=== PATIENT | male | born 1945 | race Caucasian/White ===

== ENCOUNTER 2023-10-09 14:24 | Outpatient (OUT) | payer SELFPAY | END 2023-10-09 14:25 | disposition home or self-care (01) | LOC: PST 14:24 | PROVIDERS: Visit Provider Urology | DX: Z01.818 Encounter for other preprocedural examination (principal); R31.0 Gross hematuria; Z85.46 Personal history of malignant neoplasm of prostate ==

== ENCOUNTER 2023-10-12 13:12 | Day surgery (SDC) | payer MEDICARE, OTHER, SELFPAY ==
--- NOTE | 2023-10-12 | XR_ITS ---
The [address] [address] Patient Name: COY TARANGO MRN: [id number] date: 1945 Sex: M Assigned Patient Location: [facility] Current Patient Location: [facility] Accession/Order Number: [id number] Exam Date: 10/12/2023 16:10 Report Date: 10/14/2023 06:31 At the request of: TRIP MATHIS Procedure: XR urethrogram retrograde EXAM: XR urethrogram retrograde HISTORY: kidney stone COMPARISON: None. TECHNIQUE: Intraoperative spot fluoroscopic image. FINDINGS: A single intraprocedural spot fluoroscopic images demonstrate retrograde filling of the ureters and upper collecting systems with contrast. No appreciable filling defect or abnormal dilation. XR/XR urethrogram retrograde IMPRESSION: 1. Patent bilateral ureters. No hydronephrosis. Electronically authenticated by: TAYLOR KIM Date: 10/14/2023 06:31
--- OUTSIDE RECORDS SUMMARY | 2023-10-12 13:39 | XMS_ITS | CCD ---
Author Organization [facility] Care Team Providers Care Uc Architect Name Role Phone NIRAJ PEREZ Unavailable Unavailable UNKNOWN, UNKNOWN Unavailable Unavailable LILLI, SAMIA H. Unavailable Unavailable CAR BROWNING Unavailable Unavailable CAR BROWNING Unavailable Unavailable LILLI, SAMIA H. Unavailable Unavailable DARBY FREEDMAN Unavailable Unavailable CAR BROWNING Unavailable Unavailable LILLI, SAMIA H. Unavailable Unavailable LILLI, SAMIA H. Unavailable Unavailable LILLI, SAMIA H. Unavailable Unavailable Car Browning DO Primary Care Provider [phone] Bari Vitale MD Unavailable [phone] Bari Vitale Unavailable DO Carlos Newsome Jr Attending Provider DO Fany Roper Primary Care Provider aFny Roper Primary Care Unavailab Dr. Naz Schultz Referring Unavailable Dr. Naz Kang Attending Unavailable Fany Roper Unavailable Unavailable Unavailable CLAUDIA Landers Other Provider Unavailable CLAUDIA Ma Other Provider Unavailable CLAUDIA Lopez Other Provider Unavailable CLAUDIA Farah Other Provider Unavailable CLAUDIA Olvera Other Provider Unavailable CLAUDIA Garcia Other Provider Unavailable MD George Chadwick Other Provider SAVANNA Henry Other Provider [phone] DO Mira Modi Other Provider MD Johnathon Miles Other Provider DO Smooth Templeton Other Provider MD Shayne Simental Other Provider MD Gena Jordan Other Provider August, ANP-BC Nya Other Provider MD Vannessa Chery Other Provider MD Camilo Galloway Other Provider MD Marjorie Xavier Other Provider MD Ethan Garcia Other Provider DO Fahad Brock Other Provider MD Bari Kelley Other Provider MD Maxine Ozuna Other Provider MD Tone Ferraro Other Provider Marycarmen, DIAMOND DIE DRILLER-C Glenny Doshi Other Provider MD Justnio Metz Other Provider MD Kojo Stock Other Provider MD Siena Watts Other Provider MD Uriel Gamboa Other Provider DO Bridget Keyes Other Provider Al MD Judy Kelly Other Provider DO Ra Arnold Other Provider DO Pramod Suarez Other Provider SAVANNA Grover Other Provider DO Kaden Esparza Other Provider MD Giuliano Rousseau Other Provider Phyllis, CLAUDIA Pratt Other Provider Unavailable MD Pa Holloway Admit Provider MD Pa Holloway Attending Provider MD Phil Cabezas Other Provider Dr. NAZ KANG Attending Unavailable Dr. KIMBERLEE NAZ Referring Unavailable Judson, Fany Henry Primary Care Unavailab le KIMBERLEE, Dr. ARRIETA Attending Unavailable KIMBERLEE, Dr. ARRIETA Referring Unavailable Judson, Fany Henry Primary Care Unavailab le KIMBERLEE, Dr. ARRIETA Attending Unavailable KANG, Dr. ARRIETA Referring Unavailable Judson, Fany Figueroa Primary Care Unavailab vaughn Vitale MD, Bari Judge Unavailable [phone] Judson, Fany Dongold Primary Care Provider Frank Jiménez Unavailable Judson, DO Curtis R Primary Care Provider MD Frank Jiménez Attending Provider DO Dontrell Latif Emergency Provider Anahy YANGIAGO, FANY HENRY Primary Care Unavailab GUNNER Gan Referring Unavailable Judson KADEEM, Fany Figueroa Primary Care Provide r Judson, DO Curtis R Primary Care Provider DEEPA Angelo Juliane Attending Provider Angelo, Juliane Unavailable Car Browning DO Primary Care Provider JR. NEWSOME GEORGE C Referring Unavaila ble MAPUS, RAYO Doshi Attending Unavailable JR. NEWSOME GEORGE C Referring Unavaila ble MAPUS, RAYO Doshi Attending Unavailable Judson, DO Curtis R Primary Care Provider DO Dontrell Latif Emergency Provider JAY JAY Estrella Attending Provider JUDSON, FANY R Primary Care Physician MD Ashwin Mathis Attending Provider Angelo, Juliane Attending Unavailable Petey, Juliane Admitting Unavailable Judson, Fany R Primary Care Unavailable Judson, Fany R Primary Care Unavailable Ashwin Mathis Attending Unavailable Ashwin Mathis Admitting Unavailable Judson, Fany R Primary Care Unavailable Agustina Quintero Attending Unavailable Agustina Quintero Admitting Unavailable Judson, Fany R Primary Care Unavailable Frank Jiménez Attending Unavailable Frank Jiménez Admitting Unavailable Judson, Fany R Primary Care Unavailable Dontrell Latif Attending Unavailable Dontrell Latif Admitting Unavailable Judson, Fany R Primary Care Unavailable Dontrell Latif Attending Unavailable Dontrell Latif Admitting Unavailable MATHIS, Ashwin R Attending Unavailable MATHIS, Ashwin R Attending Unavailable MATHIS, Ashwin R Attending Unavailable MATHIS, Ashwin R Admitting Unavailable MATHIS, Ashwin R Attending Unavailable Judson [facility] Provide r JUDSON, [facility] Unavailab le SWAN, R BAIRON Referring Unavailable JUDSON, [facility] Unavailab le SWAN, R BAIRON Attending Unavailable SWAN, R BAIRON Referring Unavailable SWAN, R BAIRON Attending Unavailable JUDSON, [facility] Unavailab le JUDSON, [facility] Unavailab le SWAN, R BAIRON Attending Unavailable JUDSON, [facility] Unavailab le SWAN, R BAIRON Attending Unavailable JUDSON, [facility] Unavailab le SWAN, R BAIRON Referring Unavailable JUDSON, [facility] Unavailab le SWAN, R BAIRON Referring Unavailable Allergies Allergy Classification Reported Allergen(s) Allergy Type Date of Onset Reaction(s) Facility (1 source) No Known Medication Allergies; Translations: [No Known Medication Allergies] Propensity to adverse reactions (disorder) [facility] Repository Medications Current Medications Medication Drug Class(es) Dates Sig (Normalized) Sig (Original) acetaminophen 500 mg oral tablet (19 sources) Start: 03-01-2022 take 1000 mg by mouth three times daily Acetaminophen Active 1000 MG PO Three times daily 0 March 01, 2022 12:00am Start: 01-04-2021 End: 06-08-2022 take 2-3 tablets by mouth once daily acetaminophen (TYLENOL EXTRA STRENGTH) 500 mg tablet 1000mg orally 2-3 per day, max 0 01/04/2021 06/08/2022 Discontinued (Course of therapy completed) Comment on above: 1000mg orally 2-3 pe r day, max acetaminophen 325 mg / oxyCODONE hydrochloride 5 mg oral tablet (19 sources) Opioid Agonist Start: 3 End: 3 take 1 tablet by mouth every four hours as needed for pain oxyCODONE-acetaminophe n (PERCOCET) 5-325 mg tablet Indications: Postoperative pain Take 1 tablet by mouth every 4 hours as needed for pain for up to 7 days. for pain. 42 tablet 0 09/29/2022 10/06/2022 Active Start: 10-19-2020 take 1 tablet by tyshawn th twice daily as needed oxyCODONE-Acetaminophen 5-325 MG 1 table t as needed Orally twice daily as needed for 30 days Oct, Active Start: 2018 End: 04-20-2018 take 2 tablets by mouth every four hours Oxycodone-Acetaminophen (Percocet) 5-325 mg tablet Discontinued 2 TAB PO Q4H 20 2018 April 20, 2018 3:23pm Comment on above: Take 1 tablet by tyshawn th every 4 hours as needed for pain for up to 7 days. for pain. aspirin 81 mg delayed release oral tablet (8 sources) Platelet Aggregation Inhibitor, Nonsteroidal Anti-inflammatory Drug Start: 03-01-2022 take 81 mg by mouth twice daily Aspirin Active 81 MG PO Twice daily 0 March 01, 2022 12:00am take 1 tablet by mouth once shameka y Aspirin EC 81 MG Oral Tablet Delayed Release TAKE 1 TABLET DAILY. Quantity: 90 Refills: 3 Ordered: 07-Feb-2022 DO Active atorvastatin 20 mg oral tablet (20 sources) HMG-CoA Reductase Inhibitor Start: 03-01-2022 take 1 mg by mouth once daily atorvastatin 20 mg Tab mg tab(s), Oral, Daily Start Date: 08/23/23 Status: Ordered Start: 03-10-2017 End: 03-01-2022 take 20 mg by mouth once daily Atorvastatin Discontinu ed 20 MG PO Daily March 10, 2017 12:00am March 01, 2022 1:04pm Start: 06-06-2003 LIPITOR 10MG T ABLET Take 20 mg by mouth. 0 06/06/2003 Active Atorvastatin Scott cium 10 MG Oral Tablet Quantity: 0 Refills: 0 Ordered: 22-Oct-2015 DO Active Comment on above: Take 20 mg by mouth. bisacodyl 10 mg rectal suppository (6 sources) Stimulant Laxative Start: 03-01-20 Bisacodyl Active 10 MG NH Daily March 01, 2022 12:00am cholecalciferol 0.025 mg oral tablet (1 source) Vitamin D take 1 tablet by mouth once daily cholecalciferol (VITAMIN D3) 1,000 unit tab tablet Take 1,000 Units by mouth once daily. 0 Active docusate sodium 100 mg oral capsule (13 sources) Start: 03-01-20 End: 10-30-19 take 100 mg by mouth twice daily Docusate Sodium Active 100 MG PO Twice daily March 01, 2022 12:00am Start: 03-01-2022 Docusate Sodiu m (Enemeez) 283 mg/5 mL Enema Active 283 MG NH Daily 0 March 01, 2022 12:00am Comment on above: Take 1 capsule by mo uth twice daily. gabapentin 100 mg oral capsule (20 sources) Anti-epileptic Agent Start: 08-23-2023 take 1 mg by mouth three times daily gabapentin 100 mg Cap mg cap(s), Oral, TID Start Date: 08/23/23 Status: Ordered Start: 02-01-2022 End: 02-17-2022 take 700 mg by mouth twice daily Gabapentin Discontinued 700 MG PO Twice daily February 01, 2022 12:00am February 17, 2022 7:51pm Gabapentin 800 M G as directed Orally twice daily Active take 7 tablets by mo ut twice daily Gabapentin 100 MG Oral Capsule takes 7 tabs 2 times a day Quantity: 0 Refills: 0 Ordered: 07-Feb-2022 DO Active take 7 tablets by mo ut twice daily GABAPENTIN ORAL Take by mouth. Take seven tablets twice a day 0 Active Comment on above: Take by mouth. Take seven tablets twice a day Insulin Aspart U-100 (Novolog Flexpen U-100 Insulin) 100 unit/mL (3 mL) Insulin Pen (6 sources) Start: 03-01-2022 Insulin Aspart U-100 (Novolog Flexpen U-100 Insulin) 100 unit/mL (3 mL) Insulin Pen Active 0 UNITS SUBCUT Before meals and at bedtime March 01, 2022 12:00am Lantus (20 sources) Insulin Analog Start: 08-23-2023 Lantus SubCutaneous, Daily Start Date: 08/23/23 Status: Ordered Start: 03-01-2022 Insulin Glargi ne (Lantus Solostar U-100 Insulin) 100 unit/mL (3 mL) Insulin Pen Active 34 UNITS SUBCUT Twice daily 0 March 01, 2022 12:00am Start: 03-18-2018 End: 03-01-2022 Insulin Glargine (Lantus Gloria ostar U-100 Insulin) 100 unit/mL (3 mL) Insulin Pen Discontinued 30 UNIT SUBCUT Twice daily March 18, 2018 1:00am March 01, 2022 1:04pm Start: 03-18-2018 Insulin Glargi ne (Lantus Solostar U-100 Insulin) 100 unit/mL (3 mL) Insulin Pen Active 35 UNIT SUBCUT Twice daily March 18, 2018 1:00am inject 45 [IU] by escobar bcutaneous injection twice daily insulin glargine (LANTUS) 100 unit/mL injection Inject 45 Units subcutaneously twice daily. 0 Active inject 55 [IU] by escobar bcutaneous injection once daily Lantus 100 UNIT/ML Subcutaneous Daily 55 units Active Comment on above: Inject 45 Units subc utaneously twice daily. lactulose 667 mg/ml oral solution (6 sources) Osmotic Laxative Start: 2 take 30 g by mouth once daily Lactulose Active 30 GM PO Daily 0 March 01, 2022 12:00am lisinopril 20 mg oral tablet (20 sources) Angiotensin Converting Enzyme Inhibitor Start: 4 take 1 mg by mouth once daily lisinopril 20 mg Tab mg tab(s), Oral, Daily Start Date: 08/23/23 Status: Ordered Start: 03-01-2022 take 10 mg by mouth once daily Lisinopril Active 10 MG PO Daily 0 March 01, 2022 12:00am Start: 03-10-2017 End: 03-01-2022 take 20 mg by mouth once daily Lisinopril Discontinued 20 MG PO Daily March 10, 2017 12:00am March 01, 2022 1:04pm Start: 06-06-2003 End: 06-08-2022 PRINIVIL 10MG TABLET Take 40 mg by mouth. 0 06/06/2003 06/08/2022 Discontinued (Course of therapy completed) lisinopril (ZEST RIL, PRINIVIL) 20 mg tablet Take by mouth q 12 HR. 0 Active take 1 tablet by tyshawn th every twelve hours Lisinopril 20 mg 1 tablet Orally bid Active take 2 tablets by mo okh once daily Lisinopril 20 MG Oral Tablet TAKE 2 TABLETS DAILY. Quantity: 0 Refills: 0 Ordered: 07-Feb-2022 DO Active Comment on above: Take 40 mg by mouth. Take by mouth q 12 H R. methocarbamol 750 mg oral tablet (3 sources) Muscle Relaxant Start: 09-30-19 End: 10-14-19 take 1 tablet by mouth three times daily methocarbamol (ROBAXIN) 750 mg tablet Take 1 tablet by mouth three times daily for 14 days. 42 tablet 0 09/29/2022 10/13/2022 Active Comment on above: Take 1 tablet by [facility] three times daily for 14 days. mupirocin 0.02 mg/mg topical ointment (3 sources) RNA Synthetase Inhibitor Antibacterial Start: 09-28-19 End: 10-03-19 mupirocin (BACTROBAN) 2 % ointment two times a day for 5 days. Apply 0.5 inch with cotton swab (Q-tip) to each nostril in the morning and evening for 5 days prior to and including day of surgery. 22 g 0 09/28/2023 10/03/2023 Active Start: 06-08-2022 End: 06-13-2022 mupirocin (BACTROBAN) 2 % oi ntment twice daily for 5 days. Apply 0.5 inch with cotton swab (Q-tip) to each nostril in the morning and evening for 5 days prior to and including day of surgery. 22 g 0 06/08/2022 06/13/2022 Active Comment on above: twice daily for 5 da ys. Apply 0.5 inch with cotton swab (Q-tip) to each nostril in the morning and evening for 5 days prior to and including day of surgery. OTC NUTRITIONAL SUPPLEMENT (1 source) OTC NUTRITIONAL SUPPLEMENT Take by mouth once daily. Prevagen-Memory Supplement 0 Active Ozempic (13 sources) Start: 03-01-2022 Ozempic Active 1 mg subcut Escobar@0900 0 March 01, 2022 12:00am Ozempic Active Ozempic (1 mg dose) (4 sources) Start: 08-23-2023 Ozempic (1 mg dose) Start Date: 08/23/23 Status: Ordered pioglitazone 30 mg oral tablet (9 sources) Peroxisome Proliferator Receptor alpha Agonist, Peroxisome Proliferator Receptor gamma Agonist, Thiazolidinedione Start: 08-23-2023 take 1 mg by mouth once daily pioglitazone 30 mg Tab mg tab(s), Oral, Daily Start Date: 08/23/23 Status: Ordered take 1 tablet by tyshawn every twenty-four hours Pioglitazone HCl 15 MG 1 tablet Orally Once a day Active polyethylene glycol 3350 01548 mg powder for oral solution (4 sources) Osmotic Laxative Start: 10-10-2022 Polyethylene Glycol 3350 (Miralax) 17 gram/dose powder Active 17 GM PO Twice daily October 10, 2022 12:00am mix into 4-8 oz. of any hot/cold/room temp. beverage; use immediately Psyllium Husk (Metamucil) 0.4 gram capsule (4 sources) Start: 10-10-2022 Psyllium Husk (Metamucil) 0.4 gram capsule Active 0.4 GM PO Daily October 10, 2022 12:00am semaglutide (OZEMPIC SUBCUTANEOUS) (20 sources) semaglutide (OZE MPIC SUBCUTANEOUS) Inject subcutaneously. Once a week 0 Active Comment on above: Inject subcutaneousl y. Once a week Sennosides (Senna Lax) 8.6 mg Tablet (6 sources) Start: 03-01-2022 take 2 tablets by mouth once daily Sennosides (Senna Lax) 8.6 mg Tablet Active 2 TAB PO DAILY@1200 0 March 01, 2022 12:00am thiamine 100 mg oral tablet (4 sources) Start: 08-23-2023 take 1 mg by mouth once daily thiamine 100 mg Tab mg tab(s), Oral, Daily Start Date: 08/23/23 Status: Ordered Vitamin B Complex (5 sources) Vitamin B Comple x - Orally Active Completed/Discontinued Medications Medication Drug Class(es) Dates Sig (Normalized) Sig (Original) acetaminophen 325 mg / HYDROcodone bitartrate 5 mg oral tablet (18 sources) Opioid Agonist Start: 04-26-2018 End: 07-03-2019 take 1 tablet by mouth every six hours Hydrocodone-Acetami nophen ([place]) 5-325 mg tablet Discontinued 1 TAB PO Q6H 10 3 April 26, 2018 July 03, 2019 8:48am Start: 04-20-2018 End: 04-26-2018 take 1 tablet by mouth every four to six hours Hydrocodone-Acetaminophen ([place]) 5-325 mg tablet Discontinued 1 TAB PO EVERY 4-6 HOURS 10 April 20, 2018 April 26, 2018 2:18pm baclofen 20 mg oral tablet (13 sources) gamma-Aminobutyric Acid-ergic Agonist Start: 12-15-2020 End: 06-08-2022 take 0.5 tablet by mouth at bedtime as needed, then take 1 tablet by mouth at bedtime as needed baclofen (LIORESAL) 20 mg tablet TAKE 1/2 TABLET BY MOUTH AT BEDTIME NEEDED MAY INCREASE TO 1 TABLET AT BEDTIME IF NEEDED 0 12/15/2020 06/08/2022 Discontinued (Course of therapy completed) Comment on above: TAKE 1/2 TABLET BY MOUTH AT BEDTIME N EEDED MAY INCREASE TO 1 TABLET AT BEDTIME IF NEEDED cephalexin 500 mg oral capsule (4 sources) Cephalosporin Antibacterial Start: 09-15-2023 Keflex 500 mg Cap 500 mg = 1 cap(s), Oral, As Directed, Pt to take 1 tab the day before procedure and the 2nd tab the day of procedure once completed., # 2 cap(s), Refills(s) 0, Pharmacy: [id number], 170, cm, 09/15/23 10:24:00 EDT, Height/Length Dosing, 125, kg, 09/15/23 10:24:00 EDT, Weight Dosing Start Date: 09/15/23 Status: Ordered Start: 07-10-2023 take 500 mg by mouth twice daily Cephalexin Active 500 MG PO Twice daily 18 11July 10, 2023 1:00am ciprofloxacin 500 mg oral tablet (2 sources) Quinolone Antimicrobial Start: 08-23-2023 Cipro 500 mg Tab 500 mg = 1 tab(s), Oral, As Directed, Patient to take 1 tab the day before procedure and the 2nd tab the day of procedure once completed, # 2 tab(s), Refills(s) 0, Pharmacy: [id number], 170, cm, 08/23/23 10:48:00 EDT, Height/Length Dosing, 125, kg, 08/23/23 10:48:00 EDT, Weight Dosing Start Date: 08/23/23 Status: Ordered Cyanocobalamin (Vitamin B-12) (Vitamin B-12) 5,000 mcg Tablet, Sublingual (9 sources) Start: 03-10-2017 End: 02-01-2022 take 1 tablet under the tongue once daily Cyanocobalamin (Vitamin B-12) (Vitamin B-12) 5,000 mcg Tablet, Sublingual Discontinued 5000 MCG SUBLINGUAL Daily March 10, 2017 12:00am February 01, 2022 4:08pm cyanocobalamin, vitamin B-12, (VITAMIN B-12 ORAL) (13 sources) End: 06-08-2022 cyanocobalamin, vitamin B-12, (VITAMIN B-12 ORAL) Take 1,000 Units by mouth. 0 06/08/2022 Discontinued (Course of therapy completed) cyanocobalamin, vitamin B-12, (VITAMIN B-12 ORAL) Take 1,000 Units by mouth. 0 Active Comment on above: Take 1,000 Units by mouth. diclofenac sodium 75 mg delayed release oral tablet (9 sources) Nonsteroidal Anti-inflammatory Drug Start: 7 End: 8 take 75 mg by mouth once daily Diclofenac Sodium Discontinued 75 MG PO Daily March 10, 2017 12:00am March 18, 2018 8:02pm DULoxetine 30 mg delayed release oral capsule (9 sources) Serotonin and Norepinephrine Reuptake Inhibitor Start: 7 End: 8 take 30 mg by mouth twice daily Duloxetine Discontinued 30 MG PO Twice daily March 10, 2017 12:00am March 18, 2018 8:02pm ferrous sulfate 325 mg oral tablet (20 sources) Start: 7 End: ferrous sulfate (IRON) 325 mg (65 mg iron) tablet 65 mg. 0 03/10/2017 06/08/2022 Discontinued (Course of therapy completed) Iron 325 (65 Fe) MG Oral Tablet Quantity: 0 Refills: 0 Ordered: 22-Oct-2015 DO Active Comment on above: 65 mg. glimepiride 4 mg oral tablet (13 sources) Sulfonylurea Start: 06-06-2003 End: 06-08-2022 AMARYL 4MG TABLET glipiZIDE 10 mg oral tablet (18 sources) Sulfonylurea Start: 03-18-2018 End: 02-01-2022 take 10 mg by mouth twice daily Glipizide Discontinued 10 MG PO Twice daily March 18, 2018 1:00am February 01, 2022 4:12pm take 1.5 tablets by mouth every twenty-four hours glipiZIDE 10 MG Oral Tablet Quantity: 0 Refills: 0 Ordered: 22-Oct-2015 DO Active Insulin Aspart U-100 (Novolog U-100 Insulin Aspart) 100 unit/mL Solution (9 sources) Start: 04-20-2018 End: 02-01-2022 inject 30 [IU] by subcutaneous injection twice daily Insulin Aspart U-100 (Novolog U-100 Insulin Aspart) 100 unit/mL Solution Discontinued 30 UNITS SUBCUT Twice daily April 20, 2018 1:00am February 01, 2022 4:12pm 3 ml insulin aspart, human 100 unt/ml pen injector (14 sources) Insulin Analog Start: 03-18-2018 End: 07-03-2019 Insulin Aspart U-100 (Novolog Flexpen U-100 Insulin) 100 unit/mL Insulin Pen Discontinued 16 UNIT SUBCUT once daily before breakfast March 18, 2018 1:00am July 03, 2019 8:47am NovoLOG 100 UNIT /ML as directed Subcutaneous Active Iron (9 sources) Start: 03-10-2017 End: 02-01-2022 take 65 mg by mouth once daily Iron Discontinued 65 MG PO Daily March 10, 2017 12:00am February 01, 2022 4:12pm 3 ml liraglutide 6 mg/ml pen injector (20 sources) GLP-1 Receptor Agonist Start: 02-01-2022 End: 02-20-2022 Liraglutide (Victoza 2-Roberto) 0.6 mg/0.1 mL (18 mg/3 mL) Pen Injector Discontinued 1 MG SUBCUT every week February 01, 2022 12:00am February 20, 2022 3:51pm takes on Monday inject 1.8 mg by sub cutaneous injection once daily liraglutide (VICTOZA) 0.6 mg/ 0.1 ml subcutaneous pen injector Inject 1.8 mg subcutaneously once daily. 0 Active Comment on above: Inject 1.8 mg subcut aneously once daily. metFORMIN hydrochloride 500 mg oral tablet (20 sources) Biguanide Start: 06-06-2003 End: 06-08-2022 Metformin Discontinued TABLET May 29, 2017 1:00am March 18, 2018 8:02pm metFORMIN HCl - 1000 MG Oral Tablet Quantity: 0 Refills: 0 Ordered: 22-Oct-2015 DO Active Comment on above: Take one(1) tablet d aily. Multi Complete CAPS (2 sources) Multi Complete C APS TAKE DIRECTED. Quantity: 0 Refills: 0 Ordered: 07-Feb-2022 DO Active Semaglutide (6 sources) Start: 2 End: 2 inject 1 mg by subcutaneous injection every week Semaglutide (Ozempic) 1 mg/dose (4 mg/3 mL) Pen Injector Discontinued 1 MG SUBCUT every week February 20, 2022 12:00am March 01, 2022 1:04pm TAKES ON MONDAY Problems Active Problems Problem Classification Problem Date Documented Da te Episodic/Chronic Abdominal pain (7 sources) Right upper quadrant pain; Translations: [Right upper quadrant pain] Episodic Acute cerebrovascular disease (4 sources) Cerebrovascular accident 08-23-2023 Chronic Acute posthemorrhagic anemia (14 sources) Anemia following acute postoperative blood loss; Translations: [Acute posthemorrhagic anemia] 02-18-2022 Episodic Administrative/social admission (7 sources) Other reduced mobility; Translations: [Impaired mobility and activities of daily living] 02-19-2022 Episodic Alcohol-related disorders (11 sources) Alcohol abuse; Translations: [Alcohol abuse, uncomplicated] Onset: 3 06-08-2022 Chronic Cancer of prostate (4 sources) Malignant tumor of prostate 08-18-2023 Chronic Cancer of prostate (20 sources) History of malignant neoplasm of prostate; Translations: [Personal history of malignant neoplasm of prostate] Onset: 2 Episodic Chronic kidney disease (20 sources) Chronic kidney disease stage 3; Translations: [Stage 3 chronic kidney disease] Onset: 3 02-18-2022 Chronic Chronic kidney disease (1 source) Chronic kidney disease; Translations: [Chronic kidney disease, stage 3 unspecified] Onset: 4 Complications of surgical procedures or medical care (3 sources) Pseudarthrosis following spinal fusion; Translations: [Pseudarthrosis after fusion or arthrodesis] Episodic Coronary atherosclerosis and other heart disease (17 sources) Coronary arteriosclerosis; Translations: [Coronary atherosclerosis of unspecified type of vessel, venetie ira or graft] Onset: 2 Chronic Deficiency and other anemia (2 sources) Anemia, unspecified Episodic Diabetes mellitus with complications (20 sources) Type 2 diabetes mellitus; Translations: [Type 2 diabetes mellitus with diabetic polyneuropathy] Onset: 3 Chronic Diabetes mellitus without complication (18 sources) Diabetes mellitus; Translations: [Diabetes mellitus without mention of complication, type II or unspecified type, not stated as uncontrolled] Onset: 2 02-17-2022 Chronic Diabetes mellitus without complication (1 source) Diabetes mellitus without complication Onset: 8 Disorders of lipid metabolism (20 sources) Hyperlipidemia; Translations: [Other and unspecified hyperlipidemia] Onset: 8 02-20-2022 Chronic Essential hypertension (20 sources) Benign essential hypertension; Translations: [Benign essential hypertension] Onset: 8 02-17-2022 Chronic Essential hypertension (1 source) Essential hypertension Onset: 8 Genitourinary symptoms and ill-defined conditions (17 sources) Intermittent urinary incontinence; Translations: [Unspecified urinary incontinence] Onset: 3 06-08-2022 Chronic Genitourinary symptoms and ill-defined conditions (12 sources) History of urinary tract infection; Translations: [Personal history of urinary (tract) infections] Onset: 4 Episodic Mood disorders (11 sources) Major depression, single episode; Translations: [Major depressive disorder, single episode, unspecified] Onset: 3 06-08-2022 Chronic Osteoarthritis (13 sources) Osteoarthritis of hip; Translations: [Unilateral primary osteoarthritis, left hip] 08-23-2023 Chronic Other bone disease and musculoskeletal deformities (1 source) Segmental and somatic dysfunction of cervical region; Translations: [Segmental and somatic dysfunction of cervical region] Onset: 8 Episodic Other circulatory disease (13 sources) History of cardioembolic stroke; Translations: [Personal history of transient ischemic attack (TIA), and cerebral infarction without residual deficits] Onset: 3 Episodic Other connective tissue disease (7 sources) History of total hip arthroplasty; Translations: [Presence of right artificial hip joint] 02-17-2022 Chronic Other connective tissue disease (3 sources) Presence of right artificial hip joint; Translations: [Hip joint replacement] 02-19-2022 Chronic Other connective tissue disease (4 sources) History of lumbar fusion; Translations: [Arthrodesis status] Episodic Other connective tissue disease (9 sources) Foot pain; Translations: [Pain in left foot] 07-03-2019 Episodic Other connective tissue disease (2 sources) Mass of soft tissue; Translations: [Other disorders of soft tissue] Episodic Other connective tissue disease (2 sources) Bursitis of left hip; Translations: [Enthesopathy of hip region] Episodic Other connective tissue disease (1 source) Arthrodesis status; Translations: [S/P lumbar fusion] Onset: 3 Episodic Other gastrointestinal disorders (4 sources) Constipation; Translations: [Constipation, unspecified] 10-10-2022 Episodic Other lower respiratory disease (13 sources) Dyspnea on exertion; Translations: [Other forms of dyspnea] Onset: 3 Episodic Other male genital disorders (12 sources) Secondary erectile dysfunction; Translations: [Male erectile dysfunction, unspecified] Onset: 2 06-08-2022 Chronic Other nervous system disorders (7 sources) Chronic pain; Translations: [Other chronic pain] Chronic Other nervous system disorders (3 sources) Other chronic pain Onset: 2 Resolved: 2 Chronic Other nutritional; endocrine; and metabolic disorders (8 sources) Body mass index 40+ - severely obese; Translations: [Morbid obesity] 02-20-2022 Chronic Other nutritional; endocrine; and metabolic disorders (1 source) Morbid (severe) obesity due to excess calories; Translations: [Morbid obesity] 03-01-2022 Chronic Other nutritional; endocrine; and metabolic disorders (6 sources) Severe obesity; Translations: [Morbid (severe) obesity due to excess calories] Onset: 2 Chronic Other nutritional; endocrine; and metabolic disorders (7 sources) Obesity; Translations: [Obesity, unspecified] Onset: 2 09-12-2022 Chronic Other nutritional; endocrine; and metabolic disorders (2 sources) Body mass index 30+ - obesity; Translations: [Body mass index (BMI) 38.0-38.9, adult] Chronic Other nutritional; endocrine; and metabolic disorders (2 sources) Body mass index (BMI) 38.0-38.9, adult Chronic Other nutritional; endocrine; and metabolic disorders (4 sources) Morbid obesity 08-18-2023 Chronic Other nutritional; endocrine; and metabolic disorders (5 sources) H/O: Disorder; Translations: [Personal history of other endocrine, nutritional and metabolic disease] Onset: 4 Episodic Other screening for suspected conditions (not mental disorders or infectious disease) (4 sources) Electrocardiogram abnormal; Translations: [Nonspecific abnormal electrocardiogram [ECG] [EKG]] Onset: 2 Episodic Residual codes; unclassified (2 sources) Sleep apnea; Translations: [Obstructive sleep apnea (adult)(pediatric)] Chronic Residual codes; unclassified (20 sources) Obstructive sleep apnea syndrome; Translations: [Obstructive sleep apnea (adult) (pediatric)] Onset: 8 02-20-2022 Chronic Residual codes; unclassified (2 sources) Daytime somnolence; Translations: [Other hypersomnia] Chronic Residual codes; unclassified (2 sources) Obstructive sleep apnea (adult) (pediatric) Chronic Residual codes; unclassified (2 sources) Other hypersomnia Chronic Residual codes; unclassified (1 source) Obstructive sleep apnea (adult)(pediatric); Translations: [Obstructive sleep apnea (adult) (pediatric)] Onset: 3 Chronic Residual codes; unclassified (1 source) Pain; Translations: [Pain, unspecified] Episodic Residual codes; unclassified (2 sources) History of operative procedure on lumbar spinal structure; Translations: [Other specified postprocedural states] 02-28-2023 Episodic Residual codes; unclassified (4 sources) Current drinker 08-23-2023 Episodic Residual codes; unclassified (1 source) Other specified postprocedural states; Translations: [Status post lumbar spine operative procedure for decompression of spinal cord] Onset: 4 Episodic Spondylosis; intervertebral disc disorders; other back problems (12 sources) Post-laminectomy syndrome; Translations: [Postlaminectomy syndrome, not elsewhere classified] Onset: 2 Resolved: 2 Chronic Spondylosis; intervertebral disc disorders; other back problems (20 sources) Radiculopathy, lumbosacral region; Translations: [Radiculopathy, site unspecified] Onset: 8 Resolved: 2 Episodic Thyroid disorders (11 sources) Hypothyroidism; Translations: [Hypothyroidism, unspecified] Onset: 3 06-08-2022 Chronic Unclassified (2 sources) Encounter for preprocedural cardiovascular examination / Z01.810(ICD-9) Onset: 8 Unclassified (1 source) Athscl heart disease of [place] coronary artery w/o ang pctrs / I25.10(ICD-9) Onset: 8 Unclassified (1 source) Pure hypercholesterolemia, unspecified / E78.00(ICD-9) Onset: 8 Unclassified (1 source) Personal history of nicotine dependence / Z87.891(ICD-9) Onset: 8 Unclassified (1 source) Dorsalgia, unspecified / M54.9(ICD-9) Onset: 8 Urinary tract infections (2 sources) Acute hemorrhagic cystitis; Translations: [Acute cystitis with hematuria] 07-18-2023 Episodic Past or Other Problems Problem Classification Problem Date Documented Da te Episodic/Chronic Other aftercare (11 sources) Long-term current use of insulin; Translations: [longterm (current) use of insulin] Onset: 02-17-2022 06-08-2022 Episodic Other connective tissue disease (20 sources) Disorder of rotator cuff; Translations: [Other specified disorders of rotator cuff syndrome of shoulder and allied disorders] Onset: 08-12-2003 09-01-2003 Episodic Other gastrointestinal disorders (1 source) Constipation, unspecified; Translations: [Constipation, unspecified] Onset: 10-10-2022 Episodic Other non-traumatic joint disorders (3 sources) Pain in right hip Onset: 09-06-2021 Resolved: 11-10-2021 Episodic Other upper respiratory disease (11 sources) Pharyngeal stenosis; Translations: [Other diseases of pharynx] Onset: 06-08-2022 06-08-2022 Episodic Screening and history of mental health and substance abuse codes (18 sources) Ex-smoker; Translations: [Personal history of tobacco use] Onset: 07-26-2017 06-08-2022 Episodic Substance-related disorders (3 sources) Opioid use, unspecified, uncomplicated Onset: 09-06-2021 Resolved: 11-10-2021 Episodic Unclassified (1 source) Encounter for preprocedural cardiovascular examination; Translations: [Encounter for preprocedural cardiovascular examination] Onset: 07-26-2017 Results Test Name Value Interpretation Reference Range Facility TYPE AND SCREEN,30 DAYon ABO group Nom (Bld) A [facility] Blood group antibody screen Ql Negative [facility] HIstorical Ab Scr Status Negative [facility] Rh Nom (Bld) Positive [facility] Basic metabolic 2000 panelon 09-28-2023 Anion gap [Moles/Vol] 14 mmol/L Normal 9-18 [facility] Comment on above: Order Comment: Speci men Type: BLOOD SPECIMENOrdering Facility: [facility] Address: [address] [place] [address] Performed By: #### 2 4321-2 ####[facility] LABCLIA [id number] [place] [address] [place] Calcium [Mass/Vol] 9.2 mg/dL Normal 8.5-10.2 [facility] Comment on above: Order Comment: Speci men Type: BLOOD SPECIMENOrdering Facility: [facility] Address: [address] [place] [address] Performed By: #### 2 4321-2 ####[facility] LABCLIA [id number] [place] [address] [place] Chloride [Moles/Vol] 97 mmol/L Normal 97-105 [facility] Comment on above: Order Comment: Speci men Type: BLOOD SPECIMENOrdering Facility: [facility] Address: [address] [place] [address] Performed By: #### 2 4321-2 ####[facility] LABCLIA [id number] [place] [address] [place] CO2 [Moles/Vol] 25 mmol/L Normal 22-30 [facility] Comment on above: Order Comment: Speci men Type: BLOOD SPECIMENOrdering Facility: [facility] Address: [address] [place] [address] Performed By: #### 2 4321-2 ####[facility] LABCLIA [id number] [place] [address] [place] Creatinine [Mass/Vol] 1.94 mg/dL High 0.73-1.22 [facility] Comment on above: Order Comment: Deny mendez Type: BLOOD SPECIMENOrdering Facility: [facility] Address: [address] [place] [address] Performed By: #### 2 4321-2 ####[facility] LABIA [id number] [place] [address] [place] Creatinine and Glomerular filtration rate.predicted panel (S/P/Bld) 35 mL/min/1.73m??? Low >=60 [facility] Comment on above: Order Comment: Deny mendez Type: BLOOD SPECIMENOrdering Facility: [facility] Address: [address] [place] [address] Result Comment: Pat mated Glomerular Filtration Rate (eGFR) is calculated using the 2020 CKD-EPI creatinine equation. This equation utilizes serum creatinine, sex, and age as parameters. The creatinine assay has traceable calibration to isotope dilution-mass spectrometry. Refer to KDIGO guidelines for clinical interpretation. In patients with unstable renal function, e.g. those with acute kidney injury, the eGFR may not accurately reflect actual GFR. Performed By: #### 2 4321-2 ####[facility] LABCLIA [id number] [place] [address] [place] Glucose [Mass/Vol] 260 mg/dL High 74-99 [facility] Comment on above: Order Comment: Deny mendez Type: BLOOD SPECIMENOrdering Facility: [facility] Address: [address] [place] [address] Result Comment: The [place] Diabetes Association (ADA) provides guidance for cutoff values for fasting glucose and random glucose. The ADA defines fasting as no caloric intake for at least 8 hours. Fasting plasma glucose results between 100 to 125 mg/dL indicate increased risk for diabetes (prediabetes). Fasting plasma glucose results greater than or equal to 126 mg/dL meet the criteria for diagnosis of diabetes. In the absence of unequivocal hyperglycemia, results should be confirmed by repeat testing. In a patient with classic symptoms of hyperglycemia or hyperglycemic crisis, random plasma glucose results greater than or equal to 200 mg/dL meet the criteria for diagnosis of diabetes. Reference: Standards of Medical Care in Diabetes 2016, [place] Diabetes Association. Diabetes Care. 2016.39(Suppl 1). Performed By: #### 2 4321-2 ####[facility] LABCLIA [id number] [place] [address] [place] Potassium [Moles/Vol] 5.2 mmol/L High 3.7-5.1 [facility] Comment on above: Order Comment: Deny mendez Type: BLOOD SPECIMENOrdering Facility: [facility] Address: [address] [place] [address] Performed By: #### 2 4321-2 ####[facility] LABCLIA [id number] [place] [address] [place] Sodium [Moles/Vol] 136 mmol/L Normal 136-144 [facility] Comment on above: Order Comment: Deny mendez Type: BLOOD SPECIMENOrdering Facility: [facility] Address: [address] [place] [address] Performed By: #### 2 4321-2 ####[facility] LABCLIA [id number] [place] [address] [place] Urea nitrogen [Mass/Vol] 29 mg/dL High 9-24 [facility] Comment on above: Order Comment: Deny mendez Type: BLOOD SPECIMENOrdering Facility: [facility] Address: [address] [place] [address] Performed By: #### 2 4321-2 ####[facility] LABCLIA [id number] [place] [id number] [place] CBC panel Auto (Bld)on 09-27 Erythrocyte distribution width (RBC) [Ratio] 14.1 % 11.5 - 15.0 % [facility] Hematocrit (Bld) [Volume fraction] 43.6 % 39.0 - 51.0 % [facility] Hemoglobin (Bld) [Mass/Vol] 13.9 g/dL 13.0 - 17.0 g/dL [facility] Interpretation and review of laboratory results Abnormal [facility] MCH (RBC) [Entitic mass] 32.7 pg 26. 0 - 34.0 pg [facility] MCHC (RBC) [Mass/Vol] 31.9 g/dL 30.5 - 36.0 g/dL [facility] MCV (RBC) [Entitic vol] 102.6 fL High 80.0 - 100.0 fL [facility] Nucleated RBC (Bld) [#/Vol] NINF [facility] Platelet mean volume (Bld) [Entitic vol] 11.0 fL 9.0 - 12.7 fL [facility] Platelets (Bld) [#/Vol] 160 10*3/uL [facility] RBC (Bld) [#/Vol] 4.25 10*6/uL 4.20 - 6.0 0 m/uL [facility] WBC (Bld) [#/Vol] 8.15 10*3/uL [facility] Erythrocyte distribution width (RBC) [Ratio] 14.1 % Normal 11.5-15.0 [facility] Comment on above: Order Comment: Speci men Type: BLOOD SPECIMENOrdering Facility: [facility] Address: [address] [place] [address] Performed By: #### 5 8410-2 ####[facility] LABIA [id number] [place] [address] [place] Hematocrit (Bld) [Volume fraction] 43.6 % Normal 39.0-51.0 [facility] Comment on above: Order Comment: Speci men Type: BLOOD SPECIMENOrdering Facility: [facility] Address: [address] [place] [address] Performed By: #### 5 8410-2 ####[facility] LABIA [id number] [place] [address] [place] Hemoglobin (Bld) [Mass/Vol] 13.9 g/dL Normal 13.0-17.0 [facility] Comment on above: Order Comment: Speci men Type: BLOOD SPECIMENOrdering Facility: [facility] Address: [address] [place] [address] Performed By: #### 5 8410-2 ####[facility] LABIA [id number] [place] [address] [place] MCH (RBC) [Entitic mass] 32.7 pg Normal 26.0-34.0 [facility] Comment on above: Order Comment: Speci men Type: BLOOD SPECIMENOrdering Facility: [facility] Address: [address] [place] [address] Performed By: #### 5 8410-2 ####[facility] LABIA [id number] [place] [address] [place] MCHC (RBC) [Mass/Vol] 31.9 g/dL Normal 30.5-36.0 [facility] Comment on above: Order Comment: Speci men Type: BLOOD SPECIMENOrdering Facility: [facility] Address: [address] [place] [address] Performed By: #### 5 8410-2 ####[facility] LABIA [id number] [place] [address] [place] MCV (RBC) [Entitic vol] 102.6 fL High 80.0-100.0 [facility] Comment on above: Order Comment: Speci men Type: BLOOD SPECIMENOrdering Facility: [facility] Address: [address] [place] [address] Performed By: #### 5 8410-2 ####[facility] LABIA [id number] [place] [address] [place] Nucleated RBC (Bld) [#/Vol] 10*3/uL Normal <0.01 [facility] Comment on above: Order Comment: Speci men Type: BLOOD SPECIMENOrdering Facility: [facility] Address: [address] [place] [address] Performed By: #### 5 8410-2 ####[facility] LABCLIA [id number] [place] [address] [place] Platelet mean volume (Bld) [Entitic vol] 11.0 fL Normal 9.0-12.7 [facility] Comment on above: Order Comment: Speci men Type: BLOOD SPECIMENOrdering Facility: [facility] Address: [address] [place] [address] Performed By: #### 5 8410-2 ####[facility] LABIA [id number] [place] [address] [place] Platelets (Bld) [#/Vol] 160 10*3/uL Normal 150-400 [facility] Comment on above: Order Comment: Speci men Type: BLOOD SPECIMENOrdering Facility: [facility] Address: [address] [place] [address] Performed By: #### 5 8410-2 ####[facility] LABIA [id number] [place] [address] [place] RBC (Bld) [#/Vol] 4.25 10*6/uL Normal 4.20-6.00 [facility] Comment on above: Order Comment: Speci men Type: BLOOD SPECIMENOrdering Facility: [facility] Address: [address] [place] [address] Performed By: #### 5 8410-2 ####[facility] LABIA [id number] [place] [address] [place] WBC (Bld) [#/Vol] 8.15 10*3/uL Normal 3.70-11.00 [facility] Comment on above: Order Comment: Speci men Type: BLOOD SPECIMENOrdering Facility: [facility] Address: [address] [place] [address] Performed By: #### 5 8410-2 ####[facility] LABIA [id number] [place] [address] [place] ECG COMPLETEon 09-28-2023 ECG COMPLETE Ventricular Rate : 91 BPM Atrial Rate : 91 BPM P-R Interval : 182 ms QRS Duration : 74 ms Q-T Interval : 356 ms QTC Calculation(Bazett) : 437 ms Calculated P Brimfield : 67 degrees Calculated R Brimfield : 25 degrees Calculated T Brimfield : 74 degrees SINUS RHYTHM WITH PREMATURE ATRIAL COMPLEXES OTHERWISE NORMAL ECG Confirmed by ALISHA BARAJAS MD ([id number]) on 10/06/2023 4:24:55 PM NAME : SUMEET PAZ PID : [id number] : 1945 Gender : Male Race : ORD : [id number] Procedure Date : Sep 28 2023 13:49:12 Edit Date : Oct 06 2023 16:24:58 Diagnosis: SINUS RHYTHM WITH PREMATURE ATRIAL COMPLEXES OTHERWISE NORMAL ECG Confirmed by ALISHA BARAJAS MD ([id number]) on 10/06/2023 4:24:55 PM Test Reason : Z01.818 Pre-op evaluation Location : 145 : [place] Overread By : ALISHA BARAJAS MD Edited By : ALISHA BARAJAS MD Referred By : Korina SWAN Acquired by : Gideon juarez [facility] HISTORY PHYSICALon HISTORY PHYSICAL HNO ID: [id number] Author: TYRON COOK APRN.POND SUPERVISOR Service: ? Author Type: Nurse Practitioner Type: H&P Filed: 09/29/2023 10:47 Note Text: HISTORY AND PHYSICAL EXAMINATION SERVICE DATE: 09/28/2023 SERVICE TIME: 1:44 PM PRIMARY CARE PHYSICIAN: Fany Roper DO, PSYD REASON FOR VISIT: Sumeet Paz is a 78 year old male who is scheduled for DECOMPRESSION LAMINECTOMY INTERBODY FUSION LUMBAR POSTERIOR (PLIF) LEVEL 1 POSTERIOR NON-SEGMENTAL INSTRUMENTATION FOLLOWING LUMBAR FUSION 1 LEVEL PDFI INSERTION INTERBODY BIOMED DEVICE(S) W/ANT INSTR ANCHORING TO DISC SPACE W/INTERBODY FUSION,EA INTERSPACE at the request of Dr. Korina Swan for consultation. My final recommendation will be communicated back to the requesting physician by way of shared medical record or letter. Assessment Patient has the following medical conditions which may affect lima-operative course: Essential hypertension Assessment: Stable on medication 102/66 in office today Follows with PCP Hyperlipidemia Assessment: On Statin Follows with PCP Type 2 diabetes mellitus with diabetic polyneuropathy (HCC) Assessment: On Ozempic and lantus Detailed medication instructions given to patient in instructions Hemoglobin A1C (%) Date Value 09/12/2022 7.6 Follows with PCP Arteriosclerosis of coronary artery Assessment: nonobstructive, cardiac catheterization in 2010, which revealed mild plaques, not exceeding 15% to 20% stenosis.-- follows with [facility] Stress test 02/2022 negative HURST (dyspnea on exertion) Assessment: D/t deconditioning and pain Uses scooter can walk short distance Obstructive sleep apnea Assessment: Uses CPAP Stage 3a chronic kidney disease (HCC) Assessment: Stable Creatinine Date Value Ref Range Status 09/12/2022 1.76 (H) 0.73 - 1.22 mg/dL Final 06/08/2022 1.45 (H) 0.73 - 1.22 mg/dL Final Personal history of malignant neoplasm of prostate Assessment: s/p prostatectomy in 2011 No known recurrence History of cardioembolic cerebrovascular accident (CVA) Assessment: Hx of CVA found incidentally on imaging No symptoms or residual Class 3 severe obesity due to excess calories with serious comorbidity and body mass index (BMI) of 40.0 to 44.9 in adult ([facility]) Assessment: Body mass index is 41.51 kg/m?. Santiago Activity Status Index: METS: Walk indoors, such as around the house (1.75 METs) Do light work around the house, such as dusting or washing dishes (2.70 METs) Take care of self; that is eating, dressing, bathing, using the toilet (2.75 METs) DASI Score: 7.2 Patient denies any chest pain or undue shortness of breath with the above physical activity. Dependency List (Category): +Uses scooter. [id number] Score: Age: >=75 Sex: male CHF history: No Hypertension history: Yes Stroke/TIA/thromboem bolism history: Yes Vascular disease history: No Diabetes history: Yes [id number] Score: 6 ANESTHESIA FINDINGS: Intubation History: No history of difficult intubation Significant Anesthesia Considerations: none Airway History: No history of difficult airway I - PHYSICAL EVALUATION AIRWAY Patient intubated: No. Tracheostomy tube not present Mallampati: III. TM distance: >3 FB. Neck ROM: full ROM without neurological symptoms. Mouth opening: adequate. Short neck: no. Thick neck: no Lip Bite Test: III Microretrognathia/Mi cronagthia/Recessed Chin: No DENTAL Dental findings: teeth intact. Additional comments: +Caps/crowns +Bridge . II - ANESTHESIA PLAN Beta Roman Monitoring Plan Post Procedure Analgesic Plan Prepared for surgery: This patient is optimally prepared for surgery CONSULTS: Patient does not require consults for optimization at this time. The Following Tests/Procedures Have Been Initiated: Orders Placed This Encounter Complete Blood Count Standing Status: Future Standing Expiration Date: 12/28/2023 BMP Standing Status: Future Standing Expiration Date: 12/28/2023 Type and Screen, 30 day Standing Status: Future Standing Expiration Date: 12/28/2023 Order Specific Question: [facility] Surgery or Procedure: Answer: ARMIDA cholecalciferol (VITAMIN D3) 1,000 unit tab tablet Sig: Take 1,000 Units by mouth once daily. OTC NUTRITIONAL SUPPLEMENT Sig: Take by mouth once daily. Prevagen-Memory Supplement mupirocin (BACTROBAN) 2 % ointment Sig: two times a day for 5 days. Apply 0.5 inch with cotton swab (Q-tip) to each nostril in the morning and evening for 5 days prior to and including day of surgery. Dispense: 22 g Refill: 0 ECG (IN OFFICE) ECG COMPLETE Order Comments: Ordered by an unspecified provider Planned Anesthetic: Per anesthesia choice Subjective CHIEF COMPLAINT: Back pain HPI: 78 year old year old year old male presents to [facility] for evaluation. Patient Has had back pain > 20 years ago. Has had 6 spine surgeries. Has tried conservative measures without lasting relief (more content not included)... Normal [facility] HbA1c (Bld)on 09-28-2023 Average glucose Estimated from glycated hemoglobin (Bld) [Mass/Vol] 134 mg/dL Normal [facility] Comment on above: Order Comment: Speci men Type: BLOOD SPECIMENOrdering Facility: [facility] Address: [address] [place] [address] Result Comment: eAG: (Estimated average glucose) is a calculated value from HgbA1c and is freight representative of the average blood glucose level in the last 2-3 month period. Performed By: #### 5 5454-3 ####[facility] LABCLIA [id number] [facility] [address] [address] [place] HbA1c (Bld) [Mass fraction] 6.3 % High 4.3-5.6 [facility] Comment on above: Order Comment: Deny mendez Type: BLOOD SPECIMENOrdering Facility: [facility] Address: [address] [place] [address] Result Comment: [place] Diabetes Association guidelines indicate that patients with HgbA1c in the range 5.7-6.4% are at increased risk for development of diabetes, and intervention by lifestyle modification may be beneficial. HgbA1c greater or equal to 6.5% is considered diagnostic of diabetes. Performed By: #### 5 5454-3 ####[facility] LABCLIA [id number] [address] [place] STAPHYLOCOCCUS AUREUS AND MR SA SCREEN, PCR, NASALon 09-28-2023 S. aureus and MRSA panel COLBY+probe (Nose) Not detected Normal Not Detected [facility] Comment on above: Order Comment: Deny mendez Type: SWABOrdering Facility: [facility] Address: [address] [place] [address] Performed By: #### S APCR ####[facility] LABCLIA [id number] OF [place] TYPE AND SCREEN,30 DAYon ABO A Normal [facility] Comment on above: Order Comment: Deny mendez Type: BLOOD SPECIMENOrdering Facility: [facility] Address: [address] [place] [address] Performed By: #### T SCR30 ####CC [facility] BLOOD BANKCLIA [id number] [place] [address] [place] HISTORICAL AB SCR STATUS Negative Normal [facility] Comment on above: Order Comment: Robertoi men Type: BLOOD SPECIMENOrdering Facility: [facility] Address: [address] [place] [address] Performed By: #### T SCR30 ####CC [facility] BLOOD BANKCLIA [id number] [place] [address] [place] Rh Nom (Bld) Positive Normal [facility] Comment on above: Order Comment: Speci men Type: BLOOD SPECIMENOrdering Facility: [facility] Address: [address] [place] [address] Performed By: #### T SCR30 ####CC MAIN BLOOD BANKCLIA [id number] [place] [id number] OF [place] Consent for Procedure/Surger yon 09-20-2023 Consent for Procedure/Surgery [id number] 5#1.00TIFF Normal [facility] Ambulatory Visit Summaryon 0 09-15-2023 Ambulatory Visit Summary SUMEET PAZ :1945 Visit Date:09/15/2023 Ambulatory Visit Instructions Your Diagnosis Gross hematuria History of UTI History of prostate cancer Stage 3 chronic kidney disease Incontinence without sensory awareness Former smoker Your Care Team Attending Physician - Ashwin MATHIS MD Primary Care Physician - FANY ROPER DO This Is Your Medications List cephalexin (Keflex 500 mg Cap) Contact prescribing physician if questions or concerns atorvastatin (atorvastatin 20 mg Tab) gabapentin (gabapentin 100 mg Cap) insulin glargine (Lantus) lisinopril (lisinopril 20 mg Tab) pioglitazone (pioglitazone 30 mg Tab) semaglutide (Ozempic (1 mg dose)) thiamine (thiamine 100 mg Tab) Procedures Performed Flexible cystoscopy (09/15/2023), Hip replacement, Knee replacement, Procedure on back, Procedure on neck, Prostatectomy. Discharge Vitals Heart Rate (Peripheral) 68 Blood Pressure 136/74 Height 170 cm Height 67 in Weight 125 kg Weight 275 lb BMI 43.25 What to do next You Need to Schedule the Following Appointments Follow Up with DEL URBINA, Ashwin Hui, URManuel When: Where: [address] [place] [address]- Medications What How Much When Instructions New cephalexin (Keflex 500 mg Cap) 1 Capsules By Mouth As Directed Pt to take 1 tab the day before procedure and the 2nd tab the day of procedure once completed. Pickup at [facility] [address] [facility] Unchanged atorvastatin (atorvastatin 20 mg Tab) By Mouth Every day Contact prescribing physician if questions or concerns Unchanged gabapentin (gabapentin 100 mg Cap) By Mouth 3 times a day Contact prescribing physician if questions or concerns Unchanged insulin glargine (Lantus) Subcutaneous Every day Contact prescribing physician if questions or concerns Unchanged lisinopril (lisinopril 20 mg Tab) By Mouth Every day Contact prescribing physician if questions or concerns Unchanged pioglitazone (pioglitazone 30 mg Tab) By Mouth Every day Contact prescribing physician if questions or concerns Unchanged semaglutide (Ozempic (1 mg dose)) Contact prescribing physician if questions or concerns Unchanged thiamine (thiamine 100 mg Tab) By Mouth Every day Contact prescribing physician if questions or concerns Pharmacy Information [facility] [id number] [address] [employer]: [address] [place], [place] [id number] [phone] Medications and Immunizations Administered Given lidocaine Top 2% Gel w/Appl 6 mL, 6 mL, Topical. For: Former smoker Allergies No Known Medication Allergies Problems Ongoing - Any problem that you are currently receiving treatment for. Alcohol use Arthritis Diabetes Former smoker Gross hematuria History of prostate cancer History of UTI Hyperlipidemia Hypertension Incontinence without sensory awareness Morbid obesity ALHAJI on CPAP Postoperative anemia due to acute blood loss Stage 3 chronic kidney disease Stroke Historical - Any problem that you are no longer receiving treatment for. Prostate cancer Patient Survey You may receive a survey via text or e-mail asking about your office visit. Please share your experience with us by completing your survey. We appreciate your feedback and thank you for choosing us for your care. Education Materials Hematuria, Adult Hematuria is blood in the urine. Blood may be visible in the urine, or it may be identified with a test. This condition can be caused by infections of the bladder, urethra, kidney, or prostate. Other possible causes include: ? Kidney stones. ? Cancer of the urinary tract. ? Too much calcium in the urine. ? Conditions that are passed from parent to child (inherited conditions). ? Exercise that requires a lot of energy. Infections can usually be treated with medicine, and a kidney stone usually will pass through your urine. If neither of these is the cause of your hematuria, more tests may be needed to identify the cause of your symptoms. It is very important to tell your health care provider about any blood in your urine, even if it is painless or the blood stops without treatment. Blood in the urine, when it happens and then stops and then happens again, can be a symptom of a very serious condition, including cancer. There is no pain in the initial stages of many urinary cancers. Follow these instructions at home: Medicines ? Take qzqr-wks-eueznvq and prescription medicines only as told by your health care provider. ? If you were prescribed an antibiotic medicine, take it as told by your health care provider. Do not stop taking the antibiotic even if you start to feel better. Eating and drinking ? Drink enough fluid to keep your urine pale yellow. It is recommended that you drink 3?4 quarts (2.8?3.8 L) a day. If you have been diagnosed with an infection, drinking cranberry juice in addition to large amounts of water is recommended. ? Avoid caffe (more content not included)... Normal [facility] Consent for Procedure/Surger yon 09-15-2023 Consent for Procedure/Surgery [id number]# 1.00TIFF Normal [facility] Patient Educationon 09-15-19 24 Patient Education Urology Hematuria, Adult Hematuria is blood in the urine. Blood may be visible in the urine, or it may be identified with a test. This condition can be caused by infections of the bladder, urethra, kidney, or prostate. Other possible causes include: ? Kidney stones. ? Cancer of the urinary tract. ? Too much calcium in the urine. ? Conditions that are passed from parent to child (inherited conditions). ? Exercise that requires a lot of energy. Infections can usually be treated with medicine, and a kidney stone usually will pass through your urine. If neither of these is the cause of your hematuria, more tests may be needed to identify the cause of your symptoms. It is very important to tell your health care provider about any blood in your urine, even if it is painless or the blood stops without treatment. Blood in the urine, when it happens and then stops and then happens again, can be a symptom of a very serious condition, including cancer. There is no pain in the initial stages of many urinary cancers. Follow these instructions at home: Medicines ? Take gqrn-jjt-xqivwdo and prescription medicines only as told by your health care provider. ? If you were prescribed an antibiotic medicine, take it as told by your health care provider. Do not stop taking the antibiotic even if you start to feel better. Eating and drinking ? Drink enough fluid to keep your urine pale yellow. It is recommended that you drink 3?4 quarts (2.8?3.8 L) a day. If you have been diagnosed with an infection, drinking cranberry juice in addition to large amounts of water is recommended. ? Avoid caffeine, tea, and carbonated beverages. These tend to irritate the bladder. ? Avoid alcohol because it may irritate the prostate (in males). General instructions ? If you have been diagnosed with a kidney stone, follow your health care provider's instructions about straining your urine to catch the stone. ? Empty your bladder often. Avoid holding urine for long periods of time. ? If you are female: ? After a bowel movement, wipe from front to back and use each piece of toilet paper only once. ? Empty your bladder before and after sex. ? Pay attention to any changes in your symptoms. Tell your health care provider about any changes or any new symptoms. ? It is up to you to get the results of any tests. Ask your health care provider, or the department that is doing the test, when your results will be ready. ? Keep all follow-up visits. This is important. Contact a health care provider if: ? You develop back pain. ? You have a fever or chills. ? You have nausea or vomiting. ? Your symptoms do not improve after 3 days. ? Your symptoms get worse. Get help right away if: ? You develop severe vomiting and are unable to take medicine without vomiting. ? You develop severe pain in your back or abdomen even though you are taking medicine. ? You pass a large amount of blood in your urine. ? You pass blood clots in your urine. ? You feel very weak or like you might faint. ? You faint. Summary ? Hematuria is blood in the urine. It has many possible causes. ? It is very important that you tell your health care provider about any blood in your urine, even if it is painless or the blood stops without treatment. ? Take botl-gqw-hvhsyet and prescription medicines only as told by your health care provider. ? Drink enough fluid to keep your urine pale yellow. This information is not intended to replace advice given to you by your health care provider. Make sure you discuss any questions you have with your health care provider. Document Revised: 12/23/2020 Document Reviewed: 12/23/2020 [employer] Patient Education ? 2022 [employer] [facility] Urology Office/Clinic Noteon 09-15-2023 Urology Office/Clinic Note Chief Complaint Patient in office for cysto HPI Staff Cystoscopy. Abx taken History of Present Illness Tests reviewed: reviewed renal US, FISH/cytology and PSA. I have reviewed the previous health record information and history for this patient from Dr. Mathis. I have reviewed and verified the staff HPI to be accurate for this encounter. There have been no associated fever, chills, flank pain, or blood in the urine. Denies any urinary infections since last encounter. Review of Systems ROS - Provider Constitutional: denies weight loss, denies hot flashes. Eyes: denies eye problems. Gastrointestinal: denies nausea, denies vomiting. Cardiovascular: denies chest pain or angina. Integumentary: no dryness Musculoskeletal: denies musculoskeletal symptoms. ENMT: denies otolaryngeal symptoms. Respiratory: no shortness of breath. Heme/Lymph: denies easy bleeding tendency, denies easy bruising tendency. Psychiatric: no confusion, no anxiety. Genitourinary: See HPI. Procedure Operative Information Anesthesia Type: Local Procedure: Local Cystoscopy Complications: None Surgical risks, benefits, details of the procedure have been explained to the patient. Full informed consent has been obtained. Intraoperative Information Prepped: Patient is brought back to the endoscopy suite. Patient is placed in supine position. Patient prepped in the usual fashion with Betadine solution. 2% Xylocaine Jelly is placed per Urethra. After waiting several minutes, the Cystoscope is introduced. The Urethra is: Normal The Prostatic Urethra is: prostate absent. The Bladder: neg for b.t. or stones, Trabeculated: Severe (3) The Ureteral orifices: Show efflux of clear urine. Specimens Removed: None Removal: Cystoscope is removed. The patient tolerated it well. Postoperative Information Patient is discharged home with antibiotic coverage. Follow up arranged. Assessment/Plan 1. Gross hematuria (R31.0: Gross hematuria) Pt presented to [facility] ER 07/10/23 due to passing clots, dysuria, and feeling of incomplete bladder emptying. FISH/cytology 08/2023 neg. Cysto IO today without complications. Pt to complete prophy abx. Given stage III CKD, pt is not a candidate for CTU. Will schedule cysto with bilat. retrogrades under local. Prophy abx sent. The risks and benefits for cystoscopy have been discussed. The risks include bleeding, infection, and irritation of the bladder and urinary channel, among others. The patient, after being informed of procedural details and after questions have been answered, wishes to proceed. Full informed consent has been obtained. Will order Local anesthesia. 2. History of UTI (Z87.440: Personal history of urinary (tract) infections) 07/10/23 - >100k E. coli First UTI since prostatectomy. Renal US 08/28/23 [facility] - No hydronephrosis. Urinary bladder wall thickening. Consider underdistention vs cystitis. 3. History of prostate cancer (Z85.46: Personal history of malignant neoplasm of prostate) PSA: 11/24/22 - 0.05 05/23/23 - 0.07 08/23/23 - 0.030 IPSS (12) S/p prostatectomy 2011. Shares that the surgery and recovery went well. Did not receive radiation. 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 Follows with doc at [facility]. 4. Stage 3 chronic kidney disease (N18.30: Chronic kidney disease, stage 3 unspecified) Female truck repair supervisor shares pt is has stage 2 almost stage 3 CKD. Labs 07/2023: Cr 1.59, eGFR 44. 5. 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 6. Former smoker (Z87.891: Personal history of nicotine dependence) Smoked from 3413-8488. Increased risk for urothelial ca. Follow-up With When Contact Information DEL URBINA, Ashwin Hui, URL [address] [id number]- Additional Instructions: Schedule cysto with bilateral retrogrades under local Patient Education Hematuria, Adult I, Vickie Cuevas, personally scribed for Dr. Mathis on 09/15/2023 11:05:40. Documentation recorded by the scribeVickie, accurately reflects the services(s) I performed and decisions made by me. Authenticated by Dr. Mathis on 09/15/2023 11:07:58.11:05:40. Problem List/Past Medical History Ongoing Alcohol use Arthritis Diabetes Former smoker Gross hematuria History of prostate cancer History of UTI Hyperlipidemia Hypertension Incontinence without sensory awareness Morbid obesity ALHAJI on CPAP Postoperative anemia due to acute blood loss Stage 3 chronic kidney disease Stroke Historical Prostate cancer Procedure/Surgical History Flexible cystoscopy (09/15/2023), Hip replacement, Knee replacement, Procedure on back, Procedure on neck, Prostatectomy. Medications atorvastatin 20 mg Tab, Oral, Daily gabapentin 100 mg Cap, Oral, TID Lantus, Escobar (more content not included)... Normal [facility] Comment on above: Result Comment: Elec tronically Signed By: Ashwin MATHIS MD\.br\Date and Time Signed: 09/15/23 11:08 EDT\.br\Electronically Co-Signed By: Vickie Cuevas\.br\Date and Time Co-Signed: 09/15/23 11:05 EDT [facility] Fish and Urine Cyt o ([facility])on 08-30-2023 UVFISH & UC Diagnosis Info Invalid Interpretation Code [facility] Comment on above: Result Comment: A:Ur ine,Urine:Voided Diagnosis Summary - Adequate cellularity for evaluation. Diagnosis Summary - The [facility] FISH study detected normal copy numbers for chromosomes 3, 7, 17, and 9p21. 228 cells were analyzed in this evaluation. No evidence of aneuploidy for chromosomes 3, 7, or 17 or deletion of the 9p21 locus was found in cells present in this specimen. This test does not rule out the possibility of a low grade non-invasive papillary urothelial carcinoma. These findings should be correlated with cytology and cystoscopy results.* Microscopic Notes - Microscopic Notes - Abnormal cells 9p21 deletions: Abnormal cells aneploid events: Total cells analyzed: 228 Hematuria: Gross Description Site ID:A color Yellow fixative Alcohol Received 110 mls of clear yellow fluid with the patient's name and, Urine on the vial. Electronically signed by : on: 08/30/2023 18:33:35 Performed By: #### 1 [id number] ####[facility] [address] [place] [address] Lab Reportson 08-29-2023 Lab Reports [id number] #1.00TIFF Normal [facility] RAD - Ultrasound Reporton RAD - Ultrasound Report [id number] #1.00TIFF Normal [facility] US renal BIon 08-28-2023 US renal BI [facility] [address] [place] [id number] Ultrasound Report Signed Patient: Sumeet Paz MR#: [id number] : 1945 Acct:[id number] Age/Sex: 78 / M ADM Date: 08/28/23 Loc: Room: Type: [facility] Attending Dr: Ashwin Mathis MD Ordering Provider: Ashwin Mathis MD Date of Service: 08/28/23 US/US renal BI: Z87.440, N18.30, Z85.40 N39.42 Z87.891 Copies to: Ashwin Mathis MD Bilateral Renal Ultrasound HISTORY: UTI. Incontinence. COMPARISON: None RIGHT kidney measures 10.2 cm. LEFT kidney measures 11.5 cm. Hydronephrosis: None RENAL STONE: No shadowing renal calculus is seen. RENAL LESIONS: Small LEFT renal cyst. URINARY BLADDER: 5 mm urinary bladder wall thickening. Consider underdistention versus cystitis. REPRODUCTIVE STRUCTURES Not assessed US/US renal BI IMPRESSION : No hydronephrosis. Urinary bladder wall thickening. Consider underdistention versus cystitis. Impression dictated by: Seymour Nunez M.D.08/28/2023 2:47 PM Dictation Location: [place] [address] Tech: Phyllis [place] Transcribed By: [facility] 08/28/23 1447 Dictated By: Seymuor Nunez DO 08/28/23 1440 Signed By: 08/28/23 1447 Normal [facility] ED Note-Physicianon 08-25-19 ED Note-Physician [id number] 5#1.00TIFF Normal [facility] Formson 08-24-2023 Forms [id number] #1.00TIFF Normal [facility] Screenson 08-24-2023 Screens [id number] 0#1.00TIFF Gideon Marin [facility] Ambulatory Visit Summaryon 0 08-23-2023 Ambulatory Visit Summary SUMEET PAZ :1945 Visit Date:08/23/2023 Ambulatory Visit Instructions Your Diagnosis History of UTI History of prostate cancer Stage 3 chronic kidney disease Incontinence without sensory awareness Former smoker Tests Performed US Renal -- Results Pending -- Please visit your patient portal for your results or contact your primary care physician. Your Care Team Attending Physician - Ashwin MATHIS MD Primary Care Physician - FANY ROPER DO This Is Your Medications List Contact prescribing physician if questions or concerns atorvastatin (atorvastatin 20 mg Tab) gabapentin (gabapentin 100 mg Cap) insulin glargine (Lantus) lisinopril (lisinopril 20 mg Tab) pioglitazone (pioglitazone 30 mg Tab) semaglutide (Ozempic (1 mg dose)) thiamine (thiamine 100 mg Tab) Procedures Performed Hip replacement, Knee replacement, Procedure on back, Procedure on neck, Prostatectomy. Discharge Vitals Temperature (Temporal Artery) 37 ?C Respiratory Rate 15 Height 170 cm Height 67 in Weight 125 kg Weight 275 lb BMI 43.25 What to do next You Need to Schedule the Following Appointments Follow Up with DEL URBINA, Ashwin Hui, URL When: Where: [facility] [address] , [place] [address]- Medications What How Much When Instructions Unchanged atorvastatin (atorvastatin 20 mg Tab) Every day Contact prescribing physician if questions or concerns Unchanged gabapentin (gabapentin 100 mg Cap) 3 times a day Contact prescribing physician if questions or concerns Unchanged insulin glargine (Lantus) Every day Contact prescribing physician if questions or concerns Unchanged lisinopril (lisinopril 20 mg Tab) Every day Contact prescribing physician if questions or concerns Unchanged pioglitazone (pioglitazone 30 mg Tab) Every day Contact prescribing physician if questions or concerns Unchanged semaglutide (Ozempic (1 mg dose)) Contact prescribing physician if questions or concerns Unchanged thiamine (thiamine 100 mg Tab) Every day Contact prescribing physician if questions or concerns Allergies No Known Medication Allergies Problems Ongoing - Any problem that you are currently receiving treatment for. Alcohol use Arthritis Diabetes Former smoker Gross hematuria History of prostate cancer History of UTI Hyperlipidemia Hypertension Incontinence without sensory awareness Morbid obesity ALHAJI on CPAP Postoperative anemia due to acute blood loss Stage 3 chronic kidney disease Stroke Historical - Any problem that you are no longer receiving treatment for. Prostate cancer Patient Survey You may receive a survey via text or e-mail asking about your office visit. Please share your experience with us by completing your survey. We appreciate your feedback and thank you for choosing us for your care. Education Materials Cystoscopy Cystoscopy is a procedure that is used to help diagnose and sometimes treat conditions that affect the lower urinary tract. The lower urinary tract includes the bladder and the urethra. The urethra is the tube that drains urine from the bladder. Cystoscopy is done using a thin, tube-shaped instrument with a light and camera at the end (cystoscope). The cystoscope may be hard or flexible, depending on the goal of the procedure. The cystoscope is inserted through the urethra, into the bladder. Cystoscopy may be recommended if you have: ? Urinary tract infections that keep coming back. ? Blood in the urine (hematuria). ? An inability to control when you urinate (urinary incontinence) or an overactive bladder. ? Unusual cells found in a urine sample. ? A blockage in the urethra, such as a urinary stone. ? Painful urination. ? An abnormality in the bladder found during an intravenous pyelogram (IVP) or CT scan. Cystoscopy may also be done to remove a sample of tissue to be examined under a microscope (biopsy). Tell a health care provider about: ? Any allergies you have. ? All medicines you are taking, including vitamins, herbs, eye drops, creams, and xhjk-arc-unnbbmk medicines. ? Any problems you or family members have had with anesthetic medicines. ? Any blood disorders you have. ? Any surgeries you have had. ? Any medical conditions you have. ? Whether you are or may be . What are the risks? Generally, this is a safe procedure. However, problems may occur, including: ? Infection. ? Bleeding. ? Allergic reactions to medicines. ? Damage to other structures or organs. What happens before the procedure? Medicines Ask your health care provider about: ? Changing or stopping your regular medicines. This is especially important if you are taking diabetes medicines or blood thinners. ? Taking medicines such as aspirin and ibuprofen. These medicines can thin your blood. Do not take these medicines unless y (more content not included)... Normal [facility] PSA Total (Not a Screen)on 0 4-17-2024 PSA Total (Not a Screen) 0.030 ng/mL Normal 0.000-4.00 0 [facility] Comment on above: Result Comment: Allie robledo tumor marker results determined by assays using different manufacturers or methods may not be comparable. [facility] photogeologist and method: [employer] ([employer] DXI, CHEMILUMINESCENT IMMUNOASSAY. PERFORMED BY: [place] [address] PATHOLOGIST [employer] HANNAH MAGANA M.D. Performed By: #### P SATOTAL #### [address] Prostate specific Ag [Mass/v olume] in Serum or PlasmaOrdered By: Agustina Quintero on 08-23-2023 Prostate specific Ag [Mass/Vol] 0.030 ng/mL 0.000-4.000 [facility] Comment on above: Serial tumor marker results determined by assays using different manufacturers or methods may not be comparable.[facility] [facility] photogeologist and method:ABBEL DXI, CHEMILUMINESCENT IMMUNOASSAY. [facility] Fish [facility] Urine Cyt o ( Labs)on 08-23-2023 [facility] Method of Extraction Voided Normal [facility] Comment on above: Performed By: #### 1 [id number] ####[facility] [address] [place] [address] [facility] Number of Jars 1 Invalid Interpretation Code [facility] Comment on above: Performed By: #### 1 [id number] ####[facility] [address] [place] [address] [facility] Specimen Urine Normal [facility] Comment on above: Performed By: #### 1 [id number] ####[facility] [address] [place] [address] [facility] Type of Service Technical Only Normal [facility] Comment on above: Performed By: #### 1 [id number] ####[facility] [address] [place] [address] Urology Office/Clinic Noteon 08-23-2023 Urology Office/Clinic Note Chief Complaint [facility] follow up HPI Staff New Pt. Hospital follow up at [facility] due to hematuria, S/P prostate cancer surgery 5 years ago Positive Urine culture 100,000 E coli BUN 24, Creatinine 1.59 07/10/23 Dysuria: denies pain and burning Incomplete bladder emptying: denies Hematuria: denies visible blood Frequency: every couple of hours Urgency: yes Nocturia: 3x a night Stream: denies hesitancy Leaking: yes Post void dripping: yes Wearing pads/ Depends: wears depends daily, has to change every once in a while Urge incontinence: not lately Stress incontinence: yes Incontinence without Sensory Awareness: denies Abdominal pain: denies Flank pain: denies Sexual complaints: _ History of Present Illness Tests reviewed: reviewed UA I have reviewed the previous health record information and history for this patient from [facility]. I have reviewed and verified the staff HPI to be accurate for this encounter. There have been no associated fever, chills, flank pain, or blood in the urine. Denies any urinary infections since last encounter. Review of Systems PHQ Score Initial Depression Screen Score: 0 SCORE ROS - Provider Constitutional: denies weight loss, denies hot flashes. Eyes: denies eye problems. Gastrointestinal: denies nausea, denies vomiting. Cardiovascular: denies chest pain or angina. Integumentary: no dryness Musculoskeletal: denies musculoskeletal symptoms. ENMT: denies otolaryngeal symptoms. Respiratory: no shortness of breath. Heme/Lymph: denies easy bleeding tendency, denies easy bruising tendency. Psychiatric: no confusion, no anxiety. Genitourinary: See HPI. Physical Exam Vitals & Measurements T: 37 ?C(Temporal Artery) RR: 15 HT: 67 in HT: 170 cm WT: 125 kg WT: 275 lb BMI: 43.25 General Appearance: alert, no distress, well nourished, well developed male. Head: normocephalic . Eyes: normal orbit and globe. ENMT: normal examination of external ears. Chest: Lungs CTA, respirations non labored. Cardiovascular: regular rate and rhythm. Abdomen: soft, non distended, no tenderness, no mass or organomegaly, no hernia. Genitourinary: normal scrotum, normal testes, normal urethra, normal epididymis, normal vas deferens/spermatic cord. Flank Pain: none. Bladder: nonpalpable. Penis: normal shaft, normal glans. Lymph Nodes: unremarkable palpation of the cervical area. Skin: warm, dry, no bruising. Psychiatric: cooperative, affect appropriate for age, normal judgement, euthymic mood. Assessment/Plan Sumeet is a 78 yo male new pt following up to [facility] ED visit 07/10/23 due to passing clots, dysuria, and feeling of incomplete bladder emptying. Pt accompanied by an adult female today. 1. History of UTI (Z87.440: Personal history of urinary (tract) infections) UCx: 07/10/23 - >100k E. coli UA today negative for blood and infection. First UTI since prostatectomy. Likely not emptying completely. Possibly due to scar tissue in urethra? -Schedule MICHAEL. -Will schedule cysto with [facility]. The risks and benefits for cystoscopy have been discussed. The risks include bleeding, infection, and irritation of the bladder and urinary channel, among others. The patient, after being informed of procedural details and after questions have been answered, wishes to proceed. Full informed consent has been obtained. Will order Local anesthesia. Prophylactic abx sent to [facility] in [place]. 2. History of prostate cancer (Z85.46: Personal history of malignant neoplasm of prostate) S/p prostatectomy 2011. IPSS 12. Shares that the surgery and recovery went well. Did not receive radiation. 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 Follows with doc at [facility]. -Pt to obtain records from [facility] and share them with our office. -PSA to be drawn IO today. 3. Stage 3 chronic kidney disease (N18.30: Chronic kidney disease, stage 3 unspecified) Female truck repair supervisor shares pt is has stage 2 almost stage 3 CKD. 4. 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 5. Former smoker (Z87.891: Personal history of nicotine dependence) Smoked from [id number]. Follow-up With When Contact Information DEL URBINA, Ashwin Hui, URL [facility] [address], [place] [address]- Additional Instructions: schedule MICHAEL, cysto with [facility] Patient Education Cystoscopy I, Joellen Gonzalez, personally scribed for Dr. Mathis on 08/23/2023 11:37:38. . Documentation recorded by the scribe, Joellen Gonzalez, accurately reflects the services(s) I performed and decisions made by me. Authenticated by Dr. Mathis on 08/23/2023 11:40:53. Problem List/Past Medical History Ongoing Alcohol use Arthritis Diabetes Former smoker Gross hematuria History of prostate cancer History of UTI Hyperlipidemia Hypertension I (more content not included)... Normal [facility] Comment on above: Result Comment: Elec tronically Signed By: Joellen Gonzalez\.br\Date and Time Signed: 08/23/23 11:57 EDT\.br\Electronically Co-Signed By: Ashwin MATHIS MD\.br\Date and Time Co-Signed: 08/23/23 11:58 EDT Automated epithelial cells c ount in urine sediment (number/area)Ordered By: Dontrell Latif on 07-10-2023 Epithelial cells Auto (Urine sed) [#/Area] 0-1 [HPF] 0-2 [facility] Automated erythrocytes count in urine sediment (number/area)Ordered By: Dontrell Latif on 07-10-2023 RBC Auto (Urine sed) [#/Area] Innumerable [HPF] 0-4 [facility] Automated leukocytes count i n urine sediment (number/area)Ordered By: Dontrell Latif on 07-10-2023 WBC Auto (Urine sed) [#/Area] 5-9 [HPF] 0-4 [facility] Automated urine specific gra vity by refractometryOrdered By: Dontrell Latif on 07-10-2023 Specific gravity Refractometry automated (U) [Rel density] 1.011 1.001-1.030 [facility] Comment on above: By Refractometer Basic Metabolic Panelon Anion gap [Moles/Vol] 12.4 mmol/L Normal 6.0-15.0 [facility] Comment on above: Performed By: #### B MP, CBC #### [address] Calcium [Mass/Vol] 8.8 mg/dL Normal 8.6-10.3 [facility] Comment on above: Performed By: #### B MP, CBC #### [address] Chloride [Moles/Vol] 101 mmol/L Normal 98-107 [facility] Comment on above: Performed By: #### B MP, CBC #### [address] CO2 [Moles/Vol] 26.4 mmol/L Normal 21.0-31.0 [facility] Comment on above: Performed By: #### B MP, CBC #### [address] Creatinine [Mass/Vol] 1.59 mg/dL High 0.70-1.30 [facility] Comment on above: Performed By: #### B MP, CBC #### [address] Creatinine Clr Calc Pharmacy 50.83 Normal [facility] Comment on above: Result Comment: PERF ORMED BY: [place] [address] PATHOLOGIST [employer] HANNAH MAGANA M.D. Performed By: #### B MP, CBC #### [address] GFR/1.73 sq M.predicted MDRD (S/P/Bld) [Vol rate/Area] 44.712 mL/min/{1.73_m2} Normal [facility] Comment on above: Performed By: #### B MP, CBC #### [address] Glucose [Mass/Vol] 127 mg/dL High 70-100 [facility] Comment on above: Result Comment: Skipwith Glucose Reference Range is dependent on time and content of last meal. Glucose of more than 200 mg/dL in a nonstressed, ambulatory subject supports the diagnosis of Diabetes Mellitus. ADA recommended reference range Performed By: #### B MP, CBC #### [address] Potassium [Moles/Vol] 3.8 mmol/L Normal 3.5-5.1 [facility] Comment on above: Performed By: #### B MP, CBC #### [facility] [address] Sodium [Moles/Vol] 136 mmol/L Normal 136-145 [facility] Comment on above: Performed By: #### B MP, CBC #### [facility] [address] Urea nitrogen [Mass/Vol] 24 mg/dL Normal 7-25 [facility] Comment on above: Performed By: #### B MP, CBC #### [facility] [address] Basophils Auto (Bld) [#/Vol] Ordered By: Dontrell Latif on 07-10-2023 Basophils (Bld) [#/Vol] 0.0 10*3/uL 0.0-0.2 [facility] Basophils/100 WBC Auto (Bld) Ordered By: Dontrell Latif on 07-10-2023 Basophils/100 WBC (Bld) 0.5 % . [facility] Bilirubin Test strip Ql (U)O rdered By: Dontrell Latif on 07-10-2023 Bilirubin Ql (U) See comment Negative [facility] Comment on above: Unable to obtain acc urate result due to color interference. Calcium [Mass/volume] in Ser um or PlasmaOrdered By: Dontrell Latif on 07-10-2023 Calcium [Mass/Vol] 8.8 mg/dL 8.6-10.3 [facility] Carbon dioxide, total [Moles /volume] in Serum or PlasmaOrdered By: Dontrell Latif on 07-10-2023 CO2 [Moles/Vol] 26.4 mmol/L 21.0-31.0 [facility] Chloride [Moles/volume] in S cole or PlasmaOrdered By: Dontrell Latif on 07-10-2023 Chloride [Moles/Vol] 101 mmol/L 98-107 [facility] Color Auto (U)Ordered By: Ara Latif on 07-10-2023 Color (U) Red Yellow [facility] Complete Blood Count Auto Di ffon 07-10-2023 Basophils (Bld) [#/Vol] 0.0 10*3/uL Normal 0.0-0.2 [facility] Comment on above: Result Comment: PERF ORMED BY: [place] [address] PATHOLOGIST [employer] HANNAH MAGANA M.D. Performed By: #### B MP, CBC #### [address] Basophils/100 WBC (Bld) 0.5 % Normal . [facility] Comment on above: Performed By: #### B MP, CBC #### [address] Eosinophils (Bld) [#/Vol] 0.2 10*3/uL Normal 0.0-0.45 [facility] Comment on above: Performed By: #### B MP, CBC #### [address] Eosinophils/100 WBC (Bld) 2.5 % Normal . [facility] Comment on above: Performed By: #### B MP, CBC #### [address] Erythrocyte distribution width (RBC) [Ratio] 15.1 % High 12.0-14.8 [facility] Comment on above: Performed By: #### B MP, CBC #### [address] Hematocrit (Bld) [Volume fraction] 39.2 % Normal 38.8-50.0 [facility] Comment on above: Performed By: #### B MP, CBC #### [address] Hemoglobin (Bld) [Mass/Vol] 13.1 g/dL Normal 13.0-17.0 [facility] Comment on above: Performed By: #### B MP, CBC #### [address] Lymphocytes (Bld) [#/Vol] 2.5 10*3/uL Normal 1.00-4.8 [facility] Comment on above: Performed By: #### B MP, CBC #### [address] Lymphocytes/100 WBC (Bld) 27.7 % Normal . [facility] Comment on above: Performed By: #### B MP, CBC #### [address] MCH (RBC) [Entitic mass] 32.7 pg Normal 27.5-35.2 [facility] Comment on above: Performed By: #### B MP, CBC #### [address] MCV (RBC) [Entitic vol] 97.9 fL Normal 83.5-101 [facility] Comment on above: Performed By: #### B MP, CBC #### [address] Mean Corpuscular HGB Conc 33.4 g/dL Normal 32.5-35.6 [facility] Comment on above: Performed By: #### B MP, CBC #### [place] [address] [place] Monocytes (Bld) [#/Vol] 0.6 10*3/uL Normal 0.0-0.8 [facility] Comment on above: Performed By: #### B MP, CBC #### [place] [address] [place] Monocytes/100 WBC (Bld) 15.93 % Normal 0.00-20.00 [facility] Comment on above: Performed By: #### B MP, CBC #### [place] [address] [place] Monocytes/100 WBC (Bld) 6.4 % Normal . [facility] Comment on above: Performed By: #### B MP, CBC #### [address] Neutrophils (Bld) [#/Vol] 5.7 10*3/uL Normal 1.8-7.7 [facility] Comment on above: Performed By: #### B MP, CBC #### [facility] [address] Neutrophils/100 WBC (Bld) 62.9 % Normal . [facility] Comment on above: Performed By: #### B MP, CBC #### [facility] [address] NRBC% 0.2 /100{WBC} Normal 0-0.5 [facility] Comment on above: Performed By: #### B MP, CBC #### [facility] [address] Platelet mean volume (Bld) [Entitic vol] 8.2 fL Normal 6.6-10.1 [facility] Comment on above: Performed By: #### B MP, CBC #### [facility] [address] [place] [address] [place] Platelets (Bld) [#/Vol] 173 10*3/uL Normal 150-450 [facility] Comment on above: Performed By: #### B MP, CBC #### [facility] [address] [place] [address] [place] RBC (Bld) [#/Vol] 4.00 10*6/uL Normal 3.90-5.60 [facility] Comment on above: Performed By: #### B MP, CBC #### [facility] [address] [place] [address] [place] WBC (Bld) [#/Vol] 9.1 10*3/uL Normal 4.1-10.5 [facility] Comment on above: Performed By: #### B MP, CBC #### [facility] [address] [place] [address] [place] Creatinine [Mass/volume] in Serum or PlasmaOrdered By: Dontrell Latif on 07-10-2023 Creatinine [Mass/Vol] 1.59 mg/dL 0.70-1.30 [facility] Dipstick and Microscopicon 0 07-10-2023 Appearance (U) Turbid Critically abnormal Clear [facility] Comment on above: Order Comment: Name Collection Type:: Clean-Voided Midstream Performed By: #### C UU, ADDONUAPLUS #### [place] [address] [place] Bacteria,Urine 1+ High None Seen [facility] Comment on above: Order Comment: Name Collection Type:: Clean-Voided Midstream Result Comment: PERF ORMED BY: [place] [address] PATHOLOGIST [employer] HANNAH MAGANA M.D. Performed By: #### C UU, ADDONUAPLUS #### [address] Bilirubin,Urine Normal Negative [facility] Comment on above: Order Comment: Name Collection Type:: Clean-Voided Midstream Result Comment: Unab le to obtain accurate result due to color interference. Performed By: #### C UU, ADDONUAPLUS #### [place] [address] [place] Color (U) Red Critically abnormal Yellow [facility] Comment on above: Order Comment: Name Collection Type:: Clean-Voided Midstream Performed By: #### C UU, ADDONUAPLUS #### [place] [address] [place] Glucose Ql (U) Normal Normal [facility] Comment on above: Order Comment: Name Collection Type:: Clean-Voided Midstream Result Comment: Unab le to obtain accurate result due to color interference. Performed By: #### C UU, ADDONUAPLUS #### [place] [address] [place] Ketones Ql (U) Normal Negative [facility] Comment on above: Order Comment: Name Collection Type:: Clean-Voided Midstream Result Comment: Unab le to obtain accurate result due to color interference. Performed By: #### C UU, ADDONUAPLUS #### [place] [address] [place] Leukocyte esterase Test strip Ql (U) Normal Negative [facility] Comment on above: Order Comment: Name Collection Type:: Clean-Voided Midstream Result Comment: Unab le to obtain accurate result due to color interference. Performed By: #### C UU, ADDONUAPLUS #### [place] [address] [place] Nitrite,Urine Normal Negative [facility] Comment on above: Order Comment: Name Collection Type:: Clean-Voided Midstream Result Comment: Unab le to obtain accurate result due to color interference. Performed By: #### C UU, ADDONUAPLUS #### [address] Occult Blood,Urine Normal Negative [facility] Comment on above: Order Comment: Name Collection Type:: Clean-Voided Midstream Result Comment: Unab le to obtain accurate result due to color interference. Performed By: #### C UU, ADDONUAPLUS #### [address] pH,Urine Normal 5.0-9.0 [facility] Comment on above: Order Comment: Name Collection Type:: Clean-Voided Midstream Result Comment: Unab le to obtain accurate result due to color interference. Performed By: #### C UU, ADDONUAPLUS #### [address] Protein,Urine Normal Negative [facility] Comment on above: Order Comment: Name Collection Type:: Clean-Voided Midstream Result Comment: Unab le to obtain accurate result due to color interference. Performed By: #### C UU, ADDONUAPLUS #### [address] RBC,Urine Innumerable High 0-4 [facility] Comment on above: Order Comment: Name Collection Type:: Clean-Voided Midstream Performed By: #### C UU, ADDONUAPLUS #### [place] [address] [place] Specificy [place],Urine 1.011 Normal 1.001-1.030 [facility] Comment on above: Order Comment: Name Collection Type:: Clean-Voided Midstream Result Comment: By R efractometer Performed By: #### C UU, ADDONUAPLUS #### [address] Squamous Epithelial Cell,Urine 0-1 Normal 0-2 [facility] Comment on above: Order Comment: Name Collection Type:: Clean-Voided Midstream Performed By: #### C UU, ADDONUAPLUS #### [address] Urobilinogen,Urine Normal Normal [facility] Comment on above: Order Comment: Name Collection Type:: Clean-Voided Midstream Result Comment: Unab le to obtain accurate result due to color interference. Performed By: #### C UU, ADDONUAPLUS #### [address] WBC,Urine 5-9 High 0-4 [facility] Comment on above: Order Comment: Name Collection Type:: Clean-Voided Midstream Performed By: #### C UU, ADDONUAPLUS #### [address] Eosinophils Auto (Bld) [#/Vo l]Ordered By: Dontrell Latif on 07-10-2023 Eosinophils (Bld) [#/Vol] 0.2 10*3/uL 0.0-0.45 [facility] Eosinophils/100 WBC Auto (Bl d)Ordered By: Dontrell Latif on 07-10-2023 Eosinophils/100 WBC (Bld) 2.5 % . [facility] Erythrocyte distribution wid th Auto (RBC) [Ratio]Ordered By: Dontrell Latif on 07-10-2023 Erythrocyte distribution width (RBC) [Ratio] 15.1 % 12.0-14.8 [facility] Glucose [Mass/volume] in Ser um or PlasmaOrdered By: Dontrell Latif on 07-10-2023 Glucose [Mass/Vol] 127 mg/dL 70-100 [facility] Comment on above: ADA recommended refe rence rangeRandom Glucose Reference Range is dependent on time and content of last meal. Glucose of more than 200 mg/dL in a nonstressed, ambulatory subject supports the diagnosis of Diabetes Mellitus. Hematocrit Auto (Bld) [Volum e fraction]Ordered By: Dontrell Latif on 07-10-2023 Hematocrit (Bld) [Volume fraction] 39.2 % 38.8-50.0 [facility] Hemoglobin [Mass/volume] in BloodOrdered By: Dontrell Latif on 07-10-2023 Hemoglobin (Bld) [Mass/Vol] 13.1 g/dL 13.0-17.0 [facility] Ketones Auto test strip (U) [Mass/Vol]Ordered By: Dontrell Latif on 07-10-2023 Ketones (U) [Mass/Vol] See comment Negative [facility] Comment on above: Unable to obtain acc urate result due to color interference. Leukocytes [#/volume] correc jeanne for nucleated erythrocytes in Blood by Automated counOrdered By: Dontrell Latif on 07-10-2023 WBC corrected for nucl RBC Auto (Bld) [#/Vol] 9.1 10*3/uL 4.1-10.5 [facility] Lymphocytes Auto (Bld) [#/Vo l]Ordered By: Dontrell Latif on 07-10-2023 Lymphocytes (Bld) [#/Vol] 2.5 10*3/uL 1.00-4.8 [facility] Lymphocytes/100 WBC Auto (Bl d)Ordered By: Dontrell Latif on 07-10-2023 Lymphocytes/100 WBC (Bld) 27.7 % . [facility] MCH Auto (RBC) [Entitic mass ]Ordered By: Dontrell Latif on 07-10-2023 MCH (RBC) [Entitic mass] 32.7 pg 27.5-35.2 [facility] MCHC Auto (RBC) [Mass/Vol]Or dered By: Dontrell Latif on 07-10-2023 MCHC (RBC) [Mass/Vol] 33.4 g/dL 32.5-35.6 [facility] MCV Auto (RBC) [Entitic vol] Ordered By: Dontrell Latif on 07-10-2023 MCV (RBC) [Entitic vol] 97.9 fL 83.5-101 [facility] Monocyte distribution width [Entitic volume] in Blood by AutomatedOrdered By: Dontrell Latif on 07-10-2023 Monocyte distribution width Auto (Bld) [Entitic vol] 15.93 % 0.00-20.00 [facility] Monocytes Auto (Bld) [#/Vol] Ordered By: Dontrell Latif on 07-10-2023 Monocytes (Bld) [#/Vol] 0.6 10*3/uL 0.0-0.8 [facility] Monocytes/100 WBC Auto (Bld) Ordered By: Dontrell Latif on 07-10-2023 Monocytes/100 WBC (Bld) 6.4 % . [facility] Neutrophils Auto (Bld) [#/Vo l]Ordered By: Dontrell Latif on 07-10-2023 Neutrophils (Bld) [#/Vol] 5.7 10*3/uL 1.8-7.7 [facility] Neutrophils/100 WBC Auto (Bl d)Ordered By: Dontrell Latif on 07-10-2023 Neutrophils/100 WBC (Bld) 62.9 % . [facility] Nitrite Test strip Ql (U)Ord ered By: Dontrell Latif on 07-10-2023 Nitrite Ql (U) See comment Negative [facility] Comment on above: Unable to obtain acc urate result due to color interference. No Panel InformationOrdered By: Dontrell Latif on 07-10-2023 Estimated GFR (CKD-EPI) 44.712 mL/Min [facility] Creatinine Clearance (Chem 50.83 [facility] Nucleated erythrocytes [Pres ence] in Blood by Automated countOrdered By: Dontrell Latif on 07-10-2023 Nucleated RBC Auto Ql (Bld) 0.2 /100{WBC} 0-0.5 [facility] Platelet mean volume Auto (B ld) [Entitic vol]Ordered By: Dontrell Latif on 07-10-2023 Platelet mean volume (Bld) [Entitic vol] 8.2 fL 6.6-10.1 [facility] Platelets Auto (Bld) [#/Vol] Ordered By: Dontrell Latif on 07-10-2023 Platelets (Bld) [#/Vol] 173 10*3/uL 150-450 [facility] Potassium [Moles/volume] in Serum or PlasmaOrdered By: Dontrell Latif on 07-10-2023 Potassium [Moles/Vol] 3.8 mmol/L 3.5-5.1 [facility] Protein Auto test strip (U) [Mass/Vol]Ordered By: Dontrell Latif on 07-10-2023 Protein (U) [Mass/Vol] See comment Negative F [facility] Comment on above: Unable to obtain acc urate result due to color interference. RBC Auto (Bld) [#/Vol]Ordere d By: Dontrell Latif on 07-10-2023 RBC (Bld) [#/Vol] 4.00 10*6/uL 3.90-5.60 [facility] Serum or plasma anion gap de terminationOrdered By: Dontrell Latif on 07-10-2023 Anion gap [Moles/Vol] 12.4 mmol/L 6.0-15.0 [facility] Sodium [Moles/volume] in Ser um or PlasmaOrdered By: Dontrell Latif on 07-10-2023 Sodium [Moles/Vol] 136 mmol/L 136-145 [facility] Urea nitrogen [Mass/volume] in Serum or PlasmaOrdered By: Dontrell Latif on 07-10-2023 Urea nitrogen [Mass/Vol] 24 mg/dL 7-25 [facility] Urine Cultureon 07-10-2023 Bacteria identified Cx Nom (U) ORGANISM: Escherichia coli (O:ESCCOL) [place] Count >100,000 Aerobic AGUSTINA Charge ([id number]) ----- SUSCEPTIBILITY ---- ORGANISM: O:ESCCOL ANTIBIOTIC INTERPRETATION AGUSTINA Amikacin S <16 Amoxacillin/K Clavulanate S <8 Ampicillin R >16 Ampicillin/Sulbactam R >16 Aztreonam S <4 Cefazolin S 4 Cefepime S <2 Ceftazidime S <1 Ceftazidime/Avibacta m S <4 Ceftolozane/Tazobact am S <2 Ceftriaxone S <1 Cefuroxime S <4 Ciprofloxacin S <0.25 Ertapenem S <0.5 Gentamicin S <2 Levofloxacin S <0.5 Meropenem S <1 Meropenem/Vaborbacta m S <2 Nitrofurantoin S <32 Piperacillin/Tazobac mercer S <8 Tetracycline S <4 Tigecycline S <2 Tobramycin S <2 Trimethoprim/Sulfame thoxazole S <0.5 S = SUSCEPTIBLE I = INTERMEDIATE R = RESISTANT BLANK = DATA NOT AVAILABLE, OR DRUG NOT ADVISABLE OR TESTED R* = RESISTANCE DUE TO EXTENDED SPECTRUM BETA-LACTAMASES ESBL = EXTENDED SPECTRUM BETA-LACTAMASE TFG = THYMIDINE-DEPENDENT STRAIN WILLA = BETA-LACTAMASE POSITIVE IB = INDUCIBLE BETA-LACTAMASE. APPEARS IN PLACE OF 'S' WITH SPECIES KNOWN TO POSSESS INDUCIBLE BETA-LACTAMASES. POTENTIALLY THEY MAY BECOME RESISTANT TO ALL B-LACTAM DRUGS. PERFORMED BY: [place] [address] PATHOLOGIST [employer] HANNAH MAGANA M.D. Normal [facility] Comment on above: Performed By: #### C UU, ADDONUAPLUS #### [address] Urine bacteria detection by automated methodOrdered By: Dontrell Latif on 07-10-2023 Bacteria Auto Ql (U) 1+ None Seen [facility] Urine clarity by refractomet ry automatedOrdered By: Dontrell Latif on 07-10-2023 Clarity Refractometry automated (U) Turbid Clear [facility] Urine culture routineOrdered By: Dontrell Latif on 07-10-2023 Bacteria identified Cx Nom (U) Escherichia coli [facility] Urine glucose measurement by automated test strip (mass/volume)Ordered By: Dontrell Latif on 07-10-2023 Glucose Auto test strip (U) [Mass/Vol] See comment Normal [facility] Comment on above: Unable to obtain acc urate result due to color interference. Urine hemoglobin detection b y automated test stripOrdered By: Dontrell Latif on 07-10-2023 Hemoglobin Auto test strip Ql (U) See comment Negative [facility] Comment on above: Unable to obtain acc urate result due to color interference. Urine leukocyte esterase det ection by automated test stripOrdered By: Dontrell Latif on 07-10-2023 Leukocyte esterase Auto test strip Ql (U) See comment Negative [facility] Comment on above: Unable to obtain acc urate result due to color interference. Urobilinogen Auto test strip (U) [Mass/Vol]Ordered By: Dontrell Latif on 07-10-2023 Urobilinogen (U) [Mass/Vol] See comment Normal [facility] Comment on above: Unable to obtain acc urate result due to color interference. WBC Auto (Bld) [#/Vol]Ordere d By: Dontrell Latif on 07-10-2023 WBC (Bld) [#/Vol] 9.1 10*3/uL 4.1-10.5 [facility] pH Auto test strip (U)Ordere d By: Dontrell Latif on 07-10-2023 pH (U) See comment 5.0-9.0 [facility] Comment on above: Unable to obtain acc urate result due to color interference. Analilia 05-11-2023 CNPN Telephone (NIQ) SUMEET PAZ ([id number]) 1945 M Date Time Provider Department 05/11/23 Korina SWAN During your visit today, we recorded the following information about you: Minerva Pineda 05/11/2023 10:41 AM Signed Call received for Korina Swan MD regarding Sumeet Paz. Caller: Self Patient Identified by Name and : Yes Reason for Call: General Question Patient is calling to schedule surgery. Is there any additional information the provider should know? no Last Office Visit: 04/25/23 Next scheduled appointment: no visit scheduled Best number to reach caller: [phone] Best time to reach caller: Anytime Is it OK to leave a detailed voice message? Yes Sybil Otero RN 05/11/2023 10:54 AM Signed Neuro SPINE CARE COORDINATION SURGERY SCHEDULING Patient accepts surgery date of 10/19/[address] Swan at [facility]. Planned procedure is L2-3 decompression and combined posterolateral and transforaminal lumbar interbody fusion and an L2-4 instrumentation. PACC will be scheduled by PACC schedulers. Medications reviewed : Yes}. Meds to be stopped prior to surgery : NSAIDS, ASA, and Vitamins and supplements. Additional pre op clearances needed : cardiac. Any implanted devices : No. Transplant History No Patient will get optimization lab work : HgbA1C. Questions answered. Patient verbalizes understanding via teach back. Additional comments : Patient placed on cancellation list Patient is aware A1c must be below 8 to proceed with surgery. Allergies As of Date: 05/11/2023 (No Known Allergies) Date Reviewed: 04/25/2023 Reviewed by: Raven Batista Ma - Fully Assessed Reason for Visit: Schedule Surgery [1330] Prescriptions as of 05/11/2023 - lisinopril (ZESTRIL, PRINIVIL) 20 mg tablet Take by mouth q 12 HR. - semaglutide (OZEMPIC SUBCUTANEOUS) Inject subcutaneously. Once a week - insulin glargine (LANTUS) 100 unit/mL injection Inject 45 Units subcutaneously twice daily. - GABAPENTIN ORAL Take by mouth. Take seven tablets twice a day - LIPITOR 10MG TABLET Take 20 mg by mouth. 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.2] 06/08/2022 Personal history of malignant neoplasm of prost*06/15/2011 Obstructive sleep apnea [G47.33] 08/02/2017 Obstructive sleep apnea syndrome [G47.33] 06/08/2022 Major depressive disorder, single episode, unsp*06/08/2022 Hypothyroidism [E03.9] 06/08/2022 Hyperlipidemia [E78.5] 08/02/2017 Essential hypertension [I10] 08/02/2017 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] 05/25/2011 Enuresis [R32] 06/08/2022 HURST (dyspnea on exertion) [R06.09] 06/08/2022 Diabetic neuropathy (HCC) [E11.40] 06/08/2022 Alcohol abuse [F10.10] 06/08/2022 Arteriosclerosis of coronary artery [I25.10] 02/09/2022 Personal history of nicotine dependence [Z87.89*07/26/2017 superintendent container terminal (current) use of insulin (HCC) [Z79.4]02/17/2022 Class 2 obesity in adult [E66.9] 02/19/2022 History of cardioembolic cerebrovascular accide*06/08/2022 Encounter Status:Closed by SYBIL MLOINA on 05/11/23 [facility] CNOVon 04-25-2023 CNOV Office Visit (SPSNAV) SUMEET PAZ ([id number]) 1945 M Date Time Provider Department 04/25/23 2:30 PM Korina SWAN SPSNAV During your visit today, we recorded the following information about you: Korina Swan MD 04/25/2023 3:40 PM Signed SPINE SURGERY FOLLOW UP This is an in-person visit. SERVICE DATE: 04/25/2023 SURGERY DATE: 09/29/2022 Sumeet Paz is seen for 7 month post operative follow up. Patient is s/p L2-3 bilateral laminotomy, foraminotomy. Patient was last seen in clinic on 02/28/2023 where he was complaining of severe low back pain with a heavy sensation about bilateral lower extremities as he stands or walks. The symptoms are largely unchanged from prior visit. Of note, he did obtain a new lumbar MRI which shows continued stenosis about L2-L3. ANTIPLATELET OR ANTICOAGULATION STATUS: No Patient Entered Questionnaires Spine Questions 01/04/2021 Pain Location: Lower back Pain Duration: More than 5 years Pain over last 6 months: Every day or nearly every day in the past 6 months Symptoms from neck/cervical spine: Yes PROMIS Score Percentiles Physical Health 01/04/2021 Physical Function Percentile 1 Sleep Percentile 38 Fatigue Percentile 12 Pain Interference Percentile 4 PROMIS SOCIAL ROLE SCORE 01/04/2021 Social Role Satisfaction Percentile 16* Percentiles provide an indication of how the patient's score ranks in relation to the general population. Higher percentile rankings indicate better function/quality of life. 50th percentile is the average of the general population and indicates half of respondents had a worse score. Depression Screening: PHQ-9 Self-Harm (Item 9) response options: 0 Not at all 1 Several days 2 More than half the days 3 Nearly every day PHQ-9 Levels: 0-4 No to mild depression 5-9 Mild depression 10-14 Moderate depression 15-19 Moderately severe depression 20-27 Severe depression PHYSICAL EXAM: There were no vitals taken for this visit. GENERAL APPEARANCE: Well nourished, well developed, and no apparent distress. NEURO PSYCH: Patient oriented to person, place, and time. Mood pleasant. Benign affect. MUSCULOSKELETAL VISUAL INSPECTION CERVICAL: WNL THORACIC: WNL LUMBAR: WNL MOTOR: 5/5 in all muscle groups. SENSORY: Normal sensory exam GAIT: Normal. REFLEXES: +2 to bilateral U/L extremities. PROPRIOCEPTION: Normal. LONG TRACT SIGNS: No clonus. No Hoffmans. DATA REVIEW [facility] records independently reviewed severe L2-3 spinal stenosis and foraminal stenosis. ASSESSMENT/PLAN (Z98.890) Status post lumbar spine operative procedure for decompression of spinal cord (primary encounter diagnosis) Sumeet Paz is clinically indicated and wishes to pursue Lumbar Decompression with combined posterolateral and transforaminal lumbar interbody fusion at L2-3. Clinical Indications for Spinal Fusion: L2-3 instability The risks, benefits, and anticipated outcomes of the procedure/treatment/ test, the alternatives to the procedure/treatment/ test and their risks and benefits, and the roles and tasks of the personnel to be involved were discussed with the patient or the patient?s personal freight representative. The patient has elected to schedule surgery at this time or intends to call the office with a surgical date. Shared decision making occurred while obtaining informed consent. 1. Preoperative labs and medical clearance 2. Follow up: For surgery Imaging Ordered: None I reviewed the information obtained and documented by the resident. I examined the patient and evaluated all available films and pertinent documents. We discussed the case and I agree with the plans as outlined in this note. Korina Swan MD 04/25/2023 3:40 PM Signed Sumeet is had a new lumbar MRI. It shows recurrent stenosis at the L2-3 level. This would indicate that there is some level of instability here as the stenosis occurred very quickly after decompression. I think Sumeet would benefit from an L2-3 decompression and combined posterolateral and transforaminal lumbar interbody fusion and an L2-4 instrumentation. We had a detailed discussion of the risks, benefits, expected outcomes, options and personnel today. He wishes to proceed. Korina Swan MD Referring Provider: Korina SWAN [[id number]] Allergies As of Date: 04/25/2023 (No Known Allergies) Date Reviewed: 04/25/2023 Reviewed by: Raven Batista Ma - Fully Assessed Reason for Visit: Established Patient [175] Cmt: S/P Lumbar spine operative procedure for decompression of spinal cord Primary Visit Diagnosis:Status post lumbar spine operative procedure for decompression of spinal cord [Z98.890] Other Visit Diagnosis:Spinal stenosis, lumbar region with neurogenic claudication [M48.062] Prescriptions as of 04/25/2023 - lisinopril (ZESTRIL, PRINIVIL) 20 mg tablet (more content not included)... Normal [facility] MRI LUMBAR SPINE WO IVCONon 04-03-2023 MRI LUMBAR SPINE WO IVCON * * *Final Report* * * DATE OF EXAM: Apr 03 2023 12:24PM LNM 0303 - MRI LUMBAR SPINE WO IVCON / PROCEDURE REASON: Spinal stenosis of lumbar region with neurogenic claudication * * * * Physician Interpretation * * * * EXAMINATION: MRI LUMBAR SPINE WO IVCON CLINICAL HISTORY: Spinal stenosis of lumbar region with neurogenic claudication TECHNIQUE: Routine lumbosacral spine MR protocol without gadolinium. MQ: [id number] COMPARISON: 09/21/2021 CT RESULT: Counting reference: Lumbosacral junction. For the purposes of this report, L4-5 is considered the level of the iliac crest and assume there are 5 lumbar-type vertebrae. Anatomic variant: None. Localizer images: No additional findings. Alignment: Alignment is anatomic. Bone marrow signal/fracture: Laminectomy L2-3 through L5-S1. Transpedicular screws and connecting rods L4-S1. Interbody graft construct L3-4. No evidence of pathologic marrow infiltration. No evidence of prior fracture. Conus: The conus is within normal limits of signal intensity and morphology. Paraspinal soft tissues: Paraspinal soft tissues are within normal limits. Lower thoracic spine: Visualized lower thoracic canal and foramina are patent. L1-L2: Canal and foramina are patent. L2-L3: Disc height loss and bulging and facet hypertrophy. Moderate to severe narrowing of the spinal canal and bilateral neural foramina. L3-L4: Disc height loss and bulging with endplate osteophytes and facet hypertrophy. Spinal canal is decompressed. Mild left foraminal narrowing due to hypertrophy of the residual facet joint. L4-L5: Disc height loss than bulging with endplate osteophytes. Spinal canal is decompressed. Mild left foraminal narrowing due to hypertrophy of the residual facet joint. L5-S1: Minimal anterolisthesis. Spinal canal is decompressed. Foramina are patent. Sacrum and iliac wings: The visualized sacrum and iliac wings are within normal limits. IMPRESSION: Postsurgical changes of L3-4 interbody fusion and at L4-S1 posterior instrumented fusion as well as decompression. Notably, there are junctional degenerative changes contributing to high-grade spinal canal and foraminal stenosis at L2-3. Anatomic Lumbar Variant: None. L4-5 is considered the level of the iliac crest and assume there are 5 lumbar-type vertebrae. Vice President Of Human Resources: [facility] Transcribe Date/Time: Apr 03 2023 2:36P Dictated by : LIONEL ROLDAN MD This examination was interpreted and the report reviewed and electronically signed by: LIONEL ROLDAN MD on Apr 03 2023 2:43PM EST [id number] CN Normal [facility] 03-28-2023 CNPN Telephone (NI) SUMEET PAZ ([id number]) 1945 M Date Time Provider Department 03/28/23 Korina SWAN During your visit today, we recorded the following information about you: Gabby Dexter 03/28/2023 10:28 AM Signed Received the following record(s) via fax. -PT Notes Date 03/23/23 Record(s) scanned into pt's chart. Sybil Foreman RN 03/28/2023 10:47 AM Signed Neuro SPINE CARE COORDINATION QUICK NOTE Noted Allergies As of Date: 03/28/2023 (No Known Allergies) Date Reviewed: 02/28/2023 Reviewed by: Anitra Newell APRN.POND SUPERVISOR - Fully Assessed Reason for Visit: Received Outside Medical Records [3576] Prescriptions as of 03/28/2023 - lisinopril (ZESTRIL, PRINIVIL) 20 mg tablet Take by mouth q 12 HR. - semaglutide (OZEMPIC SUBCUTANEOUS) Inject subcutaneously. Once a week - insulin glargine (LANTUS) 100 unit/mL injection Inject 45 Units subcutaneously twice daily. - GABAPENTIN ORAL Take by mouth. Take seven tablets twice a day - LIPITOR 10MG TABLET Take 20 mg by mouth. 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] 06/08/2022 Personal history of malignant neoplasm of prost*06/15/2011 Obstructive sleep apnea [G47.33] 08/02/2017 Obstructive sleep apnea syndrome [G47.33] 06/08/2022 Major depressive disorder, single episode, unsp*06/08/2022 Hypothyroidism [E03.9] 06/08/2022 Hyperlipidemia [E78.5] 08/02/2017 Essential hypertension [I10] 08/02/2017 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] 05/25/2011 Enuresis [R32] 06/08/2022 HURST (dyspnea on exertion) [R06.09] 06/08/2022 Diabetic neuropathy (HCC) [E11.40] 06/08/2022 Alcohol abuse [F10.10] 06/08/2022 Arteriosclerosis of coronary artery [I25.10] 02/09/2022 Personal history of nicotine dependence [Z87.89*07/26/2017 longterm (current) use of insulin (HCC) [Z79.4]02/17/2022 Class 2 obesity in adult [E66.9] 02/19/2022 History of cardioembolic cerebrovascular accide*06/08/2022 Encounter Status:Closed by SYBIL MOLINA on 03/28/23 [facility] CNOVon 02-28-2023 CNOV Office Visit (SPSNAV) AMADOSUMEET Newell ([id number]) 1945 M Date Time Provider Department 02/28/23 12:45 PM Korina SWAN SPSNAV During your visit today, we recorded the following information about you: Korina Swan MD 02/28/2023 2:45 PM Signed SPINE SURGERY FOLLOW UP This is an in-person visit. SERVICE DATE: 02/28/2023 SURGERY DATE: 09/29/22 Sumeet Geethagary is seen for 6 month post operative follow up. S/P L2-3 bilateral laminotomy, foraminotomy. PAIN EVALUATION 02/28/2023 1254 Pain Level: 5 Pain Location: Back-Lower Description: Sharp Duration Amount of Time: 6 Duration Units: Years Frequency: Continuous Pain Radiation: Pain does not radiate Aggravating Factors: Walking Alleviating Factors: None Pain Ratio: N/A KOURTNEY 01/17/23: Sumeet is now almost 4 months out from surgery. His lower extremity symptoms remain resolved. He is still complaining of significant back pain. He has been doing physical therapy and this has begun to have some improvement. Given that he is starting to improve I would not intervene at this stage. He will continue with his therapy for another 6 weeks. His x-rays today look good with no evidence of new instability or change in alignment. I will see him back in 6 weeks time. If he is not improving at that stage we would repeat his imaging. Today he reports worsening. Walks maybe 50 feet. Takes gabapentin 700mg BID has been on for years; previous back surgeries. Did PT, states no difference. No B/B changes/SA; ? Dropping pills/balance, denies weakness. Does not use assistive devices to ambulate. Does have h/o DM with neuropathy. ANTIPLATELET OR ANTICOAGULATION STATUS: No Patient Entered Questionnaires Spine Questions 01/04/2021 Pain Location: Lower back Pain Duration: More than 5 years Pain over last 6 months: Every day or nearly every day in the past 6 months Symptoms from neck/cervical spine: Yes PROMIS Score Percentiles Physical Health 01/04/2021 Physical Function Percentile 1 Sleep Percentile 38 Fatigue Percentile 12 Pain Interference Percentile 4 PROMIS SOCIAL ROLE SCORE 01/04/2021 Social Role Satisfaction Percentile 16* Percentiles provide an indication of how the patient's score ranks in relation to the general population. Higher percentile rankings indicate better function/quality of life. 50th percentile is the average of the general population and indicates half of respondents had a worse score. Depression Screening: PHQ-9 Self-Harm (Item 9) response options: 0 Not at all 1 Several days 2 More than half the days 3 Nearly every day PHQ-9 Levels: 0-4 No to mild depression 5-9 Mild depression 10-14 Moderate depression 15-19 Moderately severe depression 20-27 Severe depression PHYSICAL EXAM: There were no vitals taken for this visit. GENERAL APPEARANCE: Well nourished, well developed, and no apparent distress. NEURO PSYCH: Patient oriented to person, place, and time. Flat affect. MUSCULOSKELETAL VISUAL INSPECTION CERVICAL: WNL THORACIC: WNL LUMBAR: WNL MOTOR: Hip Flexors Right: 5, Left: 5 Knee Extensors Right 5 and Left 5 Long Toe Extensors Right: 5, Left: 5 Ankle Plantar Flexors Right: 5, Left: 5 SENSORY: Normal sensory exam GAIT: slow, steady, unable to do heel walk REFLEXES: Knee jerk unable to illicit bilaterally, pt cant relax., Ankle jerk Right: 1+, Left: 1+. PROPRIOCEPTION: Not tested. LONG TRACT SIGNS: No clonus L foot, unable to relax R foot. No Hoffmans. 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 He has been doing PT w/o any improvement of LBP. Ordered CT lumbar. 1.Lumbar MRI 2. Follow up: Following above Imaging Ordered: For possible Lumbar Spinal Stenosis due to persistent c/o LBP . I reviewed the information obtained and documented by the nurse practitioner. I examined the patient and evaluated all available films and pertinent documents. We discussed the case and I agree with the plans as outlined in this note. SIGNATURE: Korina Swan MD PATIENT NAME: Sumeet Paz DATE: February 28, 2023 TIME: 1:02 PM PAGER: Korina Swan MD 02/28/2023 2:45 PM Signed Sumeet is now 5 months out from surgery. He still complaining of severe back pain. He is also complaining of a tired or heavy sensation in bilateral lower extremities if he stands or walks. On clinical exam he stands in neutral sagittal and coronal balance. Has a normal neurologic exam. He has a solid arthrodesis L3 to sacrum seen on his (more content not included)... Normal [facility] CNOVon 01-17-2023 CNOV Office Visit (SPSNAV) SUMEET PAZ ([id number]) 1945 M Date Time Provider Department 01/17/23 11:45 AM Korina SWAN SPSNAV During your visit today, we recorded the following information about you: Korina Swan MD 01/17/2023 1:24 PM Signed SPINE SURGERY FOLLOW UP This is an in-person visit. SERVICE DATE: 01/17/2023 SURGERY DATE: 09/29/2022 Sumeet Paz is seen for 3 month post operative follow up. States his anterior thigh pain has completely resolved but continues to have low back pain similar to before surgery. Has started PT which he believes has helped somewhat. The pain has been present since prior to surgery . His pain level is currently 3 on a scale of 0-10. The pain is located in the low back and described as sharp and stabbing Pain Radiation: non-radiating. Aggravating Factors: Standing, Walking Alleviating Factors: Sitting Pain Ratio: 100 % back pain, 0 % leg pain. ANTIPLATELET OR ANTICOAGULATION STATUS: No Patient Entered Questionnaires Spine Questions 01/04/2021 Pain Location: Lower back Pain Duration: More than 5 years Pain over last 6 months: Every day or nearly every day in the past 6 months Symptoms from neck/cervical spine: Yes PROMIS Score Percentiles Physical Health 01/04/2021 Physical Function Percentile 1 Sleep Percentile 38 Fatigue Percentile 12 Pain Interference Percentile 4 PROMIS SOCIAL ROLE SCORE 01/04/2021 Social Role Satisfaction Percentile 16* Percentiles provide an indication of how the patient's score ranks in relation to the general population. Higher percentile rankings indicate better function/quality of life. 50th percentile is the average of the general population and indicates half of respondents had a worse score. Depression Screening: PHQ-9 Self-Harm (Item 9) response options: 0 Not at all 1 Several days 2 More than half the days 3 Nearly every day PHQ-9 Levels: 0-4 No to mild depression 5-9 Mild depression 10-14 Moderate depression 15-19 Moderately severe depression 20-27 Severe depression PHYSICAL EXAM: There were no vitals taken for this visit. GENERAL APPEARANCE: Well nourished, well developed, and no apparent distress. NEURO PSYCH: Patient oriented to person, place, and time. Mood pleasant. Benign affect. MUSCULOSKELETAL VISUAL INSPECTION CERVICAL: WNL THORACIC: WNL LUMBAR: WNL MOTOR: 5/5 in all muscle groups. SENSORY: Stocking peripheral neuropathy, otherwise normal sensory exam GAIT: Normal. WOUND ASSESSMENT: Well healed lumbar incision. No erythema, drainage, fluctuance DATA REVIEW [facility] records independently reviewed demonstrating well maintained prior lumbosacral fusion without signs of acute complication ASSESSMENT/PLAN No diagnosis found. Sumeet Paz has being progressing appropriately s/p above procedure with resolution of anterior thigh pain but continued low back pain. 1. Continue PT 2. Follow up: Six weeks, no imaging needed I reviewed the information obtained and documented by the resident. I examined the patient and evaluated all available films and pertinent documents. We discussed the case and I agree with the plans as outlined in this note. Korina Swan MD 01/17/2023 1:24 PM Signed Sumeet is now almost 4 months out from surgery. His lower extremity symptoms remain resolved. He is still complaining of significant back pain. He has been doing physical therapy and this has begun to have some improvement. Given that he is starting to improve I would not intervene at this stage. He will continue with his therapy for another 6 weeks. His x-rays today look good with no evidence of new instability or change in alignment. I will see him back in 6 weeks time. If he is not improving at that stage we would repeat his imaging. Korina Swan MD Allergies As of Date: 01/17/2023 (No Known Allergies) Date Reviewed: 09/29/2022 Reviewed by: Radha Cooley RN - Fully Assessed Reason for Visit: Post Op [174] Cmt: Spinal Stenosis Primary Visit Diagnosis:S/P lumbar fusion [Z98.1] Prescriptions as of 01/17/2023 - lisinopril (ZESTRIL, PRINIVIL) 20 mg tablet Take by mouth q 12 HR. - semaglutide (OZEMPIC SUBCUTANEOUS) Inject subcutaneously. Once a week - insulin glargine (LANTUS) 100 unit/mL injection Inject 45 Units subcutaneously twice daily. - GABAPENTIN ORAL Take by mouth. Take seven tablets twice a day - LIPITOR 10MG TABLET Take 20 mg by mouth. 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 Normal [facility] CNPNon 01-17-2023 CNPN Telephone (SPSNAV) SUMEET PAZ ([id number]) 1945 M Date Time Provider Department 01/17/23 Korina SWAN SPSNAV During your visit today, we recorded the following information about you: Raven Batista Ma 01/17/2023 8:42 AM Signed Left message for patient to go directly to imaging before checking in for Dr. Swan's appointment. Raven Batista [facility] Allergies As of Date: 01/17/2023 (No Known Allergies) Date Reviewed: 09/29/2022 Reviewed by: Radha Cooley, CLAUDIA - Fully Assessed Prescriptions as of 01/17/2023 - lisinopril (ZESTRIL, PRINIVIL) 20 mg tablet Take by mouth q 12 HR. - semaglutide (OZEMPIC SUBCUTANEOUS) Inject subcutaneously. Once a week - insulin glargine (LANTUS) 100 unit/mL injection Inject 45 Units subcutaneously twice daily. - GABAPENTIN ORAL Take by mouth. Take seven tablets twice a day - LIPITOR 10MG TABLET Take 20 mg by mouth. 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] 06/08/2022 Personal history of malignant neoplasm of prost*06/15/2011 Obstructive sleep apnea [G47.33] 08/02/2017 Obstructive sleep apnea syndrome [G47.33] 06/08/2022 Major depressive disorder, single episode, unsp*06/08/2022 Hypothyroidism [E03.9] 06/08/2022 Hyperlipidemia [E78.5] 08/02/2017 Essential hypertension [I10] 08/02/2017 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] 05/25/2011 Enuresis [R32] 06/08/2022 HURST (dyspnea on exertion) [R06.09] 06/08/2022 Diabetic neuropathy (HCC) [E11.40] 06/08/2022 Alcohol abuse [F10.10] 06/08/2022 Arteriosclerosis of coronary artery [I25.10] 02/09/2022 Personal history of nicotine dependence [Z87.89*07/26/2017 longterm (current) use of insulin (HCC) [Z79.4]02/17/2022 Class 2 obesity in adult [E66.9] 02/19/2022 History of cardioembolic cerebrovascular accide*06/08/2022 Encounter Status:Closed by RAVEN BATISTA MA on 01/17/23 [facility] XR LUMBAR 3V AP/LAT/L5-S1on 01-17-2023 XR LUMBAR 3V AP/LAT/L5-S1 * * *Final Report* * * DATE OF EXAM: Jan 17 2023 11:07AM VHX [id number] - XR LUMBAR 3V AP/LAT/L5-S1 / PROCEDURE REASON: multiple diagnoses * * * * Physician Interpretation * * * * HISTORY: Spinal stenosis of lumbar region with neurogenic claudication S/P lumbar fusion TECHNOLOGIST PROVIDED HISTORY (if applicable): Chronic lower back pain without sciatica symptoms, patient states pain greatest midline lower back with pain radiating into right side of waist TECHNIQUE: XR LUMBAR 3V AP/LAT/L5-S1 RESULT: Lumbar spine 3 views. Counting reference: Lumbosacral junction. For the purposes of this report, L5-S1 is considered the most caudal well formed disc space. Status post pedicle screw and yolis fixation between L4 and S1. Anterior interbody device is seen at L3-4. Multilevel posterior decompression. No signs of hardware loosening or failure. Minimal levocurvature centered at L2-3. Preserved lordosis. Mild disc space narrowing at the visualized lower thoracic and upper lumbar levels as well as underlying degenerative changes at L3-4 and L4-5. Sacroiliac joints are preserved. Status post bilateral total hip arthroplasties. IMPRESSION: POSTOPERATIVE AND DEGENERATIVE FINDINGS. Vice President Of Human Resources: SANCHO Transcribe Date/Time: Jan 17 2023 4:05P Dictated by : RUFINO STEVE MD This examination was interpreted and the report reviewed and electronically signed by: RUFINO STEVE MD on Jan 17 2023 4:06PM EST [id number] CN Normal [facility] XR LUMBAR GENERAL 3V AP/LAT/ L5-S1on 01-17-2023 [facility] CNPNon 01-13-2023 CNPN Telephone (NIQ) SUMEET PAZ ([id number]) 1945 M Date Time Provider Department 01/13/23 Korina SWAN During your visit today, we recorded the following information about you: Gabby Dexter 01/13/2023 9:40 AM Signed Received the following record(s) via fax. -PT Notes Date 01/12/23 Record(s) scanned into pt's chart. Sybil Foreman RN 01/13/2023 9:54 AM Signed Neuro SPINE CARE COORDINATION QUICK NOTE Noted Allergies As of Date: 01/13/2023 (No Known Allergies) Date Reviewed: 09/29/2022 Reviewed by: Radha Cooley RN - Fully Assessed Reason for Visit: Received Outside Medical Records [[id number]] Prescriptions as of 01/13/2023 - lisinopril (ZESTRIL, PRINIVIL) 20 mg tablet Take by mouth q 12 HR. - semaglutide (OZEMPIC SUBCUTANEOUS) Inject subcutaneously. Once a week - insulin glargine (LANTUS) 100 unit/mL injection Inject 45 Units subcutaneously twice daily. - GABAPENTIN ORAL Take by mouth. Take seven tablets twice a day - LIPITOR 10MG TABLET Take 20 mg by mouth. 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] 06/08/2022 Personal history of malignant neoplasm of prost*06/15/2011 Obstructive sleep apnea [G47.33] 08/02/2017 Obstructive sleep apnea syndrome [G47.33] 06/08/2022 Major depressive disorder, single episode, unsp*06/08/2022 Hypothyroidism [E03.9] 06/08/2022 Hyperlipidemia [E78.5] 08/02/2017 Essential hypertension [I10] 08/02/2017 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] 05/25/2011 Enuresis [R32] 06/08/2022 HURST (dyspnea on exertion) [R06.09] 06/08/2022 Diabetic neuropathy (HCC) [E11.40] 06/08/2022 Alcohol abuse [F10.10] 06/08/2022 Arteriosclerosis of coronary artery [I25.10] 02/09/2022 Personal history of nicotine dependence [Z87.89*07/26/2017 longterm (current) use of insulin (HCC) [Z79.4]02/17/2022 Class 2 obesity in adult [E66.9] 02/19/2022 History of cardioembolic cerebrovascular accide*06/08/2022 Encounter Status:Closed by SYBIL MOLINA on 01/13/23 [facility] Jason 11-29-2022 CNOV Office Visit (SPSNAV) SUMEET PAZ ([id number]) 1945 M Date Time Provider Department 11/29/22 9:45 AM Korina SWAN SPSNAV During your visit today, we recorded the following information about you: Korina Swan MD 11/29/2022 9:48 AM Signed SPINE SURGERY FOLLOW UP This is an in-person visit. SERVICE DATE: 11/29/2022 SURGERY DATE: 09/29/22 Sumeet Paz is seen for 2 month post operative follow up. L2-3 bilateral laminotomy, foraminotomy. States that he is doing ok PAIN EVALUATION 11/29/2022 0925 Pain Level: 8 Pain Location: Hip-Left right shoulder Description: Sharp Duration Units: Hours Frequency: Intermittent Pain Radiation: No radiation Aggravating Factors: Standing, Walking Alleviating Factors: Lying supine Pain Ratio: Pain in the back is greater than in the leg ANTIPLATELET OR ANTICOAGULATION STATUS: No Patient Entered Questionnaires Spine Questions 01/04/2021 Pain Location: Lower back Pain Duration: More than 5 years Pain over last 6 months: Every day or nearly every day in the past 6 months Symptoms from neck/cervical spine: Yes PROMIS Score Percentiles Physical Health 01/04/2021 Physical Function Percentile 1 Sleep Percentile 38 Fatigue Percentile 12 Pain Interference Percentile 4 PROMIS SOCIAL ROLE SCORE 01/04/2021 Social Role Satisfaction Percentile 16* Percentiles provide an indication of how the patient's score ranks in relation to the general population. Higher percentile rankings indicate better function/quality of life. 50th percentile is the average of the general population and indicates half of respondents had a worse score. Depression Screening: PHQ-9 Self-Harm (Item 9) response options: 0 Not at all 1 Several days 2 More than half the days 3 Nearly every day PHQ-9 Levels: 0-4 No to mild depression 5-9 Mild depression 10-14 Moderate depression 15-19 Moderately severe depression 20-27 Severe depression PHYSICAL EXAM: There were no vitals taken for this visit. GENERAL APPEARANCE: Moderately obese. NEURO PSYCH: Patient oriented to person, place, and time. Mood pleasant. Benign affect. MUSCULOSKELETAL VISUAL INSPECTION CERVICAL: WNL THORACIC: WNL LUMBAR: WNL MOTOR: 5/5 in all muscle groups. SENSORY: Normal sensory exam GAIT: Normal. DATA REVIEW No additional images reviewed today ASSESSMENT/PLAN No diagnosis found. Sumeet Paz is progressing since surgery. 1. Consults: Physical Therapy 2. Follow up: Six weeks Imaging Ordered: None I reviewed the information obtained and documented by the resident. I examined the patient and evaluated all available films and pertinent documents. We discussed the case and I agree with the plans as outlined in this note. SIGNATURE: Korina Swan MD PATIENT NAME: Sumeet Paz DATE: November 29, 2022 TIME: 9:33 AM PAGER: Korina Swan MD 11/29/2022 9:48 AM Signed Sumeet is 2 months out from surgery. He has had some improvement in his back pain. He denies leg pain weakness tingling or numbness. He is a little discouraged that his back pain is not doing better than it is. I reassured him that this is a relatively normal course. We will start him on a course of outpatient physical therapy. I will see him back in 6 weeks time with x-rays. 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 - semaglutide (OZEMPIC SUBCUTANEOUS) Inject subcutaneously. Once a week - insulin glargine (LANTUS) 100 unit/mL injection Inject 45 Units subcutaneously twice daily. - GABAPENTIN ORAL Take by mouth. Take seven tablets twice a day - LIPITOR 10MG TABLET Take 20 mg by mouth. 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 Normal [facility] Basic Metabolic Panelon Anion gap [Moles/Vol] 10.5 mmol/L Normal 6.0-15.0 [facility] Comment on above: Performed By: #### C BC, BMP #### [facility] [address] [id number] [place] Calcium [Mass/Vol] 8.6 mg/dL Normal 8.6-10.3 [facility] Comment on above: Performed By: #### C BC, BMP #### [facility] [address] [id number] [place] Chloride [Moles/Vol] 100 mmol/L Normal 98-107 [facility] Comment on above: Performed By: #### C BC, BMP #### [facility] [address] [place] [address] [place] CO2 [Moles/Vol] 28.8 mmol/L Normal 21.0-31.0 [facility] Comment on above: Performed By: #### C BC, BMP #### [facility] [address] [place] [address] [place] Creatinine [Mass/Vol] 1.57 mg/dL High 0.70-1.30 [facility] Comment on above: Performed By: #### C BC, BMP #### [facility] [address] [place] [address] [place] Creatinine Clr Calc Pharmacy 48.89 Normal [facility] Comment on above: Result Comment: PERF ORMED BY: [place] [address] PATHOLOGIST [employer] HANNAH MAGANA M.D. Performed By: #### C BC, BMP #### [address] GFR/1.73 sq M.predicted MDRD (S/P/Bld) [Vol rate/Area] 45.680 mL/min/{1.73_m2} Normal [facility] Comment on above: Performed By: #### C BC, BMP #### [address] Glucose [Mass/Vol] 129 mg/dL High 70-100 [facility] Comment on above: Result Comment: [facility] Glucose Reference Range is dependent on time and content of last meal. Glucose of more than 200 mg/dL in a nonstressed, ambulatory subject supports the diagnosis of Diabetes Mellitus. ADA recommended reference range Performed By: #### C BC, BMP #### [address] Potassium [Moles/Vol] 4.3 mmol/L Normal 3.5-5.1 [facility] Comment on above: Performed By: #### C BC, BMP #### [address] Sodium [Moles/Vol] 135 mmol/L Low 136-145 [facility] Comment on above: Performed By: #### C BC, BMP #### [address] Urea nitrogen [Mass/Vol] 27 mg/dL High 7-25 [facility] Comment on above: Performed By: #### C BC, BMP #### [place] [address] [place] Basophils Auto (Bld) [#/Vol] Ordered By: Dontrell Latif on 10-10-2022 Basophils (Bld) [#/Vol] 0.1 10*3/uL 0.0-0.2 [facility] Basophils/100 WBC Auto (Bld) Ordered By: Dontrell Latif on 10-10-2022 Basophils/100 WBC (Bld) 0.8 % . F [facility] Calcium [Mass/volume] in Ser um or PlasmaOrdered By: Dontrell Latif on 10-10-2022 Calcium [Mass/Vol] 8.6 mg/dL 8.6-10.3 [facility] Carbon dioxide, total [Moles /volume] in Serum or PlasmaOrdered By: Dontrell Latif on 10-10-2022 CO2 [Moles/Vol] 28.8 mmol/L 21.0-31.0 [facility] Chloride [Moles/volume] in S cole or PlasmaOrdered By: Dontrell Latif on 10-10-2022 Chloride [Moles/Vol] 100 mmol/L 98-107 [facility] Complete Blood Count Auto Di ffon 10-10-2022 Basophils (Bld) [#/Vol] 0.1 10*3/uL Normal 0.0-0.2 [facility] Comment on above: Result Comment: PERF ORMED BY: [place] [address] PATHOLOGIST [employer] HANNAH MAGANA M.D. Performed By: #### C BC, BMP #### [address] Basophils/100 WBC (Bld) 0.8 % Normal . [facility] Comment on above: Performed By: #### C BC, BMP #### [place] [address] [place] Eosinophils (Bld) [#/Vol] 0.5 10*3/uL High 0.0-0.45 [facility] Comment on above: Performed By: #### C BC, BMP #### [facility] [address] Eosinophils/100 WBC (Bld) 6.1 % Normal . [facility] Comment on above: Performed By: #### C BC, BMP #### [address] Erythrocyte distribution width (RBC) [Ratio] 14.7 % Normal 12.0-14.8 [facility] Comment on above: Performed By: #### C BC, BMP #### [address] Hematocrit (Bld) [Volume fraction] 35.3 % Low 38.8-50.0 [facility] Comment on above: Performed By: #### C BC, BMP #### [address] Hemoglobin (Bld) [Mass/Vol] 11.9 g/dL Low 13.0-17.0 [facility] Comment on above: Performed By: #### C BC, BMP #### [address] Lymphocytes (Bld) [#/Vol] 2.0 10*3/uL Normal 1.00-4.8 [facility] Comment on above: Performed By: #### C BC, BMP #### [address] Lymphocytes/100 WBC (Bld) 27.0 % Normal . [facility] Comment on above: Performed By: #### C BC, BMP #### [address] MCH (RBC) [Entitic mass] 32.8 pg Normal 27.5-35.2 [facility] Comment on above: Performed By: #### C BC, BMP #### [address] MCV (RBC) [Entitic vol] 97.1 fL Normal 83.5-101 [facility] Comment on above: Performed By: #### C BC, BMP #### [address] Mean Corpuscular HGB Conc 33.8 g/dL Normal 32.5-35.6 [facility] Comment on above: Performed By: #### C BC, BMP #### [address] Monocytes (Bld) [#/Vol] 0.5 10*3/uL Normal 0.0-0.8 [facility] Comment on above: Performed By: #### C BC, BMP #### [facility] [address] [place] [address] [place] Monocytes/100 WBC (Bld) 16.61 % Normal 0.00-20.00 [facility] Comment on above: Performed By: #### C BC, BMP #### [facility] [address] [place] [address] [place] Monocytes/100 WBC (Bld) 6.2 % Normal . [facility] Comment on above: Performed By: #### C BC, BMP #### [facility] [address] [place] [address] [place] Neutrophils (Bld) [#/Vol] 4.4 10*3/uL Normal 1.8-7.7 [facility] Comment on above: Performed By: #### C BC, BMP #### [place] [address] [place] Neutrophils/100 WBC (Bld) 59.9 % Normal . [facility] Comment on above: Performed By: #### C BC, BMP #### [facility] [address] [place] [address] [place] NRBC% 0.1 /100{WBC} Normal 0-0.5 [facility] Comment on above: Performed By: #### C BC, BMP #### [place] [address] [place] Platelet mean volume (Bld) [Entitic vol] 8.0 fL Normal 6.6-10.1 [facility] Comment on above: Performed By: #### C BC, BMP #### [facility] [address] [place] [address] [place] Platelets (Bld) [#/Vol] 206 10*3/uL Normal 150-450 [facility] Comment on above: Performed By: #### C BC, BMP #### [place] [address] [place] RBC (Bld) [#/Vol] 3.63 10*6/uL Low 3.90-5.60 [facility] Comment on above: Performed By: #### C ERIC, BMP #### [facility] [address] [id number] [place] WBC (Bld) [#/Vol] 7.4 10*3/uL Normal 4.1-10.5 [facility] Comment on above: Performed By: #### C ERIC, BMP #### [facility] [address] [id number] [facility] Creatinine [Mass/volume] in Serum or PlasmaOrdered By: Dontrell Latif on 10-10-2022 Creatinine [Mass/Vol] 1.57 mg/dL 0.70-1.30 [facility] Eosinophils Auto (Bld) [#/Vo l]Ordered By: Dontrell Latif on 10-10-2022 Eosinophils (Bld) [#/Vol] 0.5 10*3/uL 0.0-0.45 [facility] Eosinophils/100 WBC Auto (Bl d)Ordered By: Dontrell Latif on 10-10-2022 Eosinophils/100 WBC (Bld) 6.1 % . [facility] Erythrocyte distribution wid th Auto (RBC) [Ratio]Ordered By: Dontrell Latif on 10-10-2022 Erythrocyte distribution width (RBC) [Ratio] 14.7 % 12.0-14.8 [facility] Glucose [Mass/volume] in Ser um or PlasmaOrdered By: Dontrell Latif on 10-10-2022 Glucose [Mass/Vol] 129 mg/dL 70-100 [facility] Comment on above: ADA recommended refe rence rangeRandom Glucose Reference Range is dependent on time and content of last meal. Glucose of more than 200 mg/dL in a nonstressed, ambulatory subject supports the diagnosis of Diabetes Mellitus. Hematocrit Auto (Bld) [Volum e fraction]Ordered By: Dontrell Latif on 10-10-2022 Hematocrit (Bld) [Volume fraction] 35.3 % 38.8-50.0 [facility] Hemoglobin [Mass/volume] in BloodOrdered By: Dontrell Latif on 10-10-2022 Hemoglobin (Bld) [Mass/Vol] 11.9 g/dL 13.0-17.0 [facility] Leukocytes [#/volume] correc jeanne for nucleated erythrocytes in Blood by Automated counOrdered By: Dontrell Latif on 10-10-2022 WBC corrected for nucl RBC Auto (Bld) [#/Vol] 7.4 10*3/uL 4.1-10.5 [facility] Lymphocytes Auto (Bld) [#/Vo l]Ordered By: Dontrell Latif on 10-10-2022 Lymphocytes (Bld) [#/Vol] 2.0 10*3/uL 1.00-4.8 [facility] [facility] Lymphocytes/100 WBC Auto (Bl d)Ordered By: Dontrell Latif on 10-10-2022 Lymphocytes/100 WBC (Bld) 27.0 % . [facility] MCH Auto (RBC) [Entitic mass ]Ordered By: Dontrell Latif on 10-10-2022 MCH (RBC) [Entitic mass] 32.8 pg 27.5-35.2 [facility] MCHC Auto (RBC) [Mass/Vol]Or dered By: Dontrell Latif on 10-10-2022 MCHC (RBC) [Mass/Vol] 33.8 g/dL 32.5-35.6 [facility] MCV Auto (RBC) [Entitic vol] Ordered By: Dontrell Latif on 10-10-2022 MCV (RBC) [Entitic vol] 97.1 fL 83.5-101 F [facility] Monocyte distribution width [Entitic volume] in Blood by AutomatedOrdered By: Dontrell Latif on 10-10-2022 Monocyte distribution width Auto (Bld) [Entitic vol] 16.61 % 0.00-20.00 [facility] Monocytes Auto (Bld) [#/Vol] Ordered By: Dontrell Latif on 10-10-2022 Monocytes (Bld) [#/Vol] 0.5 10*3/uL 0.0-0.8 [facility] Monocytes/100 WBC Auto (Bld) Ordered By: Dontrell Latif on 10-10-2022 Monocytes/100 WBC (Bld) 6.2 % . [facility] Neutrophils Auto (Bld) [#/Vo l]Ordered By: Dontrell Latif on 10-10-2022 Neutrophils (Bld) [#/Vol] 4.4 10*3/uL 1.8-7.7 [facility] Neutrophils/100 WBC Auto (Bl d)Ordered By: Dontrell Latif on 10-10-2022 Neutrophils/100 WBC (Bld) 59.9 % . [facility] No Panel InformationOrdered By: Dontrell Latif on 10-10-2022 Estimated GFR (CKD-EPI) 45.680 mL/Min [facility] Creatinine Clearance (Chem 48.89 [facility] Nucleated erythrocytes [Pres ence] in Blood by Automated countOrdered By: Dontrell Latif on 10-10-2022 Nucleated RBC Auto Ql (Bld) 0.1 /100{WBC} 0-0.5 [facility] Platelet mean volume Auto (B ld) [Entitic vol]Ordered By: Dontrell Latif on 10-10-2022 Platelet mean volume (Bld) [Entitic vol] 8.0 fL 6.6-10.1 [facility] Platelets Auto (Bld) [#/Vol] Ordered By: Dontrell Latif on 10-10-2022 Platelets (Bld) [#/Vol] 206 10*3/uL 150-450 [facility] Potassium [Moles/volume] in Serum or PlasmaOrdered By: Dontrell Latif on 10-10-2022 Potassium [Moles/Vol] 4.3 mmol/L 3.5-5.1 [facility] RBC Auto (Bld) [#/Vol]Ordere d By: Dontrell Latif on 10-10-2022 RBC (Bld) [#/Vol] 3.63 10*6/uL 3.90-5.60 [facility] Serum or plasma anion gap de terminationOrdered By: Dontrell Latif on 10-10-2022 Anion gap [Moles/Vol] 10.5 mmol/L 6.0-15.0 [facility] Sodium [Moles/volume] in Ser um or PlasmaOrdered By: Dontrell Latif on 10-10-2022 Sodium [Moles/Vol] 135 mmol/L 136-145 [facility] Urea nitrogen [Mass/volume] in Serum or PlasmaOrdered By: Dontrell Latif on 10-10-2022 Urea nitrogen [Mass/Vol] 27 mg/dL 11-29 [facility] WBC Auto (Bld) [#/Vol]Ordere d By: Dontrell Latif on 10-10-2022 WBC (Bld) [#/Vol] 7.4 10*3/uL 4.1-10.5 [facility] CBC W Auto Differential pane l (Bld)on 06-08-2022 Basophils (Bld) [#/Vol] 0.04 10*3/uL <0.11 k/uL [facility] Basophils/100 WBC (Bld) 0.5 % [facility] Differential cell count method Nom (Bld) Auto [facility] Eosinophils (Bld) [#/Vol] 0.14 10*3/uL <0.46 k/uL [facility] Eosinophils/100 WBC (Bld) 1.9 % [facility] Erythrocyte distribution width (RBC) [Ratio] 13.9 % 11.5 - 15.0 % [facility] Hematocrit (Bld) [Volume fraction] 41.7 % 39.0 - 51.0 % [facility] Hemoglobin (Bld) [Mass/Vol] 13.5 g/dL 13.0 - 17.0 g/dL [facility] Immature granulocytes (Bld) [#/Vol] <0.10 k/uL [facility] Immature granulocytes/100 WBC (Bld) 0.3 % [facility] Lymphocytes (Bld) [#/Vol] 2.20 10*3/uL 1.00 - 4.00 k/uL [facility] Lymphocytes/100 WBC (Bld) 30.1 % [facility] MCH (RBC) [Entitic mass] 32.9 pg 26. 0 - 34.0 pg [facility] MCHC (RBC) [Mass/Vol] 32.4 g/dL 30.5 - 36.0 g/dL [facility] MCV (RBC) [Entitic vol] 101.7 fL High 80.0 - 100.0 fL [facility] Monocytes (Bld) [#/Vol] 0.54 10*3/uL <0.87 k/uL [facility] Monocytes/100 WBC (Bld) 7.4 % C [facility] Neutrophils (Bld) [#/Vol] 4.37 10*3/uL 1.45 - 7.50 k/uL [facility] Neutrophils/100 WBC (Bld) 59.8 % [facility] Nucleated RBC (Bld) [#/Vol] <0.01 k/uL [facility] Nucleated RBC/100 WBC (Bld) [Ratio] 0.0 /100 WBC [facility] Platelet mean volume (Bld) [Entitic vol] 10.2 fL 9.0 - 12.7 fL [facility] Platelets (Bld) [#/Vol] 179 10*3/uL 150 - 400 k/uL [facility] RBC (Bld) [#/Vol] 4.10 10*6/uL Low 4.20 - 6.0 0 m/uL [facility] WBC (Bld) [#/Vol] 7.31 10*3/uL 3.70 - 11. 00 k/uL [facility] Comprehensive metabolic 2000 panelon 06-08-2022 Albumin [Mass/Vol] 4.1 g/dL 3.9 - 4.9 g/dL [facility] ALP [Catalytic activity/Vol] 76 U/L 38 - 113 U/L [facility] ALT [Catalytic activity/Vol] 14 U/L 10 - 54 U/L [facility] Anion gap [Moles/Vol] 10 mmol/L 9 - 18 mmol/L [facility] AST [Catalytic activity/Vol] 19 U/L 14 - 40 U/L [facility] Bilirubin [Mass/Vol] 0.5 mg/dL 0.2 - 1 .3 mg/dL [facility] Calcium [Mass/Vol] 9.6 mg/dL 8.5 - 10. 2 mg/dL [facility] Chloride [Moles/Vol] 99 mmol/L 97 - 10 5 mmol/L [facility] CO2 [Moles/Vol] 28 mmol/L 22 - 30 mmol/L [facility] Creatinine [Mass/Vol] 1.45 mg/dL High 0.73 - 1.22 mg/dL [facility] Estimated Glomerular Filtration Rate 50 mL/min/1.73m Low >=60 mL/min/1.73m [facility] Glucose [Mass/Vol] 81 mg/dL 74 - 99 mg/dL [facility] Potassium [Moles/Vol] 4.4 mmol/L 3.7 - 5.1 mmol/L [facility] Protein [Mass/Vol] 7.5 g/dL 6.3 - 8.0 g/dL [facility] Sodium [Moles/Vol] 137 mmol/L 136 - 144 mmol/L [facility] Urea nitrogen [Mass/Vol] 21 mg/dL 9 - 24 mg/d L [facility] FERRITIN BLDon 06-08-2022 Ferritin [Mass/Vol] 734.0 ng/mL High 30.3 - 5 65.7 ng/mL [facility] Iron and Iron binding capaci ty panelon 06-08-2022 Iron [Mass/Vol] 78 ug/dL 41 - 186 ug/dL [facility] Iron binding capacity [Mass/Vol] 330 ug/dL 232 - 386 ug/dL [facility] Iron/TIBC [Molar ratio] 23.6 % 15.0 - 57.0 % [facility] Urinalysis complete panel (U )on 06-08-2022 Bilirubin Ql (U) Negative Negative [facility] Clarity (Unsp spec) Clear Clear [facility] Color (U) Colorless Yellow [facility] Epithelial cells LM.HPF (Urine sed) [#/Area] Few [facility] Glucose Test strip (U) [Mass/Vol] Negative Trace, Negative [facility] Hemoglobin Ql (U) Negative Negative, Trace [facility] Ketones Ql (U) Negative Trace, Negative [facility] Leukocyte esterase Test strip Ql (U) Negative Negative, 25 Ciaran/mL [facility] Nitrite Ql (U) Negative Negative [facility] pH (U) 6.0 [pH] 5.0 - 8.0 [facility] Protein (U) [Mass/Vol] Negative Trace , Negative [facility] RBC LM.HPF (Urine sed) [#/Area] 0-3 /HPF 0-3 /HPF [facility] Specific gravity (U) [Rel density] 1.013 1.005 - 1.030 [facility] Urobilinogen Ql (U) Negative Negative [facility] WBC LM.HPF (Urine sed) [#/Area] 0-5 /HPF 0-5 /HPF [facility] Glucose Glucometer (BldC) [M ass/Vol]Ordered By: Pa Holloway on 03-01-2022 Glucose [Mass/Vol] 134 mg/dL [facility] Comment on above: Random Glucose Refer ence Range is dependent on time and content of last meal. Glucose of more than 200 mg/dL in a nonstressed, ambulatory subject supports the diagnosis of Diabetes Mellitus. No Panel InformationOrdered By: Pa Holloway on 03-01-2022 Bedside Glucose Comment Glu2: cleaned meter [facility] Folate [Mass/volume] in Seru m or PlasmaOrdered By: Viji Grover on 02-28-2022 Folate [Mass/Vol] 19.9 ng/mL >5.9 [facility] Comment on above: Folate reference ran ge: >5.9 ng/mlThe WHO technical consultation on folate and vitamin [id number] has determined that folate concentrations lessthan 4 ng/ml are considered deficient. Laboratory - Chemistry and C hemistry - challengeOrdered By: Viji Grover on 02-28-2022 Cobalamin (Vitamin B12) [Mass/Vol] 476 pg/mL 180-914 [facility] No Panel InformationOrdered By: Pa Holloway on 02-23-2022 Bedside Glucose #[address]/rn [facility] Albumin [Mass/volume] in Ser um or PlasmaOrdered By: Marysol Cedeño on 02-20-2022 Albumin [Mass/Vol] 2.6 g/dL 3.2-5.5 [facility] Basophils Auto (Bld) [#/Vol] Ordered By: Marysol Cedeño on 02-20-2022 Basophils (Bld) [#/Vol] 0.1 10*3/uL 0.0-0.2 [facility] Basophils/100 WBC Auto (Bld) Ordered By: Marysol Cedeño on 02-20-2022 Basophils/100 WBC (Bld) 0.7 % . [facility] Creatinine and Glomerular fi ltration rate.predicted panel (S/P/Bld)Ordered By: Marysol Cedeño on 02-20-2022 Creatinine [Mass/Vol] 1.48 mg/dL 0.64-1.27 [facility] Eosinophils Auto (Bld) [#/Vo l]Ordered By: Marysol Cedeño on 02-20-2022 Eosinophils (Bld) [#/Vol] 0.3 10*3/uL 0.0-0.45 [facility] Eosinophils/100 WBC Auto (Bl d)Ordered By: Marysol Cedeño on 02-20-2022 Eosinophils/100 WBC (Bld) 3.5 % . [facility] Erythrocyte distribution wid th Auto (RBC) [Ratio]Ordered By: Marysol Cedeño on 02-20-2022 Erythrocyte distribution width (RBC) [Ratio] 14.3 % 12.0-14.8 [facility] Estimated glomerular filtrat ion rate (GFR) non- AmericanOrdered By: Marysol Cedeño on 02-20-2022 GFR/1.73 sq M.predicted among non-blacks MDRD (S/P/Bld) [Vol rate/Area] 46 mL/Min [facility] Globulin Calc (S) [Mass/Vol] Ordered By: Marysol Cedeño on 02-20-2022 Globulin (S) [Mass/Vol] 3.0 g/dL [facility] Hematocrit Auto (Bld) [Volum e fraction]Ordered By: Marysol Cedeño on 02-20-2022 Hematocrit (Bld) [Volume fraction] 28.6 % 38.8-50.0 [facility] Hemoglobin [Mass/volume] in BloodOrdered By: Marysol Cedeño on 02-20-2022 Hemoglobin (Bld) [Mass/Vol] 9.8 g/dL 13.0-17.0 [facility] Laboratory - Hematology and Cell countsOrdered By: Marysol Cedeño on 02-20-2022 Nucleated RBC/100 WBC (Bld) [Ratio] 0.0 % 0-0.5 [facility] Leukocytes [#/volume] in Blo od by Automated countOrdered By: Marysol Cedeño on 02-20-2022 WBC (Bld) [#/Vol] 7.8 10*3/uL 4.5-11.0 [facility] Lymphocytes Auto (Bld) [#/Vo l]Ordered By: Marysol Cedeño on 02-20-2022 Lymphocytes (Bld) [#/Vol] 1.9 10*3/uL 1.00-4.8 [facility] Lymphocytes/100 WBC Auto (Bl d)Ordered By: Marysol Cedeño on 02-20-2022 Lymphocytes/100 WBC (Bld) 24.3 % . [facility] MCH Auto (RBC) [Entitic mass ]Ordered By: Marysol Cedeño on 02-20-2022 MCH (RBC) [Entitic mass] 34.3 pg 27.5-35.2 [facility] MCHC Auto (RBC) [Mass/Vol]Or dered By: Marysol Cedeño on 02-20-2022 MCHC (RBC) [Mass/Vol] 34.1 g/dL 32.5-35.6 [facility] MCV Auto (RBC) [Entitic vol] Ordered By: Marysol Cedeño on 02-20-2022 MCV (RBC) [Entitic vol] 100.5 fL 83.5-101 [facility] Monocytes Auto (Bld) [#/Vol] Ordered By: Marysol Cedeño on 02-20-2022 Monocytes (Bld) [#/Vol] 0.7 10*3/uL 0.0-0.8 [facility] Monocytes/100 WBC Auto (Bld) Ordered By: Marysol Cedeño on 02-20-2022 Monocytes/100 WBC (Bld) 9.0 % . [facility] Neutrophils Auto (Bld) [#/Vo l]Ordered By: Marysol Cedeño on 02-20-2022 Neutrophils (Bld) [#/Vol] 4.9 10*3/uL 1.8-7.7 [facility] Neutrophils/100 WBC Auto (Bl d)Ordered By: Marysol Cedeño on 02-20-2022 Neutrophils/100 WBC (Bld) 62.5 % . [facility] No Panel InformationOrdered By: Marysol Cedeño on 02-20-2022 Estimated GFR () 56 mL/Min [facility] Comment on above: GFR estimated refere nce range: According to KDOQI guidelines, <60 ml/min/1.73m2 is sufficient to diagnose a patient with chronic kidney disease. Pharmacy Creatinine Clearance (Chem 55.37 [facility] Platelet mean volume Auto (B ld) [Entitic vol]Ordered By: Marysol Cedeño on 02-20-2022 Platelet mean volume (Bld) [Entitic vol] 8.2 fL 6.6-10.1 [facility] Platelets Auto (Bld) [#/Vol] Ordered By: Marysol Cedeño on 02-20-2022 Platelets (Bld) [#/Vol] 153 10*3/uL 150-450 [facility] Protein [Mass/volume] in Ser um or PlasmaOrdered By: Marysol Cedeño on 02-20-2022 Protein [Mass/Vol] 5.6 g/dL 6.1-7.9 [facility] RBC Auto (Bld) [#/Vol]Ordere d By: Marysol Cedeño on 02-20-2022 RBC (Bld) [#/Vol] 2.85 10*6/uL 3.90-5.60 [facility] Serum or plasma alanine villafana otransferase measurement without P-5'-P (enzymatic activiOrdered By: Marysol Cedeño on 02-20-2022 ALT No additional P-5'-P [Catalytic activity/Vol] 28 U/L [facility] Serum or plasma albumin/glob ulin mass ratioOrdered By: Marysol Cedeño on 02-20-2022 Albumin/Globulin [Mass ratio] 0.9 {ratio} [facility] Serum or plasma alkaline tyson sphatase measurement (enzymatic activity/volume)Ordered By: Marysol Cedeño on 02-20-2022 ALP [Catalytic activity/Vol] 39 U/L 32-92 [facility] Serum or plasma anion gap de terminationOrdered By: Marysol Cedeño on 02-20-2022 Anion gap [Moles/Vol] TNP [facility] Comment on above: Test not performed Serum or plasma aspartate am inotransferase measurement (enzymatic activity/volume)Ordered By: Marysol Cedeño on 02-20-2022 AST [Catalytic activity/Vol] 78 U/L 10 [facility] Serum or plasma calcium madie urement (mass/volume)Ordered By: Marysol Cedeño on 02-20-2022 Calcium [Mass/Vol] 8.1 mg/dL 8.2-10.2 [facility] Serum or plasma chloride dejah surement (moles/volume)Ordered By: Marysol Cedeño on 02-20-2022 Chloride [Moles/Vol] 101 mmol/L 95-114 [facility] Serum or plasma glucose madie urement (mass/volume)Ordered By: Marysol Cedeño on 02-20-2022 Glucose [Mass/Vol] 198 mg/dL 70-100 [facility] Comment on above: ADA recommended refe rence rangeRandom Glucose Reference Range is dependent on time and content of last meal. Glucose of more than 200 mg/dL in a nonstressed, ambulatory subject supports the diagnosis of Diabetes Mellitus. Serum or plasma potassium me asurement (moles/volume)Ordered By: Pa Holloway on 02-20-2022 Potassium [Moles/Vol] 4.2 mmol/L 3.5-5.1 [facility] Serum or plasma prealbumin m easurement (mass/volume)Ordered By: Marysol Cedeño on 02-20-2022 Prealbumin [Mass/Vol] 11.9 mg/dL 18.0-38.0 [facility] Serum or plasma sodium measu rement (moles/volume)Ordered By: Marysol Cedeño on 02-20-2022 Sodium [Moles/Vol] 133 mmol/L 136-146 [facility] Serum or plasma total biliru bin measurement (mass/volume)Ordered By: Marysol Cedeño on 02-20-2022 Bilirubin [Mass/Vol] 1.3 mg/dL 0.3-1.2 [facility] Comment on above: Samples from patient s who have taken Naproxen have shown spurious elevation in Total Bilirubin levels. A metabolite of Naproxen, O-desmethylnaproxen, has been shown to interfere with the Carmen-Jayden method for measuring Total Bilirubin. Serum or plasma total carbon dioxide measurement (moles/volume)Ordered By: Marysol Cedeño on 02-20-2022 CO2 [Moles/Vol] 26.1 mmol/L 22.0-30.0 [facility] Serum or plasma urea nitroge n measurement (mass/volume)Ordered By: Marysol Cedeño on 02-20-2022 Urea nitrogen [Mass/Vol] 29 mg/dL 9 [facility] Basophils Auto (Bld) [#/Vol] Ordered By: Dontrell Monzon on 02-19-2022 Basophils (Bld) [#/Vol] 0.1 10*3/uL 0.0-0.2 [facility] Basophils/100 WBC Auto (Bld) Ordered By: Dontrell Monzon on 02-19-2022 Basophils/100 WBC (Bld) 1.8 % . [facility] Creatinine and Glomerular fi ltration rate.predicted panel (S/P/Bld)Ordered By: Dontrell Monzon on 02-19-2022 Creatinine [Mass/Vol] 1.90 mg/dL 0.64-1.27 [facility] Eosinophils Auto (Bld) [#/Vo l]Ordered By: Dontrell Monzon on 02-19-2022 Eosinophils (Bld) [#/Vol] 0.1 10*3/uL 0.0-0.45 [facility] Eosinophils/100 WBC Auto (Bl d)Ordered By: Dontrell Monzon on 02-19-2022 Eosinophils/100 WBC (Bld) 1.9 % . [facility] Erythrocyte distribution wid th Auto (RBC) [Ratio]Ordered By: Dontrell Monzon on 02-19-2022 Erythrocyte distribution width (RBC) [Ratio] 14.2 % 12.0-14.8 [facility] Estimated glomerular filtrat ion rate (GFR) non- AmericanOrdered By: Dontrell Monzon on 02-19-2022 GFR/1.73 sq M.predicted among non-blacks MDRD (S/P/Bld) [Vol rate/Area] 35 mL/Min [facility] Glucose Glucometer (BldC) [M ass/Vol]Ordered By: Carlos Newsome on 02-19-2022 Glucose [Mass/Vol] 248 mg/dL [facility] Comment on above: Random Glucose Refer ence Range is dependent on time and content of last meal. Glucose of more than 200 mg/dL in a nonstressed, ambulatory subject supports the diagnosis of Diabetes Mellitus. Glucose [Mass/Vol] 254 mg/dL [facility] Comment on above: Random Glucose Refer ence Range is dependent on time and content of last meal. Glucose of more than 200 mg/dL in a nonstressed, ambulatory subject supports the diagnosis of Diabetes Mellitus. Hematocrit Auto (Bld) [Volum e fraction]Ordered By: Dontrell Monzon on 02-19-2022 Hematocrit (Bld) [Volume fraction] 28.5 % 38.8-50.0 [facility] Hemoglobin [Mass/volume] in BloodOrdered By: Dontrell Monzon on 02-19-2022 Hemoglobin (Bld) [Mass/Vol] 9.7 g/dL 13.0-17.0 [facility] Laboratory - Hematology and Cell countsOrdered By: Dontrell Monzon on 02-19-2022 Nucleated RBC/100 WBC (Bld) [Ratio] 0.0 % 0-0.5 [facility] Leukocytes [#/volume] in Blo od by Automated countOrdered By: Dontrell Monzon on 02-19-2022 WBC (Bld) [#/Vol] 7.6 10*3/uL 4.5-11.0 [facility] Lymphocytes Auto (Bld) [#/Vo l]Ordered By: Dontrell Monzon on 02-19-2022 Lymphocytes (Bld) [#/Vol] 2.1 10*3/uL 1.00-4.8 [facility] Lymphocytes/100 WBC Auto (Bl d)Ordered By: Dontrell Monzon on 02-19-2022 Lymphocytes/100 WBC (Bld) 27.2 % . [facility] MCH Auto (RBC) [Entitic mass ]Ordered By: Dontrell Monzon on 02-19-2022 MCH (RBC) [Entitic mass] 34.1 pg 27.5-35.2 [facility] MCHC Auto (RBC) [Mass/Vol]Or dered By: Dontrell Monzon on 02-19-2022 MCHC (RBC) [Mass/Vol] 33.9 g/dL 32.5-35.6 [facility] MCV Auto (RBC) [Entitic vol] Ordered By: Dontrell Monzon on 02-19-2022 MCV (RBC) [Entitic vol] 100.6 fL 83.5-101 [facility] Monocytes Auto (Bld) [#/Vol] Ordered By: Dontrell Monzon on 02-19-2022 Monocytes (Bld) [#/Vol] 0.6 10*3/uL 0.0-0.8 [facility] Monocytes/100 WBC Auto (Bld) Ordered By: Dontrell Monzon on 02-19-2022 Monocytes/100 WBC (Bld) 8.2 % . [facility] Neutrophils Auto (Bld) [#/Vo l]Ordered By: Dontrell Monzon on 02-19-2022 Neutrophils (Bld) [#/Vol] 4.6 10*3/uL 1.8-7.7 [facility] Neutrophils/100 WBC Auto (Bl d)Ordered By: Dontrell Monzon on 02-19-2022 Neutrophils/100 WBC (Bld) 60.9 % . [facility] No Panel InformationOrdered By: Dontrell Monzon on 02-19-2022 Estimated GFR () 42 mL/Min [facility] Comment on above: GFR estimated refere nce range: According to KDOQI guidelines, <60 ml/min/1.73m2 is sufficient to diagnose a patient with chronic kidney disease. Pharmacy Creatinine Clearance (Chem 44.41 [facility] Platelet mean volume Auto (B ld) [Entitic vol]Ordered By: Dontrell Monzon on 02-19-2022 Platelet mean volume (Bld) [Entitic vol] 8.0 fL 6.6-10.1 [facility] Platelets Auto (Bld) [#/Vol] Ordered By: Dontrell Monzon on 02-19-2022 Platelets (Bld) [#/Vol] 129 10*3/uL 150-450 [facility] RBC Auto (Bld) [#/Vol]Ordere d By: Dontrell Monzon on 02-19-2022 RBC (Bld) [#/Vol] 2.83 10*6/uL 3.90-5.60 [facility] Serum or plasma anion gap de terminationOrdered By: Dontrell Monzon on 02-19-2022 Anion gap [Moles/Vol] 11.2 mmol/L 6.0-15.0 [facility] Serum or plasma calcium madie urement (mass/volume)Ordered By: Dontrell Monzon on 02-19-2022 Calcium [Mass/Vol] 8.1 mg/dL 8.2-10.2 [facility] Serum or plasma chloride dejah surement (moles/volume)Ordered By: Dontrell Monzon on 02-19-2022 Chloride [Moles/Vol] 98 mmol/L 95-114 [facility] Serum or plasma glucose madie urement (mass/volume)Ordered By: Dontrell Monzon on 02-19-2022 Glucose [Mass/Vol] 231 mg/dL 70-100 [facility] Comment on above: ADA recommended refe rence rangeRandom Glucose Reference Range is dependent on time and content of last meal. Glucose of more than 200 mg/dL in a nonstressed, ambulatory subject supports the diagnosis of Diabetes Mellitus. Serum or plasma potassium me asurement (moles/volume)Ordered By: Dontrell Monzon on 02-19-2022 Potassium [Moles/Vol] 4.3 mmol/L 3.5-5.1 [facility] Serum or plasma sodium measu rement (moles/volume)Ordered By: Dontrell Monzon on 02-19-2022 Sodium [Moles/Vol] 131 mmol/L 136-146 [facility] Serum or plasma total carbon dioxide measurement (moles/volume)Ordered By: Dontrell Monzon on 02-19-2022 CO2 [Moles/Vol] 26.1 mmol/L 22.0-30.0 [facility] Serum or plasma urea nitroge n measurement (mass/volume)Ordered By: Dontrell Monzon on 02-19-2022 Urea nitrogen [Mass/Vol] 39 mg/dL 9-23 [facility] COVID-19 Positive/NegativeOr dered By: Carlos Newsome on 02-18-2022 SARS-CoV-2 (COVID-19) N gene COLBY+probe Ql (Resp) Negative Negative [facility] Comment on above: Testing for SARS-CoV -2 by RT-PCRThis test was developed and its performance characteristics determined by [employer] and validated at the [facility]. This test has not been FDA cleared or approved. This test has been authorized by FDA under an Emergency Use Authorization (EUA). This test has been validated in accordance with the FDA's Guidance Document (Policy for Diagnostics Testing in Laboratories Certified to Perform High Complexity Testing under CLIA prior to Emergency Use Authorization for Coronavirus Disease-2019 during the Public Health Emergency) issued on August 08, 2019. This test is only authorized for the duration of time the declaration that circumstances exist justifying the authorization of the emergency use of in vitro diagnostic tests for detection of SARS-CoV-2 virus and/or diagnosis of COVID-19 infection under section 564(b)(1) of the Act, 21 U.S.C. 360bbb-3(b)(1), unless the authorization is terminated or revoked sooner. Laboratory - Microbiology an d Antimicrobial susceptibilityOrdered By: Carlos Newsome on 02-18-2022 SARS-CoV-2 (COVID-19) RNA COLBY+probe Ql (Unsp spec) N/A [facility] No Panel InformationOrdered By: Carlos Newsome on 02-17-2022 Bedside Glucose Comment See comment [facility] Comment on above: Glu2: WILL NOTIFY DR /RN COVID-19 Positive/NegativeOr dered By: Carlos Newsome on 02-15-2022 SARS-CoV-2 (COVID-19) N gene COLBY+probe Ql (Resp) Negative Negative [facility] Comment on above: Testing for SARS-CoV -2 by RT-PCRThis test was developed and its performance characteristics determined by [employer] and validated at the [facility]. This test has not been FDA cleared or approved. This test has been authorized by FDA under an Emergency Use Authorization (EUA). This test has been validated in accordance with the FDA's Guidance Document (Policy for Diagnostics Testing in Laboratories Certified to Perform High Complexity Testing under CLIA prior to Emergency Use Authorization for Coronavirus Disease-2019 during the Public Health Emergency) issued on August 08, 2019. This test is only authorized for the duration of time the declaration that circumstances exist justifying the authorization of the emergency use of in vitro diagnostic tests for detection of SARS-CoV-2 virus and/or diagnosis of COVID-19 infection under section 564(b)(1) of the Act, 21 U.S.C. 360bbb-3(b)(1), unless the authorization is terminated or revoked sooner. [facility] CARDIAC STRESS/REST INJE CTIONon 02-09-2022 NOH CARDIAC STRESS/REST INJECTION Patient Name: SUMEET PAZ STUDY: MYOCARDIAL PERFUSION STRESS TEST WITH LEXISCAN Performing facility: [facility], [address] [place] [address], [address], [place] [address] [facility] Provider: Naz Kang MD, FACC PCP: Dr. Angel Roper Supervising provider: Josseline Michaels DO, [facility] INDICATION: Abnormal EKG; CAD; DM Pre-operative risk assessment for Right hip replacement scheduled at [facility] on 02-17-22. HISTORY: Gender: M; Age: 76 y/o ; Height: 172.72 cm; Weight: 884.3198026 kg. High Cholesterol; CAD; Abnormal EKG; Diabetes; HTN; Quit smoking 50 years ago. Cardiac catheterization on 2010. COMPARISON: Previous nuclear testing completed [id number] at [facility]. ACCESSION NUMBER(S): [id number]; [id number]; [id number] ORDERING CLINICIAN: NAZ KANG TECHNIQUE: TWO DAY protocol. Stress injection: Date:02-09-22, 35.0 mCi of Myoview IV 20 seconds after rapid injection of Lexiscan. Rest injection: Date: 02-10-22, 35.8 mCi of Myoview IV at rest. The patient had a rapid injection of 0.4 mg of Lexiscan IV over 10 seconds. Imaging was performed by gated tomographic technique. Reason for Lexiscan: Wheelchair STRESS TEST DATA: Resting heart rate was 81 BPM. Resting blood pressure was 128/76 mmHg. Peak blood pressure was 122/64 mmHg. Peak heart rate was 103 BPM. TEST TERMINATED DUE TO: Protocol completed FINDINGS: STRESS TEST RESULTS: Resting electrocardiogram revealed normal sinus rhythm. There were no significant ischemic ECG changes or dysrhythmias. The patient did not have chest pains/symptoms during procedure. There was a normal recovery phase. IMAGING RESULTS: Image quality was good. Rest and stress tomographic images were reviewed and revealed normal perfusion without evidence of ischemia, myocardial infarction, or left ventricular dilatation with stress. Overall left ventricular systolic function appeared to be normal without regional wall motion abnormalities. Ejection fraction was 65%. TID is 1.03 and is normal. There were no evidence of attenuation artifact. IMPRESSION: Normal Lexiscan Myoview cardiac perfusion stress test. No evidence of ischemia or myocardial infarction by perfusion imaging. Normal left ventricular systolic function, ejection fraction 65%. No change when compared to prior study 6. Electronically signed by: NOEMI YIN MD [facility] No Panel Informationon 02-09 Normal [facility] [place] [address] DO Work Phone: Office Visit (Cardiology)on 02-07-2022 Follow-up visit Diagnoses/Problems Assessed Hyperlipidemia (272.4) (E78.5) Essential hypertension, benign (401.1) (I10) Abnormal EKG (794.31) (R94.31) CAD (coronary artery disease) (414.00) (I25.10) Diabetes mellitus (250.00) (E11.9) Preoperative clearance (V72.84) (Z01.818) Sleep apnea with use of continuous positive airway pressure (CPAP) (327.23) (G47.30) Morbid obesity with BMI of 40.0-44.9, adult (278.01,V85.41) (E66.01,Z68.41) Former smoker (V15.82) (Z87.891) Orders Abnormal EKG, CAD (coronary artery disease), Diabetes mellitus NM Cardiac Stress/Rest Nuclear Med Order; Status:Hold For - Scheduling,Retrospec tive Authorization; Requested for:07Feb2022; Radiologist to Determine Optimal Study : Y What are the patient's signs and symptoms? : dm, CAD, Abnormal ekg CAD (coronary artery disease), Preoperative clearance IO EKG Electrocardiogram- 12 Lead; Status:Complete; Done: 07Feb2022 Morbid obesity with BMI of 40.0-44.9, adult Healthy Weight Tips; Status:Complete - Retrospective Authorization; Done: 07Feb2022 Some eating tips that can help you lose weight.; Status:Complete - Retrospective Authorization; Done: 07Feb2022 SocHx: Former smoker Tobacco Use Screening; Status:Complete; Done: 07Feb2022 Tobacco Use Screening; Status:Complete; Done: 07Feb2022 Tobacco Use Screening; Status:Complete; Done: 07Feb2022 Patient Instructions Please bring all medicines, vitamins, and herbal supplements with you when you come to the office. Prescriptions will not be filled unless you are compliant with your follow up appointments or have a follow up appointment scheduled as per instruction of your physician. Refills should be requested at the time of your visit. Follow up as needed only Chief Complaint SUMEET PAZ is being seen for POC for total hip. History of Present Illness Patient is being seen in cardiology consultation for preoperative cardiac risk assessment prior to elective right hip surgery. Accompanied by to the office. Last saw in 07/23. His last stress test in 2013 was normal. He had a cardiac catheterization in 2010, which revealed mild plaques, not exceeding 15% to 20% stenosis. He is presently without any cardiac complaints. He has no orthopnea, PND, and no lower extremity edema, but has significant obesity as noted. ECG actually revealed normal sinus rhythm with nonspecific ST and T changes. No differences from last one. Very limited activity level. 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 In general he has a sedentary lifestyle. She reports no chest discomfort pressure tightness heaviness or palpitations. Denies lower extremity edema claudication TIA or CVA type symptoms. Has obstructive sleep apnea and reports compliance with CPAP therapy Has multiple cardiac risk factors age, male sex, hypertension, insulin requiring diabetes, dyslipidemia. His EKG from today shows normal sinus rhythm 97 bpm D. Narrow inferior Q waves and poor R wave progression across the anterior precordial leads, NH interval 184 ms QRS duration 72 ms QTC 437 ms Her blood pressure is at target. Perfusion study July 2017 LVEF 62% transient ischemic dilatation 1.0 Carotid ultrasound October 2010 negative for any flow-limiting or significant carotid disease Laboratory data from January 2022 reviewed, hemoglobin 13.5 hematocrit 40 platelets 170, GFR 54 sodium 132 potassium 5.0 glucose 159, hemoglobin A1c 6.3 Assessment: 1. Very sedentary patient with increased BMI, insulin requiring diabetic, with some abnormalities on his EKG unclear significance, no recent cardiac testing, needs preoperative cardiac risk assessment prior to hip surgery. Clinically no significant valvular heart disease clinically no signs of volume overload, no reports of angina pectoris. 2. Still requiring diabetes-no symptoms of hypoglycemia 3. Obstructive sleep apnea on CPAP therapy 4. BPH narrow inferior Q waves on EKG-significance unclear Recommendations : In view of his very poor activity level, it is safe to proceed with Lexiscan Myoview, if study is normal, patient can proceed with hip surgery as planned. If it is abnormal we will meet with him to discuss additional testing. Ongoing risk factor modification and weight loss reiterated. Thank you for allowing us to participate in patient care, please do not hesitate to call if further questions arise, Sincerely, Naz Kang MD [facility] Surgical History Problems History of Back surgery History of Complete colonoscopy 2016 History of Knee surgery History of Neck surgery History of Prostate surgery Current Meds Medication NameInstruction Aspirin EC 81 MG Oral Tablet Delayed ReleaseTAKE 1 TABLET DAILY. Atorvastatin Calcium 10 MG Oral Tablet Gabapentin 100 MG Oral Capsuletakes 7 tabs 2 times a day glipiZIDE 10 MG Oral Tablet Iron 325 (65 Fe) MG Oral Tablet Lantus 100 UNIT/ML Subcutaneous Solution Lisinopril 20 MG Oral TabletTAKE 2 TABLE (more content not included)... Normal [address] Tobacco Screening.on 022 Adult depression screening assessment No [facility] [employer] Work Phone: Fall risk assessment a) No falls within the last year [facility] [employer] Work Phone: Tobacco use status [facility] b) No M [facility] [employer] Work Phone: Basophils Auto (Bld) [#/Vol] Ordered By: Carlos Newsome on 02-01-2022 Basophils (Bld) [#/Vol] 0.0 10*3/uL 0.0-0.2 [facility] Basophils/100 WBC Auto (Bld) Ordered By: Carlos Newsome on 02-01-2022 Basophils/100 WBC (Bld) 0.4 % . [facility] Bilirubin Test strip Ql (U)O rdered By: Carlos Newsome on 02-01-2022 Bilirubin Ql (U) Negative Negative [facility] Blood hemoglobin measurement (mass/volume)Ordered By: Carlos Newsome on 02-01-2022 Hemoglobin (Bld) [Mass/Vol] 13.5 g/dL 13.0-17.0 [facility] Blood leukocytes automated c ount (number/volume)Ordered By: Carlos Newsome on 02-01-2022 WBC (Bld) [#/Vol] 6.5 10*3/uL 4.5-11.0 [facility] Color Auto (U)Ordered By: Edmond Newsome on 02-01-2022 Color (U) Yellow Yellow [facility] Creatinine and Glomerular fi ltration rate.predicted panel (S/P/Bld)Ordered By: Carlos Newsome on 02-01-2022 Creatinine [Mass/Vol] 1.53 mg/dL 0.64-1.27 [facility] Eosinophils Auto (Bld) [#/Vo l]Ordered By: Carlos Newsome on 02-01-2022 Eosinophils (Bld) [#/Vol] 0.2 10*3/uL 0.0-0.45 [facility] Eosinophils/100 WBC Auto (Bl d)Ordered By: Carlos Newsome on 02-01-2022 Eosinophils/100 WBC (Bld) 2.9 % . [facility] Erythrocyte distribution wid th Auto (RBC) [Ratio]Ordered By: Carlos Newsome on 02-01-2022 Erythrocyte distribution width (RBC) [Ratio] 14.3 % 12.0-14.8 [facility] Estimated glomerular filtrat ion rate (GFR) non- AmericanOrdered By: Carlos Newsome on 02-01-2022 GFR/1.73 sq M.predicted among non-blacks MDRD (S/P/Bld) [Vol rate/Area] 45 mL/Min [facility] Glucose mean value [Mass/vol ume] in Blood Estimated from glycated hemoglobinOrdered By: Carlos Newsome on 02-01-2022 Average glucose Estimated from glycated hemoglobin (Bld) [Mass/Vol] 134 mg/dL [facility] Hematocrit Auto (Bld) [Volum e fraction]Ordered By: Carlos Newsome on 02-01-2022 Hematocrit (Bld) [Volume fraction] 40.0 % 38.8-50.0 [facility] Hemoglobin A1c percentageOrd ered By: Carlos Newsome on 02-01-2022 HbA1c (Bld) [Mass fraction] 6.3 % 4.3-5.6 [facility] Comment on above: Increased risk for d iabetes: 5.7 - 6.4diabetes: >6.4glycemic control for adults with diabetes: <7.0 Ketones Auto test strip (U) [Mass/Vol]Ordered By: Carlos Newsome on 02-01-2022 Ketones (U) [Mass/Vol] Negative Negative Fi [facility] - Hematology and Cell countsOrdered By: Carlos Newsome on 02-01-2022 Nucleated RBC/100 WBC (Bld) [Ratio] 0.0 % 0-0.5 [facility] Lymphocytes Auto (Bld) [#/Vo l]Ordered By: Carlos Newsome on 02-01-2022 Lymphocytes (Bld) [#/Vol] 2.3 10*3/uL 1.00-4.8 [facility] Lymphocytes/100 WBC Auto (Bl d)Ordered By: Carlos Newsome on 02-01-2022 Lymphocytes/100 WBC (Bld) 35.8 % . [facility] MCH Auto (RBC) [Entitic mass ]Ordered By: Carlos Newsome on 02-01-2022 MCH (RBC) [Entitic mass] 34.5 pg 27.5-35.2 [facility] MCHC Auto (RBC) [Mass/Vol]Or dered By: Carlos Newsome on 02-01-2022 MCHC (RBC) [Mass/Vol] 33.9 g/dL 32.5-35.6 [facility] MCV Auto (RBC) [Entitic vol] Ordered By: Carlos Newsome on 02-01-2022 MCV (RBC) [Entitic vol] 101.8 fL 83.5-101 [facility] Monocytes Auto (Bld) [#/Vol] Ordered By: Carlos Newsome on 02-01-2022 Monocytes (Bld) [#/Vol] 0.5 10*3/uL 0.0-0.8 [facility] Monocytes/100 WBC Auto (Bld) Ordered By: Carlos Newsome on 02-01-2022 Monocytes/100 WBC (Bld) 7.2 % . [facility] Neutrophils Auto (Bld) [#/Vo l]Ordered By: Carlos Newsome on 02-01-2022 Neutrophils (Bld) [#/Vol] 3.5 10*3/uL 1.8-7.7 [facility] Neutrophils/100 WBC Auto (Bl d)Ordered By: Carlos Newsome on 02-01-2022 Neutrophils/100 WBC (Bld) 53.7 % . [facility] Nitrite Test strip Ql (U)Ord ered By: Carlos Newsome on 02-01-2022 Nitrite Ql (U) Negative Negative [facility] No Panel InformationOrdered By: Carlos Newsome on 02-01-2022 Estimated GFR () 54 mL/Min [facility] Comment on above: GFR estimated refere nce range: According to KDOQI guidelines, <60 ml/min/1.73m2 is sufficient to diagnose a patient with chronic kidney disease. Pharmacy Creatinine Clearance (Chem N/A [facility] Platelet mean volume Auto (B ld) [Entitic vol]Ordered By: Carlos Newsome on 02-01-2022 Platelet mean volume (Bld) [Entitic vol] 7.7 fL 6.6-10.1 [facility] Platelets Auto (Bld) [#/Vol] Ordered By: Carlos Newsome on 02-01-2022 Platelets (Bld) [#/Vol] 170 10*3/uL 150-450 [facility] Protein Auto test strip (U) [Mass/Vol]Ordered By: Carlos Newsome on 02-01-2022 Protein (U) [Mass/Vol] Negative Negative [facility] RBC Auto (Bld) [#/Vol]Ordere d By: Carlos Newsome on 02-01-2022 RBC (Bld) [#/Vol] 3.92 10*6/uL 3.90-5.60 [facility] Serum or plasma anion gap de terminationOrdered By: Carlos Newsome on 02-01-2022 Anion gap [Moles/Vol] 16.1 mmol/L 6.0-15.0 [facility] Serum or plasma calcium madie urement (mass/volume)Ordered By: Carlos Newsome on 02-01-2022 Calcium [Mass/Vol] 9.2 mg/dL 8.2-10.2 [facility] Serum or plasma chloride dejah surement (moles/volume)Ordered By: Carlos Newsome on 02-01-2022 Chloride [Moles/Vol] 93 mmol/L 95-114 [facility] Serum or plasma glucose madie urement (mass/volume)Ordered By: Carlos Newsome on 02-01-2022 Glucose [Mass/Vol] 169 mg/dL 70-100 [facility] Comment on above: ADA recommended refe rence rangeRandom Glucose Reference Range is dependent on time and content of last meal. Glucose of more than 200 mg/dL in a nonstressed, ambulatory subject supports the diagnosis of Diabetes Mellitus. Serum or plasma potassium me asurement (moles/volume)Ordered By: Carlos Newsome on 02-01-2022 Potassium [Moles/Vol] 5.0 mmol/L 3.5-5.1 [facility] Serum or plasma sodium measu rement (moles/volume)Ordered By: Carlos Newsome on 02-01-2022 Sodium [Moles/Vol] 132 mmol/L 136-146 [facility] Serum or plasma total carbon dioxide measurement (moles/volume)Ordered By: Carlos Newsome on 02-01-2022 CO2 [Moles/Vol] 27.9 mmol/L 22.0-30.0 [facility] Serum or plasma urea nitroge n measurement (mass/volume)Ordered By: Carlos Newsome on 02-01-2022 Urea nitrogen [Mass/Vol] 23 mg/dL - [facility] Specific gravity Auto test s trip (U) [Rel density]Ordered By: Carlos Newsome on 02-01-2022 Specific gravity (U) [Rel density] 1.016 1.001-1.030 [facility] Urine clarity by refractomet ry automatedOrdered By: Carlos Newsome on 02-01-2022 Clarity Refractometry automated (U) Clear Clear [facility] Urine glucose measurement by automated test strip (mass/volume)Ordered By: Carlos Newsome on 02-01-2022 Glucose Auto test strip (U) [Mass/Vol] 250 mg/dL Normal [facility] Urine hemoglobin detection b y automated test stripOrdered By: Carlos Newsome on 02-01-2022 Hemoglobin Auto test strip Ql (U) Negative Negative [facility] Urine leukocyte esterase det ection by automated test stripOrdered By: Carlos Newsome on 02-01-2022 Leukocyte esterase Auto test strip Ql (U) Negative Negative [facility] Urobilinogen Auto test strip (U) [Mass/Vol]Ordered By: Carlos Newsome on 02-01-2022 Urobilinogen (U) [Mass/Vol] Normal mg/dL Normal [facility] pH Auto test strip (U)Ordere d By: Carlos Newsome on 02-01-2022 pH (U) 5.5 [pH] 5.0-9.0 [facility] [address] LUMBAR SPINE WO IVCONon 0 09-21-2021 [facility] LUMBAR SPINE 2 OR 3 VIEWSon 12-11-2018 LUMBAR SPINE 2 OR 3 VIEWS Exam: X-ray lumbar spine 2 views Clinical History: PAIN Comparison: 08/14/18 Findings: Posterior metallic fusion hardware and laminectomy defects extending from L4-S1 appear unchanged. Interbody graft at L3-4 is unchanged. No new fracture or subluxation. Slight retrolisthesis at L2-3 unchanged. Grade 1 spondylolisthesis L5-S1 unchanged. Overall degenerative changes appear similar to prior exam. Partially image left hip arthroplasty. Impression: Unchanged postoperative appearance of the lumbosacral spine. Dictated: 12/11/18 0907 REPORT SIGNATURE ON FILE12/11/18(0907) Reported By: JADA CALVO Signed By: JADA CALVO Normal [facility] BASIC MET PANELon 11-24-2018 Anion gap [Moles/Vol] 15 mmol/L Normal 6-18 [facility] Comment on above: Performed By: #### L 500.49222, L500.42471 ####Test performed at: [place] [address] [place] [id number] Calcium [Mass/Vol] 8.7 mg/dL Normal 8.5-10.1 [facility] Comment on above: Performed By: #### L 500.50826, L500.44890 ####Test performed at: [place] [address] [place] [address] Chloride [Moles/Vol] 99 mmol/L Normal 98-107 [facility] Comment on above: Performed By: #### L 500.63526, L500.56615 ####Test performed at: [place] [address] [place] [address] CO2 [Moles/Vol] 24 mmol/L Normal 21-32 [facility] Comment on above: Performed By: #### L 500.43714, L500.48689 ####Test performed at: [address] [address] Creatinine [Mass/Vol] 1.670 mg/dL High 0.700-1.300 [facility] Comment on above: Performed By: #### L 500.46556, L500.22665 ####Test performed at: [address] [address] Glucose [Mass/Vol] 267 mg/dL High 70-99 [facility] Comment on above: Result Comment: Fast ing GLUCOSE reference range has been updated per (ADA) [place] [employer] Association's recommendation. 07/31/2018 Performed By: #### L 500.79888, L500.29722 ####Test performed at: [address] [address] OSM 292 mosm/kg Normal 270-300 [facility] Comment on above: Performed By: #### L 500.49524, L500.69298 ####Test performed at: [address] [address] Potassium [Moles/Vol] 4.4 mmol/L Normal 3.5-5.1 [facility] Comment on above: Performed By: #### L 500.20508, L500.35394 ####Test performed at: [address] [address] Sodium [Moles/Vol] 134 mmol/L Low 136-145 [facility] Comment on above: Performed By: #### L 500.03683, L500.08779 ####Test performed at: [address] [address] Urea nitrogen [Mass/Vol] 25 mg/dL High 7-18 [facility] Comment on above: Performed By: #### L 500.43447, L500.20544 ####Test performed at: [place] [address] GFR ESTIMATEon 11-24-2018 IF AMER 49 Low > 60 [facility] Comment on above: Result Comment: eGFR (Estimated GFR) Units of measure:mL/min/1.73 meters sq. *CALCULATION REVISED 02/24/2015;IDMS-traceable MDRD equation eGFR is derived from the reexpressed MDRD Study equation using the following parameters: serum creatinine, age, gender and race. An eGFR<60 mL/min/1.73m2 for >3 months is consistent with chronic kidney disease. Refer to KDOQI guidelines for clinical interpretation. Performed By: #### L 500.91540, L500.89311 ####Test performed at: [place] [address] IF non-AFR AMER 41 Low > 60 [facility] Comment on above: Performed By: #### L 500.15862, L500.75474 ####Test performed at: [place] [address] GLUCOSE METERon 11-24-2018 Glucose [Mass/Vol] 364 mg/dL High 70-99 [facility] Comment on above: Result Comment: Fast ing GLUCOSE reference range has been updated per (ADA) [place] Diabetes Association's recommendation. 07/31/2018 Insulin per sl scale Performed By: #### L 500.89318 ####Test performed at: [address] [address] Glucose [Mass/Vol] 331 mg/dL High 70-99 [facility] Comment on above: Result Comment: Fast ing GLUCOSE reference range has been updated per (ADA) [place] Diabetes Association's recommendation. 07/31/2018 Insulin per sl scale Performed By: #### L 500.25775 ####Test performed at: [place] [address] HGB AND HCTon 11-24-2018 Hematocrit (Bld) [Volume fraction] 34.9 % Low 39.0-55.0 [facility] Comment on above: Performed By: #### L 200.43223 ####Test performed at: [address] [address] Hemoglobin (Bld) [Mass/Vol] 12.4 g/dL Low 14.0-16.5 [facility] Comment on above: Performed By: #### L 200.57933 ####Test performed at: [address] [address] GLUCOSE METERon 11-23-2018 Glucose [Mass/Vol] 352 mg/dL High 70-99 [facility] Comment on above: Result Comment: Fast ing GLUCOSE reference range has been updated per (ADA) [place] Diabetes [employer]'s recommendation. 07/31/2018 Follow protocol Performed By: #### L 500.09166 ####Test performed at: [address] [address] Glucose [Mass/Vol] 194 mg/dL High 70-99 [facility] Comment on above: Result Comment: Fast ing GLUCOSE reference range has been updated per (ADA) [place] Diabetes [employer]'s recommendation. 07/31/2018 NONE Performed By: #### L 500.52816 #### Test performed at: [address] [address] Glucose [Mass/Vol] 187 mg/dL High 70-99 [facility] Comment on above: Result Comment: Fast ing GLUCOSE reference range has been updated per (ADA) [place] Diabetes Association's recommendation. 07/31/2018 Physician notified Performed By: #### L 500.07971 #### Test performed at: [address] [address] OPERATIVE REPORTon 9 OPERATIVE REPORT NAME: SUMEET PAZ MR#: [id number] SURGEON: Seymour Rubalcava MD DATE OF SURGERY: 11/23/2018 OPERATIVE REPORT PREOPERATIVE DIAGNOSIS: Stenosis and post-laminectomy syndrome lumbar. POSTOPERATIVE DIAGNOSIS: Stenosis and post-laminectomy syndrome lumbar. OPERATIVE PROCEDURE: Left L2-3 laminotomy, foraminotomy, decompression and revision left L3-4 laminotomy, foraminotomy, decompression with lysis of adhesions. DESCRIPTION OF PROCEDURE: After anesthesia, the patient was placed prone on a spine frame. Care was taken to avoid injury to the eyes, axilla, and the median and ulnar nerves. The back was prepped and draped in usual fashion. The incisions were planned using a needle and C-arm. A longitudinal incision was made in the old scar over L2-3 with sharp dissection subcutaneous tissues. The fascia and paraspinal muscles were dissected bluntly down the left L2-3 interspace and a tubular retractor was inserted and x-ray confirmed position in AP and lateral planes. The left L2 lamina was cleared of soft tissue and directly visualized. Under magnification, the lamina and medial facet was thinned with a allyn. Laminotomy was performed by removing the inferior aspect of the L2 lamina with Kerrison rongeurs. Partial medial facetectomy was performed with Kerrison rongeurs. The ligamentum was released with a nerve hook and removed with Kerrison rongeurs and the dura. The superior aspect of the left L3 lamina was removed with Kerrison rongeurs with lysis of adhesions. The lateral recess was decompressed with straight and curved Kerrison rongeurs. The traversing L3 root was decompressed with straight and curved Kerrison rongeurs, and foraminotomy was performed on the left with Kerrison rongeurs. After thorough decompression, the epidural space was palpated with a Ley hook. The foramen was patent. The exiting L2 root well decompressed. The lateral recess was well decompressed and the traversing L3 root was well decompressed. The wound was irrigated with saline Betadine solution. Hemostasis was achieved with FloSeal. The tubular retractor was removed and bleeding coagulated. A longitudinal incision was made in the old scar over L3-4 with sharp dissection and subcutaneous tissues. Under C-arm guidance, the fascia and paraspinal muscles were dissected bluntly down to the facet joint on the left beginning at the pedicle of L3. Soft tissue was cleared from the remainder of the lamina at L3 and the lamina was thinned with a allyn. Beginning where the previous decompression removed the superior aspect of the L3 lamina, L3 hemilaminectomy was performed with lysis of adhesions using Kerrison rongeurs. Lysis of adhesions was performed with angled curettes. The hemilaminectomy was performed and the lysis of adhesions was taken along the medial border of the remaining facet joint with partial [facility] PT NAME: SUMEET PAZ MR#: [id number] [address] [place] [address] ACCT: [id number] : 49 OPERATIVE REPORT medial facetectomy down to the pedicle of L4. The facet and the lamina was thinned with a allyn and the superior aspect of the L4 lamina was thinned with a allyn. Lysis of adhesions was performed with angled curettes and laminotomy performed by removing the superior aspect of the L4 lamina with Kerrison rongeurs. The lateral recess was carefully decompressed with curved Kerrison rongeurs after lysis of adhesions. The exiting L4 root was examined and using a Ley hook, the lateral recess and exiting L4 root was well decompressed. Foraminotomy was performed with curved Kerrison rongeurs and this was palpated with a Ley hook and found to be patent, indicating that the exiting L3 root was well decompressed. The lateral recess was well decompressed as well. The wound was then irrigated with saline Betadine solution. Hemostasis was achieved with FloSeal. The tubular retractor was removed and bleeding coagulated. Paraspinal muscles were injected with 0.5% Marcaine. The fascia, subcutaneous tissues, and skin were closed in the usual manner. Before closure, the both wounds were extremely dry and I did not feel a drain was warranted. Dressings were applied. The patient was awoke and taken to recovery room in excellent condition. There were no complications. SEYMOUR RUBALCAVA MD JFS/MODL/[id number] E/S: Seymour Rubalcava MD 12/04/[address] [facility] PT NAME: SUMEET PAZ MR#: [id number] [address] [place] [address] ACCT: [id number] : 49 OPERATIVE REPORT Normal [facility] LUMBAR SPINE 2 OR 3 VIEWSon 11-22-2018 LUMBAR SPINE 2 OR 3 VIEWS STUDY: LUMBAR SPINE 2 OR 3 VIEWS; 11/23/2018 4:50 pm INDICATION: L2-L3,L3-L4 LAMINECTOMY, DECOMPRESSIVE. COMPARISON: None. ACCESSION NUMBER(S): [id number] ORDERING CLINICIAN: Seymour Rubalcava FINDINGS: Intraoperative fluoroscopic images demonstrate posterior fusion hardware from L4-S1. Interbody graft at L3-4. IMPRESSION: As above Normal [facility] CBC W/DIFFon 11-14-2018 BASO ABS 0.0 K/uL Normal 0.0-0.2 [facility] Comment on above: Order Comment: CBN: YES [place]: MAIN Performed By: #### L 200.11063 #### Test performed at: [address] [address] Basophils/100 WBC (Bld) 0.5 % Normal [facility] Comment on above: Order Comment: CBN: YES [place]: MAIN Performed By: #### L 200.57765 #### Test performed at: [address] [address] EOS ABS 0.2 K/uL Normal 0.0-0.5 [facility] Comment on above: Order Comment: CBN: YES [place]: MAIN Performed By: #### L 200.86473 #### Test performed at: [address] [address] Eosinophils/100 WBC (Bld) 2.9 % Normal [facility] Comment on above: Order Comment: CBN: YES [place]: MAIN Performed By: #### L 200.29792 #### Test performed at: [address] [address] Erythrocyte distribution width (RBC) [Ratio] 13.2 % Normal 11.5-14.5 [facility] Comment on above: Order Comment: CBN: YES [place]: MAIN Performed By: #### L 200.45415 #### Test performed at: [address] [address] Hematocrit (Bld) [Volume fraction] 38.3 % Low 39.0-55.0 [facility] Comment on above: Order Comment: CBN: YES [place]: MAIN Performed By: #### L 200.44139 #### Test performed at: [address] [address] Hemoglobin (Bld) [Mass/Vol] 13.2 g/dL Low 14.0-16.5 [facility] Comment on above: Order Comment: CBN: YES [place]: MAIN Performed By: #### L 200.22818 #### Test performed at: [address] [address] IG % 0.5 % Normal [facility] Comment on above: Order Comment: CBN: YES [place]: MAIN Performed By: #### L 200.01657 #### Test performed at: [address] [address] IG ABS 0.03 K/uL Normal 0-0.05 [facility] Comment on above: Order Comment: CBN: YES [place]: MAIN Performed By: #### L 200.27813 #### Test performed at: [address] [address] Lymphocytes (Bld) [#/Vol] 1.7 10*3/uL Normal 1.2-3.5 [facility] Comment on above: Order Comment: CBN: YES [place]: MAIN Performed By: #### L 200.69377 #### Test performed at: [address] [address] Lymphocytes/100 WBC (Bld) 26.4 % Normal [facility] Comment on above: Order Comment: CBN: YES [place]: MAIN Performed By: #### L 200.14675 #### Test performed at: [address] [address] MCH (RBC) [Entitic mass] 34.2 pg Normal 25.4-34.6 [facility] Comment on above: Order Comment: CBN: YES [place]: MAIN Performed By: #### L 200.59719 #### Test performed at: [address] [address] MCHC (RBC) [Mass/Vol] 34.5 g/dL Normal 31.5-36.5 [facility] Comment on above: Order Comment: CBN: YES [place]: MAIN Performed By: #### L 200.11386 #### Test performed at: [address] [address] MCV (RBC) [Entitic vol] 99.2 fL Normal 80.0-100.0 [facility] Comment on above: Order Comment: CBN: YES [place]: MAIN Performed By: #### L 200.79723 #### Test performed at: [address] [address] MONO ABS 0.5 K/uL Normal 0.0-1.0 [facility] Comment on above: Order Comment: CBN: YES [place]: MAIN Performed By: #### L 200.64649 #### Test performed at: [address] [address] Monocytes/100 WBC (Bld) 8.0 % Normal [facility] Comment on above: Order Comment: CBN: YES [place]: MAIN Performed By: #### L 200.04810 #### Test performed at: [address] [address] NEUTROPHIL ABS 4.0 K/uL Normal 1.4-6.6 [facility] Comment on above: Order Comment: CBN: YES [place]: MAIN Performed By: #### L 200.29697 #### Test performed at: [address] [address] Neutrophils/100 WBC (Bld) 61.7 % Normal [facility] Comment on above: Order Comment: CBN: YES [place]: MAIN Performed By: #### L 200.61914 #### Test performed at: [address] [address] NRBC # 0.000 K/uL Normal 0-0.012 [facility] Comment on above: Order Comment: CBN: YES [place]: MAIN Performed By: #### L 200.70690 #### Test performed at: [address] [address] NRBC % 0.0 /100 WBC Normal 0-0.2 [facility] Comment on above: Order Comment: CBN: YES [place]: MAIN Performed By: #### L 200.29610 #### Test performed at: [address] [address] Platelet mean volume (Bld) [Entitic vol] 9.9 fL Normal 8.7-12.4 [facility] Comment on above: Order Comment: CBN: YES [place]: MAIN Performed By: #### L 200.17414 #### Test performed at: [address] [address] Platelets (Bld) [#/Vol] 159 10*3/uL Normal 140-440 [facility] Comment on above: Order Comment: CBN: YES [place]: MAIN Performed By: #### L 200.53040 #### Test performed at: [address] [address] RBC (Bld) [#/Vol] 3.86 10*6/uL Normal 3.5-5.5 [facility] Comment on above: Order Comment: CBN: YES [place]: MAIN Performed By: #### L 200.16902 #### Test performed at: [address] [address] WBC (Bld) [#/Vol] 6.5 10*3/uL Normal 3.9-11.0 [facility] Comment on above: Order Comment: CBN: YES [place]: MAIN Performed By: #### L 200.84807 #### Test performed at: [address] [address] COMP META PANELon 11-14-2018 Albumin [Mass/Vol] 3.6 g/dL Normal 3.4-5.0 [facility] Comment on above: Order Comment: CBN: YES [place]: MAIN Performed By: #### L 500.20739, L500.03662 #### Test performed at: [address] [address] ALK PHOS TOTAL 58 U/L Normal 45-117 [facility] Comment on above: Order Comment: CBN: YES [place]: MAIN Performed By: #### L 500.41577, L500.77903 #### Test performed at: [address] [address] ALT [Catalytic activity/Vol] 49 U/L Normal 13-61 [facility] Comment on above: Order Comment: CBN: YES [place]: MAIN Performed By: #### L 500.51018, L500.81899 #### Test performed at: [address] [address] AST [Catalytic activity/Vol] 34 U/L Normal 15-37 [facility] Comment on above: Order Comment: CBN: YES [place]: MAIN Performed By: #### L 500.46732, L500.31505 #### Test performed at: [address] [address] BILI TOTAL 0.4 mg/dL Normal 0.2-1.0 [facility] Comment on above: Order Comment: CBN: YES [place]: MAIN Performed By: #### L 500.22474, L500.70237 #### Test performed at: [address] [address] Calcium [Mass/Vol] 9.5 mg/dL Normal 8.5-10.1 [facility] Comment on above: Order Comment: CBN: YES [place]: MAIN Performed By: #### L 500.43685, L500.62242 #### Test performed at: [address] [address] Chloride [Moles/Vol] 104 mmol/L Normal 98-107 [facility] Comment on above: Order Comment: CBN: YES [place]: MAIN Performed By: #### L 500.03348, L500.89297 #### Test performed at: [address] [address] CO2 [Moles/Vol] 29 mmol/L Normal 21-32 [facility] Comment on above: Order Comment: CBN: YES [place]: MAIN Performed By: #### L 500.91253, L500.63058 #### Test performed at: [address] [address] Creatinine [Mass/Vol] 1.510 mg/dL High 0.700-1.300 [facility] Comment on above: Order Comment: CBN: YES [place]: MAIN Performed By: #### L 500.98212, L500.30102 #### Test performed at: [address] [address] Glucose [Mass/Vol] 215 mg/dL High 70-99 [facility] Comment on above: Order Comment: CBN: YES [place]: MAIN Result Comment: Fast ing GLUCOSE reference range has been updated per (ADA) [place] [employer]'s recommendation. 07/31/2018 Performed By: #### L 500.56646, L500.04146 #### Test performed at: [address] [address] Potassium [Moles/Vol] 5.1 mmol/L Normal 3.5-5.1 [facility] Comment on above: Order Comment: CBN: YES [place]: MAIN Performed By: #### L 500.86187, L500.91038 #### Test performed at: [address] [address] Protein [Mass/Vol] 6.9 g/dL Normal 6.4-8.2 [facility] Comment on above: Order Comment: CBN: YES [place]: MAIN Performed By: #### L 500.23851, L500.86675 #### Test performed at: [address] [address] Sodium [Moles/Vol] 138 mmol/L Normal 136-145 [facility] Comment on above: Order Comment: CBN: YES [place]: MAIN Performed By: #### L 500.63519, L500.67587 #### Test performed at: [address] [address] Urea nitrogen [Mass/Vol] 20 mg/dL High 7-18 [facility] Comment on above: Order Comment: CBN: YES [place]: MAIN Performed By: #### L 500.99892, L500.80169 #### Test performed at: [address] [address] GFR ESTIMATEon 11-14-2018 IF AMER 55 Low > 60 [facility] Comment on above: Order Comment: CBN: YES [place]: MAIN Result Comment: eGFR (Estimated GFR) Units of measure:mL/min/1.73 meters sq. *CALCULATION REVISED 02/24/2015;IDMS-traceable MDRD equation eGFR is derived from the reexpressed MDRD Study equation using the following parameters: serum creatinine, age, gender and race. An eGFR<60 mL/min/1.73m2 for >3 months is consistent with chronic kidney disease. Refer to KDOQI guidelines for clinical interpretation. Performed By: #### L 500.55279, L500.45010 #### Test performed at: [place] [address] IF non-AFR AMER 46 Low > 60 [facility] Comment on above: Order Comment: CBN: YES [place]: MAIN Performed By: #### L 500.79226, L500.93589 #### Test performed at: [place] [address] GLYCO HEMOon 11-14-2018 HbA1c (Bld) [Mass fraction] 7.3 % Normal [facility] Comment on above: Order Comment: CBN: YES [place]: MAIN Result Comment: Kelly bowers Diagnosis HbA1c (%) --------- Diabetic > 6.4 Prediabetes 5.7-6.4 Normal < 5.7 Performed By: #### L 500.37669 #### Test performed at: [place] [address] TSPATon 11-14-2018 ABO and Rh group Nom (Bld) A POSITIVE Normal [facility] Comment on above: Order Comment: CBN: YES [place]: MAIN Transfusion Status: CONSERVATION Blood Bank service requested: TYPE AND SCREEN Specimen Comment: SURG 11/23 Performed By: #### B 100.0201 #### Test performed at: [place] [address] LUMB SP COMP W FLEX/EXT 6 VW Son 08-14-2018 LUMB SP COMP W FLEX/EXT 6 VWS STUDY: LUMB SP COMP W FLEX/EXT 6 VWS; 08/14/2018 12:25 pm INDICATION: LOW BACK PAIN, WEAKNESS. COMPARISON: None. ACCESSION NUMBER(S): [id number] ORDERING CLINICIAN: Reggie Ramírez FINDINGS: Interbody graft at L3-4. Posterior metallic fusion hardware from L4-S1. Pedicle screws and interconnecting rods appear intact. L4 and L5 laminectomy defects. No acute fracture subluxation of the lumbar spine. Mild multilevel degenerative disc disease. Severe multilevel facet arthropathy. Grade 1 spondylolisthesis L5-S1. No visualized pars defects, however please note fusion hardware can obscure findings on the oblique views. Partially imaged left total hip arthroplasty. IMPRESSION: L3-S1 fusion changes. Degenerative changes of the lumbar spine. No acute fracture. Normal [facility] MRI LUMBAR SP WO CONTRASTon 08-14-2018 MRI LUMBAR SP WO CONTRAST STUDY: MRI LUMBAR SP WO CONTRAST; 08/14/2018 1:13 pm INDICATION: LOW BACK PAIN, WEAKNESS. COMPARISON: None. ACCESSION NUMBER(S): [id number] ORDERING CLINICIAN: Reggie Ramírez TECHNIQUE: Sagittal T1, T2, STIR, axial T1 and T2 weighted images of the lumbar spine were acquired. FINDINGS: The patient is status post posterior laminectomies from the L3 level through the L5 level. There is been placement of bilateral pedicle screws and rods at the L4, L5, and S1 levels. There is a focal fluid collection within the posterior midline soft tissues at the laminectomy site extending from the L4 level through the L5 level. L5-S1: There is grade 1 spondylolisthesis. There are moderate to severe hypertrophic facet changes bilaterally. There is no significant central canal or neural foraminal stenosis. L4-5: There is diffuse disc bulge. There is no significant central canal or neural foraminal stenosis. L3-4: There is diffuse disc bulge. There is no significant central canal stenosis. There is [id number]-[id number] bilateral neural foraminal stenosis. L2-3: There is posterior disc bulge causing mild central canal stenosis. The neural foramina are patent. L1-2: The findings are unremarkable. IMPRESSION: Postsurgical changes as described above with a midline posterior soft tissue fluid collection extending from the L4 level through the L5 level at the laminectomy sites. Grade 1 spondylolisthesis at the L5-S1 level Multifocal degenerative changes as described above Normal [facility] POCT Glucoseon 08-05-2017 Glucose mass conc 400 mg/dL Critically high 60-115 [facility] POC Performed on ACCU-CHEK Normal [facility] Glucose mass conc 397 mg/dL Critically high 60-115 [facility] POC Performed on ACCU-CHEK Normal [facility] Glucose mass conc 299 mg/dL Critically high 60-115 [facility] POC Performed on ACCU-CHEK Normal [facility] Basic Metabolic Panel Reflex Mgon 08-04-2017 Anion gap 15 mmol/L Critically high 7-13 [facility] Calcium 8.1 mg/dL Low 8.6-10.2 [facility] Chloride 94 mmol/L Low 98-107 [facility] CO2 23 mmol/L Normal 22-29 [facility] Creatinine 1.37 mg/dL Critically high 0.70-1.20 [facility] eGFR (black) mL/min/{1.73_m2} Normal >60 [facility] Comment on above: Result Comment: >60 mL/min/1.73m2 EGFR, calc. for ages 18 and older using theMDRD formula (not corrected for weight), is valid for stablerenal function. eGFR (MDRD) 51.3 mL/min/{1.73_m2} Low >60 [facility] Comment on above: Result Comment: >60 mL/min/1.73m2 EGFR, calc. for ages 18 and older using theMDRD formula (not corrected for weight), is valid for stablerenal function. Glucose mass conc 337 mg/dL Critically high 74-109 [facility] Potassium molar conc 4.9 mmol/L Normal 3.5-5.1 [facility] Sodium 132 mmol/L Normal 132-144 [facility] Urea nitrogen 18 mg/dL Normal 8-23 [facility] CBC With Platelet and Differ entialon 08-04-2017 Basophils Auto #/vol (Bld) 0.1 10*3/uL Normal 0.0-0.2 [facility] Basophils/100 WBC Auto (Bld) 0.7 % Normal [facility] Eosinophils 0.0 10*3/uL Normal 0.0-0.7 [facility] Eosinophils/100 leukocytes 0.2 % Normal [facility] Erythrocyte distribution width Auto Ratio (RBC) 13.3 % Normal 11.5-14.5 [facility] Erythrocytes (RBC) 3.61 10*6/uL Low 4.70-6.10 [facility] Hematocrit (HCT) 36.1 % Low 42.0-52.0 [facility] Hemoglobin mass conc (Bld) 12.5 g/dL Low 14.0-18.0 [facility] Lymphocytes 1.3 10*3/uL Normal 1.0-4.8 [facility] Lymphocytes/100 leukocytes 13.1 % Normal [facility] MCH 34.5 pg Critically high 27.0-31.3 [facility] MCHC mass conc (RBC) 34.5 % Normal 33.0-37.0 [facility] MCV 100.0 fL Normal 80.0-100.0 [facility] Monocytes 0.8 10*3/uL Normal 0.2-0.8 [facility] Monocytes/100 leukocytes 8.4 % Normal [facility] Neutrophils 7.5 10*3/uL Critically high 1.4-6.5 [facility] Neutrophils/100 leukocytes 77.6 % Normal [facility] Platelets 141 10*3/uL Normal 130-400 [facility] WBC (Leukocytes) 9.7 10*3/uL Normal 4.8-10.8 [facility] POCT Glucoseon 08-04-2017 Glucose mass conc 380 mg/dL Critically high 60-115 [facility] POC Performed on ACCU-CHEK Normal [facility] Glucose mass conc 356 mg/dL Critically high 60-115 [facility] POC Performed on ACCU-CHEK Normal [facility] Glucose mass conc 353 mg/dL Critically high 60-115 [facility] POC Performed on ACCU-CHEK Normal [facility] Glucose mass conc 311 mg/dL Critically high 60-115 [facility] POC Performed on ACCU-CHEK Normal [facility] XR LUMBAR SPINE (2-3 VIEWS)o n 08-04-2017 XR LUMBAR SPINE (2-3 VIEWS) EXAMINATION: XR LUMBAR SPINE (3 VIEWS)DATE AND TIME:08/04/2017 12:00 PMCLINICAL HISTORY: Severe lower back pain postop COMPARISON: None available.FINDINGS: Posterior fusion hardware spanning L4-S1 noted. Interbody fusion device at L3-4. Alignment is normal. Vertebral body heights are well-maintained. Disc spaces preserved. No acute fracture. Remaining visualized bones intact.IMPRESSION: STABLE POSTOPERATIVE LUMBAR SPINE. Interpreted by:IDALIA Colbyigned by:Enoch Tristan MD4/inal result Normal [facility] Basic Metabolic Panel Reflex Mgon 08-03-2017 Anion gap 16 mmol/L Critically high 7-13 [facility] Comment on above: Order Comment: CALL [place] 2N tel. [phone],GLU results called to and read back by Jennifer Hyman RN, 08/03/2017 19:46,by [facility] Calcium 8.1 mg/dL Low 8.6-10.2 [facility] Comment on above: Order Comment: CALL [place] 2N tel. [phone],GLU results called to and read back by Jennifer Hyman RN, 08/03/2017 19:46,by [place] Chloride 93 mmol/L Low 98-107 [facility] Comment on above: Order Comment: CALL [place] 2N tel. [phone],GLU results called to and read back by Jennifer Hyman RN, 08/03/2017 19:46,by [place] CO2 23 mmol/L Normal 22-29 [facility] Comment on above: Order Comment: CALL [place] 2N tel. [phone],GLU results called to and read back by Jennifer Hyman RN, 08/03/2017 19:46,by [place] Creatinine 1.47 mg/dL Critically high 0.70-1.20 [facility] Comment on above: Order Comment: CALL [place] 2N tel. [phone],GLU results called to and read back by Jennifer Hyman RN, 08/03/2017 19:46,by [place] eGFR (black) 57.2 mL/min/{1.73_m2} Low >60 [facility] Comment on above: Order Comment: CALL [place] 2N tel. [phone],GLU results called to and read back by Jennifer Hyman RN, 08/03/2017 19:46,by [place] Result Comment: >60 mL/min/1.73m2 EGFR, calc. for ages 18 and older using theMDRD formula (not corrected for weight), is valid for stablerenal function. eGFR (MDRD) 47.3 mL/min/{1.73_m2} Low >60 [facility] Comment on above: Order Comment: CALL [place] 2[place] tel. [phone],GLU results called to and read back by Jennifer Hyman RN, 08/03/2017 19:46,by [place] Result Comment: >60 mL/min/1.73m2 EGFR, calc. for ages 18 and older using theMDRD formula (not corrected for weight), is valid for stablerenal function. Glucose mass conc 406 mg/dL Critically high 74-109 [facility] Comment on above: Order Comment: CALL [place] LC2N tel. [phone],GLU results called to and read back by Jennifer Hyman RN, 08/03/2017 19:46,by [place] Potassium molar conc 5.1 mmol/L Normal 3.5-5.1 [facility] Comment on above: Order Comment: CALL N[place]z LC2N tel. [phone],GLU results called to and read back by Jennifer Hyman RN, 08/03/2017 19:46,by [place] Sodium 132 mmol/L Normal 132-144 [facility] Comment on above: Order Comment: CALL [place]unez LC2N tel. [phone],GLU results called to and read back by Jennifer Hyman RN, 08/03/2017 19:46,by [place] Urea nitrogen 18 mg/dL Normal 8-23 [facility] Comment on above: Order Comment: CALL [place]z LC2N tel. [phone],GLU results called to and read back by Jennifer Hyman RN, 08/03/2017 19:46,by [facility] CBC With Platelet and Differ entialon 08-03-2017 Basophils Auto #/vol (Bld) 0.0 10*3/uL Normal 0.0-0.2 [facility] Basophils/100 WBC Auto (Bld) 0.2 % Normal [facility] Eosinophils 0.0 10*3/uL Normal 0.0-0.7 [facility] Eosinophils/100 leukocytes 0.0 % Normal [facility] Erythrocyte distribution width Auto Ratio (RBC) 13.2 % Normal 11.5-14.5 [facility] Erythrocytes (RBC) 3.80 10*6/uL Low 4.70-6.10 [facility] Hematocrit (HCT) 38.1 % Low 42.0-52.0 [facility] Hemoglobin mass conc (Bld) 13.2 g/dL Low 14.0-18.0 [facility] Lymphocytes 0.8 10*3/uL Low 1.0-4.8 [facility] Lymphocytes/100 leukocytes 8.5 % Normal [facility] MCH 34.7 pg Critically high 27.0-31.3 [facility] MCHC mass conc (RBC) 34.6 % Normal 33.0-37.0 [facility] MCV 100.2 fL Critically high 80.0-100.0 [facility] Monocytes 0.4 10*3/uL Normal 0.2-0.8 [facility] Monocytes/100 leukocytes 4.3 % Normal [facility] Neutrophils 8.2 10*3/uL Critically high 1.4-6.5 [facility] Neutrophils/100 leukocytes 87.0 % Normal [facility] Platelets 158 10*3/uL Normal 130-400 [facility] WBC (Leukocytes) 9.4 10*3/uL Normal 4.8-10.8 [facility] FLUORO FOR SURGICAL PROCEDUR ESon 08-03-2017 FLUORO FOR SURGICAL PROCEDURES FLUORO FOR SURGICAL PROCEDURES : 08/03/2017 5:45 AMCLINICAL HISTORY: lumbar .COMPARISON: None available.Intraopera tive fluoroscopy was provided for Dr. Reeder's lumbar procedure.A total of 26.5 seconds of fluoroscopy was used, with 2 fluoroscopic stills saved. No diagnostic images were obtained.Please see Dr. Reeder's surgical notes for completeness.Interpr eted by:Seymour Rosas MDSigned by:Seymour Rosas MD08/03/17inal result Normal [facility] POCT Glucoseon 08-03-2017 Glucose mass conc 382 mg/dL Critically high 60-115 [facility] POC Performed on ACCU-CHEK Normal [facility] Glucose mass conc 309 mg/dL Critically high 60-115 [facility] POC Performed on ACCU-CHEK Normal [facility] Glucose mass conc 255 mg/dL Critically high 60-115 [facility] POC Performed on ACCU-CHEK Normal [facility] Glucose mass conc 286 mg/dL Critically high 60-115 [facility] POC Performed on ACCU-CHEK Normal [facility] Basic Metabolic Panelon 07-07 Anion gap 15 mmol/L Critically high 7-13 [facility] Calcium 9.3 mg/dL Normal 8.6-10.2 [facility] Chloride 97 mmol/L Low 98-107 [facility] CO2 25 mmol/L Normal 22-29 [facility] Creatinine 1.41 mg/dL Critically high 0.70-1.20 [facility] eGFR (black) mL/min/{1.73_m2} Normal >60 [facility] Comment on above: Result Comment: >60 mL/min/1.73m2 EGFR, calc. for ages 18 and older using theMDRD formula (not corrected for weight), is valid for stablerenal function. eGFR (MDRD) 49.6 mL/min/{1.73_m2} Low >60 [facility] Comment on above: Result Comment: >60 mL/min/1.73m2 EGFR, calc. for ages 18 and older using theMDRD formula (not corrected for weight), is valid for stablerenal function. Glucose mass conc 250 mg/dL Critically high 74-109 [facility] Potassium molar conc 4.7 mmol/L Normal 3.5-5.1 [facility] Sodium 137 mmol/L Normal 132-144 [facility] Urea nitrogen 24 mg/dL Critically high 8- [facility] CBC With Platelet No Differe ntialon 08-02-2017 Erythrocyte distribution width Auto Ratio (RBC) 13.1 % Normal 11.5-14.5 [facility] Erythrocytes (RBC) 4.48 10*6/uL Low 4.70-6.10 [facility] Hematocrit (HCT) 44.9 % Normal 42.0-52.0 [facility] Hemoglobin mass conc (Bld) 15.4 g/dL Normal 14.0-18.0 [facility] MCH 34.4 pg Critically high 27.0-31.3 [facility] MCHC mass conc (RBC) 34.2 % Normal 33.0-37.0 [facility] MCV 100.3 fL Critically high 80.0-100.0 [facility] Platelets 165 10*3/uL Normal 130-400 [facility] WBC (Leukocytes) 5.8 10*3/uL Normal 4.8-10.8 [facility] Culture, MRSA Screenon 08-02 Culture, MRSA Screen ORDERED BY: DORIAN REEDER: Nares Nose COLLECTED: 08/02/17 12:15ANTIBIOTICS AT KARIN.: RECEIVED : 08/02/17 12:15Culture, MRSA Screen FINAL 08/03/17 11:25 No MRSA isolated Normal [facility] Partial Thromboplastin Timeo n 08-02-2017 aPTT 25.3 s Normal 21.6-35.4 [facility] Comment on above: Result Comment: Hepa rin Therapeutic Range: 38.8 - 54.6 seconds. Prothrombin Timeon 8 INR Coag RelTime (PPP) 1.0 {INR} Normal [facility] Comment on above: Result Comment: Sigifredo mmended INR therapeutic ranges for oral anticoagulanttherapyProphylaxis/treatment of: INR Venous Thrombosis, Pulmonary Embolism 2.0-3Prevention of Systemic Embolism from: Atrial Fibrillation 2.0-3.0 Myocardial Infarction 2.0-3.0 Mechanical Prosthetics Heart Valves 2.5-3.5 Recurrent Systemic Embolism 2.5-3.5Guidelines for patients with coagulopathy, e.g. liver disease:Use the Protime resulted in seconds. Mild 12.9-17.0 sec Moderate 17.1-22.6 sec Severe G.T. 22.6 sec Prothrombin time (PT) Coag time (PPP) 10.5 s Normal 8.1-13.7 [facility] Type and Screen Capture 3 sc rn cellon 08-02-2017 Bilirubin (total) PATIENT: SUKHDEEP CESPEDES LOC: ILEANAABHIJIT# : [id number] : 1945 SEX: MORDERED BY: LILLI GRACIA ORDERED : 08/02/2017 09:39 COLLECTED: 08/02/2017 12:25ORDER : [id number] RECEIVED : 08/02/2017 12:25 ---TEST NAME RESULT UNITS RANGES ABN FL STABORH Capture A POS FAntibody 3 Cell Scrn Captu NEG F Normal [facility] Urinalysis, reflex to micros copicon 08-02-2017 Bilirubin Ql (U) Negative Normal Negative [facility] Urine, clarity Clear Normal Clear [facility] Urine, color Yellow Normal Straw/Toombs [facility] Urine, glucose presence >=1000 Abnormal Negative [facility] Urine, hemoglobin presence Negative Normal Negative [facility] Urine, ketones presence Negative Normal Negative [facility] Urine, leukocyte esterase presence Negative Normal Negative [facility] Urine, nitrite presence Negative Normal Negative [facility] Urine, pH 5.5 [pH] Normal 5.0-9.0 [facility] Urine, protein presence Negative Normal Negative [facility] Urine, specific gravity 1.022 Normal 1.005-1.03 [facility] Urine, urobilinogen 0.2 {Jasen'U}/dL Normal < 2.0 [facility] XR SPINE ENTIRE (2-3 VIEWS)o n 08-02-2017 XR SPINE ENTIRE (2-3 VIEWS) EXAMINATION: XR SPINE ENTIRE (2-3 VIEWS)CLINICAL HISTORY: 72-year-old, preop for spine surgeryCOMPARISONS: None available.FINDINGS: Standing frontal and lateral views of the spine were obtained with the benefit of scoliosis technique. There are 12 rib-bearing vertebral bodies and 5 lumbar-like vertebral bodies. Patient is status post L3-L5 spinal fusion with pedicular screws there is a disc spacer at L5 3-4. Mild anterolateral endplate spurring is appreciated throughout the spine. Anterior spinal fusion is appreciated at L5-6. Scoliosis technique limits osseous assessment. No definite destructive osseous lesions. On the frontal view there is no measurable scoliosis. On the lateral view the thoracic kyphosis measured from the inferior endplate of T3 to the inferior endplate of T12 is 54 degrees. The lumbar lordosis measured from the superior endplate of L1 to the inferior endplate of L5 is 50 degrees. There is mild anterolisthesis of the L5 on S1. No other vertebral body subluxations.Left hip prosthesis is incompletely included on the [id number] ION: NO MEASURABLE SCOLIOSIS. ADDITIONAL FINDINGS DETAILED ABOVEInterpreted by:IDALIA Torresigned by:Lorena Giordano MD08/02/17inal result Normal [facility] Vital Signs Date Time Vital Sign Value Performing Clinician Facility 09-28-2023 13:34-0400 Body height 172.7 cm Pacc 2 Work Phone: [facility] 09-28-2023 13:34-0400 Body mass index (BMI) [Ratio] 41.51 kg/m2 Pacc 2 Work Phone: [facility] 09-28-2023 13:34-0400 Body temperature 98.01 [degF] Pacc 2 Work Phone: [facility] 09-28-2023 13:34-0400 Body weight 123.83 kg Pacc 2 Work Phone: [facility] Comment on above: stated-unable to stand for weight 09-28-2023 13:34-0400 Diastolic blood pressure 66 mm[Hg] Pacc 2 Work Phone: [facility] 09-28-2023 13:34-0400 Heart rate 83 /min Pacc 2 Work Phone: [facility] 09-28-2023 13:34-0400 Respiratory rate 16 /min Pacc 2 Work Phone: [facility] 09-28-2023 13:34-0400 SaO2% (BldA) [Mass fraction] 97 % Pacc 2 Work Phone: [facility] 09-28-2023 13:34-0400 Systolic blood pressure 102 mm[Hg] Pacc 2 Work Phone: [facility] 09-15-2023 10:16-0400 Blood Pressure Location Ashwin MATHIS [facility] 09-15-2023 10:16-0400 Diastolic blood pressure 74 mm[Hg] Ashwin MATHIS [facility] 09-15-2023 10:16-0400 Heart rate 68 /min Ashwin MATHIS [facility] 09-15-2023 10:16-0400 Systolic blood pressure 136 mm[Hg] Ashwinisiah MATHIS [facility] 08-23-2023 10:29-0400 Body temperature 98.6 [degF] Ashwin MAHTIS [facility] 08-23-2023 10:29-0400 Respiratory rate 15 /min Ashwin MATHIS [facility] 07-10-2023 23:00-0500 Heart rate 100 /min DO Fany Judson Work Phone: [facility] 07-10-2023 23:00-0500 Respiratory rate 18 /min DO Fany Judson Work Phone: [facility] 07-10-2023 23:00-0500 SaO2% (BldA) [Mass fraction] 99 % DO Fany Judson Work Phone: [facility] 07-10-2023 22:15-0500 Diastolic blood pressure 72 mm[Hg] DO Fany Judson Work Phone: [facility] 07-10-2023 22:15-0500 Systolic blood pressure 143 mm[Hg] DO Fany Judson Work Phone: [facility] 07-10-2023 19:59-0500 Body height 172.72 cm DO Fany Judson Work Phone: [facility] 07-10-2023 19:59-0500 Body temperature 98.1 [degF] DO Fany Judson Work Phone: [facility] 07-10-2023 19:59-0500 Body weight 124.7 kg DO Fany Judson Work Phone: [facility] 02-28-2023 08:30-0400 Body height 172.72 cm Juliane Angelo Other [employer] Other 02-28-2023 08:30-0400 Body mass index (BMI) [Ratio] 38.92 kg/m2 Juliane Angelo Other [employer] Other 02-28-2023 08:30-0400 Body weight 116.12 kg Juliane Angelo Other [employer] Other 02-28-2023 08:30-0400 Diastolic blood pressure 69 mm[Hg] Juliane Angelo Other [employer] Other 02-28-2023 08:30-0400 SaO2% (BldA) [Mass fraction] 96 % Juliane Angelo Other [employer] Other 02-28-2023 08:30-0400 Systolic blood pressure 120 mm[Hg] Juliane Angelo Other [employer] Other 10-10-2022 17:28-0400 Diastolic blood pressure 54 mm[Hg] DO Fany Judson Work Phone: [facility] 10-10-2022 17:28-0400 Heart rate 72 /min DO Fany Judson Work Phone: [facility] 10-10-2022 17:28-0400 Respiratory rate 18 /min DO Fany Judson Work Phone: [facility] 10-10-2022 17:28-0400 SaO2% (BldA) [Mass fraction] 99 % DO Fany Judson Work Phone: [facility] 10-10-2022 17:28-0400 Systolic blood pressure 107 mm[Hg] DO Fany Judson Work Phone: [facility] 10-10-2022 14:31-0400 Body height 170.18 cm DO Fany Judson Work Phone: [facility] 10-10-2022 14:31-0400 Body temperature 97.6 [degF] DO Fany Judson Work Phone: [facility] 10-10-2022 14:31-0400 Body weight 113.39 kg DO Fany Judson Work Phone: [facility] 10-06-2022 10:00-0400 Body height 172.72 cm Frank Jiménez Other [employer] Other 10-06-2022 10:00-0400 Body mass index (BMI) [Ratio] 38.01 kg/m2 Frank Jiménez Other [employer] Other 10-06-2022 10:00-0400 Body weight 113.4 kg Frank Jiménez Other [employer] Other 10-06-2022 10:00-0400 Diastolic blood pressure 74 mm[Hg] Frank Jiménez Other [employer] Other 10-06-2022 10:00-0400 SaO2% (BldA) [Mass fraction] 99 % Frank Jiménez Other [employer] Other 10-06-2022 10:00-0400 Systolic blood pressure 111 mm[Hg] Frank Jiménez Other [facility] [employer] Other 06-08-2022 11:22-0500 Body height 172.7 cm Pacc 2 Work Phone: [facility] 06-08-2022 11:22-0500 Body temperature 97 [degF] Pacc 2 Work Phone: [facility] 06-08-2022 11:22-0500 Body weight 118.84 kg Pacc 2 Work Phone: [facility] 06-08-2022 11:22-0500 Diastolic blood pressure 58 mm[Hg] Pacc 2 Work Phone: [facility] 06-08-2022 11:22-0500 Heart rate 85 /min Pacc 2 Work Phone: [facility] 06-08-2022 11:22-0500 Respiratory rate 16 /min Pacc 2 Work Phone: [facility] 06-08-2022 11:22-0500 SaO2% (BldA) [Mass fraction] 100 % Pacc 2 Work Phone: [facility] 06-08-2022 11:22-0500 Systolic blood pressure 117 mm[Hg] Pacc 2 Work Phone: [facility] 03-01-2022 16:46-0400 Body temperature 97.5 [degF] DO Fany Judson Work Phone: [facility] 03-01-2022 16:46-0400 Diastolic blood pressure 75 mm[Hg] DO Fany Judson Work Phone: [facility] 03-01-2022 16:46-0400 Heart rate 82 /min DO Fany Judson Work Phone: [facility] 03-01-2022 16:46-0400 Respiratory rate 18 /min DO Fany Judson Work Phone: [facility] 03-01-2022 16:46-0400 SaO2% (BldA) [Mass fraction] 97 % DO Fany Judson Work Phone: [facility] 03-01-2022 16:46-0400 Systolic blood pressure 147 mm[Hg] DO Fany Judson Work Phone: [facility] 02-27-2022 05:09-0400 Body weight 121.7 kg DO Fany Judson Work Phone: [facility] 02-25-2022 07:06-0400 Body height 172.72 cm DO Fany Judson Work Phone: [facility] 02-19-2022 12:00-0400 Body temperature 98 [degF] DO Fany Judson Work Phone: [facility] 02-19-2022 12:00-0400 Diastolic blood pressure 68 mm[Hg] DO Fany Judson Work Phone: [facility] 02-19-2022 12:00-0400 Heart rate 101 /min DO Fany Judson Work Phone: [facility] 02-19-2022 12:00-0400 Respiratory rate 14 /min DO Fany Judson Work Phone: [facility] 02-19-2022 12:00-0400 SaO2% (BldA) [Mass fraction] 95 % DO Fany Judson Work Phone: [facility] 02-19-2022 12:00-0400 Systolic blood pressure 101 mm[Hg] DO Fany Judson Work Phone: [facility] 02-19-2022 06:00-0400 Body weight 127.5 kg DO Fany Judson Work Phone: [facility] 02-18-2022 09:50-0400 Body height 172.72 cm DO Fany Judson Work Phone: [facility] 02-17-2022 10:53-0400 Inhaled oxygen flow rate 10 L/min DO Fany Judson Work Phone: [facility] 02-17-2022 08:07-0400 Body mass index (BMI) [Ratio] 40.2 kg/m2 DO Fany Roper Work Phone: [facility] 02-09-2022 11:00-0400 65 1 Fany Roper Work Phone: [facility] [address] [place] Work Phone: Comment on above: [id number] 02-07-2022 15:17-0400 Diastolic blood pressure 82 mm[Hg] F[facility] Roper [facility] [address] [place] Work Phone: 02-07-2022 15:17-0400 Systolic blood pressure 128 mm[Hg] Fany Roper Work Phone: [facility] [address] [place] Work Phone: 02-07-2022 15:16-0400 Body height 172.72 cm Fany Roper Work Phone: [facility] [address] [place] Work Phone: 02-07-2022 15:16-0400 Body mass index (BMI) [Ratio] 40.14 kg/m2 Fany Roper Work Phone: [facility] [address] [place] Work Phone: 02-07-2022 15:16-0400 Body surface area Derived from formula 2.3 m2 Fany Roper Work Phone: [facility] [address] [place] Work Phone: 02-07-2022 15:16-0400 Body weight 119.75 kg Fany Roper Work Phone: [facility] [address] [place] Work Phone: 02-07-2022 15:16-0400 Diastolic blood pressure 82 mm[Hg] Fany Roper Work Phone: [facility] [address] [place] Work Phone: 02-07-2022 15:16-0400 Heart rate 97 /min Fany Roper Work Phone: [facility] [address] [place] Work Phone: 02-07-2022 15:16-0400 Systolic blood pressure 142 mm[Hg] Fany Roper Work Phone: [facility] [address] [place] Work Phone: 11-10-2021 11:00-0400 Body height 172.72 cm Bari Felter Other [employer] Other 11-10-2021 11:00-0400 Body mass index (BMI) [Ratio] 38.01 kg/m2 Bari Felter Other [employer] Other 11-10-2021 11:00-0400 Body weight 113.4 kg Bari Felter Other [employer] Other 09-06-2021 10:45-0400 Body height 172.72 cm Bari Felter Other [employer] Other 09-06-2021 10:45-0400 Body mass index (BMI) [Ratio] 38.01 kg/m2 Bari Felter Other [employer] Other 09-06-2021 10:45-0400 Body weight 113.4 kg Bari Felter Other [employer] Other 06-21-2021 13:45-0500 Body height 167.6 cm Nya Payan MD Work Phone: [facility] 06-21-2021 13:45-0500 Body weight 115.21 kg Nya Payan MD Work Phone: [facility] 06-21-2021 13:45-0500 Diastolic blood pressure 58 mm[Hg] Nya Payan MD Work Phone: [facility] 06-21-2021 13:45-0500 Heart rate 83 /min Nya Paayn MD Work Phone: [facility] 06-21-2021 13:45-0500 Respiratory rate 16 /min Nya Payan MD Work Phone: [facility] 06-21-2021 13:45-0500 SaO2% (BldA) [Mass fraction] 99 % Nya Payan MD Work Phone: [facility] 06-21-2021 13:45-0500 Systolic blood pressure 111 mm[Hg] Nya Payan MD Work Phone: [facility] Encounters Encounter Date Encounter Type Care Provider Facility Start: 10-12-2023 ambulatory Ashwin Schmitz ty:[id number] Start: 09-28-2023 Encounter for other preprocedural examination FANY ROPER [facility] Start: 09-28-2023 End: 09-28-2023 [facility] Work [facility]: [facility] Start: 09-28-2023 End: 09-28-2023 ambulatory FANY ROPER Facility:[facility] Start: 09-28-2023 End: 09-28-2023 [facility]est[facility] Work Phone: Pre Anesthesia Comment on above: Pre-op evaluation (P rimary Dx); Essential hypertension; Pure hypercholesterolemia; Type 2 diabetes mellitus with diabetic polyneuropathy, with long-term current use of insulin (HCC); Arteriosclerosis of coronary artery; HURST (dyspnea on exertion); Obstructive sleep apnea; Stage 3a chronic kidney disease (HCC); Personal history of malignant neoplasm of prostate; History of cardioembolic cerebrovascular accident (CVA); Class 3 severe obesity due to excess calories with serious comorbidity and body mass index (BMI) of 40.0 to 44.9 in adult (HCC) Start: 09-28-2023 End: 09-28-2023 Preprocedural examination done [place] [id number] Work Phone: [facility] Work Phone: Start: 09-15-2023 End: 09-16-2023 ambulatory Ashwin MATHIS Facility: [facility] Start: 09-15-2023 End: 09-15-2023 Patient encounter procedure Ashwin MATHIS [facility] Start: 08-28-2023 End: 08-28-2023 ambulatory Fany R Judson Facility:[facility] Start: 08-28-2023 End: 08-28-2023 ambulatory DO Fany R Judson Work Phone: [facility] Work Phone: Start: 08-28-2023 End: 08-28-2023 Patient encounter procedure DO Fany Judson Work Phone: [facility] [place] Work Phone: Start: 08-23-2023 End: 08-24-2023 ambulatory Fany R Judson Facility:[facility] Start: 08-23-2023 End: 09-20-2023 Pre-admission assessment Ashwin MATHIS [facility] Start: 08-23-2023 End: 08-23-2023 Patient encounter procedure DO Fany Judson Work Phone: [facility] [place] Work Phone: Start: 08-23-2023 End: 08-24-2023 ambulatory DO Fany R Judson Work Phone: [facility] Work Phone: Start: 08-23-2023 End: 08-23-2023 Lab Drop off Ashwin MATHIS [facility] Start: 08-23-2023 End: 08-23-2023 Patient encounter procedure Ashwin MATHIS [facility] [place] Start: 07-10-2023 End: 07-11-2023 Emergency department patient visit Fany Roper Facility:[facility] Start: 07-10-2023 End: 07-10-2023 Emergency department patient visit DO Fany Roper Work Phone: [facility]Emergency Room Work Phone: Start: 06-29-2023 ambulatory R Bairon Swan MD Work Phone: [facility] Start: 06-29-2023 Patient encounter status R John Swan MD Work Phone: [facility] Start: 04-25-2023 End: 04-25-2023 ambulatory FANY ROPER Facility:[facility] Start: 04-03-2023 End: 04-03-2023 ambulatory Ermelindajesus Saldana RT(R) Radiology Comment on above: Radiology MRI Start: 04-03-2023 Patient encounter procedure Ermelinda Saldana RT(R) SMITA RAJI Start: 03-23-2023 End: 03-23-2023 ambulatory CARLOS MILLER Not Available Start: 2023 End: 2023 ambulatory CARLOS MILLER Not Available Start: 02-28-2023 [facility] Start: 02-28-2023 End: 02-28-2023 ambulatory FANY ROPER Facility:[facility] Start: 02-28-2023 End: 02-28-2023 Patient encounter procedure Korina Swan MD Work Phone: [facility] Comment on above: Status post lumbar s pine operative procedure for decompression of spinal cord (Primary Dx); Spinal stenosis of lumbar region with neurogenic claudication Start: 02-28-2023 End: 02-28-2023 ambulatory Juliane Angelo Facility:[facility] Start: 02-28-2023 End: 02-28-2023 ambulatory DO Fany Ardongo Work Phone: [facility] Work Phone: Start: 02-28-2023 End: 02-28-2023 Patient encounter procedure DO Fany Judson Work Phone: [facility]-Sleep Lab Work Phone: Start: 01-17-2023 Telephone encounter Korina Swan MD Work Phone: [facility] Start: 01-17-2023 End: 01-17-2023 ambulatory FANY YANGIAGO Facility:[facility] Start: 01-17-2023 End: 01-17-2023 Subsequent hospital visit by physician [facility] Work Phone: [facility] Radiology General Comment on above: Spinal stenosis of l umbar region with neurogenic claudication [M48.062] Start: 01-13-2023 Telephone encounter Korina Swan MD Work Phone: Neurology Comment on above: Received Outside [facility] Start: 11-29-2022 End: 11-29-2022 ambulatory Korina SWAN Facility:[facility] Start: 10-10-2022 End: 10-10-2022 Emergency department patient visit Fany Roper Facility:[facility] Start: 10-10-2022 End: 10-10-2022 Emergency department patient visit DO Fany Judson Work Phone: [facility]-Emergency Room Work Phone: Start: 10-06-2022 Office outpatient ne w 45 minutes Frank Jiménez [facility] Start: 10-06-2022 End: 10-06-2022 ambulatory DO Fany R Judson Work Phone: [employer] Other Start: 10-06-2022 End: 10-06-2022 Patient encounter procedure DO Fany Judson Work Phone: [facility]Sleep Lab Work Phone: Start: 10-04-2022 Telephone encounter Korina Swan MD Work Phone: Neurology Comment on above: Information Start: 06-16-2022 End: 06-16-2022 Nursing evaluation of patient and report Sybil Molina RN [facility] Comment on above: Pre-op testing (Prim luz marina Dx) Start: 06-16-2022 End: 06-16-2022 Patient encounter status Sybil Molina RN [facility] Start: 06-13-2022 Telephone encounter Korina Swan MD Work Phone: Neurology Comment on above: Appointment Start: 06-08-2022 End: 06-08-2022 [facility]mission to [facility] [place] [facility] Work Phone: [facility] Start: 06-08-2022 End: 06-08-2022 ambulatory [facility] [place] [facility] Work Phone: Pre Anesthesia Comment on above: Pre-op evaluation (P rimary Dx); Arteriosclerosis of coronary artery; Essential hypertension; Pure hypercholesterolemia; Type 2 diabetes mellitus with diabetic polyneuropathy, with long-term current use of insulin ([facility]); Obstructive sleep apnea syndrome; Stage 3a chronic kidney disease ([facility]); Personal history of malignant neoplasm of prostate; Class 3 severe obesity due to excess calories with serious comorbidity and body mass index (BMI) of 40.0 to 44.9 in adult ([facility]); Chronic kidney disease, unspecified CKD stage ; Pain ; History of cardioembolic cerebrovascular accident (CVA); HURST (dyspnea on exertion) Start: 06-08-2022 End: 06-08-2022 Preprocedural examination done [facility] [place] [facility] Work Phone: Pre Anesthesia Start: 02-19-2022 End: 03-01-2022 Evaluation and management of inpatient DO Fany Roper Work Phone: [facility] Start: 02-17-2022 End: 02-19-2022 Admission to same day surgery center DO Fany Roper Work Phone: [facility] [place] Start: 02-17-2022 End: 02-19-2022 ambulatory DO Fany R Judson Work Phone: [facility] Work Phone: Start: 02-15-2022 End: 02-15-2022 ambulatory DO Fany R Judson Work Phone: [facility] Work Phone: Start: 02-15-2022 End: 02-15-2022 Patient encounter procedure DO Fany Ardongo Work Phone: [facility] Start: 02-15-2022 Patient encounter procedure Fany Korina Roper Work Phone: [facility] [address] [place] Work Phone: Start: 02-10-[address] NAZ Schmitz [id number] Start: 02-09-[address] NAZ Schmitz [id number] Start: 02-09-2022 Patient encounter procedure Fany Korina Roper Work Phone: [facility] [address] [place] Work Phone: Start: 02-09-[address] NAZ Schmitz [id number] Start: 02-07-2022 ambulatory Fany Roper Facility: Start: 02-01-2022 End: 02-01-2022 ambulatory DO Fany R Judson Work Phone: [facility] Work Phone: Start: 02-01-2022 End: 02-01-2022 Patient encounter procedure DO Fany Judson Work Phone: [facility] Start: 12-08-2021 ambulatory Korina Swan MD Work Phone: [facility] Start: 12-08-2021 Patient encounter status R John Swan MD Work Phone: [facility] Start: 12-08-2021 Telephone encounter Korina Swan MD Work Phone: [facility] Comment on above: Schedule Surgery Start: 12-07-2021 End: 12-07-2021 Patient encounter procedure Korina Swan MD Work Phone: [facility] Comment on above: Spinal stenosis of l umbar region with neurogenic claudication (Primary Dx); S/P lumbar fusion Start: 11-10-2021 End: 11-10-2021 ambulatory Bari Vitale Other [employer] Other Start: 11-10-2021 Office outpatient vi sit 25 minutes Bari Vitale [facility] [place] Start: 11-05-2021 Telephone encounter Olivier Covarrubias DO Work Phone: [facility] Comment on above: Procedure Follow Up Start: 10-22-2021 Telephone encounter Olivier Covarrubias DO Work Phone: [facility] Comment on above: Preparations For Pro cedures Start: 10-14-2021 Telephone encounter Korina Swan MD Work Phone: Neurology Comment on above: Schedule Injection Start: 10-05-2021 End: 10-05-2021 ambulatory Brai Vitale Other [facility] Other Start: 10-05-2021 Office outpatient vi sit 25 minutes Bari Vitale [facility] [place] Start: 10-05-2021 End: 10-05-2021 Patient encounter procedure Korina Swan MD Work Phone: [facility] Comment on above: Lumbar foraminal david nosis (Primary Dx); Post laminectomy syndrome Spinal stenosis, lum bar region, without neurogenic claudication (Primary Dx) Start: 09-27-2021 (Procedure) Jostin Vitale [facility] Start: 09-27-2021 End: 09-27-2021 ambulatory Bari Vitale Other [facility] Other Start: 09-21-2021 ambulatory Rosio Pycraft RT(R) Rad iology Ct Scan Comment on above: Radiology CT Start: 09-21-2021 Patient encounter procedure Rosio Pycraft RT(R) [facility] Start: 09-21-2021 End: 09-21-2021 Subsequent hospital visit by physician [facility] Radiology Ct Scan Comment on above: Spinal stenosis of l umbar region with neurogenic claudication [M48.062] Start: 09-09-2021 End: 09-09-2021 ambulatory Bari Vitale Other [facility] Other Start: 09-09-2021 Telephone encounter [facility] Start: 09-07-2021 End: 09-07-2021 Patient encounter procedure Korina Swan MD Work Phone: [facility] Comment on above: Pseudarthrosis follo wing spinal fusion (Primary Dx); Spinal stenosis of lumbar region with neurogenic claudication Start: 09-06-2021 End: 09-06-2021 ambulatory Bari Vitale Other [facility] Other Start: 09-06-2021 Office outpatient vi sit 25 minutes Bari Vitale [facility] [place] Start: 07-15-2021 Telephone encounter Nya kohler MD Work Phone: Rehab Medicine Comment on above: Receive outside Lab Results dated 06/24/2021 Start: 06-21-2021 End: 06-21-2021 Patient encounter procedure Nya Payan MD Work Phone: [facility] Comment on above: Spinal stenosis of l umbar region with neurogenic claudication (Primary Dx) Start: 08-03-2017 End: 08-05-2017 Evaluation and management of inpatient DARBY FREEDMAN [facility] Start: 08-02-2017 End: 08-05-2017 [facility] Start: 08-02-2017 End: 08-07-2017 Ambulatory SAMIA REEDER [facility] Start: 07-26-2017 Ambulatory NIRAJ PEREZ Facility :[id number] Preoperative state Fany Ardon go Work Phone: [facility] [address] [place] Work Phone: Procedures Date Procedure Procedure Detail Performing Clinician Start: 09-28-2023 Antibody screen FANY KAM Comment on above: Order Comment: Speci men Type: BLOOD SPECIMENOrdering Facility: [facility] Address: [address] [place] [address] Performed By: #### T [id number] ####CC MAIN BLOOD BANKCLIA [id number] [place] [address] [place] Start: 09-28-2023 Ecg routine ecg w/le ast 12 lds i&r only [facility] Provider Start: 09-15-2023 Flexible cystoscopy Pat isiah MATHIS Start: 08-28-2023 Ultrasonography of b ilateral kidneys DO Fany Judson Work Phone: Start: 07-10-2023 Urine culture DO Fany S antiago Work Phone: Start: 01-17-2023 Radex spine lumbosac ral 2/3 views R Bairon Swan MD Work Phone: Start: 06-08-2022 Ecg routine ecg w/le ast 12 lds i&r only [facility] Provider Start: 02-28-2022 Duplex scan of lower limb veins DO Fany Judson Work Phone: Start: 02-22-2022 Diagnostic radiograp hy of abdomen DO Fany Judson Work Phone: Start: 02-17-2022 Revision of hip arthroplasty DO Fany Judson Work Phone: Start: 02-17-2022 Plain X-ray of right hip DO Fany Judson Work Phone: Start: 09-21-2021 Ct lumbar spine w/o contrast material Reggie Loomis MD Work Phone: Start: 11-14-2018 Antibody screen Comment on above: Order Comment: CBN: YES [place]: MAIN Transfusion Status: CONSERVATION Blood Bank service requested: TYPE AND SCREEN Specimen Comment: SURG 11/23 Performed By: #### B [id number] #### Test performed at: [place] [id number] Start: 08-05-2017 INCENTIVE SPIROMETRY RT SAMIA LILLI Start: 08-05-2017 POCT GLUCOSE SAMIA LILLI Start: 08-05-2017 INCENTIVE SPIROMETRY RT SAMIA LILLI Start: 08-05-2017 PULSE OXIMETRY, CONTINUOUS SAMIA LILLI Start: 08-05-2017 INCENTIVE SPIROMETRY RT SAMIA LILLI Start: 08-05-2017 INCENTIVE SPIROMETRY RT SAMIA LILLI Start: 08-05-2017 PULSE OXIMETRY, CONTINUOUS SAMIA LILLI Start: 08-05-2017 POCT GLUCOSE SAMIA LILLI Start: 08-05-2017 INCENTIVE SPIROMETRY RT SAMIA LILLI Start: 08-05-2017 POCT GLUCOSE SAMIA LILLI Start: 08-05-2017 INCENTIVE SPIROMETRY RT SAMIA LILLI Start: 08-05-2017 INITIATE OXYGEN THER APY PROTOCOL SAMIA LILLI Start: 08-05-2017 PULSE OXIMETRY, CONTINUOUS SAMIA LILLI Start: 08-05-2017 POCT GLUCOSE SAMIA LILLI Start: 08-05-2017 INCENTIVE SPIROMETRY RT SAMIA LILLI Start: 08-05-2017 POCT GLUCOSE SAMIA LILLI Start: 08-05-2017 PULSE OXIMETRY, CONTINUOUS SAMIA LILLI Start: 08-05-2017 INTAKE AND OUTPUT SAMIA YO O Start: 08-05-2017 PULSE OXIMETRY, CONTINUOUS SAMIA LILLI Start: 08-05-2017 INCENTIVE SPIROMETRY RT SAMIA LILLI Start: 08-04-2017 POCT GLUCOSE SAMIA LILLI Start: 08-04-2017 POCT GLUCOSE SAMIA LILLI Start: 08-04-2017 PULSE OXIMETRY, CONTINUOUS SAMIA LILLI Start: 08-04-2017 INCENTIVE SPIROMETRY RT SAMIA LILLI Start: 08-04-2017 INCENTIVE SPIROMETRY RT SAMIA LILLI Start: 08-04-2017 POCT GLUCOSE SAMIA LILLI Start: 08-04-2017 INCENTIVE SPIROMETRY RT SAMIA LILLI Start: 08-04-2017 PULSE OXIMETRY, CONTINUOUS SAMIA LILLI Start: 08-04-2017 INCENTIVE SPIROMETRY RT SAMIA LILLI Start: 08-04-2017 INCENTIVE SPIROMETRY RT SAMIA LILLI Start: 08-04-2017 PULSE OXIMETRY, CONTINUOUS SAMIA LILLI Start: 08-04-2017 POCT GLUCOSE SAMIA LILLI Start: 08-04-2017 INCENTIVE SPIROMETRY RT SAMIA LILLI Start: 08-04-2017 Radex spine lumbosac ral 2/3 views SAMIA LILLI Start: 08-04-2017 DISCHARGE PATIENT SAMIA YO O Start: 08-04-2017 POCT GLUCOSE SAMIA LILLI Start: 08-04-2017 INCENTIVE SPIROMETRY RT SAMIA LILLI Start: 08-04-2017 INITIATE OXYGEN THER APY PROTOCOL SAMIA LILLI Start: 08-04-2017 PULSE OXIMETRY, CONTINUOUS SAMIA LILLI Start: 08-04-2017 CBC WITH AUTO DIFFERENTIAL SAMIA LILLI Start: 08-04-2017 POCT GLUCOSE SAMIA LILLI Start: 08-04-2017 INCENTIVE SPIROMETRY RT SAMIA LILLI Start: 08-04-2017 POCT GLUCOSE SAMIA LILLI Start: 08-04-2017 PULSE OXIMETRY, CONTINUOUS SAMIA LILLI Start: 08-04-2017 BASIC METABOLIC PANE L W/ REFLEX TO MG FOR LOW K SAMIA LILLI Start: 08-04-2017 ACTIVITY TOLERATED B O LILLI Start: 08-04-2017 AMBULATE PATIENT SAMIA LILLI Start: 08-04-2017 CATHETER REMOVAL SAMIA LILLI Start: 08-04-2017 DAILY WEIGHTS SAMIA LILLI Start: 08-04-2017 INTAKE AND OUTPUT SAMIA YO O Start: 08-04-2017 OT EVAL AND TREAT SAMIA YO O Start: 08-04-2017 PT EVAL AND TREAT SAMIA YO O Start: 08-04-2017 PULSE OXIMETRY, CONTINUOUS SAMIA LILLI Start: 08-04-2017 INCENTIVE SPIROMETRY RT SAMIA LILLI Start: 08-03-2017 INCENTIVE SPIROMETRY RT SAMIA LILLI Start: 08-03-2017 PULSE OXIMETRY, CONTINUOUS SAMIA LILLI Start: 08-03-2017 POCT GLUCOSE SAMIA LILLI Start: 08-03-2017 BASIC METABOLIC PANE L W/ REFLEX TO MG FOR LOW K SAMIA LILLI Start: 08-03-2017 CBC WITH AUTO DIFFERENTIAL SAMIA LILLI Start: 08-03-2017 INCENTIVE SPIROMETRY RT SAMIA LILLI Start: 08-03-2017 POCT GLUCOSE SAMIA LILLI Start: 08-03-2017 DIET CARB CONTROL SAMIA YO O Start: 08-03-2017 INCENTIVE SPIROMETRY RT SAMIA LILLI Start: 08-03-2017 PULSE OXIMETRY, CONTINUOUS SAMIA LILLI Start: 08-03-2017 IP CONSULT TO RESPIR ATORY CARE SAMIA LILLI Start: 08-03-2017 POCT GLUCOSE SAMIA LILLI Start: 08-03-2017 ELEVATE HEELS OFF OF BED SAMIA LILLI Start: 08-03-2017 HEAD OF BED 60 DEGRE ES OR LESS SAMIA LILLI Start: 08-03-2017 NURSING COMMUNICATION B O LILLI Start: 08-03-2017 TURN PATIENT SAMIA LILLI Start: 08-03-2017 IP CONSULT TO SOCIAL WORK SAMIA LILLI Start: 08-03-2017 PLACE INTERMITTENT P NEUMATIC COMPRESSION DEVICE SAMIA LILLI Start: 08-03-2017 PULSE OXIMETRY, CONTINUOUS SAMIA LILLI Start: 08-03-2017 ADVANCE DIET TOLE RATED (NURSING COMMUNICATION) SAMIA LILLI Start: 08-03-2017 ELEVATE HOB SAMIA LILLI Start: 08-03-2017 FULL CODE SAMIA LILLI Start: 08-03-2017 INCENTIVE SPIROMETRY RT SAMIA LILLI Start: 08-03-2017 INITIATE OXYGEN THER APY PROTOCOL ASMIA LILLI Start: 08-03-2017 INTAKE AND OUTPUT SAMIA YO O Start: 08-03-2017 NEURO/VASCULAR CHECKS B O LLILI Start: 08-03-2017 NOTIFY PHYSICIAN (SPECIFY) SAMIA LILLI Start: 08-03-2017 VITAL SIGNS SAMIA LILLI Start: 08-03-2017 WOUND CARE SAMIA LILLI Start: 08-03-2017 POCT GLUCOSE SAMIA LILLI Start: 08-03-2017 TELEMETRY MONITORING SAMIA LILLI Start: 08-03-2017 FLUORO FOR SURGICAL PROCEDURES SAMIA LILLI Start: 08-03-2017 PATIENT STATUS (FROM ED OR OR/PROCEDURAL) SAMIA LILLI Start: 08-03-2017 TRANSFER PATIENT SAMIA LILLI Start: 08-03-2017 POCT GLUCOSE SAMIA LILLI Start: 08-02-2017 APTT SAMIA LILLI Start: 08-02-2017 PROTIME-INR SAMIA LILLI Start: 08-02-2017 CBC SAMIA LILLI Start: 08-02-2017 TYPE AND SCREEN SAMIA LILLI Start: 08-02-2017 BASIC METABOLIC PANEL B O LILLI Start: 08-02-2017 Urinalysis SAMIA LILLI Start: 08-02-2017 MRSA SCREENING CULTURE ONLY SAMIA LILLI Start: 08-02-2017 Radex entir thrc lmb r crv sac spi w/skull 2/3 vw SAMIA LILLI Arthroplasty of knee Ashwin MATHIS H/O: artificial joint Bari Vitale Other Insertion of hip prosthesis Ashwin MATHIS Operative procedure on knee Fany R Judson Work Phone: Procedure on back Fany R Mcmahon dallin Work Phone: Procedure on back Ashwin WA TERS Procedure on neck Fany R Mcmahon dallin Work Phone: Procedure on neck Ashwin [place] TERS Procedure on prostate Fany R Judson Work Phone: Prostatectomy Ashwin MATHIS Total colonoscopy Fany R Mcmahon dallin Work Phone: Comment on above: 2015; Plan of Treatment Date Care Activity Detail Author Start: 08-30-2028 Urine microalbumin profile [facility] Start: 09-27-2024 BP Controlled (<130/80) BP Controlle d (<130/80) [facility] Start: 12-12-2023 End: 12-12-2023 Patient encounter procedure 12/12/2023 1:00 PM EDT Office Visit [facility] [address] [place] [address] Korina Swan MD [address] [place] [id number] POST OP [facility] Comment on above: POST OP Start: 10-19-2023 End: 10-19-2023 Admission to same day surgery center 10/19/2023 1:45 PM EDT - 10/19/2023 5:20 PM EDT Surgery [facility] Operating Room [address] [address] Korina Swan MD [address] [place] [id number] DECOMPRESSION LAMINECTOMY INTERBODY FUSION LUMBAR POSTERIOR (PLIF) LEVEL 1 [facility] Operating [facility] Comment on above: DECOMPRESSION JENNIFER CTOMY INTERBODY FUSION LUMBAR POSTERIOR (PLIF) LEVEL 1 Start: 10-19-2023 End: 10-19-2023 Arthrodesis posterior interbody lumbar DECOMPRESSION LAMINECTOMY INTERBODY FUSION LUMBAR POSTERIOR (PLIF) LEVEL 1 Status post lumbar spine operative procedure for decompression of spinal cord Spinal stenosis, lumbar region with neurogenic claudication 10/19/2023 1:45 PM EDT [facility] Start: 10-19-2023 End: 10-19-2023 Insj biomchn dev intervertebral dsc spc w/arthrd INSERTION INTERBODY BIOMED DEVICE(S) W/ANT INSTR ANCHORING TO DISC SPACE W/INTERBODY FUSION,EA INTERSPACE Status post lumbar spine operative procedure for decompression of spinal cord Spinal stenosis, lumbar region with neurogenic claudication 10/19/2023 1:45 PM EDT [facility] Start: 10-19-2023 End: 10-19-2023 Posterior non-segmental instrumentation POSTERIOR NON-SEGMENTAL INSTRUMENTATION FOLLOWING LUMBAR FUSION 1 LEVEL PDFI Status post lumbar spine operative procedure for decompression of spinal cord Spinal stenosis, lumbar region with neurogenic claudication 10/19/2023 1:45 PM EDT [facility] Start: 10-19-2023 Subsequent hospital visit by physician 10/19/2023 1:45 PM EDT Hospital Encounter [facility] Operating Room [address] [place] [address] Korina Swan MD [address] [place], [place] [id number] Status post lumbar spine operative procedure for decompression of spinal cord [Z98.890], Spinal stenosis, lumbar region with neurogenic claudication [M48.062] [facility] Operating Room Comment on above: Status post lumbar s pine operative procedure for decompression of spinal cord [Z98.890], Spinal stenosis, lumbar region with neurogenic claudication [M48.062] Start: 10-12-2023 End: 10-12-2023 Nursing evaluation of patient and report 10/12/2023 11:00 AM EDT Nurse Visit [facility] [address] [place] [id number] Sybil Molina RN PRE OP [facility] Comment on above: PRE OP Start: 10-07-2023 Covid-19 Vaccine ( season) Covid-19 Vaccine ( season) [facility] Start: 09-28-2023 End: 12-28-2023 Basic metabolic 2000 panel - Serum or Plasma [facility] Work Phone: Comment on above: Expected: 09/28/2023 , Expires: 12/28/2023 Start: 09-28-2023 End: 12-28-2023 Hemoglobin A1c in Blood HGB A1C Lab Routine Status post lumbar spine operative procedure for decompression of spinal cord 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) Expected: 09/28/2023 (Approximate), Expires: 12/28/2023 [facility] Work Phone: Comment on above: Expected: 09/28/2023 (Approximate), Expires: 12/28/2023 Start: 09-28-2023 End: 12-28-2023 [facility] PCR [facility] PCR Lab Routine Status post lumbar spine operative procedure for decompression of spinal cord Spinal stenosis, lumbar region with neurogenic claudication Pre-op testing Expected: 09/28/2023 (Approximate), Expires: 12/28/2023 [facility] Work Phone: Comment on above: Expected: 09/28/2023 (Approximate), Expires: 12/28/2023 Start: 09-13-2023 BP CONTROLLED (<130/80) BP CONTROLLE D (<130/80) [facility] Start: 09-13-2023 Complete blood count Hemoglobin/Shabbir tocrit [facility] Start: 09-13-2023 Creatinine measurement Serum Creatin ine [facility] Start: 09-13-2023 HEMOGLOBIN/HEMATOCRIT HEMOGLOBIN/HEM ATOCRIT [facility] Start: 09-13-2023 SERUM CREATININE SERUM CREATININE Cl [facility] Start: 06-08-2023 BP CONTROLLED (<130/80) BP CONTROLLE D (<130/80) [facility] Start: 06-08-2023 HEMOGLOBIN/HEMATOCRIT HEMOGLOBIN/HEM ATOCRIT [facility] Start: 06-08-2023 SERUM CREATININE SERUM CREATININE Cl [facility] Start: 05-08-2023 Advance Directive Discussion Advance Directive Discussion [facility] Start: 04-03-2023 Shingrix Vaccine (3 of 3) Shingrix Vaccine (3 of 3) [facility] Start: 03-15-2023 Hemoglobin A1c measurement HbA1C [facility] Start: 03-15-2023 Hemoglobin A1c/Hemoglobin.total in Blood HBA1C [facility] Start: 01-06-2023 Covid-19 Vaccine ( season) Covid-19 Vaccine () [facility] Start: 01-06-2023 Influenza vaccination C [facility] Start: 09-05-2022 Hemoglobin A1c/Hemoglobin.total in Blood HBA1C [facility] Start: 07-14-2022 COVID-19 VACCINE (7 - Pfizer series) COVID-19 VACCINE (7 - Pfizer series) [facility] Start: 06-08-2022 End: 08-08-2022 Bacteria identified in Urine by Culture [facility] Work Phone: Comment on above: Expected: 06/08/2022 , Expires: 08/08/2022 Start: 06-08-2022 End: 08-08-2022 CONFIRM BLOOD TYPE [facility] Work Phone: Comment on above: Expected: 06/08/2022 , Expires: 08/08/2022 Start: 06-08-2022 End: 08-08-2022 TYPE AND SCREEN,30 DAY [facility] Work Phone: Comment on above: Expected: 06/08/2022 , Expires: 08/08/2022 Start: 05-08-2022 ADVANCE DIRECTIVE DISCUSSION ADVANCE DIRECTIVE DISCUSSION [facility] Start: 03-01-2022 [facility] Start: 02-20-2022 Blood chemistry [facility] Start: 02-20-2022 [facility] Start: 02-19-2022 Hospital admission [facility] Start: 02-19-2022 Referral to clinical repairer veneer sheet [facility] Start: 02-17-2022 [facility] Start: 02-17-2022 Hospital admission [facility] Start: 02-17-2022 Referral to clinical repairer veneer sheet [facility] Start: 02-17-2022 Referral to Hvac Tech [facility] Start: 02-16-2022 [facility] Start: 02-01-2022 [facility] Start: 01-08-2022 End: 12-08-2022 Hemoglobin A1c in Blood HGB A1C Lab Routine Personal history of other endocrine, nutritional and metabolic disease Expected: 01/08/2022 (Approximate), Expires: 12/08/2022 [facility] Work Phone: Comment on above: Expected: 01/08/2022 (Approximate), Expires: 12/08/2022 Start: 01-06-2022 Influenza vaccination INFLUENZA (#1) [facility] Start: 09-21-2021 End: 10-07-2022 Ct lumbar spine w/o contrast material CT LUMBAR SPINE WO IVCON Radiology Routine Spinal stenosis of lumbar region with neurogenic claudication Expected: 09/21/2021, Expires: 10/07/2022 [facility] Work Phone: Comment on above: Expected: 09/21/2021 , Expires: 10/07/2022 Start: 07-10-2021 COVID-19 VACCINE (4 - Booster for Pfizer series) COVID-19 VACCINE (4 - Booster for Pfizer series) [facility] Start: 05-08-2021 ADVANCE DIRECTIVE DISCUSSION ADVANCE DIRECTIVE DISCUSSION [facility] Start: 04-02-2021 COVID-19 VACCINE (2 - Pfizer 3-dose series) COVID-19 VACCINE (2 - Pfizer 3-dose series) [facility] Start: 04-02-2021 COVID-19 VACCINE (2 - Pfizer series) COVID-19 VACCINE (2 - Pfizer series) [facility] Start: 07-12-2016 PNEUMOCOCCAL: 65+ (2 - PPSV23 if available, else PCV20) PNEUMOCOCCAL: 65+ (2 - PPSV23 if available, else PCV20) [facility] Start: 2012 PNEUMOCOCCAL: 65+ (1 - PCV) PNEUMOCOCCAL: 65+ (1 - PCV) [facility] Start: 2012 PNEUMOVAX AGE 65 AND OVER WITH 5YR LOOKBACK (#1) PNEUMOVAX AGE 65 AND OVER WITH 5YR LOOKBACK (#1) [facility] Start: 10-31-2008 SHINGRIX VACCINE (2 of 3) SHINGRIX VACCINE (2 of 3) [facility] Start: 2007 RSV Vaccine (1 - 1-d ose 60+ series) RSV Vaccine (1 - 1-dose 60+ series) [facility] Start: 1997 SHINGRIX VACCINE (1 of 2) SHINGRIX VACCINE (1 of 2) [facility] Start: 1992 COLOGUARD (FIT-DNA) COLOGUARD (FIT-D NA) [facility] Start: 1992 Colonoscopy COLONOSCOPY [facility] Start: 1992 COLORECTAL CANCER SCREENING COLORECTAL CANCER SCREENING [facility] Start: [address] COLONOGRAPHY [facility] Start: 1992 DIABETES SCREEN DIABETES SCREEN [facility] Start: 1992 FECAL OCCULT BLOOD FECAL OCCULT BLOO D [facility] Start: 1992 SIGMOIDOSCOPY SIGMOIDOSCOPY [facility] Start: 1982 LIPID SCREEN LIPID SCREEN [facility] Start: 1966 Urine microalbumin profile DTAP,TDAP,TD (1 - Tdap) [facility] Start: 1965 ANNUAL PCP TEAM GROCERY WORKER BRIANNE DISEASE VISIT ANNUAL PCP TEAM CHRONIC DISEASE VISIT [facility] Start: 1965 Hepatitis B surface antibody level LDL CHOLESTEROL [facility] Start: 1965 HEPATITIS C SCREENING HEPATITIS C [facility] Start: 1965 Hepatitis C screening Hepatitis C [facility] Start: 1959 Adult depression screening assessment DEPRESSION SCREENING [facility] Start: 1957 3 comp foot exam completed DIABETIC FOOT EXAM [facility] Start: 1957 Diabetic foot examination Diabetic Foot Exam [facility] Start: 1957 Glaucoma screening Dilated Retinal E xam [facility] Start: 1957 Hepatitis B screening URINE AL BUMIN:CREATININE RATIO [facility] Start: 1957 Hepatitis C antibody , confirmatory test DILATED RETINAL EXAM [facility] Start: 1952 Hemoglobin A1c/Hemoglobin.total in Blood HBA1C [facility] End: 06-08-2023 ECG COMPLETE ECG COMPLETE ECG Routine Arteriosclerosis of coronary artery Type 2 diabetes mellitus with diabetic polyneuropathy, with long-term current use of insulin (HCC) Stage 3a chronic kidney disease (HCC) Pre-op evaluation 1 Occurrences starting 06/08/2022 until 06/08/2023 [facility] Work Phone: Comment on above: 1 Occurrences starti ng 06/08/2022 until 06/08/2023 ECG COMPLETE ECG COMPLETE ECG 06/08/2022 11:33 AM EST [facility] ECG COMPLETE [facility] Comment on above: Ordered: 09/28/2023 Glucose measurement estimated from glycated hemoglobin [facility] Work Phone: Hemoglobin A1c/Hemoglobin.total in Blood [facility] Work Phone: End: 03-29-2024 Mri spinal canal lumbar w/o contrast material MRI LUMBAR SPINE WO IVCON Radiology Routine Spinal stenosis of lumbar region with neurogenic claudication 1 Occurrences starting 02/28/2023 until 03/29/2024 [facility] Work Phone: Comment on above: 1 Occurrences starti ng 02/28/2023 until 03/29/2024 Patient Education [facility] Work Phone: Patient referral [facility] Work Phone: SPINE INTERVENTION PROCEDURE SPINE INTERVENTION PROCEDURE Procedures Routine Lumbar foraminal stenosis Ordered: 10/05/2021 [facility] Work Phone: Comment on above: Ordered: 10/05/2021 [facility] PCR [facility] PC R Lab Routine Spinal stenosis of lumbar region with neurogenic claudication S/P lumbar fusion Personal history of other endocrine, nutritional and metabolic disease Pre-op testing Ordered: 12/09/2021 [facility] Work Phone: Comment on above: Ordered: 12/09/2021 [facility] Immunizations Immunization Date Immunization Notes Care Provider Yuko mejias 06-08-2023 zoster vaccine recombinant Ashwin MATHIS [facility] 02-06-2023 influenza virus vaccine, unspecified formulation Ashwin MATHIS [facility] 02-06-2023 zoster vaccine recombinant Ashwin MATHIS [facility] 03-16-2022 COVID-19 booster vaccine, age 12+ yr, bivalent (PFIZER-BIONTECH) Pac 2 Work Phone: [facility] 03-16-2022 influenza (aIIV4) vaccine, age 65+ yr, quadrivalent, PF (FLUAD QUADRIVALENT) Pac 2 Work Phone: [facility] 03-16-2022 influenza virus vaccine, unspecified formulation SVITLANA Swan MD Work Phone: [facility] 11-30-2021 COVID-19 original vaccine, age 12+ yr, monovalent (PFIZER-BIONTECH - PURPLE TOP) Pac 2 Work Phone: [facility] 03-12-2021 COVID-19 mRNA, Comirnaty (Doculogy) DO Fany Roper Work Phone: [facility] Comment on above: Result Comment: 2023: [id number] 03-12-2021 Fluzone High-Dose Quadrivalent 0.7 ML Intramuscular Suspension Prefilled Syringe Fany Roper Work Phone: [facility] 03-12-2021 influenza virus vaccine, unspecified formulation Ashwin MATHIS [facility] 02-07-2021 Pfizer-BioNTech COVID-19 Vacc 30 MCG/0.3ML Intramuscular Suspension Fany Roper Work Phone: [facility] Comment on above: Series: 02-05-2021 influenza nasal, unspecified formulation Pac 2 Work Phone: [facility] 01-07-2021 influenza, seasonal, injectable Fany Roper Work Phone: [facility] Comment on above: Series: 07-25-2020 COVID-19 original vaccine, age 12+ yr, monovalent (PFIZER-BIONTECH - PURPLE TOP) Pac 2 Work Phone: [facility] 07-04-2020 COVID-19 original vaccine, age 12+ yr, monovalent (PFIZER-BIONTECH - PURPLE TOP) Pac 2 Work Phone: [facility] 03-08-2020 influenza nasal, unspecified formulation Pacc 2 Work Phone: [facility] 02-13-2020 influenza virus vaccine, unspecified formulation Ashwin MATHIS [facility] 02-13-2020 influenza, injectable, quadrivalent, preservative free Fany R Judson Work Phone: [facility] 03-13-2019 influenza virus vaccine, unspecified formulation Ashwin MATHIS [facility] 03-13-2019 influenza, high dose seasonal, preservative-free Fnay R Judson Work Phone: [facility] 08-30-2018 tetanus toxoid, reduced diphtheria toxoid, and acellular pertussis vaccine, adsorbed Pacc 2 Work Phone: [facility] 06-29-2018 influenza virus vaccine, unspecified formulation Ashwin MATHIS [facility] 06-29-2018 influenza, injectable, quadrivalent, contains preservative Fany R Judson Work Phone: [facility] 03-18-2018 tetanus toxoid, reduced diphtheria toxoid, and acellular pertussis vaccine, adsorbed DO Fany Judson Work Phone: [facility] 02-15-2018 influenza virus vaccine, unspecified formulation Ashwin MATHIS [facility] 02-15-2018 influenza, high dose seasonal, preservative-free Fany R Judson Work Phone: [facility] 02-05-2018 influenza nasal, unspecified formulation Pacc 2 Work Phone: [facility] 07-13-2017 influenza, injectable, quadrivalent, preservative free Pacc 2 Work Phone: [facility] 05-17-2016 pneumococcal conjugate vaccine, 13 valent Pacc 2 Work Phone: [facility] 03-08-2016 influenza virus vaccine, unspecified formulation Ashwin MATHIS [facility] 03-08-2016 influenza, injectable, quadrivalent, contains preservative Fany R Judson Work Phone: [facility] 02-19-2016 influenza virus vaccine, unspecified formulation Ashwin MATHIS [facility] 02-19-2016 influenza, high dose seasonal, preservative-free Fany R Judson Work Phone: [facility] 01-07-2016 influenza nasal, unspecified formulation Pacc 2 Work Phone: [facility] 05-07-2015 influenza, high dose seasonal, preservative-free Pacc 2 Work Phone: [facility] 05-07-2015 pneumococcal conjugate vaccine, 13 valent Pacc 2 Work Phone: [facility] 03-25-2014 influenza, seasonal, injectable, preservative free Pacc 2 Work Phone: [facility] 01-17-2013 influenza nasal, unspecified formulation Pacc 2 Work Phone: [facility] 01-06-2013 pneumococcal polysaccharide vaccine, 23 valent Pacc 2 Work Phone: [facility] 01-06-2013 pneumococcal vaccine, unspecified formulation Pacc 2 Work Phone: [facility] 02-09-2009 hepatitis B vaccine, adult dosage Fany R Judson Work Phone: [facility] 10-07-2008 hepatitis B vaccine, adult dosage Fany R Judson Work Phone: [facility] 09-05-2008 hepatitis B vaccine, adult dosage Fany R Judson Work Phone: [facility] 09-05-2008 zoster vaccine, live Fany R Judson Work Phone: [facility] NEGATED: Highlighted row has not occurred! 6 influenza, seasonal, injectable Patient Objection Bari Gaytancarlos Other [employer] Other Payers Date Payer Category Payer Unknown [id number] 2022 Self-pay [id number] 2017 Medicare [id number] 2014 Unknown [id number] 2014 Unknown [employer] [place] [employer] [place] MED[employer] SUPPLEMENT [id number] 2014-Present [phone] [id number] [place] [address] Indemnity [id number] 2014 Unknown 2014 Unknown [id number] 2012 Medicare MEDICARE MEDICAR E A AND B [id number] 2012-Present [phone] [place] [address] Medicare [id number] 2012 Medicare MEDICARE MEDICAR E A AND B [id number] 2012-Present [phone] [place] [address] Medicare [id number] 2012 Medicare [id number] 1947 Unknown [id number] 1947 Unknown [id number] [id number] 8 1947 Unknown [id number] [id number] 8 1947 Unknown [id number] [id number] 8 1947 Unknown [id number] 2.16.840.1.410036.3.579.2.125 9 1947 Unknown [id number] 2.16.840.1.523692.3.579.2.125 9 1947 Unknown [id number] [id number] 1947 Unknown [id number] [id number] 1947 Unknown [id number] [id number] Unknown [id number] [id number] Unknown [id number] [id number] Unknown [id number] [id number] Unknown [id number] [id number] Unknown [id number] [id number] Unknown [id number] Social History Date Type Detail Facility Start: 01-04-2021 End: 10-10-2022 Tobacco smoking status NHIS Never smoked tobacco [facility] Start: 01-04-2021 End: 09-12-2022 Tobacco use and exposure Smokeless tobacco non-user [facility] Start: 06-21-2021 End: 09-28-2023 Alcohol intake Current drinker of alcohol (finding) [facility] Start: 1945 Sex Assigned At Not on file C [facility] Start: 05-22-2021 End: 11-04-2021 Exposure to SARS-CoV-2 (event) Not sure [facility] Start: 09-12-2022 End: 09-28-2023 Sex Assigned At [facility] Start: 02-01-2022 End: 09-12-2022 Tobacco smoking status NHIS Ex-smoker (finding) [facility] Start: 1945 Sex Assigned At Male F [facility] Start: 09-12-2022 End: 09-28-2023 No illicit drug use No illicit drug use [facility] Work Phone: Start: 06-08-2022 Alcohol Comment 4-5 beers daily [facility] End: 05-08-1972 History of tobacco use Current smoker [facility] End: 05-08-1972 History of tobacco use Cigarette Smoker [facility] Start: 09-12-2022 Alcohol Comment 1 beer daily. 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 Orthopaedic bone screw, non-bioabsorbable, sterile [id number] FDA Start: 02-17-2022 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 Acetabular shell [id number] FDA Start: 02-17-2022 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 Non-constrained polyethylene acetabular liner [id number] FDA Start: 02-17-2022 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 Acetabulum prosthesis hole plug [id number] FDA Start: 02-17-2022 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 Metallic femoral head prosthesis ()[id number] FDA Start: 02-17-2022 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 Coated hip femur prosthesis, modular [id number] FDA Start: 02-17-2022 Goals Date Patient Goal Desired Activity /State Functional Status Date Assessment Result Facility 09-15-2023 Functional Status N/A [facility] 08-23-2023 Functional Status N/A [facility] 03-01-2022 Functional status Patient Not at Baseline [facility] Work Phone: 02-19-2022 Functional status Patient at Baseline [facility] Work Phone: Mental Status Date Assessment Result Facility 03-01-2022 Cognitive function Cognitive Sta tus Patient at Baseline [facility] Work Phone: 02-19-2022 Cognitive function Cognitive Sta tus Patient at Baseline [facility] Work Phone: Clinical Notes 02-05-2015 to 09-28-2023 Patient InstructionsTyron Cook APRN.[facility] - 09/28/2023 1:43 PM Tyron Modi APRN.POND SUPERVISOR - 09/28/2023 1:43 PM Ermelinda Castillo RT(R) - 04/03/2023 12:14 PM EST Note Date & Type Note Facility 09-28-2023 Instructions Tyron Cook APRN.POND SUPERVISOR - 09/28/2023 1:46 PM EDT PATIENT PREOPERATIVE INSTRUCTIONS Your Surgeon has scheduled you for your procedure at this surgery center: [facility]: [phone] --[address] [place] [address]. On your scheduled day of surgery, please report to Patient Registration, ground floor Please read below carefully for your personalized instructions. Dietary Restrictions: - No solid food after midnight. - You may have 12 ounces of clear liquids (water, clear juices such as apple juice or gatorade, carbonated beverages, clear tea, black coffee, jello) until 2 hours before scheduled arrival at facility. Medications: Unless instructed differently below, stay on all of your medications until your surgery. Approved medications to take the morning of surgery with a sip of water: Gabapentin & lipitor DO NOT TAKE YOUR Lisinopril THE NIGHT BEFORE OR MORNING OF SURGERY. Preoperative Instructions for Patient's with Diabetes Mellitus Oral/ Injectable Medication Instructions - Semaglutide (Ozempic) - please HOLD 7 DAYS PRIOR TO SURGERY Insulin Medication Instructions Lantus - take 75% of your usual dose the evening before surgery (27 Units) . If you take in the morning: Check fasting AM glucose, if 200 or greater, take half the prescribed dose. If under 200, hold AM dose. Last dose of Ozempic prior to 10/19/2023 procedure will be 10/08/2023 - Use mupirocin nasal ointment twice daily starting 5 days prior to surgery. If you take any medications for erectile dysfunction-Cialis (Tadalafil), Levitra, Staxyn (Vardenafil) Viagra (Sildenenafil please do not take these for 48 hours before surgery. If you start any new medications after today's visit, please contact the surgeon's office. Blood Thinning Medications: - Stop NSAIDS (Ibuprofen, Advil, Aleve, Motrin, Celebrex, Mobic, etc.) 7 days before surgery, as directed by your surgeon. - Stop Aspirin 7 days before surgery, as directed by your surgeon. - Stop Vitamin E, ALL multi-vitamins, herbals and dietary supplements 7 days before surgery. - You may take Tylenol (Acetaminophen) or any of your pain medications that do not contain aspirin or NSAIDS as needed. Important Reminders: - If you are prescribed inhalers for breathing, continue using them. - Candy, mints, and tobacco products are NOT permitted the morning of surgery. - Hearing aids, dentures and glasses may be worn the morning of surgery. - NO jewelry, body piercings, makeup, hairpins or contacts are to be worn the day of surgery. If you develop symptoms such as a fever, cold, or flu, or have other changes to your health within TWO DAYS of scheduled surgery or the morning of surgery, please contact the surgery center above. Personal Belongings: -Please have photo ID and insurance cards. -If you do not have a copy of advance directives on file with us, please bring a copy with you on the day of surgery. - Leave ALL valuables and money at home or with family members. For Outpatient Procedures: - YOU MUST HAVE A RESPONSIBLE PARKING LOT ATTENDANT TAKE YOU HOME. A GEAR REPAIRER OR SAGGER SOAK CANNOT BE MADE A RESPONSIBLE PARKING LOT ATTENDANT. - We recommend that a responsible person stays with you overnight to take care of you. - You cannot stay in a hotel alone after outpatient surgery. You will not be permitted to have your surgery, if you do not have someone to take care of you. Arrival Time for Surgery: - The Surgery Center or hospital where you are having surgery will call the afternoon before surgery (or Monday for Monday surgery) with a scheduled arrival time. - If you have not heard by 4 pm, please contact the surgery center above. Please be aware that emergency situations arise, which may delay or change your surgical time. If this happens, we will notify you as soon as possible and regret any inconvenience. If you already have an Advance Directive, please fax a copy to [phone] or email to for it to be added to your chart. If you do not have an Advance Directive, you can find the appropriate form and more information at [email or web address]. We recommend that you complete the Advance Directive form found on the website and bring it with you the day of your surgery. It can be witnessed and scanned into your chart that day. Tyron Cook APRN.CNP documented in this encounter [facility] 09-28-2023 History and physical note HISTORY AND PHYSICAL EXAMINATION SERVICE DATE: 09/28/2023 SERVICE TIME: 1:44 PM PRIMARY CARE PHYSICIAN: Fany Roper DO, PSYD REASON FOR VISIT: Sumeet Paz is a 78 year old male who is scheduled for DECOMPRESSION LAMINECTOMY INTERBODY FUSION LUMBAR POSTERIOR (PLIF) LEVEL 1 POSTERIOR NON-SEGMENTAL INSTRUMENTATION FOLLOWING LUMBAR FUSION 1 LEVEL PDFI INSERTION INTERBODY BIOMED DEVICE(S) W/ANT INSTR ANCHORING TO DISC SPACE W/INTERBODY FUSION,EA INTERSPACE at the request of Dr. Korina Swan for consultation. My final recommendation will be communicated back to the requesting physician by way of shared medical record or letter. Assessment Patient has the following medical conditions which may affect lima-operative course: Essential hypertension Assessment: Stable on medication 102/66 in office today Follows with PCP Hyperlipidemia Assessment: On Statin Follows with PCP Type 2 diabetes mellitus with diabetic polyneuropathy (HCC) Assessment: On Ozempic and lantus Detailed medication instructions given to patient in instructions Hemoglobin A1C (%) Date Value 09/12/2022 7.6 Follows with PCP Arteriosclerosis of coronary artery Assessment: nonobstructive, cardiac catheterization in 2010, which revealed mild plaques, not exceeding 15% to 20% stenosis.-- follows with NO Stress test 02/2022 negative HURST (dyspnea on exertion) Assessment: D/t deconditioning and pain Uses scooter can walk short distance Obstructive sleep apnea Assessment: Uses CPAP Stage 3a chronic kidney disease (HCC) Assessment: Stable Creatinine Date Value Ref Range Status 09/12/2022 1.76 (H) 0.73 - 1.22 mg/dL Final 06/08/2022 1.45 (H) 0.73 - 1.22 mg/dL Final Personal history of malignant neoplasm of prostate Assessment: s/p prostatectomy in 2011 No known recurrence History of cardioembolic cerebrovascular accident (CVA) Assessment: Hx of CVA found incidentally on imaging No symptoms or residual Class 3 severe obesity due to excess calories with serious comorbidity and body mass index (BMI) of 40.0 to 44.9 in adult ([facility]) Assessment: Body mass index is 41.51 kg/m . Santiago Activity Status Index: METS: Walk indoors, such as around the house (1.75 METs) Do light work around the house, such as dusting or washing dishes (2.70 METs) Take care of self; that is eating, dressing, bathing, using the toilet (2.75 METs) DASI Score: 7.2 Patient denies any chest pain or undue shortness of breath with the above physical activity. Dependency List (Category): +Uses scooter. [id number] Score: Age: >=75 Sex: male CHF history: No Hypertension history: Yes Stroke/TIA/thromboembolism history: Yes Vascular disease history: No Diabetes history: Yes [id number] Score: 6 ANESTHESIA FINDINGS: Intubation History: No history of difficult intubation Significant Anesthesia Considerations: none Airway History: No history of difficult airway I - PHYSICAL EVALUATION AIRWAY Patient intubated: No. Tracheostomy tube not present Mallampati: III. TM distance: >3 FB. Neck ROM: full ROM without neurological symptoms. Mouth opening: adequate. Short neck: no. Thick neck: no Lip Bite Test: III Microretrognathia/Micronagthia/Rece ssed Chin: No DENTAL Dental findings: teeth intact. Additional comments: +Caps/crowns +Bridge . II - ANESTHESIA PLAN Beta Roman Monitoring Plan Post Procedure Analgesic Plan Not Prepared for surgery: This patient is optimally prepared for surgery pending LABS and EKG. CONSULTS: Patient does not require consults for optimization at this time. The Following Tests/Procedures Have Been Initiated: Orders Placed This Encounter Complete Blood Count Standing Status: Future Standing Expiration Date: 12/28/2023 BMP Standing Status: Future Standing Expiration Date: 12/28/2023 Type and Screen, 30 day Standing Status: Future Standing Expiration Date: 12/28/2023 Order Specific Question: [facility] Planned Surgery or Procedure: Answer: ARMIDA cholecalciferol (VITAMIN D3) 1,000 unit tab tablet Sig: Take 1,000 Units by mouth once daily. OTC NUTRITIONAL SUPPLEMENT Sig: Take by mouth once daily. Prevagen-Memory Supplement mupirocin (BACTROBAN) 2 % ointment Sig: two times a day for 5 days. Apply 0.5 inch with cotton swab (Q-tip) to each nostril in the morning and evening for 5 days prior to and including day of surgery. Dispense: 22 g Refill: 0 ECG (IN OFFICE) ECG COMPLETE Order Comments: Ordered by an unspecified provider Planned Anesthetic: Per anesthesia choice Subjective CHIEF COMPLAINT: Back pain HPI: 78 year old year old year old male presents to [facility] for evaluation. Patient Has had back pain > 20 years ago. Has had 6 spine surgeries. Has tried conservative measures without lasting relief. Has elected for surgical intervention. PAST MEDICAL HISTORY Diagnosis Date Essential hypertension, benign Pure hypercholesterolemia Type II or unspecified type diabetes mellitus without mention of complication, not stated as uncontrolled PAST SURGICAL HISTORY Procedure Laterality Date ANESTH OPEN/SURG ARTHRS TOTAL KNEE ARTHROPLASTY 4 surgeries of left knee ARTHRD ANT NTRBD MIN DSC EA ADDL INTERSPACE PAST SURGICAL HISTORY OF Back surgery PAST SURGICAL HISTORY OF Prostate surgery PAST SURGICAL HISTORY OF Neck surgery TOTAL HIP REPLACEMENT FAMILY HISTORY Problem Relation Age of Onset Anesthesia Problems No Family History SOCIAL HISTORY: Social History Tobacco Use Smoking status: Former Packs/day: 1 Types: Cigarettes Quit date: 1972 Years since quittin.4 Smokeless tobacco: Never Substance Use Topics Alcohol use: Yes Comment: 3-4 beers daily Drug use: Not Currently Comment: denies tx for drug/alcohol abuse in the past. Prior to Admission medications as of 09/28/23 1357 Medication Sig Last Dose Taking cholecalciferol (VITAMIN D3) 1,000 unit tab tablet Take 1,000 Units by mouth once daily. Yes OTC NUTRITIONAL SUPPLEMENT Take by mouth once daily. Prevagen-Memory Supplement Yes lisinopril (ZESTRIL, PRINIVIL) 20 mg tablet Take by mouth q 12 HR. Yes semaglutide (OZEMPIC SUBCUTANEOUS) Inject subcutaneously. Once a week Yes insulin glargine (LANTUS) 100 unit/mL injection Inject 45 Units subcutaneously twice daily. Yes GABAPENTIN ORAL Take by mouth. Take seven tablets twice a day Yes LIPITOR 10MG TABLET Take 20 mg by mouth. Patient taking differently: Take 20 mg by mouth. Yes mupirocin (BACTROBAN) 2 % ointment two times a day for 5 days. Apply 0.5 inch with cotton swab (Q-tip) to each nostril in the morning and evening for 5 days prior to and including day of surgery. No medication comments found. ALLERGIES No Known Allergies Covid Immunization Dates Covid-19 Vaccine ( season) Next due on 10/07/2023 06/08/2023 Imm Admin: COVID-19 vaccine, age 12+ yr, season ([employer]ION[employer]) 03/16/2022 Imm Admin: COVID-19 vaccine, age 12+ yr, bivalent ([employer]-BION[employer]) 11/30/2021 Imm Admin: COVID-19 original vaccine, age 12+ yr, monovalent ([employer]ION[employer] - PURPLE TOP) 03/12/2021 Imm Admin: COVID-19 original vaccine, age 12+ yr, monovalent (PFIZER-BIONTECH - PURPLE TOP) 02/07/2021 Imm Admin: COVID-19 original vaccine, age 12+ yr, monovalent ([employer] - PURPLE TOP) Only the first 5 history entries have been loaded, but more history exists. REVIEW OF SYSTEMS: PAIN ASSESSMENT: Pain Pain Level: 4 Pain Location: Back Description: Sharp Duration Units: Years Frequency: Continuous Intervention/Comfort measure: Declined General: No weight loss, malaise or fevers. Neuro: Negative for Headaches Seizures Multiple Sclerosis +CVA Respiratory: Negative for Asthma, Bronchitis, Current cough, Home O2 +ALHAJI Cardiovascular: Negative for Recent MO, Angina, Chest Pain, PVD, DVT/PE +HTN +HLD +CAD GI: Negative for Nausea, Vomiting, Abdominal pain : Negative for dysuria, incontinence, hematuria, and hesitancy +CKD Endocrine: Diabetes Mellitus on insulin & Ozempic Hematology: No history of bleeding or clotting disorder. Pt is not taking anti-coagulation or platelet medications. No history of hematological symptoms or problems. Oncology: +Prostate Cancer s/p prostatectomy 2011 Psych: Anxiety Musculoskeletal: See HPI Skin: Negative for lesions, rash and itching. Objective PHYSICAL EXAM: VITALS: BP 102/66 Pulse 83 Temp (Src) 98 (Oral) Resp 16 Ht 5' 8 (1.73m) Wt 273 lb (123.8kg) SpO2 97% BMI 41.52 kg/(m^2). General: Alert and oriented Skin: Normal color, no rash, no lesions. HEENT: EOM, pupils equal, round and reactive. Cardiovascular: Normal S1 & S2, no rubs, murmurs or gallops. No JVD. Pulse regular. Lungs: Normal breath sounds, no wheezes or crackles. Abdomen: Soft, non-tender, no rigidity. Extremities: No deformity, no edema or tenderness, no joint swelling or clubbing. Neurological: Normal cognition and motor skills. Pulses: Carotid and radial pulses normal +2. Diagnostic tests reviewed for today's visit: Hemoglobin A1C (%) Date Value 09/12/2022 7.6 06/08/2022 8.3 No new labs or tests Instructions Given to Patient: Instructions located in the after visit summary. Patient given verbal and written preop instructions and voices comprehension and compliance. SIGNATURE: Tyron Cook APRN.POND SUPERVISOR PATIENT NAME: Sumeet Paz DATE: 09/28/2023 TIME: 1:44 PM [facility] 09-28-2023 History and physical note HISTORY AND PHYSICAL EXAMINATION SERVICE DATE: 09/28/2023 SERVICE TIME: 1:44 PM PRIMARY CARE PHYSICIAN: Fany Roper DO, PSYD REASON FOR VISIT: Sumeet Paz is a 78 year old male who is scheduled for DECOMPRESSION LAMINECTOMY INTERBODY FUSION LUMBAR POSTERIOR (PLIF) LEVEL 1 POSTERIOR NON-SEGMENTAL INSTRUMENTATION FOLLOWING LUMBAR FUSION 1 LEVEL PDFI INSERTION INTERBODY BIOMED DEVICE(S) W/ANT INSTR ANCHORING TO DISC SPACE W/INTERBODY FUSION,EA INTERSPACE at the request of Dr. Korina Swan for consultation. My final recommendation will be communicated back to the requesting physician by way of shared medical record or letter. Assessment Patient has the following medical conditions which may affect lima-operative course: Essential hypertension Assessment: Stable on medication 102/66 in office today Follows with PCP Hyperlipidemia Assessment: On Statin Follows with PCP Type 2 diabetes mellitus with diabetic polyneuropathy (HCC) Assessment: On Ozempic and lantus Detailed medication instructions given to patient in instructions Hemoglobin A1C (%) Date Value 09/12/2022 7.6 Follows with PCP Arteriosclerosis of coronary artery Assessment: nonobstructive, cardiac catheterization in 2010, which revealed mild plaques, not exceeding 15% to 20% stenosis.-- follows with [facility] Stress test 02/2022 negative HURST (dyspnea on exertion) Assessment: D/t deconditioning and pain Uses scooter can walk short distance Obstructive sleep apnea Assessment: Uses CPAP Stage 3a chronic kidney disease (HCC) Assessment: Stable Creatinine Date Value Ref Range Status 09/12/2022 1.76 (H) 0.73 - 1.22 mg/dL Final 06/08/2022 1.45 (H) 0.73 - 1.22 mg/dL Final Personal history of malignant neoplasm of prostate Assessment: s/p prostatectomy in 2011 No known recurrence History of cardioembolic cerebrovascular accident (CVA) Assessment: Hx of CVA found incidentally on imaging No symptoms or residual Class 3 severe obesity due to excess calories with serious comorbidity and body mass index (BMI) of 40.0 to 44.9 in adult ([facility]) Assessment: Body mass index is 41.51 kg/m . Santiago Activity Status Index: METS: Walk indoors, such as around the house (1.75 METs) Do light work around the house, such as dusting or washing dishes (2.70 METs) Take care of self; that is eating, dressing, bathing, using the toilet (2.75 METs) DASI Score: 7.2 Patient denies any chest pain or undue shortness of breath with the above physical activity. Dependency List (Category): +Uses scooter. [id number] Score: Age: >=75 Sex: male CHF history: No Hypertension history: Yes Stroke/TIA/thromboembolism history: Yes Vascular disease history: No Diabetes history: Yes [id number] Score: 6 ANESTHESIA FINDINGS: Intubation History: No history of difficult intubation Significant Anesthesia Considerations: none Airway History: No history of difficult airway I - PHYSICAL EVALUATION AIRWAY Patient intubated: No. Tracheostomy tube not present Mallampati: III. TM distance: >3 FB. Neck ROM: full ROM without neurological symptoms. Mouth opening: adequate. Short neck: no. Thick neck: no Lip Bite Test: III Microretrognathia/Micronagthia/Rece ssed Chin: No DENTAL Dental findings: teeth intact. Additional comments: +Caps/crowns +Bridge . II - ANESTHESIA PLAN Beta Roman Monitoring Plan Post Procedure Analgesic Plan Not Prepared for surgery: This patient is optimally prepared for surgery pending LABS and EKG. CONSULTS: Patient does not require consults for optimization at this time. The Following Tests/Procedures Have Been Initiated: Orders Placed This Encounter Complete Blood Count Standing Status: Future Standing Expiration Date: 12/28/2023 BMP Standing Status: Future Standing Expiration Date: 12/28/2023 Type and Screen, 30 day Standing Status: Future Standing Expiration Date: 12/28/2023 Order Specific Question: [facility] Planned Surgery or Procedure: Answer: ARMIDA cholecalciferol (VITAMIN D3) 1,000 unit tab tablet Sig: Take 1,000 Units by mouth once daily. OTC NUTRITIONAL SUPPLEMENT Sig: Take by mouth once daily. Prevagen-Memory Supplement mupirocin (BACTROBAN) 2 % ointment Sig: two times a day for 5 days. Apply 0.5 inch with cotton swab (Q-tip) to each nostril in the morning and evening for 5 days prior to and including day of surgery. Dispense: 22 g Refill: 0 ECG (IN OFFICE) ECG COMPLETE Order Comments: Ordered by an unspecified provider Planned Anesthetic: Per anesthesia choice Subjective CHIEF COMPLAINT: Back pain HPI: 78 year old year old year old male presents to [facility] for evaluation. Patient Has had back pain > 20 years ago. Has had 6 spine surgeries. Has tried conservative measures without lasting relief. Has elected for surgical intervention. PAST MEDICAL HISTORY Diagnosis Date Essential hypertension, benign Pure hypercholesterolemia Type II or unspecified type diabetes mellitus without mention of complication, not stated as uncontrolled PAST SURGICAL HISTORY Procedure Laterality Date ANESTH OPEN/SURG ARTHRS TOTAL KNEE ARTHROPLASTY 4 surgeries of left knee ARTHRD ANT NTRBD MIN DSC EA ADDL INTERSPACE PAST SURGICAL HISTORY OF Back surgery PAST SURGICAL HISTORY OF Prostate surgery PAST SURGICAL HISTORY OF Neck surgery TOTAL HIP REPLACEMENT FAMILY HISTORY Problem Relation Age of Onset Anesthesia Problems No Family History SOCIAL HISTORY: Social History Tobacco Use Smoking status: Former Packs/day: 1 Types: Cigarettes Quit date: 1972 Years since quittin.4 Smokeless tobacco: Never Substance Use Topics Alcohol use: Yes Comment: 3-4 beers daily Drug use: Not Currently Comment: denies tx for drug/alcohol abuse in the past. Prior to Admission medications as of 09/28/23 1357 Medication Sig Last Dose Taking cholecalciferol (VITAMIN D3) 1,000 unit tab tablet Take 1,000 Units by mouth once daily. Yes OTC NUTRITIONAL SUPPLEMENT Take by mouth once daily. Prevagen-Memory Supplement Yes lisinopril (ZESTRIL, PRINIVIL) 20 mg tablet Take by mouth q 12 HR. Yes semaglutide (OZEMPIC SUBCUTANEOUS) Inject subcutaneously. Once a week Yes insulin glargine (LANTUS) 100 unit/mL injection Inject 45 Units subcutaneously twice daily. Yes GABAPENTIN ORAL Take by mouth. Take seven tablets twice a day Yes LIPITOR 10MG TABLET Take 20 mg by mouth. Patient taking differently: Take 20 mg by mouth. Yes mupirocin (BACTROBAN) 2 % ointment two times a day for 5 days. Apply 0.5 inch with cotton swab (Q-tip) to each nostril in the morning and evening for 5 days prior to and including day of surgery. No medication comments found. ALLERGIES No Known Allergies Covid Immunization Dates Covid-19 Vaccine ( season) Next due on 10/07/2023 06/08/2023 Imm Admin: COVID-19 vaccine, age 12+ yr, season (PFIZER-BIONTECH) 03/16/2022 Imm Admin: COVID-19 vaccine, age 12+ yr, bivalent (PFIZER-BIONTECH) 11/30/2021 Imm Admin: COVID-19 original vaccine, age 12+ yr, monovalent (PFIZER-BIONTECH - PURPLE TOP) 03/12/2021 Imm Admin: COVID-19 original vaccine, age 12+ yr, monovalent (PFIZER-BIONTECH - PURPLE TOP) 02/07/2021 Imm Admin: COVID-19 original vaccine, age 12+ yr, monovalent (PFIZER-BIONTECH - PURPLE TOP) Only the first 5 history entries have been loaded, but more history exists. REVIEW OF SYSTEMS: PAIN ASSESSMENT: Pain Pain Level: 4 Pain Location: Back Description: Sharp Duration Units: Years Frequency: Continuous Intervention/Comfort measure: Declined General: No weight loss, malaise or fevers. Neuro: Negative for Headaches Seizures Multiple Sclerosis +CVA Respiratory: Negative for Asthma, Bronchitis, Current cough, Home O2 +ALHAJI Cardiovascular: Negative for Recent MO, Angina, Chest Pain, PVD, DVT/PE +HTN +HLD +CAD GI: Negative for Nausea, Vomiting, Abdominal pain : Negative for dysuria, incontinence, hematuria, and hesitancy +CKD Endocrine: Diabetes Mellitus on insulin & Ozempic Hematology: No history of bleeding or clotting disorder. Pt is not taking anti-coagulation or platelet medications. No history of hematological symptoms or problems. Oncology: +Prostate Cancer s/p prostatectomy 2011 Psych: Anxiety Musculoskeletal: See HPI Skin: Negative for lesions, rash and itching. Objective PHYSICAL EXAM: VITALS: BP 102/66 Pulse 83 Temp (Src) 98 (Oral) Resp 16 Ht 5' 8 (1.73m) Wt 273 lb (123.8kg) SpO2 97% BMI 41.52 kg/(m^2). General: Alert and oriented Skin: Normal color, no rash, no lesions. HEENT: EOM, pupils equal, round and reactive. Cardiovascular: Normal S1 & S2, no rubs, murmurs or gallops. No JVD. Pulse regular. Lungs: Normal breath sounds, no wheezes or crackles. Abdomen: Soft, non-tender, no rigidity. Extremities: No deformity, no edema or tenderness, no joint swelling or clubbing. Neurological: Normal cognition and motor skills. Pulses: Carotid and radial pulses normal +2. Diagnostic tests reviewed for today's visit: Hemoglobin A1C (%) Date Value 09/12/2022 7.6 06/08/2022 8.3 No new labs or tests Instructions Given to Patient: Instructions located in the after visit summary. Patient given verbal and written preop instructions and voices comprehension and compliance. SIGNATURE: Tyron Cook APRN.CNP PATIENT NAME: Sumeet Paz DATE: 09/28/2023 TIME: 1:44 PM documented in this encounter [facility] 09-15-2023 Hospital Discharge instructions Patient Education 09/15/2023 11:04:04 Hematuria, Adult Hematuria, Adult Hematuria is blood in the urine. Blood may be visible in the urine, or it may be identified with a test. This condition can be caused by infections of the bladder, urethra, kidney, or prostate. Other possible causes include: Kidney stones. Cancer of the urinary tract. Too much calcium in the urine. Conditions that are passed from parent to child (inherited conditions). Exercise that requires a lot of energy. Infections can usually be treated with medicine, and a kidney stone usually will pass through your urine. If neither of these is the cause of your hematuria, more tests may be needed to identify the cause of your symptoms. It is very important to tell your health care provider about any blood in your urine, even if it is painless or the blood stops without treatment. Blood in the urine, when it happens and then stops and then happens again, can be a symptom of a very serious condition, including cancer. There is no pain in the initial stages of many urinary cancers. Follow these instructions at home: Medicines Take zisp-cws-xadxzex and prescription medicines only as told by your health care provider. If you were prescribed an antibiotic medicine, take it as told by your health care provider. Do not stop taking the antibiotic even if you start to feel better. Eating and drinking Drink enough fluid to keep your urine pale yellow. It is recommended that you drink 3 4 quarts (2.8 3.8 L) a day. If you have been diagnosed with an infection, drinking cranberry juice in addition to large amounts of water is recommended. Avoid caffeine, tea, and carbonated beverages. These tend to irritate the bladder. Avoid alcohol because it may irritate the prostate (in males). General instructions If you have been diagnosed with a kidney stone, follow your health care provider's instructions about straining your urine to catch the stone. Empty your bladder often. Avoid holding urine for long periods of time. If you are female: ?After a bowel movement, wipe from front to back and use each piece of toilet paper only once. ?Empty your bladder before and after sex. Pay attention to any changes in your symptoms. Tell your health care provider about any changes or any new symptoms. It is up to you to get the results of any tests. Ask your health care provider, or the department that is doing the test, when your results will be ready. Keep all follow-up visits. This is important. Contact a health care provider if: You develop back pain. You have a fever or chills. You have nausea or vomiting. Your symptoms do not improve after 3 days. Your symptoms get worse. Get help right away if: You develop severe vomiting and are unable to take medicine without vomiting. You develop severe pain in your back or abdomen even though you are taking medicine. You pass a large amount of blood in your urine. You pass blood clots in your urine. You feel very weak or like you might faint. You faint. Summary Hematuria is blood in the urine. It has many possible causes. It is very important that you tell your health care provider about any blood in your urine, even if it is painless or the blood stops without treatment. Take lnpa-iqg-edogggd and prescription medicines only as told by your health care provider. Drink enough fluid to keep your urine pale yellow. This information is not intended to replace advice given to you by your health care provider. Make sure you discuss any questions you have with your health care provider. Document Revised: 12/23/2020 Document Reviewed: 12/23/2020 [employer] Patient Education 2022 [employer]. Follow Up Care 08/28/2023 13:54:28 With:DEL URBINA, Ashwin Hui, URL Address: [address] [place] [id number]- When: Unknown [facility] 08-23-2023 Note Urology Cystoscopy Cystoscopy is a procedure that is used to help diagnose and sometimes treat conditions that affect the lower urinary tract. The lower urinary tract includes the bladder and the urethra. The urethra is the tube that drains urine from the bladder. Cystoscopy is done using a thin, tube-shaped instrument with a light and camera at the end (cystoscope). The cystoscope may be hard or flexible, depending on the goal of the procedure. The cystoscope is inserted through the urethra, into the bladder. Cystoscopy may be recommended if you have: ? Urinary tract infections that keep coming back. ? Blood in the urine (hematuria). ? An inability to control when you urinate (urinary incontinence) or an overactive bladder. ? Unusual cells found in a urine sample. ? A blockage in the urethra, such as a urinary stone. ? Painful urination. ? An abnormality in the bladder found during an intravenous pyelogram (IVP) or CT scan. Cystoscopy may also be done to remove a sample of tissue to be examined under a microscope (biopsy). Tell a health care provider about: ? Any allergies you have. ? All medicines you are taking, including vitamins, herbs, eye drops, creams, and owti-vfk-ytknjix medicines. ? Any problems you or family members have had with anesthetic medicines. ? Any blood disorders you have. ? Any surgeries you have had. ? Any medical conditions you have. ? Whether you are or may be . What are the risks? Generally, this is a safe procedure. However, problems may occur, including: ? Infection. ? Bleeding. ? Allergic reactions to medicines. ? Damage to other structures or organs. What happens before the procedure? Medicines Ask your health care provider about: ? Changing or stopping your regular medicines. This is especially important if you are taking diabetes medicines or blood thinners. ? Taking medicines such as aspirin and ibuprofen. These medicines can thin your blood. Do not take these medicines unless your health care provider tells you to take them. ? Taking qkrq-ppe-fccjxaw medicines, vitamins, herbs, and supplements. Tests You may have an exam or testing, such as: ? X-rays of the bladder, urethra, or kidneys. ? CT scan of the abdomen or pelvis. ? Urine tests to check for signs of infection. General instructions ? Follow instructions from your health care provider about eating or drinking restrictions. ? Ask your health care provider what steps will be taken to help prevent infection. These steps may include: ? Washing skin with a germ-killing soap. ? Taking antibiotic medicine. ? Plan to have a responsible adult take you home from the hospital or clinic. What happens during the procedure? ? You will be given one or more of the following: ? A medicine to help you relax (sedative). ? A medicine to numb the area (local anesthetic). ? The area around the opening of your urethra will be cleaned. ? The cystoscope will be passed through your urethra into your bladder. ? Germ-free (sterile) fluid will flow through the cystoscope to fill your bladder. The fluid will stretch your bladder so that your health care provider can clearly examine your bladder guaman. ? Your doctor will look at the urethra and bladder. Your doctor may take a biopsy or remove stones. ? The cystoscope will be removed, and your bladder will be emptied. The procedure may vary among health care providers and hospitals. What can I expect after the procedure? After the procedure, it is common to have: ? Some soreness or pain in your abdomen and urethra. ? Urinary symptoms. These include: ? Mild pain or burning when you urinate. Pain should stop within a few minutes after you urinate. This may last for up to 1 week. ? A small amount of blood in your urine for several days. ? Feeling like you need to urinate but producing only a small amount of urine. Follow these instructions at home: Medicines ? Take niwi-wwy-vczngqt and prescription medicines only as told by your health care provider. ? If you were prescribed an antibiotic medicine, take it as told by your health care provider. Do not stop taking the antibiotic even if you start to feel better. General instructions ? Return to your normal activities as told by your health care provider. Ask your health care provider what activities are safe for you. ? If you were given a sedative during the procedure, it can affect you for several hours. Do not drive or operate machinery until your health care provider says that it is safe. ? Watch for any blood in your urine. If the amount of blood in your urine increases, call your health care provider. ? Follow instructions from your health care provider about eating or drinking restrictions. ? If a tissue sample was removed for testing (biopsy) during your procedure, it is up to you to get your test results. Ask your health care provider, or the department th (more content not included)... [facility] 08-23-2023 Hospital Discharge instructions Patient Education 08/23/2023 11:37:22 Cystoscopy Cystoscopy Cystoscopy is a procedure that is used to help diagnose and sometimes treat conditions that affect the lower urinary tract. The lower urinary tract includes the bladder and the urethra. The urethra is the tube that drains urine from the bladder. Cystoscopy is done using a thin, tube-shaped instrument with a light and camera at the end (cystoscope). The cystoscope may be hard or flexible, depending on the goal of the procedure. The cystoscope is inserted through the urethra, into the bladder. Cystoscopy may be recommended if you have: Urinary tract infections that keep coming back. Blood in the urine (hematuria). An inability to control when you urinate (urinary incontinence) or an overactive bladder. Unusual cells found in a urine sample. A blockage in the urethra, such as a urinary stone. Painful urination. An abnormality in the bladder found during an intravenous pyelogram (IVP) or CT scan. Cystoscopy may also be done to remove a sample of tissue to be examined under a microscope (biopsy). Tell a health care provider about: Any allergies you have. All medicines you are taking, including vitamins, herbs, eye drops, creams, and gnfk-qcm-rirvshj medicines. Any problems you or family members have had with anesthetic medicines. Any blood disorders you have. Any surgeries you have had. Any medical conditions you have. Whether you are or may be . What are the risks? Generally, this is a safe procedure. However, problems may occur, including: Infection. Bleeding. Allergic reactions to medicines. Damage to other structures or organs. What happens before the procedure? Medicines Ask your health care provider about: Changing or stopping your regular medicines. This is especially important if you are taking diabetes medicines or blood thinners. Taking medicines such as aspirin and ibuprofen. These medicines can thin your blood. Do not take these medicines unless your health care provider tells you to take them. Taking zjoo-mpt-xgbyzry medicines, vitamins, herbs, and supplements. Tests You may have an exam or testing, such as: X-rays of the bladder, urethra, or kidneys. CT scan of the abdomen or pelvis. Urine tests to check for signs of infection. General instructions Follow instructions from your health care provider about eating or drinking restrictions. Ask your health care provider what steps will be taken to help prevent infection. These steps may include: ?Washing skin with a germ-killing soap. ?Taking antibiotic medicine. Plan to have a responsible adult take you home from the hospital or clinic. What happens during the procedure? You will be given one or more of the following: ?A medicine to help you relax (sedative). ?A medicine to numb the area (local anesthetic). The area around the opening of your urethra will be cleaned. The cystoscope will be passed through your urethra into your bladder. Germ-free (sterile) fluid will flow through the cystoscope to fill your bladder. The fluid will stretch your bladder so that your health care provider can clearly examine your bladder guaman. Your doctor will look at the urethra and bladder. Your doctor may take a biopsy or remove stones. The cystoscope will be removed, and your bladder will be emptied. The procedure may vary among health care providers and hospitals. What can I expect after the procedure? After the procedure, it is common to have: Some soreness or pain in your abdomen and urethra. Urinary symptoms. These include: ?Mild pain or burning when you urinate. Pain should stop within a few minutes after you urinate. This may last for up to 1 week. ?A small amount of blood in your urine for several days. ?Feeling like you need to urinate but producing only a small amount of urine. Follow these instructions at home: Medicines Take plsz-nan-cfdrttk and prescription medicines only as told by your health care provider. If you were prescribed an antibiotic medicine, take it as told by your health care provider. Do not stop taking the antibiotic even if you start to feel better. General instructions Return to your normal activities as told by your health care provider. Ask your health care provider what activities are safe for you. If you were given a sedative during the procedure, it can affect you for several hours. Do not drive or operate machinery until your health care provider says that it is safe. Watch for any blood in your urine. If the amount of blood in your urine increases, call your health care provider. Follow instructions from your health care provider about eating or drinking restrictions. If a tissue sample was removed for testing (biopsy) during your procedure, it is up to you to get your test results. Ask your health care provider, or the department that is doing the test, when your results will be ready. Drink enough fluid to keep your urine pale yellow. Keep all follow-up visits. This is important. Contact a health care provider if: You have pain that gets worse or does not get better with medicine, especially pain when you urinate. You have trouble urinating. You have more blood in your urine. Get help right away if: You have blood clots in your urine. You have abdominal pain. You have a fever or chills. You are unable to urinate. Summary Cystoscopy is a procedure that is used to help diagnose and sometimes treat conditions that affect the lower urinary tract. Cystoscopy is done using a thin, tube-shaped instrument with a light and camera at the end. After the procedure, it is common to have some soreness or pain in your abdomen and urethra. Watch for any blood in your urine. If the amount of blood in your urine increases, call your health care provider. If you were prescribed an antibiotic medicine, take it as told by your health care provider. Do not stop taking the antibiotic even if you start to feel better. This information is not intended to replace advice given to you by your health care provider. Make sure you discuss any questions you have with your health care provider. Document Revised: 01/05/2022 Document Reviewed: 12/04/2020 [employer] Patient Education 2022 [employer]il[employer]. Follow Up Care 07/12/2023 08:29:51 With:DEL URBINA, Ashwin Hui, URL Address: [facility] [address] , [place] [address]- When: Unknown [facility] 04-25-2023 Note HNO ID: [id number] Author: Korina Swan MD Service: ? Author Type: Physician Type: Progress Notes Filed: 04/25/2023 3:40 PM Note Text: Sumeet is had a new lumbar MRI. It shows recurrent stenosis at the L2-3 level. This would indicate that there is some level of instability here as the stenosis occurred very quickly after decompression. I think Sumeet would benefit from an L2-3 decompression and combined posterolateral and transforaminal lumbar interbody fusion and an L2-4 instrumentation. We had a detailed discussion of the risks, benefits, expected outcomes, options and personnel today. He wishes to proceed. Korina Swan MD [facility] 04-25-2023 Note HNO ID: [id number] Author: Korina Swan MD Service: ? Author Type: Physician Type: Progress Notes Filed: 04/25/2023 3:40 PM Note Text: SPINE SURGERY FOLLOW UP This is an in-person visit. SERVICE DATE: 04/25/2023 SURGERY DATE: 09/29/2022 Sumeet Paz is seen for 7 month post operative follow up. Patient is s/p L2-3 bilateral laminotomy, foraminotomy. Patient was last seen in clinic on 02/28/2023 where he was complaining of severe low back pain with a heavy sensation about bilateral lower extremities as he stands or walks. The symptoms are largely unchanged from prior visit. Of note, he did obtain a new lumbar MRI which shows continued stenosis about L2-L3. ANTIPLATELET OR ANTICOAGULATION STATUS: No Patient Entered Questionnaires Spine Questions 01/04/2021 Pain Location: Lower back Pain Duration: More than 5 years Pain over last 6 months: Every day or nearly every day in the past 6 months Symptoms from neck/cervical spine: Yes PROMIS Score Percentiles Physical Health 01/04/2021 Physical Function Percentile 1 Sleep Percentile 38 Fatigue Percentile 12 Pain Interference Percentile 4 PROMIS SOCIAL ROLE SCORE 01/04/2021 Social Role Satisfaction Percentile 16* Percentiles provide an indication of how the patient's score ranks in relation to the general population. Higher percentile rankings indicate better function/quality of life. 50th percentile is the average of the general population and indicates half of respondents had a worse score. Depression Screening: PHQ-9 Self-Harm (Item 9) response options: 0 Not at all 1 Several days 2 More than half the days 3 Nearly every day PHQ-9 Levels: 0-4 No to mild depression 5-9 Mild depression 10-14 Moderate depression 15-19 Moderately severe depression 20-27 Severe depression PHYSICAL EXAM: There were no vitals taken for this visit. GENERAL APPEARANCE: Well nourished, well developed, and no apparent distress. NEURO PSYCH: Patient oriented to person, place, and time. Mood pleasant. Benign affect. MUSCULOSKELETAL VISUAL INSPECTION CERVICAL: WNL THORACIC: WNL LUMBAR: WNL MOTOR: 5/5 in all muscle groups. SENSORY: Normal sensory exam GAIT: Normal. REFLEXES: +2 to bilateral U/L extremities. PROPRIOCEPTION: Normal. LONG TRACT SIGNS: No clonus. No Hoffmans. DATA REVIEW [facility] records independently reviewed severe L2-3 spinal stenosis and foraminal stenosis. ASSESSMENT/PLAN (Z98.890) Status post lumbar spine operative procedure for decompression of spinal cord (primary encounter diagnosis) Sumeet Paz is clinically indicated and wishes to pursue Lumbar Decompression with combined posterolateral and transforaminal lumbar interbody fusion at L2-3. Clinical Indications for Spinal Fusion: L2-3 instability The risks, benefits, and anticipated outcomes of the procedure/treatment/test, the alternatives to the procedure/treatment/test and their risks and benefits, and the roles and tasks of the personnel to be involved were discussed with the patient or the patient?s personal freight representative. The patient has elected to schedule surgery at this time or intends to call the office with a surgical date. Shared decision making occurred while obtaining informed consent. 1. Preoperative labs and medical clearance 2. Follow up: For surgery Imaging Ordered: None I reviewed the information obtained and documented by the resident. I examined the patient and evaluated all available films and pertinent documents. We discussed the case and I agree with the plans as outlined in this note. [facility] 04-03-2023 Note HNO ID: [id number] Author: Ermelinda Saldana RT(R) Service: ? Author Type: Technologist Type: Progress Notes Filed: 04/03/2023 12:15 PM Note Text: Radiology Service Progress Note PATIENT NAME: Sumeet Paz DATE OF SERVICE: April 03, 2023 TIME: 12:15 PM PATIENT IDENTITY VERIFICATION COMPLETED USING TWO (2) IDENTIFIERS: Name and Date of confirmed by patient verbally. FALL SCREENING: Has the patient had 2 falls in the last year or 1 fall with injury or currently using an Ambulatory Assistive Device (Walker, Cane, Wheelchair, Crutches, etc.)? No PATIENT GENDER DATA: Male PATIENT RELEVANT IMPLANT DATA REVIEWED: Yes RADIOLOGY DEPARTMENT: MR; Exam(s) Completed: Spine: Lumbar spine PERIPHERAL IV DATA: Not applicable SIGNED BY: RT Sachin(R) April 03, 2023 12:15 PM [facility] 04-03-2023 History of Present illness Narrative Radiology Service Progress Note PATIENT NAME: Sumeet Paz DATE OF SERVICE: April 03, 2023 TIME: 12:15 PM PATIENT IDENTITY VERIFICATION COMPLETED USING TWO (2) IDENTIFIERS: Name and Date of confirmed by patient verbally. FALL SCREENING: Has the patient had 2 falls in the last year or 1 fall with injury or currently using an Ambulatory Assistive Device (Walker, Cane, Wheelchair, Crutches, etc.)? No PATIENT GENDER DATA: Male PATIENT RELEVANT IMPLANT DATA REVIEWED: Yes RADIOLOGY DEPARTMENT: MR; Exam(s) Completed: Spine: Lumbar spine PERIPHERAL IV DATA: Not applicable SIGNED BY: RT Sachin(R) April 03, 2023 12:15 PM documented in this encounter [facility] 02-28-2023 Note HNO ID: [id number] Author: Korina Swan MD Service: ? Author Type: Physician Type: Progress Notes Filed: 02/28/2023 2:45 PM Note Text: Sumeet is now 5 months out from surgery. He still complaining of severe back pain. He is also complaining of a tired or heavy sensation in bilateral lower extremities if he stands or walks. On clinical exam he stands in neutral sagittal and coronal balance. Has a normal neurologic exam. He has a solid arthrodesis L3 to sacrum seen on his previous CT. Given the heavy sensation in his lower extremities I would like to get a new lumbar MRI. I will see him back after this is been done. Korina Swan MD [facility] 02-28-2023 History of Present illness Narrative Sumeet is now 5 months out from surgery. He still complaining of severe back pain. He is also complaining of a tired or heavy sensation in bilateral lower extremities if he stands or walks. On clinical exam he stands in neutral sagittal and coronal balance. Has a normal neurologic exam. He has a solid arthrodesis L3 to sacrum seen on his previous CT. Given the heavy sensation in his lower extremities I would like to get a new lumbar MRI. I will see him back after this is been done. Korina Swan MD SPINE SURGERY FOLLOW UP This is an in-person visit. SERVICE DATE: 02/28/2023 SURGERY DATE: 09/29/22 Sumeet Paz is seen for 6 month post operative follow up. S/P L2-3 bilateral laminotomy, foraminotomy. PAIN EVALUATION 02/28/2023 1254 Pain Level: 5 Pain Location: Back-Lower Description: Sharp Duration Amount of Time: 6 Duration Units: Years Frequency: Continuous Pain Radiation: Pain does not radiate Aggravating Factors: Walking Alleviating Factors: None Pain Ratio: N/A KOURTNEY 01/17/23: Sumeet is now almost 4 months out from surgery. His lower extremity symptoms remain resolved. He is still complaining of significant back pain. He has been doing physical therapy and this has begun to have some improvement. Given that he is starting to improve I would not intervene at this stage. He will continue with his therapy for another 6 weeks. His x-rays today look good with no evidence of new instability or change in alignment. I will see him back in 6 weeks time. If he is not improving at that stage we would repeat his imaging. Today he reports worsening. Walks maybe 50 feet. Takes gabapentin 700mg BID has been on for years; previous back surgeries. Did PT, states no difference. No B/B changes/SA; ? Dropping pills/balance, denies weakness. Does not use assistive devices to ambulate. Does have h/o DM with neuropathy. ANTIPLATELET OR ANTICOAGULATION STATUS: No Patient Entered Questionnaires Spine Questions 01/04/2021 Pain Location: Lower back Pain Duration: More than 5 years Pain over last 6 months: Every day or nearly every day in the past 6 months Symptoms from neck/cervical spine: Yes PROMIS Score Percentiles Physical Health 01/04/2021 Physical Function Percentile 1 Sleep Percentile 38 Fatigue Percentile 12 Pain Interference Percentile 4 PROMIS SOCIAL ROLE SCORE 01/04/2021 Social Role Satisfaction Percentile 16* Percentiles provide an indication of how the patient's score ranks in relation to the general population. Higher percentile rankings indicate better function/quality of life. 50th percentile is the average of the general population and indicates half of respondents had a worse score. Depression Screening: PHQ-9 Self-Harm (Item 9) response options: 0 Not at all 1 Several days 2 More than half the days 3 Nearly every day PHQ-9 Levels: 0-4 No to mild depression 5-9 Mild depression 10-14 Moderate depression 15-19 Moderately severe depression 20-27 Severe depression PHYSICAL EXAM: There were no vitals taken for this visit. GENERAL APPEARANCE: Well nourished, well developed, and no apparent distress. NEURO PSYCH: Patient oriented to person, place, and time. Flat affect. MUSCULOSKELETAL VISUAL INSPECTION CERVICAL: WNL THORACIC: WNL LUMBAR: WNL MOTOR: Hip Flexors Right: 5, Left: 5 Knee Extensors Right 5 and Left 5 Long Toe Extensors Right: 5, Left: 5 Ankle Plantar Flexors Right: 5, Left: 5 SENSORY: Normal sensory exam GAIT: slow, steady, unable to do heel walk REFLEXES: Knee jerk unable to illicit bilaterally, pt cant relax., Ankle jerk Right: 1+, Left: 1+. PROPRIOCEPTION: Not tested. LONG TRACT SIGNS: No clonus L foot, unable to relax R foot. No Hoffmans. 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 He has been doing PT w/o any improvement of LBP. Ordered CT lumbar. 1.Lumbar MRI 2. Follow up: Following above Imaging Ordered: For possible Lumbar Spinal Stenosis due to persistent c/o LBP . I reviewed the information obtained and documented by the nurse practitioner. I examined the patient and evaluated all available films and pertinent documents. We discussed the case and I agree with the plans as outlined in this note. SIGNATURE: Korina Swan MD PATIENT NAME: Sumeet Paz DATE: February 28, 2023 TIME: 1:02 PM PAGER: documented in this encounter [facility] 02-28-2023 Evaluation note Encounter Date Diagnosis Assessment Notes Feb, Obstructive sleep apnea (ICD-10 - G47.33) Download was reviewed with patient. His AHI is 5.3, however he is maxing out his current pressure settings so we will go ahead and increase his pressure settings to max 18 min 10, an order was sent to the [employer] to have these completed. A prescription was also sent to the [employer] for new supplies throughout the year. We will go forward with a download in 1 month to reevaluate ALHAJI, he will call sooner if problems tolerating pressure. He was encouraged to continue to use his machine nightly throughout the entire night as this does provide clinical benefit. He will follow-up in sleep clinic in 1 year or sooner pending results of download. Feb, Excessive daytime sleepiness (ICD-10 - G47.19) Patient is compliant with his PAP machine, but he does nap throughout the day without his machine, in which I encouraged patient to avoid napping but if he does nap, he should wear his machine. However, I also do suspect there are other non-sleep related issues that could be causing his fatigue, including his gabapentin rx and questionable anemia. We will continue to monitor this. If we are able to r/o anemia and he is using his machine every time he sleeps, then we can consider treatment of possible persistent fatigue after contorl of ALHAJI if he is open to this. Feb, Medication side effect (ICD-10 - T88.7XXA) I suspect his 800 mg gabapentin twice daily is adding to daytime fatigue, and other medications could also be contributing Feb, Anemia, unspecified type (ICD-10 - D64.9) The most recent laboratory tests available to me are from February 2022, and they did show anemia. I did encourage him to confirm that this has resolved Feb, Diabetic peripheral neuropathy (ICD-10 - E11.42) He has diabetic peripheral neuropathy with tingling that is quite uncomfortable, both day and night. Gabapentin addresses this effectively. Feb, BMI 38.0-38.9,adul t (ICD-10 - Z68.38) Weight reduction would be broadly beneficial for overall health, but would also have direct benefits on apnea severity and sleep quality. Even moderate weight reduction can affect ALHAJI and snoring, and in some patients weight reduction can completely resolve sleep apnea Feb, Other Call if any questions or problems. Patient is advised to work on healthy diet choices and appropriate servings, weight control, regular exercise as directed, and reduce fat intake. Use machine regularly, and keep up with mask changes as needed. Call if problems with mask toleration, increased sleepiness, or poor response to treatment. . [employer] Other 10-24-2023 NoteHNO ID: [id number] Author: Korina Swan MD Service: ? Author Type: Physician Type: Progress Notes Filed: 02/28/2023 2:45 PM Note Text: SPINE SURGERY FOLLOW UP This is an in-person visit. SERVICE DATE: 02/28/2023 SURGERY DATE: 09/29/22 Sumeet Paz is seen for 6 month post operative follow up. S/P L2-3 bilateral laminotomy, foraminotomy. PAIN EVALUATION 02/28/2023 1254 Pain Level: 5 Pain Location: Back-Lower Description: Sharp Duration Amount of Time: 6 Duration Units: Years Frequency: Continuous Pain Radiation: Pain does not radiate Aggravating Factors: Walking Alleviating Factors: None Pain Ratio: N/A KOURTNEY 01/17/23: Sumeet is now almost 4 months out from surgery. His lower extremity symptoms remain resolved. He is still complaining of significant back pain. He has been doing physical therapy and this has begun to have some improvement. Given that he is starting to improve I would not intervene at this stage. He will continue with his therapy for another 6 weeks. His x-rays today look good with no evidence of new instability or change in alignment. I will see him back in 6 weeks time. If he is not improving at that stage we would repeat his imaging. Today he reports worsening. Walks maybe 50 feet. Takes gabapentin 700mg BID has been on for years; previous back surgeries. Did PT, states no difference. No B/B changes/SA; ? Dropping pills/balance, denies weakness. Does not use assistive devices to ambulate. Does have h/o DM with neuropathy. ANTIPLATELET OR ANTICOAGULATION STATUS: No Patient Entered Questionnaires Spine Questions 01/04/2021 Pain Location: Lower back Pain Duration: More than 5 years Pain over last 6 months: Every day or nearly every day in the past 6 months Symptoms from neck/cervical spine: Yes PROMIS Score Percentiles Physical Health 01/04/2021 Physical Function Percentile 1 Sleep Percentile 38 Fatigue Percentile 12 Pain Interference Percentile 4 PROMIS SOCIAL ROLE SCORE 01/04/2021 Social Role Satisfaction Percentile 16* Percentiles provide an indication of how the patient's score ranks in relation to the general population. Higher percentile rankings indicate better function/quality of life. 50th percentile is the average of the general population and indicates half of respondents had a worse score. Depression Screening: PHQ-9 Self-Harm (Item 9) response options: 0 Not at all 1 Several days 2 More than half the days 3 Nearly every day PHQ-9 Levels: 0-4 No to mild depression 5-9 Mild depression 10-14 Moderate depression 15-19 Moderately severe depression 20-27 Severe depression PHYSICAL EXAM: There were no vitals taken for this visit. GENERAL APPEARANCE: Well nourished, well developed, and no apparent distress. NEURO PSYCH: Patient oriented to person, place, and time. Flat affect. MUSCULOSKELETAL VISUAL INSPECTION CERVICAL: WNL THORACIC: WNL LUMBAR: WNL MOTOR: Hip Flexors Right: 5, Left: 5 Knee Extensors Right 5 and Left 5 Long Toe Extensors Right: 5, Left: 5 Ankle Plantar Flexors Right: 5, Left: 5 SENSORY: Normal sensory exam GAIT: slow, steady, unable to do heel walk REFLEXES: Knee jerk unable to illicit bilaterally, pt cant relax., Ankle jerk Right: 1+, Left: 1+. PROPRIOCEPTION: Not tested. LONG TRACT SIGNS: No clonus L foot, unable to relax R foot. No Hoffmans. 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 He has been doing PT w/o any improvement of LBP. Ordered CT lumbar. 1.Lumbar MRI 2. Follow up: Following above Imaging Ordered: For possible Lumbar Spinal Stenosis due to persistent c/o LBP . I reviewed the information obtained and documented by the nurse practitioner. I examined the patient and evaluated all available films and pertinent documents. We discussed the case and I agree with the plans as outlined in this note. SIGNATURE: Korina Swan MD PATIENT NAME: Sumeet Paz DATE: February 28, 2023 TIME: 1:02 PM PAGER:[facility]09-12-2023 NoteHNO ID: [id number] Author: Korina Swan MD Service: ? Author Type: Physician Type: Progress Notes Filed: 01/17/2023 1:24 PM Note Text: Sumeet is now almost 4 months out from surgery. His lower extremity symptoms remain resolved. He is still complaining of significant back pain. He has been doing physical therapy and this has begun to have some improvement. Given that he is starting to improve I would not intervene at this stage. He will continue with his therapy for another 6 weeks. His x-rays today look good with no evidence of new instability or change in alignment. I will see him back in 6 weeks time. If he is not improving at that stage we would repeat his imaging. Korina Swan [facility]09-12-2023 NoteHNO ID: [id number] Author: Delano Hutchinson RT(Korina) Service: Radiology Author Type: Entry Level Drafter Type: Progress Notes Filed: 01/17/2023 11:05 AM Note Text: Radiology Service Progress Note PATIENT NAME: Sumeet Paz DATE OF SERVICE: January 17, 2023 TIME: 10:57 AM PATIENT IDENTITY VERIFICATION COMPLETED USING TWO (2) IDENTIFIERS: Name and Date of confirmed by patient verbally and Name and Date of confirmed by identification band. FALL SCREENING: Has the patient had 2 falls in the last year or 1 fall with injury or currently using an Ambulatory Assistive Device (Walker, Cane, Wheelchair, Crutches, etc.)? No PATIENT GENDER DATA: Male PATIENT RELEVANT IMPLANT DATA REVIEWED: Not Applicable RADIOLOGY DEPARTMENT: General X-ray: Exam(s) Completed: Spine X-Ray(s): Lumbar AP / LAT / L5-S1 PERIPHERAL IV DATA: Not applicable SIGNED BY: KATHRYN Juan) January 17, 2023 10:57 AMG[facility] [id number] NoteHNO ID: [id number] Author: Korina Swan MD Service: ? Author Type: Physician Type: Progress Notes Filed: 01/17/2023 1:24 PM Note Text: SPINE SURGERY FOLLOW UP This is an in-person visit. SERVICE DATE: 01/17/2023 SURGERY DATE: 09/29/2022 Sumeet Paz is seen for 3 month post operative follow up. States his anterior thigh pain has completely resolved but continues to have low back pain similar to before surgery. Has started PT which he believes has helped somewhat. The pain has been present since prior to surgery . His pain level is currently 3 on a scale of 0-10. The pain is located in the low back and described as sharp and stabbing Pain Radiation: non-radiating. Aggravating Factors: Standing, Walking Alleviating Factors: Sitting Pain Ratio: 100 % back pain, 0 % leg pain. ANTIPLATELET OR ANTICOAGULATION STATUS: No Patient Entered Questionnaires Spine Questions 01/04/2021 Pain Location: Lower back Pain Duration: More than 5 years Pain over last 6 months: Every day or nearly every day in the past 6 months Symptoms from neck/cervical spine: Yes PROMIS Score Percentiles Physical Health 01/04/2021 Physical Function Percentile 1 Sleep Percentile 38 Fatigue Percentile 12 Pain Interference Percentile 4 PROMIS SOCIAL ROLE SCORE 01/04/2021 Social Role Satisfaction Percentile 16* Percentiles provide an indication of how the patient's score ranks in relation to the general population. Higher percentile rankings indicate better function/quality of life. 50th percentile is the average of the general population and indicates half of respondents had a worse score. Depression Screening: PHQ-9 Self-Harm (Item 9) response options: 0 Not at all 1 Several days 2 More than half the days 3 Nearly every day PHQ-9 Levels: 0-4 No to mild depression 5-9 Mild depression 10-14 Moderate depression 15-19 Moderately severe depression 20-27 Severe depression PHYSICAL EXAM: There were no vitals taken for this visit. GENERAL APPEARANCE: Well nourished, well developed, and no apparent distress. NEURO PSYCH: Patient oriented to person, place, and time. Mood pleasant. Benign affect. MUSCULOSKELETAL VISUAL INSPECTION CERVICAL: WNL THORACIC: WNL LUMBAR: WNL MOTOR: 5/5 in all muscle groups. SENSORY: Stocking peripheral neuropathy, otherwise normal sensory exam GAIT: Normal. WOUND ASSESSMENT: Well healed lumbar incision. No erythema, drainage, fluctuance DATA REVIEW [facility] records independently reviewed demonstrating well maintained prior lumbosacral fusion without signs of acute complication ASSESSMENT/PLAN No diagnosis found. Sumeet Paz has being progressing appropriately s/p above procedure with resolution of anterior thigh pain but continued low back pain. 1. Continue PT 2. Follow up: Six weeks, no imaging needed I reviewed the information obtained and documented by the resident. I examined the patient and evaluated all available films and pertinent documents. We discussed the case and I agree with the plans as outlined in this note.[facility] History of Present illness Narrative* Delano Hutchinson RT(R) - 01/17/2023 11:00 AM EDT Radiology Service Progress Note PATIENT NAME: Sumeet Paz DATE OF SERVICE: January 17, 2023 TIME: 10:57 AM PATIENT IDENTITY VERIFICATION COMPLETED USING TWO (2) IDENTIFIERS: Name and Date of confirmedby patient verbally and Name and Date of confirmed by identification band. FALL SCREENING: Has the patient had 2 falls in the last year or 1 fall with injury or currently using an Ambulatory Assistive Device (Walker, Cane, Wheelchair, Crutches, etc.)? No PATIENT GENDER DATA: Male PATIENT RELEVANT IMPLANT DATA REVIEWED: Not Applicable RADIOLOGY DEPARTMENT: General X-ray: Exam(s) Completed: Spine X-Ray(s): Lumbar AP / LAT / L5-S1 PERIPHERAL IV DATA: Not applicable SIGNED BY: RT Drake(Korina) January 17, 2023 10:57 AM [facility] Miscellaneous Notes* Telephone Encounter - Raven Batista Ma - 01/17/2023 8:41 AM EDT Left message for patient to go directly to imaging before checking in for Dr. Swan's appointment. Raven Batista CMA [facility] Miscellaneous Notes* Telephone Encounter - Sybil Molina RN - 01/13/2023 9:54 AM EDT Neuro SPINE CARE COORDINATION QUICK NOTE Noted * Telephone Encounter - Gabby Dexter - 01/13/2023 9:39 AM EDT Received the following record(s) via fax. -PT Notes Date 01/12/23 Record(s) scanned into pt's chart. Gabby Dexter documented [facility]-2023 NoteHNO ID: [id number] Author: Korina Swan MD Service: ? Author Type: Physician Type: Progress Notes Filed: 11/29/2022 9:48 AM Note Text: Sumeet is 2 months out from surgery. He has had some improvement in his back pain. He denies leg pain weakness tingling or numbness. He is a little discouraged that his back pain is not doing better than it is. I reassured him that this is a relatively normal course. We will start him on a course of outpatient physical therapy. I will see him back in 6 weeks time with x-rays. Korina Swan, [facility]07-25-2023 NoteHNO ID: [id number] Author: Korina Swan MD Service: ? Author Type: Physician Type: Progress Notes Filed: 11/29/2022 9:48 AM Note Text: SPINE SURGERY FOLLOW UP This is an in-person visit. SERVICE DATE: 11/29/2022 SURGERY DATE: 09/29/22 Sumeet Paz is seen for 2 month post operative follow up. L2-3 bilateral laminotomy, foraminotomy. States that he is doing ok PAIN EVALUATION 11/29/2022 0925 Pain Level: 8 Pain Location: Hip-Left right shoulder Description: Sharp Duration Units: Hours Frequency: Intermittent Pain Radiation: No radiation Aggravating Factors: Standing, Walking Alleviating Factors: Lying supine Pain Ratio: Pain in the back is greater than in the leg ANTIPLATELET OR ANTICOAGULATION STATUS: No Patient Entered Questionnaires Spine Questions 01/04/2021 Pain Location: Lower back Pain Duration: More than 5 years Pain over last 6 months: Every day or nearly every day in the past 6 months Symptoms from neck/cervical spine: Yes PROMIS Score Percentiles Physical Health 01/04/2021 Physical Function Percentile 1 Sleep Percentile 38 Fatigue Percentile 12 Pain Interference Percentile 4 PROMIS SOCIAL ROLE SCORE 01/04/2021 Social Role Satisfaction Percentile 16* Percentiles provide an indication of how the patient's score ranks in relation to the general population. Higher percentile rankings indicate better function/quality of life. 50th percentile is the average of the general population and indicates half of respondents had a worse score. Depression Screening: PHQ-9 Self-Harm (Item 9) response options: 0 Not at all 1 Several days 2 More than half the days 3 Nearly every day PHQ-9 Levels: 0-4 No to mild depression 5-9 Mild depression 10-14 Moderate depression 15-19 Moderately severe depression 20-27 Severe depression PHYSICAL EXAM: There were no vitals taken for this visit. GENERAL APPEARANCE: Moderately obese. NEURO PSYCH: Patient oriented to person, place, and time. Mood pleasant. Benign affect. MUSCULOSKELETAL VISUAL INSPECTION CERVICAL: WNL THORACIC: WNL LUMBAR: WNL MOTOR: 5/5 in all muscle groups. SENSORY: Normal sensory exam GAIT: Normal. DATA REVIEW No additional images reviewed today ASSESSMENT/PLAN No diagnosis found. Sumeet Paz is progressing since surgery. 1. Consults: Physical Therapy 2. Follow up: Six weeks Imaging Ordered: None I reviewed the information obtained and documented by the resident. I examined the patient and evaluated all available films and pertinent documents. We discussed the case and I agree with the plans as outlined in this note. SIGNATURE: Korina Swan MD PATIENT NAME: Sumeet Paz DATE: November 29, 2022 TIME: 9:33 AM PAGER:[facility]06-01-2023 Evaluation note* Encounter Date Diagnosis Assessment Notes Treatment Notes Treatment Clinical Notes Oct, Obstructive sleep apnea (ICD-10 - G47.33) Fortunately the patient is using and benefiting from treatment. His download shows excellent control, that we may be able to improve things somewhat with a few adjustments. He continues to have daytime sleepiness but it is highly unlikely this is coming from sleep apnea based on his download. He is eligible for a new machine and we will order that, and we will get both machine set to auto mode (minimum 7 maximum 15). This should control breakthrough events on bad nights and may reduce some of his daytime tiredness. Anticipate return for 31 to 90-day visit Oct, Excessive daytime sleepiness (ICD-10 - G47.19) I suspect he has multifactorial excessive daytime sleepiness. He is on 800 mg of gabapentin twice daily, and this agent can increase daytime sleepiness especially at this age. Also, his most recent available blood count was back in February, when he had a postoperative anemia present. It is possible he continues to have anemia. I am less suspicious about persistent fatigue after control of obstructive sleep apnea though that is in the differential Oct, Medication side effect (ICD-10 - T88.7XXA) I suspect his 800 mg gabapentin twice daily is adding to daytime fatigue, and other medications could also be contributing Oct, Anemia, unspecified type (ICD-10 - D64.9) The most recent laboratory tests available to me are from February 2022, and they did show anemia. I did encourage him to confirm that this has resolved Oct, Diabetic peripheral neuropathy (ICD-10 - E11.42) He has diabetic peripheral neuropathy with tingling that is quite uncomfortable, both day and night. Gabapentin addresses this effectively. Oct, BMI 38.0-38.9,adult (ICD-10 - Z68.38) His body weight has apparently increased since the time of his titration study, which may account for the apparent breakthrough apneas. Weight reduction would be broadly beneficial for overall health, but would also have direct benefits on apnea severity and sleep quality. Even moderate weight reduction can affect ALHAJI and snoring, and in some patients weight reduction can completely resolve sleep apnea Oct, Other Call if any questions or problems. Patient is advised to work on healthy diet choices and appropriate servings, weight control, regular exercise as directed, and reduce fat intake. Use machine regularly, and keep up with mask changes as needed. Call if problems with mask toleration, increased sleepiness, or poor response to treatment. . [facility] Other 05-30-2023 Miscellaneous Notes* Telephone Encounter - Sybil Molina RN - 10/04/2022 11:48 AM EDT Neuro SPINE CARE COORDINATION QUICK NOTE DOS 09/29/2022: L2-3 bilateral laminotomy, foraminotomy Spoke with patient who c/o burning pain in hips. Denies weakness,fever, incision draining, bladder/bowel incontinence. Currently taking Percocet 5-325 (one tablet every 4 hours), Robaxin three times a day and Gabapentin 700 mg twice a day. Educated patient on post op medications and expectations post surgery. Encouraged patient to use ice and continue to ambulate. Patient will contact office with any questions, concerns or any symptom changes. * Telephone Encounter - Gabby Dexter - 10/04/2022 11:33 AM EDT Patient called reporting: increasing pain Pain level (Scale of 1 to 10): 8 Location: hip Describe your pain: burning When did the pain begin? Two days after surgery Any new weakness, falling, numbness/tingling of extremities? No Any changes in bowel/bladder control? No Are you taking pain medications or muscle relaxants? Yes If so, what are you taking and current dosage? Oxy, methocarbamol Forwarded to team for review. Gabby Dexter Ph. [phone] documented in this [facility]23 History of Present illness Narrative* Sybil Molina RN - 06/16/2022 12:40 PM EST Neuro SPINE CARE COORDINATION QUICK NOTE Spoke with patient who is aware surgery is cancelled due to A1c=8.3 Patient will follow up with PCP Surgery will be rescheduled to September 29, 2022 Case message sent * Sybil Molina RN - 06/16/2022 9:58 AM EST Neuro SPINE CARE COORDINATION QUICK NOTE Spoke with patient who is aware A1c=8.3 Surgery may need to be rescheduled. Message sent to Pa-C. documented in this encounterKind[facility]02-06-2023 Miscellaneous Notes* Telephone Encounter - Sybil Molina RN - 06/13/2022 9:09 AM EST Neuro SPINE CARE COORDINATION QUICK NOTE Spoke with spouse and education visit will be rescheduled to 06/16/2022 at 10:30 am. * Telephone Encounter - Nicol Plascencia [facility] - 06/13/2022 8:55 AM EST Patient's called - Vandana; she is calling to reschedule educational phone call w/nurse whichwas scheduled for 06/15; states that she is having procedure that day and they will not be available;states they are available every other day this week except for Monday morning; ph. [phone] documented in this encounterKind[facility]02-01-2023 Instructions* Patient Instructions* Meenu Webb APRN.LOVE - 06/08/2022 11:21 AM EST PATIENT PREOPERATIVE INSTRUCTIONS Korina Swan MD has scheduled you for your procedure at this surgery center: [facility]: [phone] --[address] [place] [address]. On your scheduled day of surgery, please report to Patient Registration, ground floor Arrival Time for Surgery: - The Surgery Center or hospital where you are having surgery will call the afternoon before surgery (or Monday for Monday surgery) with a scheduled arrival time. - If you have not heard by 4 pm, please contact the surgery center above. Please be aware that emergency situations arise, which may delay or change your surgical time. If this happens, we will notify you as soon as possible and regret any inconvenience. Please read below carefully for your personalized instructions. Dietary Restrictions: - No solid food after midnight. - You may have 12 ounces of clear liquids (water, clear juices such as apple juice or gatorade, carbonated beverages, clear tea, black coffee, jello) until 2 hours before scheduled arrival at facility. Medications: Unless instructed differently below, stay on all of your medications until your surgery. Approved medications to take the morning of surgery with a sip of water: NONE Do NOT take Lisinopril (Zestril, Prinivil) the night before surgery or the morning of surgery -Use mupirocin nasal ointment twice daily 5 days prior to surgery. DO NOT USE AM OF COVID TESTING - No diabetic medication the morning of surgery. - Take full dose of insulin the day before surgery. If you take any medications for erectile dysfunction-Cialis (Tadalafil), Levitra, Staxyn (Vardenafil) Viagra (Sildenenafil please do not take these for 48 hours before surgery. If you start any new medications after today's visit, please contact the surgeon's office. Blood Thinning Medications: - Stop NSAIDS (Ibuprofen, Advil, Aleve, Motrin, Celebrex, Mobic, etc.) 7 days before surgery, as directed by your surgeon. - Stop Aspirin 7 days before surgery, as directed by your surgeon. - Stop Vitamin E, ALL multi-vitamins, herbals and dietary supplements 7 days before surgery. - You may take Tylenol (Acetaminophen) or any of your pain medications that do not contain aspirin or NSAIDS as needed. Important Reminders: - Candy, mints, and tobacco products are NOT permitted the morning of surgery. - Hearing aids, dentures and glasses may be worn the morning of surgery. - NO jewelry, body piercings, makeup, hairpins or contacts are to be worn the day of surgery. If you develop symptoms such as a fever, cold, or flu, or have other changes to your health within TWO DAYS of scheduled surgery or the morning of surgery, please contact the surgery center above. Personal Belongings: -Please have photo ID and insurance cards. -If you do not have a copy of advance directives on file with us, please bring a copy with you on the day of surgery. - Leave ALL valuables and money at home or with family members. For Outpatient Procedures: - YOU MUST HAVE A RESPONSIBLE PARKING LOT ATTENDANT TAKE YOU HOME. A GEAR REPAIRER OR SAGGER SOAK CANNOT BE MADE A RESPONSIBLE PARKING LOT ATTENDANT. - We recommend that a responsible person stays with you overnight to take care of you. - You cannot stay in a hotel alone after outpatient surgery. You will not be permitted to have yoursurgery, if you do not have someone to take care of you. If you already have an Advance Directive, please fax a copy to [phone] or email to for it to be added to your chart. If you do not have an Advance Directive, you can find the appropriate form and more information at [email or web address]. We recommend that youcomplete the Advance Directive form found on the website and bring it with you the day of your surgery. It can be witnessed and scanned into your chart that day. Meenu Webb APRN.CNP documented in this encounterKind[facility]02-01-2023 History and physical note * Meenu Webb APRN.CNP - 06/08/2022 11:15 AM EST Images from the original note were not included. HISTORY AND PHYSICAL EXAMINATION SERVICE DATE: 06/08/2022 SERVICE TIME: 11:15 AM PRIMARY CARE PHYSICIAN: Car Browning DO REASON FOR VISIT: Sumeet Paz is a 77 year old male who is scheduled for DECOMPRESSION LAMINECTOMY LUMBAR POSTERIOR LEVEL 1 - Bilateral at the request of Dr. Korina Swan for consultation. My final recommendation will be communicated back to the requesting physician by way of shared medical record or letter. The patient has the following: ACTIVE PROBLEM LIST Other Specified Disorders of Rotator Cuff Syndrome of Shoulder and Allied Disorders Spinal Stenosis, Lumbar Region, Without Neurogenic Claudication Type 2 Diabetes Mellitus With Diabetic Polyneuropathy ([facility]) Stage 3a Chronic Kidney Disease (Hcc) Pharyngeal Stenosis Personal History of Malignant Neoplasm of Prostate Obstructive Sleep Apnea Obstructive Sleep Apnea Syndrome Major Depressive Disorder, Single Episode, Unspecified Hypothyroidism Hyperlipidemia Essential Hypertension Erectile Dysfunction of Organic Origin Enuresis Dyspnea On Exertion Diabetic Neuropathy (Hcc) Alcohol Abuse Arteriosclerosis of Coronary Artery Personal History of Nicotine Dependence Snf (Current) Use of Insulin ([facility]) Class 3 Severe Obesity Due to Excess Calories With Serious Comorbidity and Body Mass Index (Bmi) of40.0 to 44.9 in Adult (Hcc) History of Cardioembolic Cerebrovascular Accident (Cva) Subjective CHIEF COMPLAINT: PACC HPI: This is a 77 year old male presents with chronic low back pain. He is S/P several neck and back surgeries with fusion and hardware placement. Patient is currently in a wheelchair secondary to back pain and BLE numbness and tingling. Patient reports that the pain that has been getting progressively worse. The patient states the pain is interfering with daily activities and sleep. Conservativemeasures have been ineffective. Patient has opted to proceed with above reccommended surgery and ishere today for preanesthesia consultation. PAST MEDICAL HISTORY Diagnosis Date Essential hypertension, benign Pure hypercholesterolemia Type II or unspecified type diabetes mellitus without mention of complication, not stated as uncontrolled PAST SURGICAL HISTORY Procedure Laterality Date ANESTH OPEN/SURG ARTHRS TOTAL KNEE ARTHROPLASTY 4 surgeries of left knee ARTHRD ANT NTRBD MIN DSC EA ADDL INTERSPACE PAST SURGICAL HISTORY OF Back surgery PAST SURGICAL HISTORY OF Prostate surgery PAST SURGICAL HISTORY OF Neck surgery TOTAL HIP REPLACEMENT FAMILY HISTORY Problem Relation Age of Onset Anesthesia Problems No Family History SOCIAL HISTORY: Social History Tobacco Use Smoking status: Never Smokeless tobacco: Never Substance Use Topics Alcohol use: Yes Comment: 4-5 beers daily MEDICATIONS: Prior to Admission medications as of 06/08/22 1126 Medication Sig Last Dose Taking lisinopril (ZESTRIL, PRINIVIL) 20 mg tablet Take by mouth q 12 HR. Yes semaglutide (OZEMPIC SUBCUTANEOUS) Inject subcutaneously. Once a week Yes insulin glargine (LANTUS) 100 unit/mL injection Inject 45 Units subcutaneously twice daily. Yes liraglutide (VICTOZA) 0.6 mg/ 0.1 ml subcutaneous pen injector Inject 1.8 mg subcutaneously once daily. Yes GABAPENTIN ORAL Take by mouth. Take seven tablets twice a day Yes LIPITOR 10MG TABLET Take 20 mg by mouth. Patient taking differently: Take 20 mg by mouth. Yes mupirocin (BACTROBAN) 2 % ointment twice daily for 5 days. Apply 0.5 inch with cotton swab (Q-tip) to each nostril in the morning and evening for 5 days prior to and including day of surgery. No medication comments found. CURRENT ALLERGIES: ALLERGIES No Known Allergies Covid Immunization Dates Overdue - COVID-19 VACCINE (5 - Booster) Overdue since 05/07/2021 03/12/2021 Imm Admin: COVID-19 vaccine, age 12+ yr ([employer] - PURPLE TOP) 02/07/2021 Outside Immunization: [employer] COVID-19 Vacc 30 MCG/0.3ML Intramuscular Suspension 07/25/2020 Outside Immunization: COVID-19 ([employer]), MRNA, LNP-S, PF, 30 MCG/0.3 ML DOSE 07/04/2020 Outside Immunization: COVID-19 ([employer]), MRNA, LNP-S, PF, 30 MCG/0.3 ML DOSE REVIEW OF SYSTEMS: PAIN ASSESSMENT: Pain Pain Level: 0 General: No weight loss, malaise or fevers. Neuro: Negative for Headaches Seizures Tumor involving ARMORED TRUCK DRIVER Parkinson's Disease Multiple Sclerosis + H/O CVA Respiratory: No history of current cough or dyspnea, or pneumonia in the past 6 weeks. No history of respiratory/pulmonary symptoms or problems. + ALHAJI + HURST Cardiovascular: Negative for Recent MO, Angina, Arrhythmia, Chest Pain, CHF, PVD, Valvular Heart Disease, DVT/PE + HTN + HLD + CAD GI: No history of GI symptoms or problems. No history of esophageal varices, recent ascites, or ETOH greater than 2 drinks per day. : No difficulty urinating, nocturia > 1 time per night or hematuria + CKD stage 3 Endocrine: Diabetes Mellitus on insulin, Diabetes Mellitus on oral agent, Diabetic Neuropathy Hematology: No history of bleeding or clotting disorder. Pt is not taking anti- coagulation or platelet medications. No history of hematological symptoms or problems. Oncology: + H/O prostate cancer Psych: No history of psychiatric symptoms or problems. Musculoskeletal: See HPI Skin: Negative for lesions, rash and itching. Objective PHYSICAL EXAM: VITALS: BP 117/58 Pulse 85 Temp (Src) 97 (Temporal Artery) Resp 16 Ht 5' 8 (1.73m) Wt 262 lb (118.8kg) SpO2 100% BMI 39.85 kg/(m^2). General: Alert and oriented, No acute distress Skin: Normal color, no rash, no lesions. HEENT: EOM, pupils equal, round and reactive. Cardiovascular: Normal S1 & S2, no rubs, murmurs or gallops. No JVD. Pulse regular. Lungs: Normal breath sounds, no wheezes or crackles. Abdomen: Soft, non-tender, no rigidity. Extremities: No deformity, no edema or tenderness, no joint swelling or clubbing. Neurological: Limb weakness, left UE Limb weakness, right UE Limb weakness, left LE Limb weakness, right LE Pulses: Carotid and radial pulses normal +2. Diagnostic tests reviewed for today's visit: Lab Value Units Date High Low HB No results within date range. HCT No results within date range. WBC No results within date range. PLT No results within date range. NA No results within date range. K No results within date range. GLUC No results within date range. BUN No results within date range. CREAT No results within date range. PTSEC No results within date range. INR No results within date range. APTT No results within date range. ALT No results within date range. AST No results within date range. TBILI No results within date range. TSH No results within date range. No results found for: HBA1C Most recent EKG No results found for this or any previous visit (from the past 8760 hour(s)). Most recent stress test 02/10/2022 STRESS TEST RESULTS: Resting electrocardiogram revealed normal sinus rhythm. There were no significant ischemic ECG changes or dysrhythmias. The patient did not have chest pains/symptoms during procedure. There was a normal recovery phase. IMAGING RESULTS: Image quality was good. Rest and stress tomographic images were reviewed and revealed normal perfusion without evidence of ischemia, myocardial infarction, or left ventricular dilatation with stress. Overall left ventricular systolic function appeared to be normal without regional wall motion abnormalities. Ejection fraction was 65%. TID is 1.03 and is normal. There were no evidence of attenuation artifact. IMPRESSION: Normal Lexiscan Myoview cardiac perfusion stress test. No evidence of ischemia or myocardial infarction by perfusion imaging. Normal left ventricular systolic function, ejection fraction 65%. No change when compared to prior study 6. Electronically signed by: NOEMI YIN MD Assessment/Plan Arteriosclerosis of coronary artery Assessment: Stable. Heart cath 2010 (-), Stress test 02/26 (-), Cardiac office visit for presurgical clearance 02/19/2022 with Naz Kang MD [facility] Cardiology prior to J[facility] at [facility]. Per office note: In view of his very poor activity level, it is safe to proceed with Lexiscan Myoview, ifstudy is normal, patient can proceed with hip surgery as planned (Hip surgery) Essential hypertension Assessment: Stable on RX medication. Follows with PCP. BP today 135/71 Hyperlipidemia Assessment: Controlled with statin. Monitored per PCP. Type 2 diabetes mellitus with diabetic polyneuropathy ([facility]) Assessment: Stable on oral RX and insulin. Morning BS running 150's per patient Obstructive sleep apnea syndrome Assessment: Compliant with CPAP Stage 3a chronic kidney disease (HCC) Assessment: Stable at baseline, follows with PCP. 01/2022: Labs in CE CREAT 1.53 GFR 45 Personal history of malignant neoplasm of prostate Assessment: Stable. S/P surgical resection Class 3 severe obesity due to excess calories with serious comorbidity and body mass index (BMI) of40.0 to 44.9 in adult ([facility]) Assessment: Body mass index is 39.84 kg/m . History of cardioembolic cerebrovascular accident (CVA) Assessment: Incidental finding of remote infarct on CT. No known deficits. HURST (dyspnea on exertion) Assessment: R/T deconditioning and pain. METS: Walk indoors, such as around the house (1.75 METs) Take care of self; that is eating, dressing, bathing, using the toilet (2.75 METs) Partially dependent ASA Class: 3 ANESTHESIA FINDINGS: Intubation History: No history of difficult intubation Significant Anesthesia Considerations: None Airway Exam: General: Normal appearance Body mass index is 39.84 kg/m . Mallampati Score is CLASS II ULBT: Class II - Lower incisors can bite the upper lip below the radha line Neck: Normal appearance and function, Distance from hyoid to mentum during neck extension is at least 3 finger breaths, Short neck Mouth: Large tongue size and Mouth opening greater than 2 finger breaths Dentition: Intact and Bridge Airway History: No abnormal airway history STOP BANG Score: ALHAJI uses CPAP/BiPAP PLAN This patient is optimally prepared for surgery pending LABS and EKG. CONSULTS: Patient does not require consults for optimization at this time. The Following Tests/Procedures Have Been Initiated: Orders Placed This Encounter CBC with Differential Standing Status: Future Standing Expiration Date: 08/08/2022 CMP Standing Status: Future Standing Expiration Date: 08/08/2022 FERRITIN BLD Standing Status: Future Standing Expiration Date: 08/08/2022 HGB A1C Standing Status: Future Standing Expiration Date: 08/08/2022 IRON + TIBC Standing Status: Future Standing Expiration Date: 08/08/2022 PT/INR Standing Status: Future Standing Expiration Date: 08/08/2022 PTT Standing Status: Future Standing Expiration Date: 08/08/2022 Urinalysis with Microscopic Standing Status: Future Standing Expiration Date: 08/08/2022 Confirm Blood Type Standing Status: Future Standing Expiration Date: 08/08/2022 Order Specific Question: Did Blood Bank direct you to place this order: Answer: No - Presurgical Workflow Type and Screen, 30 day Standing Status: Future Standing Expiration Date: 08/08/2022 Urine Culture Standing Status: Future Standing Expiration Date: 08/08/2022 Order Specific Question: Source Answer: URINE-MIDSTREAM CLEAN CATCH lisinopril (ZESTRIL, PRINIVIL) 20 mg tablet Sig: Take by mouth q 12 HR. mupirocin (BACTROBAN) 2 % ointment Sig: twice daily for 5 days. Apply 0.5 inch with cotton swab (Q-tip) to each nostril in the morningand evening for 5 days prior to and including day of surgery. Dispense: 22 g Refill: 0 ECG COMPLETE Standing Status: Future Standing Expiration Date: 06/08/2023 Planned Anesthetic: General and Per anesthesia choice Instructions Given to Patient: Instructions located in the after visit summary. Patient given verbal and written preop instructions and voices comprehension and compliance. SIGNATURE: Meenu Webb APRN.CNP PATIENT NAME: Sumeet Paz DATE: June 08, 2022 TIME: 11:38 AM documented in this encounterKind[facility]01-[facility]23 Hospital Discharge instructions Additional Instructions Take Metamucil daily as prescribed. Drink at least 1 and 1/2 L of water a day. You can take the docusate as prescribed for additional constipation not relieved with these measures. If you are still constipated take the MiraLAX as prescribed. Follow-up with PCP for any persistent symptoms within 5 to 7 days.[facility] Work Phone: [phone]) 608-353110-24-2022 History and physical note Author Pa Holloway [facility] February 28, 2022 4:47pm Note Date/Time February 19, 2022 1 :13pm [facility] [address] [place] [address] Physiatry (Rehab) H&P Signed Patient: Sumeet Paz MR#: [id number] : 1945 Acct:[id number] Age/Sex: 76 / M Adm Date: 2 Loc: Room: [address] [place] [address] Type: ADM IN Attending Dr: Pa Holloway MD Copies to: Fany Roper DO SAVANNA Young MD~ <Marysol Cedeño APRN - Last Filed: 02/19/22 13:39> Date of Service: 02/19/2022 HPI <Marysol Cedeño APRN - Last Filed: 02/19/22 13:39> The patient was seen and examined on: 02/19/22 History of Present Illness: Mr. Paz is a 76 year old male presenting to acute inpatient rehab for strengthening s/p elective right total hip replacement. PMH is significant for insulin-dependent diabetes type 2, hypertension, hyperlipidemia, CKD stage III, prostate CA, and osteoarthritis. Patient notes debilitating right hip pain and severely compromised range of motion due to DJD for some time now. He failed conservative treatment and afterdiscussing this with Dr. Newsome opted for total right hip arthroplasty. He underwent the above procedure on 02/16/2022 without major complication. He did develop postoperative anemia, hemoglobin decreased to 9.7 from 13.5 preoperatively. He remains asymptomatic with stable vital signs currently. On rehab admission patient is doing reasonably well. Rates right hip pain 4- 5/10, slightly worse with activity. Right hip incision without drainage, erythema, induration. Denies shortness of breath, dyspnea, chest pain, palpitations. Lung sounds are clear to auscultation, regular heart rate and rhythm. Patient reports no BM since the day of surgery. Abdomen is soft and nondistended with active bowel sounds throughout. He denies abdominal pain, nausea or vomiting. Reports no urinary issues. Premorbidly patient lived with his and was independent with ADLs. He used awalker to ambulate and was driving. PMFSH <Marysol Cedeño APRN - Last Filed: 02/19/22 13:39> Vaccinated for COVID-19?: Unknown Medical History (Updated 02/20/22 @ 10:36 by MARISOL rIeland) Chronic kidney disease, stage III (moderate) Diabetes Hyperlipidemia Hypertension Morbid obesity with BMI of 40.0-44.9, adult ALHAJI on CPAP Postoperative anemia due to acute blood loss Prostate CA Surgical History History of back surgery x2 History of knee replacement procedure of right knee History of left hip replacement History of neck surgery History of prostatectomy Family History Father CVA (cerebral vascular accident) Sister Myocardial infarct Social History Smoking Status: Former smoker Tobacco Type: cigarettes Substance Use Type: Alcohol 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 Review of Systems <Marysol Cedeño APRN - Last Filed: 02/19/22 13:39> Constitutional Constitutional: Reports system reviewed and no additional complaints, except as documented Eyes Eyes: Reports system reviewed and no additional complaints, except as documented ENT Ears, Nose, Mouth, and Throat: Reports system reviewed and no additional complaints, except as documented Cardiovascular Cardiovascular: Reports system reviewed and no additional complaints, except as documented Respiratory Respiratory: Reports system reviewed and no additional complaints, except as documented Gastrointestinal Gastrointestinal: Reports system reviewed and no additional complaints, except as documented Genitourinary Genitourinary: Reports system reviewed and no additional complaints, except as documented Musculoskeletal Musculoskeletal: Reports abnormal gait, Reports limited range of motion and Reports muscle weakness Integumentary/Breasts Skin/Breast: Reports system reviewed and no additional complaints, except as documented Neurologic Neurologic: Reports system reviewed and no additional complaints, except as documented Psychiatric Psychiatric: Reports system reviewed and no additional complaints, except as documented Endocrine Endocrine: Reports system reviewed and no additional complaints, except as documented Hematologic/Lymphatic Hematologic/Lymphatic: Reports system reviewed and no additional complaints, except as documented Allergic/Immunologic Allergic/Immunologic: Reports system reviewed and no additional complaints, except as documented Meds <Marysol Cedeño APRN - Last Filed: 02/19/22 13:39> Medications and Allergies Allergies No Known Allergies Allergy (Verified 02/01/22 16:06) Home and Active Meds: Home Medications atorvastatin 10 mg tablet 20 mg PO DAILY 03/10/17 [History Confirmed 02/19/22] lisinopril 20 mg tablet 20 mg PO DAILY 03/10/17 [History Confirmed 02/19/22] insulin glargine 100 unit/mL (3 mL) subcutaneous pen (Lantus Solostar U-100 Insulin) 30 unit subcut BID 03/18/18 [History Confirmed 02/19/22] liraglutide 0.6 mg/0.1 mL (18 mg/3 mL) subcutaneous pen injector (Victoza 2- Roberto)1 mg subcut QWEEK 02/01/22 [History Confirmed 02/19/22] Exam <Marysol Cedeño APRN - Last Filed: 02/19/22 13:39> Physical Exam Vital Signs: Temp Pulse Resp BP Pulse Ox O2 Del Method 97.2 F L 92 H 16 123/74 98 Room Air 02/19/22 13:01 02/19/22 13:01 02/19/22 13:01 02/19/22 13:01 02/19/22 13:01 02/19/22 13:01 Narrative: General: cooperative, comfortable HENMT Head: normal to inspection Eyes General: appearance normal, both eyes and all related structures Neck Neck: normal visual inspection, no lymphadenopathy Resp Effort & Inspection: normal respiratory effort Auscultation: clear to auscultation bilaterally Cardio Rate: regular rate, tachycardic Rhythm: regular rhythm Heart Sounds: S1 normal, S2 normal GI Inspection: normal to inspection Auscultation: normal bowel sounds Neuro Cranial Nerves: CN's II-XI intact bilaterally Cognition: normal cognition Speech: speech normal Motor: strength 5/5 throughout Sensory Exam: no sensory deficits noted Plantar Reflexes: Downgoing Deep Tendon Reflexes DTR Comments: 1+ and symmetric Extrem General: Right hip incision, covered with dry sterile dressing. No drainage, erythema induration to the site. Psych Mood: normal affect Affect: normal affect Endurance fair Results <Marysol Cedeño APRN - Last Filed: 02/19/22 13:39> Additional Results Results Comment: I reviewed clinical lab tests, radiology reports and obtained and summated medical records and have ordered follow up lab tests and imaging studies as needed for rehabilitation care. Functional Status <Marysol Cedeño APRN - Last Filed: 02/19/22 13:39> Prior Level of Function Narrative: Previously independent Current Level of Function Narrative: Ambulates 40 feet with min assist using wheeled walker, contact-guard to mod assist for transfers and bed mobility. <Pa Holloway MD - Last Filed: 02/28/22 16:47> Individualized Plan of Care Plan of Care: Individualized Overall Plan of Care: Admit Date/Time: February 19, 2022 Expected LOS: 14 days Expected Discharge Destination: Home Rehabilitation [facility]: . Primary Diagnosis: Right total hip arthroplasty, morbid obesity Patient?s/Family?s anticipated outcomes/personal goals: To have patient become more independent and to return home. Medical/ Functional Prognosis: Good Anticipated Functional Outcomes/Goals and Interventions: -Therapy Functional Outcome/Goal: Mobility/Locomotion: Patient likely to be modified independent with ambulation with assistive device. Anticipated interventions: Physician management, PT, Nutrition, Rehab Nursing - Therapy Functional Outcome/Goal: Self Care: Patient likely to be functionally modified independent for activities of daily living using assistive / adaptive equipment as needed. Anticipated interventions: Physician management, PT, OT, Nutrition, Rehab Nursing - Therapy Functional Outcome/Goal: Bladder/Bowel Management: Patient likely to be modified independent with bladder care and independent with bowel care. Anticipated interventions: Physician management, PT, OT, Nutrition, Rehab Nursing -Therapy Functional Outcome/Goal: Communication/Cognition: Patient will be able to communicate fully and be safe cognitively. Anticipated interventions: Physician management, PT, OT, Nutrition, Rehab Nursing -Therapy Functional Outcome/Goal: Patient will have adequate pain control less than 4/10 and understand how to take pain medications to achieve pain control. Anticipated interventions: Physician management, PT, OT, Nutrition, Rehab Nursing -Therapy Functional Outcome/Goal: Patient will improve endurance to be able to tolerate all daily self care activities and avocational activities. Anticipated interventions: Physician management, PT, OT, Nutrition, Rehab Nursing -Therapy Functional Outcome/Goal: Patient will understand and assimilate / integrate education regarding management of their medical conditions to maintainhealth and wellbeing. Anticipated interventions: Physician management, PT, OT, Nutrition, Rehab Nursing Required Therapy PT: 1.5 hour per day at least 5 days per week with additional therapy on as needed basis. Comments: PT to improve pt's strength, endurance, bed mobility, transfers (sit-stand), standing balance, gait quality on level surfaces and stairs, coordination and functional ADL skills. Will also work to improve pt's safety awareness during transfers and ambulation. OT: 1.5 hour per day at least 5 days per week with additional therapy on as needed basis. Comments: OT for basic ADL re-training (bathing, dressing, toileting, continence, grooming, feeding, transferring), to increase activity tolerance andfunctional mobility and to evaluate for adaptive and assistive devices. Will work to improve pt's endurance and educate pt on fall prevention and energy conservation techniques-pacing strategies and proper breathing techniques duringfunctional tasks. Other: Nutrition, Rehab nursing, Wound, P&O RATIONALE FOR IRF ADMISSION: Patient has both medical and functional complexities that require 24 hour daily monitoring and intervention from Commissioned Fire Officer as well as other consulting physicians including internal medicine as well as 24 hour daily scene painter nursing - for medical safe / optimal management. Patient requires interdisciplinary therapy team rehabilitation care including OT, PT, SW, Psychology, Rehab Nursing, requires and can tolerate at least 3 hours of daily OT and PT therapy at least 5 days weekly. The following medical conditions significantly impact the rehabilitation process and are beingaddressed daily and can not be managed at home or in a lesser intense medical setting: Refer to above problem oriented plan of care Assessment/Plan <Marysol Cedeño, KNURLING MACHINE OPERATOR - Last Filed: 02/19/22 13:39> (1) Morbid obesity with BMI of 40.0-44.9, adult: Code(s): E66.01 - Morbid (severe) obesity due to excess calories; Z68.41 - Body mass index [BMI] 40.0-44.9, adult Status: Acute (2) Chronic kidney disease, stage III (moderate): Code(s): N18.30 - Chronic kidney disease, stage 3 unspecified Status: Acute (3) Essential hypertension: Code(s): I10 - Essential (primary) hypertension Status: Acute (4) History of total right hip replacement: Code(s): Z96.641 - Presence of right artificial hip joint Status: Acute (5) Type 2 diabetes mellitus with insulin therapy: Code(s): E11.9 - Type 2 diabetes mellitus without complications; Z79.4 - longterm (current) use of insulin Status: Acute (6) Postoperative anemia due to acute blood loss: Code(s): D62 - Acute posthemorrhagic anemia Status: Acute (7) Impaired mobility and activities of daily living: Code(s): Z74.09 - Other reduced mobility; Z78.9 - Other specified health status Status: Acute Plan 76-year-old male admitted to acute inpatient rehab for strengthening status post total right hip arthroplasty. * Continue DVT prophylaxis with aspirin 81 mg twice daily Ortho recommendations. * Will schedule acetaminophen 1 g 3 times daily in addition to prn oxycodone 5 mg. * MiraLAX x1 today for complaints of constipation, last BM 3 to 4 days ago. No complaints of abdominal pain, nausea, vomiting. * Noted to be mildly tachycardic in low 110s with stable blood pressure. Continue to monitor. Patient was encouraged to increase his p.o. fluid intake. Patient education Pressure ulcer prophylaxis; encourage mobilization, frequent postural changes, pressure-relief techniques DVT prophylaxis: Continue ASA 81 mg twice daily Encourage deep breathing exercise incentive spirometry. Monitor bladder. Toileting schedule. Continue current bladder management, with scans as needed and CIC if needed. Start bowel care program every day to obtain continence, prevent ileus. Maintain fall precautions Gait and balance retraining Functional training and self-care and home management, including activities of daily living and instrumental activities of daily living Provision of the necessary gait aids and functional adaptive equipment to enhance the patient's a functional voodoo Ensure adequate nutrition and hydration Sleep: Reports no issues Pain: Acetaminophen + oxycodone Discharge planning: Home with in 7 to 10 days. I spent greater than 35 minutes for services, including [id number] encounter with the patient, discussion of the case, plan of care, and exam; and [id number] activities, such as reviewing pertinent product development consultant documentation, recent therapy notes, laboratory and radiology studies, and discussion of case with care team including physician, nursing, caseworker protective services, and therapists. More than 50 % of time was spent on patient/family counseling or coordination of care. <Pa Holloway MD - Last Filed: 02/28/22 16:47> (1) Morbid obesity with BMI of 40.0-44.9, adult: (2) Chronic kidney disease, stage III (moderate): (3) Essential hypertension: (4) History of total right hip replacement: (5) Type 2 diabetes mellitus with insulin therapy: (6) Postoperative anemia due to acute blood loss: (7) Impaired mobility and activities of daily living: Plan: I completed a substantive portion of this encounter, the medical decision making portion of this note in its entirety, including Allied health note review, nursing note review, product development consultant note review, discussion with nursing and case management, and more than 50% of my time was spent on counseling and coordination of care, time spent 50 minutes Patient was personally seen by me, Dr. Holloway, on the day of encounter, reviewed the history and the relevant portions of the chart, including current orders, allied health and product development consultant notes, labs/imaging and performed abebe elements of exam and I formulated the plan of care and facilitated the medical decision making. Documented By: Marysol Cedeño APRN 02/19/22 1 303 Signed By: <Electronically signed by SAVANNA Cedeño> 02/19/22 1339 <Electronically signed by Pa Holloway MD> 02/28/22 1644 [facility] Work Phone: 1(663) 184-157310-23-2022 Progress note Author Giuliano Rousseau [facility] February 27, 2022 4:39pm Note Date/Time February 27, 2022 4 :04pm [facility] [address] [place] [address] Hospitalist Progress Note Signed Patient: Sumeet Paz MR#: [id number] : 1945 Acct:[id number] Age/Sex: 76 / M Adm Date: 2 Loc: Room: [address] [place] [address] Type: ADM IN Attending Dr: Pa Holloway MD Copies to: ~ Date of Service: 02/27/2022 Subjective Subjective Narrative: Patient seen and examined at bedside on follow-up. Out of bed sitting in chair resting comfortably. Denies any pain or discomfort. No new concerns at this time. Blood sugars, blood pressure, labs reviewed. No new concerns at this time. Exam Physical Exam Vital Signs: Temp Pulse Resp BP Pulse Ox O2 Del Method 98.3 F 79 18 121/75 98 Room Air 02/27/22 14:40 02/27/22 14:40 02/27/22 14:40 02/27/22 14:40 02/27/22 14:40 02/27/22 14:40 Narrative: CONST- Appears well -developed and well nourished No acute distress. HEAD - Normocephalic and atraumatic EENT-Sclera nonicteric and conjunctive are nonerythemic, moist oral mucosa, pharynx clear NECK-Supple, no cervical lymphadenopathy CARDIAC-normal rate, regular rhythm, normal S1 & S2. PULM-diminished without wheeze or rhonchi, RA, no accessory muscle use or cough noted ABD - Soft. Bowel sounds are normal. No distention No tenderness Objective Lab Results CBC & Chem 7: 02/20/22 05:17 02/20/22 07:38 Meds Allergies and Active Meds Allergies No Known Allergies Allergy (Verified 02/01/22 16:06) Active Meds: Active Medications Generic Name Dose Route Start Last Admin Trade Name Freq PRN Reason Stop Dose Admin Acetaminophen 1,000 mg 02/19/22 14:00 02/27/22 15:33 Acetaminophen 500 Mg Tablet PO 02/19/23 13:59 Not Given TID KAMILA Al Hydrox/Mg Hydrox/Simethicone 30 ml 02/19/22 12:49 Mag Hydrox/Al Hydrox/Simeth 30 Ml Udc PO 02/19/23 12:48 Q4H PRN Indigestion Aspirin 81 mg 02/19/22 21:00 02/23/22 08:09 Aspirin 81 Mg Tablet.Dr PO 03/21/22 20:59 81 mg BID KAMILA Administration Atorvastatin Calcium 20 mg 02/20/22 09:00 02/27/22 09:05 Atorvastatin 20 Mg Tablet PO 02/20/23 08:59 20 mg DAILY KAMILA Administration Bisacodyl 10 mg 02/19/22 12:49 Bisacodyl 10 Mg Supp.Rect NH 02/19/23 12:48 DAILY PRN Constipation Docusate Sodium 100 mg 02/19/22 12:49 02/25/22 20:48 Docusate 100 Mg Capsule PO 02/19/23 12:48 100 mg BID PRN Administration Constipation Docusate Sodium 283 mg 02/19/22 12:49 Docusate Enema 283 Mg/5 Ml Enema NH 02/19/23 12:48 DAILY PRN Constipation Enoxaparin Sodium 40 mg 02/23/22 10:20 02/27/22 09:06 Enoxaparin 40 Mg/0.4 Ml Syringe SUBCUT 02/23/23 10:19 40 mg DAILY@1000 KAMILA Administration Insulin Aspart 0 units 02/20/22 11:30 02/27/22 12:19 Insulin Aspart 300 Units/3 Ml Insuln.Pen SUBCUT 02/20/23 11:29 2 units ACHS KAMILA Administration Protocol Insulin Glargine 34 units 02/20/22 21:00 02/27/22 09:06 Insulin Glargine 300 Units/3 Ml Insuln.Pen SUBCUT 02/20/23 20:59 34 units BID KAMILA Administration Lactulose 30 gm 02/19/22 12:49 02/25/22 20:48 Lactulose 20 Gm/30 Ml Udc PO 02/19/23 12:48 30 gm DAILY PRN Administration Constipation Lisinopril 10 mg 02/21/22 09:00 02/27/22 09:05 Lisinopril 10 Mg Tablet PO 02/21/23 08:59 10 mg DAILY KAMILA Administration Patient's Own Med: 1 mg 02/20/22 17:00 02/20/22 16:13 Ozempic 1 Mg SUBCUT 02/20/23 16:59 1 mg Escobar@0900 KAMILA Administration Oxycodone HCl 5 mg 02/19/22 13:21 02/27/22 00:26 Oxycodone Ir 5 Mg Tablet PO 5 mg Q4HR PRN Administration Pain Oxycodone HCl 10 mg 02/21/22 12:31 02/26/22 01:03 Oxycodone Ir 5 Mg Tablet PO 10 mg Q4HR PRN Administration Pain Scale 8 - 10 Sennosides 2 tab 02/19/22 13:30 02/27/22 12:18 Sennosides 8.6 Mg Tablet PO 02/19/23 13:29 2 tab DAILY@1200 [facility] Administration A&P - Hospitalist Assessment/Plan (1) Postoperative anemia due to acute blood loss: (2) History of total right hip replacement: (3) Type 2 diabetes mellitus with insulin therapy: (4) Essential hypertension: (5) Chronic kidney disease, stage III (moderate): Plan S/p Right hip replacement Postoperative anemia/Macrocytic anemia -Further POC per PMR team for rehabilitative therapy, pain control bowel regimen, DVT PPx, surgical wound care -Please refer any questions/concerns to orthopedic team as indicated. This may include but not limited to pain management, pharmacological DVT prophylaxis, wound care, wound to bleed, wound infection, wound dehiscence, ambulation instructions and outpatient follow-up -Preop hemoglobin 13.9, 9.8 on 02/20 ?We will check B12 and folate levels, and supplement -Supplement with protein calorie malnutrition Chronic conditions 1. 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 Blood sugar stable 2. Hypertension, hyperlipidemia-ASA, atorvastatin, lisinopril- dosing reduced and hold parameters in place with BP review. Blood pressure stable 3. CKD 3-Baseline creatinine appears to be around 1.5-1.6, creatinine 1.48 on 02/20. Continue to monitor 4. ALHAJI on CPAP from home Documented By: Viji Grover APRN 02/27/22 1601 Signed By: <Electronically signed by SAVANNA Grover> 02/27/22 1614 <Electronically signed by Giuliano Rousseau MD> 02/27/22 1638 [facility] Work Phone: 1(196) 987-209210-20-2022 Progress note Author Sander Murphy [facility] February 24, 2022 10:10am Note Date/Time February 24, 2022 1 0:10am [facility] [address] [place] [address] Physiatry(Rehab) Progress Note Signed Patient: Sumeet Paz MR#: [id number] : 1945 Acct:[id number] Age/Sex: 76 / M Adm Date: 2 Loc: Room: [address] [place] [address] Type: ADM IN Attending Dr: Pa Holloway MD Copies to: ~ Date of Service: 02/24/2022 Subjective Subjective Narrative: Recall: Mr. Paz is a 76 year old male presenting to acute inpatient rehabfor strengthening s/p elective right total hip replacement. PMH is significant for insulin-dependent diabetes type 2, hypertension, hyperlipidemia, CKD stage III, prostate CA, and osteoarthritis. Patient notes debilitating right hip pain and severely compromised range of motion due to DJD for some time now. He failed conservative treatment and afterdiscussing this with Dr. Newsome opted for total right hip arthroplasty. He underwent the above procedure on 02/16/2022 without major complication. He did develop postoperative anemia, hemoglobin decreased to 9.7 from 13.5 preoperatively. He remains asymptomatic with stable vital signs currently. On rehab admission patient is doing reasonably well. Rates right hip pain 4- 5/10, slightly worse with activity. Right hip incision without drainage, erythema, induration. Denies shortness of breath, dyspnea, chest pain, palpitations. Lung sounds are clear to auscultation, regular heart rate and rhythm. Patient reports no BM since the day of surgery. Abdomen is soft and nondistended with active bowel sounds throughout. He denies abdominal pain, nausea or vomiting. Reports no urinary issues. Premorbidly patient lived with his and was independent with ADLs. He used Blipify to ambulate and was driving. Interval History: Patient seen and examined in his room this AM. No acute issues overnight. No major concerns this AM. Last BM 02/22. No longer feeling constipated. Denies CP, SOB, abdominal pain. Exam Physical Exam Vital Signs: Temp Pulse Resp BP Pulse Ox O2 Del Method 98.1 F 85 20 118/76 97 Room Air 02/24/22 04:39 02/24/22 04:39 02/24/22 04:39 02/24/22 08:07 02/24/22 04:39 02/24/22 04:39 Const General: cooperative, comfortable and no acute distress Orientation: alert, awake and oriented x3 HEENT Head: normocephalic and atraumatic Ears: hearing grossly normal bilaterally Nose: external nose normal Mouth: oral mucosae normal, lip normal and tongue normal Eyes General: appearance normal, both eyes and all related structures Pupils: PERRL EOM: EOM intact bilaterally Chest Chest palpation & inspection: normal inspection of the chest Resp Effort & Inspection: normal respiratory effort, able to speak in complete sentences and symmetric chest movement Auscultation: clear to auscultation bilaterally Cardio Rate: regular rate Rhythm: regular rhythm Heart Sounds: S1 normal and S2 normal Pulses: brachial pulses present GI Inspection: normal to inspection Palpation: soft and nontender Auscultation: hypoactive bowel sounds Skin General: no rashes or lesions noted Lesions: no lesions Rashes: no rashes Neuro General: patient alert, patient awake, patient oriented x3 and moves all extremities Cognition: normal cognition Motor: strength abnormal Sensory Exam: no sensory deficits noted Psych Appearance: grossly normal Mental Status: mental status grossly normal Affect: normal affect Speech and Movement: speech and movement normal Attitude: cooperative Insight: insight good Judgment: judgment good Objective Labs CBC & Chem 7: 02/20/22 05:17 02/20/22 07:38 Labs: Laboratory Results - last 24 hr 02/23/22 02/23/22 02/23/22 11:21 16:14 20:30 POC Glucose 178 175 185 POC Glucose Comment Glu2: cleaned meter Will notify /rn 02/24/22 07:25 POC Glucose 158 POC Glucose Comment Glu2: cleaned meter Medications and Allergies Allergies and Active Meds: Allergies No Known Allergies Allergy (Verified 02/01/22 16:06) Active Medications Generic Name Dose Route Start Last Admin Trade Name Freq PRN Reason Stop Dose Admin Acetaminophen 1,000 mg 02/19/22 14:00 02/24/22 08:04 Acetaminophen 500 Mg Tablet PO 02/19/23 13:59 1,000 mg TID KAMILA Administration Al Hydrox/Mg Hydrox/Simethicone 30 ml 02/19/22 12:49 Mag Hydrox/Al Hydrox/Simeth 30 Ml Udc PO 02/19/23 12:48 Q4H PRN Indigestion Aspirin 81 mg 02/19/22 21:00 02/23/22 08:09 Aspirin 81 Mg Tablet.Dr PO 03/21/22 20:59 81 mg BID KAMILA Administration Atorvastatin Calcium 20 mg 02/20/22 09:00 02/24/22 08:04 Atorvastatin 20 Mg Tablet PO 02/20/23 08:59 20 mg DAILY KAMILA Administration Bisacodyl 10 mg 02/19/22 12:49 Bisacodyl 10 Mg Supp.Rect NH 02/19/23 12:48 DAILY PRN Constipation Docusate Sodium 100 mg 02/19/22 12:49 02/22/22 08:20 Docusate 100 Mg Capsule PO 02/19/23 12:48 100 mg BID PRN Administration Constipation Docusate Sodium 283 mg 02/19/22 12:49 Docusate Enema 283 Mg/5 Ml Enema NH 02/19/23 12:48 DAILY PRN Constipation Enoxaparin Sodium 40 mg 02/23/22 10:20 02/24/22 08:07 Enoxaparin 40 Mg/0.4 Ml Syringe SUBCUT 02/23/23 10:19 40 mg DAILY@1000 KAMILA Administration Insulin Aspart 0 units 02/20/22 11:30 02/24/22 08:06 Insulin Aspart 300 Units/3 Ml Insuln.Pen SUBCUT 02/20/23 11:29 2 units ACHS KAMILA Administration Protocol Insulin Glargine 34 units 02/20/22 21:00 02/24/22 08:05 Insulin Glargine 300 Units/3 Ml Insuln.Pen SUBCUT 02/20/23 20:59 34 units BID KAMILA Administration Lactulose 30 gm 02/19/22 12:49 02/22/22 17:49 Lactulose 20 Gm/30 Ml Udc PO 02/19/23 12:48 30 gm DAILY PRN Administration Constipation Lisinopril 10 mg 02/21/22 09:00 02/24/22 08:02 Lisinopril 10 Mg Tablet PO 02/21/23 08:59 10 mg DAILY KAMILA Administration Patient's Own Med: 1 mg 02/20/22 17:00 02/20/22 16:13 Ozempic 1 Mg SUBCUT 02/20/23 16:59 1 mg Escobar@0900 [facility] Administration Oxycodone HCl 5 mg 02/19/22 13:21 02/22/22 20:20 Oxycodone Ir 5 Mg Tablet PO 5 mg Q4HR PRN Administration Pain Oxycodone HCl 10 mg 02/21/22 12:31 02/24/22 08:04 Oxycodone Ir 5 Mg Tablet PO 10 mg Q4HR PRN Administration Pain Scale 8 - 10 Sennosides 2 tab 02/19/22 13:30 02/23/22 12:03 Sennosides 8.6 Mg Tablet PO 02/19/23 13:29 Not Given DAILY@1200 [facility] Assessment/Plan Assessment/Plan (1) Morbid obesity with BMI of 40.0-44.9, adult: Code(s): E66.01 - Morbid (severe) obesity due to excess calories; Z68.41 - Body mass index [BMI] 40.0-44.9, adult Status: Acute (2) Chronic kidney disease, stage III (moderate): Code(s): N18.30 - Chronic kidney disease, stage 3 unspecified Status: Acute (3) Essential hypertension: Code(s): I10 - Essential (primary) hypertension Status: Acute (4) History of total right hip replacement: Code(s): Z96.641 - Presence of right artificial hip joint Status: Acute (5) Type 2 diabetes mellitus with insulin therapy: Code(s): E11.9 - Type 2 diabetes mellitus without complications; Z79.4 - superintendent container terminal (current) use of insulin Status: Acute (6) Postoperative anemia due to acute blood loss: Code(s): D62 - Acute posthemorrhagic anemia Status: Acute (7) Impaired mobility and activities of daily living: Code(s): Z74.09 - Other reduced mobility; Z78.9 - Other specified health status Status: Acute Plan 76-year-old male admitted to acute inpatient rehab for strengthening status post total right hip arthroplasty. * Upgrade DVT prophylaxis from aspirin 81 mg twice daily to Lovenox. * KUB with moderate stool. Has since moved bowels. Patient education Pressure ulcer prophylaxis; encourage mobilization, frequent postural changes, pressure-relief techniques DVT prophylaxis: Continue ASA 81 mg twice daily Encourage deep breathing exercise incentive spirometry. Monitor bladder. Toileting schedule. Continue current bladder management, with scans as needed and CIC if needed. Start bowel care program every day to obtain continence, prevent ileus. Maintain fall precautions Gait and balance retraining Functional training and self-care and home management, including activities of daily living and instrumental activities of daily living Provision of the necessary gait aids and functional adaptive equipment to enhance the patient's a functional voodoo Ensure adequate nutrition and hydration Sleep: Reports no issues Pain: Acetaminophen + oxycodone Discharge planning: Home with in 7 to 10 days. Documented By: Sander Murphy Jr, DO 2 1009 Signed By: <Electronically signed by Sander Murphy Jr, DO> 02/24/22 1010 [facility] Work Phone: 1(353) 705-655910-19-2022 Progress note Author Sander Murphy [facility] February 23, 2022 12:31pm Note Date/Time February 23, 2022 1 2:31pm [facility] [address] [place] [address] Physiatry(Rehab) Progress Note Signed Patient: Sumeet Paz MR#: [id number] : 1945 Acct:[id number] Age/Sex: 76 / M Adm Date: 2 Loc: 5T Room: [id number] Type: ADM IN Attending Dr: Pa Holloway MD Copies to: ~ Date of Service: 02/23/2022 Subjective Subjective Narrative: Recall: Mr. Paz is a 76 year old male presenting to acute inpatient rehabfor strengthening s/p elective right total hip replacement. PMH is significant for insulin-dependent diabetes type 2, hypertension, hyperlipidemia, CKD stage III, prostate CA, and osteoarthritis. Patient notes debilitating right hip pain and severely compromised range of motion due to DJD for some time now. He failed conservative treatment and afterdiscussing this with Dr. Newsome opted for total right hip arthroplasty. He underwent the above procedure on 02/16/2022 without major complication. He did develop postoperative anemia, hemoglobin decreased to 9.7 from 13.5 preoperatively. He remains asymptomatic with stable vital signs currently. On rehab admission patient is doing reasonably well. Rates right hip pain 4- 5/10, slightly worse with activity. Right hip incision without drainage, erythema, induration. Denies shortness of breath, dyspnea, chest pain, palpitations. Lung sounds are clear to auscultation, regular heart rate and rhythm. Patient reports no BM since the day of surgery. Abdomen is soft and nondistended with active bowel sounds throughout. He denies abdominal pain, nausea or vomiting. Reports no urinary issues. Premorbidly patient lived with his and was independent with ADLs. He used awalker to ambulate and was driving. Interval History: Patient seen and examined in his room this AM. No acute issues overnight. No major concerns this AM. KUB yesterday with moderate amt stool. Has since moved bowels. Denies CP, SOB, abdominal pain. Starting on Lovenox, not moving around as much. Exam Physical Exam Vital Signs: Temp Pulse Resp BP Pulse Ox O2 Del Method 98.8 F 90 20 109/75 100 Room Air 02/23/22 11:35 02/23/22 11:35 02/23/22 11:35 02/23/22 11:35 02/23/22 11:35 02/23/22 11:35 Const General: cooperative, comfortable and no acute distress Orientation: alert, awake and oriented x3 HEENT Head: normocephalic and atraumatic Ears: hearing grossly normal bilaterally Nose: external nose normal Mouth: oral mucosae normal, lip normal and tongue normal Eyes General: appearance normal, both eyes and all related structures Pupils: PERRL EOM: EOM intact bilaterally Chest Chest palpation & inspection: normal inspection of the chest Resp Effort & Inspection: normal respiratory effort, able to speak in complete sentences and symmetric chest movement Auscultation: clear to auscultation bilaterally Cardio Rate: regular rate Rhythm: regular rhythm Heart Sounds: S1 normal and S2 normal Pulses: brachial pulses present GI Inspection: normal to inspection Palpation: soft and nontender Auscultation: hypoactive bowel sounds Skin General: no rashes or lesions noted Lesions: no lesions Rashes: no rashes Neuro General: patient alert, patient awake, patient oriented x3 and moves all extremities Cognition: normal cognition Motor: strength abnormal Sensory Exam: no sensory deficits noted Psych Appearance: grossly normal Mental Status: mental status grossly normal Affect: normal affect Speech and Movement: speech and movement normal Attitude: cooperative Insight: insight good Judgment: judgment good Objective Labs CBC & Chem 7: 02/20/22 05:17 02/20/22 07:38 Labs: Laboratory Results - last 24 hr 02/22/22 02/22/22 02/23/22 16:29 19:59 06:23 POC Glucose 215 259 187 Medications and Allergies Allergies and Active Meds: Allergies No Known Allergies Allergy (Verified 02/01/22 16:06) Active Medications Generic Name Dose Route Start Last Admin Trade Name Freq PRN Reason Stop Dose Admin Acetaminophen 1,000 mg 02/19/22 14:00 02/23/22 08:09 Acetaminophen 500 Mg Tablet PO 02/19/23 13:59 1,000 mg TID KAMILA Administration Al Hydrox/Mg Hydrox/Simethicone 30 ml 02/19/22 12:49 Mag Hydrox/Al Hydrox/Simeth 30 Ml Udc PO 02/19/23 12:48 Q4H PRN Indigestion Aspirin 81 mg 02/19/22 21:00 02/23/22 08:09 Aspirin 81 Mg Tablet.Dr PO 03/21/22 20:59 81 mg BID KAMILA Administration Atorvastatin Calcium 20 mg 02/20/22 09:00 02/23/22 08:09 Atorvastatin 20 Mg Tablet PO 02/20/23 08:59 20 mg DAILY KAMILA Administration Bisacodyl 10 mg 02/19/22 12:49 Bisacodyl 10 Mg Supp.Rect NH 02/19/23 12:48 DAILY PRN Constipation Docusate Sodium 100 mg 02/19/22 12:49 02/22/22 08:20 Docusate 100 Mg Capsule PO 02/19/23 12:48 100 mg BID PRN Administration Constipation Docusate Sodium 283 mg 02/19/22 12:49 Docusate Enema 283 Mg/5 Ml Enema NH 02/19/23 12:48 DAILY PRN Constipation Enoxaparin Sodium 40 mg 02/23/22 10:20 02/23/22 12:02 Enoxaparin 40 Mg/0.4 Ml Syringe SUBCUT 02/23/23 10:19 40 mg DAILY@1000 KAMILA Administration Insulin Aspart 0 units 02/20/22 11:30 02/23/22 12:02 Insulin Aspart 300 Units/3 Ml Insuln.Pen SUBCUT 02/20/23 11:29 2 units ACHS KAMILA Administration Protocol Insulin Glargine 34 units 02/20/22 21:00 02/23/22 07:59 Insulin Glargine 300 Units/3 Ml Insuln.Pen SUBCUT 02/20/23 20:59 34 units BID KAMILA Administration Lactulose 30 gm 02/19/22 12:49 02/22/22 17:49 Lactulose 20 Gm/30 Ml Udc PO 02/19/23 12:48 30 gm DAILY PRN Administration Constipation Lisinopril 10 mg 02/21/22 09:00 02/23/22 08:09 Lisinopril 10 Mg Tablet PO 02/21/23 08:59 10 mg DAILY KAMILA Administration Patient's Own Med: 1 mg 02/20/22 17:00 02/20/22 16:13 Ozempic 1 Mg SUBCUT 02/20/23 16:59 1 mg Escobar@0900 KAMILA Administration Oxycodone HCl 5 mg 02/19/22 13:21 02/22/22 20:20 Oxycodone Ir 5 Mg Tablet PO 5 mg Q4HR PRN Administration Pain Oxycodone HCl 10 mg 02/21/22 12:31 02/23/22 08:09 Oxycodone Ir 5 Mg Tablet PO 10 mg Q4HR PRN Administration Pain Scale 8 - 10 Sennosides 2 tab 02/19/22 13:30 02/23/22 12:03 Sennosides 8.6 Mg Tablet PO 02/19/23 13:29 Not Given DAILY@1200 [facility] Assessment/Plan Assessment/Plan (1) Morbid obesity with BMI of 40.0-44.9, adult: Code(s): E66.01 - Morbid (severe) obesity due to excess calories; Z68.41 - Body mass index [BMI] 40.0-44.9, adult Status: Acute (2) Chronic kidney disease, stage III (moderate): Code(s): N18.30 - Chronic kidney disease, stage 3 unspecified Status: Acute (3) Essential hypertension: Code(s): I10 - Essential (primary) hypertension Status: Acute (4) History of total right hip replacement: Code(s): Z96.641 - Presence of right artificial hip joint Status: Acute (5) Type 2 diabetes mellitus with insulin therapy: Code(s): E11.9 - Type 2 diabetes mellitus without complications; Z79.4 - longterm (current) use of insulin Status: Acute (6) Postoperative anemia due to acute blood loss: Code(s): D62 - Acute posthemorrhagic anemia Status: Acute (7) Impaired mobility and activities of daily living: Code(s): Z74.09 - Other reduced mobility; Z78.9 - Other specified health status Status: Acute Plan 76-year-old male admitted to acute inpatient rehab for strengthening status post total right hip arthroplasty. * Upgrade DVT prophylaxis from aspirin 81 mg twice daily to Lovenox. * KUB with moderate stool. Has since moved bowels. Patient education Pressure ulcer prophylaxis; encourage mobilization, frequent postural changes, pressure-relief techniques DVT prophylaxis: Continue ASA 81 mg twice daily Encourage deep breathing exercise incentive spirometry. Monitor bladder. Toileting schedule. Continue current bladder management, with scans as needed and CIC if needed. Start bowel care program every day to obtain continence, prevent ileus. Maintain fall precautions Gait and balance retraining Functional training and self-care and home management, including activities of daily living and instrumental activities of daily living Provision of the necessary gait aids and functional adaptive equipment to enhance the patient's a functional voodoo Ensure adequate nutrition and hydration Sleep: Reports no issues Pain: Acetaminophen + oxycodone Discharge planning: Home with in 7 to 10 days. Documented By: Sander Murphy Jr, DO 2 1228 Signed By: <Electronically signed by Sander Murphy Jr, DO> 02/23/22 1231 [facility] Work Phone: [phone]) 606-362810-18-2022 Progress note Author Sander Murphy [facility] February 22, 2022 10:57am Note Date/Time February 22, 2022 1 0:57am [facility] [address] [place] [address] Physiatry(Rehab) Progress Note Signed Patient: Sumeet Paz MR#: [id number] : 1945 Acct:[id number] Age/Sex: 76 / M Adm Date: 2 Loc: Room: [address] [place] [address] Type: ADM IN Attending Dr: Pa Holloway MD Copies to: ~ Date of Service: 02/22/2022 Subjective Subjective Narrative: Recall: Mr. Paz is a 76 year old male presenting to acute inpatient rehabfor strengthening s/p elective right total hip replacement. PMH is significant for insulin-dependent diabetes type 2, hypertension, hyperlipidemia, CKD stage III, prostate CA, and osteoarthritis. Patient notes debilitating right hip pain and severely compromised range of motion due to DJD for some time now. He failed conservative treatment and afterdiscussing this with Dr. Newsome opted for total right hip arthroplasty. He underwent the above procedure on 02/16/2022 without major complication. He did develop postoperative anemia, hemoglobin decreased to 9.7 from 13.5 preoperatively. He remains asymptomatic with stable vital signs currently. On rehab admission patient is doing reasonably well. Rates right hip pain 4- 5/10, slightly worse with activity. Right hip incision without drainage, erythema, induration. Denies shortness of breath, dyspnea, chest pain, palpitations. Lung sounds are clear to auscultation, regular heart rate and rhythm. Patient reports no BM since the day of surgery. Abdomen is soft and nondistended with active bowel sounds throughout. He denies abdominal pain, nausea or vomiting. Reports no urinary issues. Premorbidly patient lived with his and was independent with ADLs. He used awalker to ambulate and was driving. Interval History: Patient seen and examined in his room this AM. No acute issues overnight. No major concerns this AM. Continues to have no BM despite treatments. Consider another dose of MoM today. Check KUB. Denies CP, SOB, abdominal pain. Admits to no BM x several days. Will monitor. Reviewed past medical and surgical history Exam Physical Exam Vital Signs: Temp Pulse Resp BP Pulse Ox O2 Del Method 97.4 F L 94 H 18 129/79 97 Room Air 02/22/22 08:03 02/22/22 08:03 02/22/22 08:03 02/22/22 08:03 02/22/22 08:03 02/22/22 09:55 Const General: cooperative, comfortable and no acute distress Orientation: alert, awake and oriented x3 HEENT Head: normocephalic and atraumatic Ears: hearing grossly normal bilaterally Nose: external nose normal Mouth: oral mucosae normal, lip normal and tongue normal Eyes General: appearance normal, both eyes and all related structures Pupils: PERRL EOM: EOM intact bilaterally Chest Chest palpation & inspection: normal inspection of the chest Resp Effort & Inspection: normal respiratory effort, able to speak in complete sentences and symmetric chest movement Auscultation: clear to auscultation bilaterally Cardio Rate: regular rate Rhythm: regular rhythm Heart Sounds: S1 normal and S2 normal Pulses: brachial pulses present GI Inspection: normal to inspection Palpation: soft and nontender Auscultation: hypoactive bowel sounds Skin General: no rashes or lesions noted Lesions: no lesions Rashes: no rashes Neuro General: patient alert, patient awake, patient oriented x3 and moves all extremities Cognition: normal cognition Motor: strength abnormal Sensory Exam: no sensory deficits noted Psych Appearance: grossly normal Mental Status: mental status grossly normal Affect: normal affect Speech and Movement: speech and movement normal Attitude: cooperative Insight: insight good Judgment: judgment good Objective Labs CBC & Chem 7: 02/20/22 05:17 02/20/22 07:38 Labs: Laboratory Results - last 24 hr 02/21/22 02/21/22 02/21/22 11:49 16:34 20:04 POC Glucose 259 196 272 POC Glucose Comment Glu2: cleaned meter 02/22/22 07:25 POC Glucose 111 POC Glucose Comment Glu2: cleaned meter Medications and Allergies Allergies and Active Meds: Allergies No Known Allergies Allergy (Verified 02/01/22 16:06) Active Medications Generic Name Dose Route Start Last Admin Trade Name Freq PRN Reason Stop Dose Admin Acetaminophen 1,000 mg 02/19/22 14:00 02/22/22 08:19 Acetaminophen 500 Mg Tablet PO 02/19/23 13:59 1,000 mg TID KAMILA Administration Al Hydrox/Mg Hydrox/Simethicone 30 ml 02/19/22 12:49 Mag Hydrox/Al Hydrox/Simeth 30 Ml Udc PO 02/19/23 12:48 Q4H PRN Indigestion Aspirin 81 mg 02/19/22 21:00 02/21/22 20:57 Aspirin 81 Mg Tablet.Dr PO 03/21/22 20:59 81 mg BID KAMILA Administration Atorvastatin Calcium 20 mg 02/20/22 09:00 02/22/22 08:18 Atorvastatin 20 Mg Tablet PO 02/20/23 08:59 20 mg DAILY KAMILA Administration Bisacodyl 10 mg 02/19/22 12:49 Bisacodyl 10 Mg Supp.Rect NH 02/19/23 12:48 DAILY PRN Constipation Docusate Sodium 100 mg 02/19/22 12:49 02/22/22 08:20 Docusate 100 Mg Capsule PO 02/19/23 12:48 100 mg BID PRN Administration Constipation Docusate Sodium 283 mg 02/19/22 12:49 Docusate Enema 283 Mg/5 Ml Enema NH 02/19/23 12:48 DAILY PRN Constipation Insulin Aspart 0 units 02/20/22 11:30 02/22/22 07:38 Insulin Aspart 300 Units/3 Ml Insuln.Pen SUBCUT 02/20/23 11:29 Not Given ACHS [facility] Protocol Insulin Glargine 34 units 02/20/22 21:00 02/22/22 08:20 Insulin Glargine 300 Units/3 Ml Insuln.Pen SUBCUT 02/20/23 20:59 34 units BID KAMILA Administration Lactulose 30 gm 02/19/22 12:49 Lactulose 20 Gm/30 Ml Udc PO 02/19/23 12:48 DAILY PRN Constipation Lisinopril 10 mg 02/21/22 09:00 02/22/22 08:19 Lisinopril 10 Mg Tablet PO 02/21/23 08:59 10 mg DAILY KAMILA Administration Patient's Own Med: 1 mg 02/20/22 17:00 02/20/22 16:13 Ozempic 1 Mg SUBCUT 02/20/23 16:59 1 mg Escobar@0900 [facility] Administration Oxycodone HCl 5 mg 02/19/22 13:21 02/21/22 12:36 Oxycodone Ir 5 Mg Tablet PO 5 mg Q4HR PRN Administration Pain Oxycodone HCl 10 mg 02/21/22 12:31 02/21/22 20:57 Oxycodone Ir 5 Mg Tablet PO 10 mg Q4HR PRN Administration Pain Scale 8 - 10 Sennosides 2 tab 02/19/22 13:30 02/21/22 12:37 Sennosides 8.6 Mg Tablet PO 02/19/23 13:29 2 tab DAILY@1200 [facility] Administration Assessment/Plan Assessment/Plan (1) Morbid obesity with BMI of 40.0-44.9, adult: Code(s): E66.01 - Morbid (severe) obesity due to excess calories; Z68.41 - Body mass index [BMI] 40.0-44.9, adult Status: Acute (2) Chronic kidney disease, stage III (moderate): Code(s): N18.30 - Chronic kidney disease, stage 3 unspecified Status: Acute (3) Essential hypertension: Code(s): I10 - Essential (primary) hypertension Status: Acute (4) History of total right hip replacement: Code(s): Z96.641 - Presence of right artificial hip joint Status: Acute (5) Type 2 diabetes mellitus with insulin therapy: Code(s): E11.9 - Type 2 diabetes mellitus without complications; Z79.4 - superintendent container terminal (current) use of insulin Status: Acute (6) Postoperative anemia due to acute blood loss: Code(s): D62 - Acute posthemorrhagic anemia Status: Acute (7) Impaired mobility and activities of daily living: Code(s): Z74.09 - Other reduced mobility; Z78.9 - Other specified health status Status: Acute Plan 76-year-old male admitted to acute inpatient rehab for strengthening status post total right hip arthroplasty. * Continue DVT prophylaxis with aspirin 81 mg twice daily Ortho recommendations. * MoM again today for constipation. KUB to r/o obstruction. No complaints of abdominal pain, nausea, vomiting. Admits to abdominal fullness with therapies. Patient education Pressure ulcer prophylaxis; encourage mobilization, frequent postural changes, pressure-relief techniques DVT prophylaxis: Continue ASA 81 mg twice daily Encourage deep breathing exercise incentive spirometry. Monitor bladder. Toileting schedule. Continue current bladder management, with scans as needed and CIC if needed. Start bowel care program every day to obtain continence, prevent ileus. Maintain fall precautions Gait and balance retraining Functional training and self-care and home management, including activities of daily living and instrumental activities of daily living Provision of the necessary gait aids and functional adaptive equipment to enhance the patient's a functional voodoo Ensure adequate nutrition and hydration Sleep: Reports no issues Pain: Acetaminophen + oxycodone Discharge planning: Home with in 7 to 10 days. Documented By: Sander Murphy Jr, 2 1054 Signed By: <Electronically signed by Sander Murphy Jr, DO> 02/22/22 1057 [facility] Work Phone: [phone]) 771-244910-17-2022 Progress note Author Sander Murphy [facility] February 21, 2022 9:31am Note Date/Time February 21, 2022 9 :21am [facility] [address] [place] [address] Physiatry(Rehab) Progress Note Signed Patient: Sumeet Paz MR#: [id number] : 1945 Acct:[id number] Age/Sex: 76 / M Adm Date: 2 Loc: Room: [address] [place] [address] Type: ADM IN Attending Dr: Pa Holloway MD Copies to: ~ Date of Service: 02/21/2022 Subjective Subjective Narrative: Recall: Mr. Paz is a 76 year old male presenting to acute inpatient rehabfor strengthening s/p elective right total hip replacement. PMH is significant for insulin-dependent diabetes type 2, hypertension, hyperlipidemia, CKD stage III, prostate CA, and osteoarthritis. Patient notes debilitating right hip pain and severely compromised range of motion due to DJD for some time now. He failed conservative treatment and afterdiscussing this with Dr. Newsome opted for total right hip arthroplasty. He underwent the above procedure on 02/16/2022 without major complication. He did develop postoperative anemia, hemoglobin decreased to 9.7 from 13.5 preoperatively. He remains asymptomatic with stable vital signs currently. On rehab admission patient is doing reasonably well. Rates right hip pain 4- 5/10, slightly worse with activity. Right hip incision without drainage, erythema, induration. Denies shortness of breath, dyspnea, chest pain, palpitations. Lung sounds are clear to auscultation, regular heart rate and rhythm. Patient reports no BM since the day of surgery. Abdomen is soft and nondistended with active bowel sounds throughout. He denies abdominal pain, nausea or vomiting. Reports no urinary issues. Premorbidly patient lived with his and was independent with ADLs. He used Blip[employer] to ambulate and was driving. Interval History: Patient seen and examined in his room this AM. New admit over weekend. No acute issues over the weekend. No major concerns this AM. Just getting started, will monitor his functional progress. Denies CP, SOB, abdominal pain. Admits to no BM x several days. Will monitor. Reviewed past medical and surgical history Exam Physical Exam Vital Signs: Temp Pulse Resp BP Pulse Ox O2 Del Method 98.0 F 88 18 142/78 H 98 CPAP 02/21/22 04:55 02/21/22 04:55 02/21/22 04:55 02/21/22 04:55 02/21/22 04:55 02/21/22 04:55 Const General: cooperative, comfortable and no acute distress Orientation: alert, awake and oriented x3 HEENT Head: normocephalic and atraumatic Ears: hearing grossly normal bilaterally Nose: external nose normal Mouth: oral mucosae normal, lip normal and tongue normal Eyes General: appearance normal, both eyes and all related structures Pupils: PERRL EOM: EOM intact bilaterally Chest Chest palpation & inspection: normal inspection of the chest Resp Effort & Inspection: normal respiratory effort, able to speak in complete sentences and symmetric chest movement Auscultation: clear to auscultation bilaterally Cardio Rate: regular rate Rhythm: regular rhythm Heart Sounds: S1 normal and S2 normal Pulses: brachial pulses present GI Inspection: normal to inspection Palpation: soft and nontender Auscultation: hypoactive bowel sounds Other: No carroll Skin General: no rashes or lesions noted Lesions: no lesions Rashes: no rashes Neuro General: patient alert, patient awake, patient oriented x3 and moves all extremities Cognition: normal cognition Motor: strength abnormal Sensory Exam: no sensory deficits noted Psych Appearance: grossly normal Mental Status: mental status grossly normal Affect: normal affect Speech and Movement: speech and movement normal Attitude: cooperative Insight: insight good Judgment: judgment good Objective Labs CBC & Chem 7: 02/20/22 05:17 02/20/22 07:38 Labs: Laboratory Results - last 24 hr 02/20/22 02/20/22 02/20/22 11:38 16:59 20:27 POC Glucose 289 249 255 POC Glucose Comment Glu2: cleaned meter Glu2: cleaned meter 02/21/22 07:09 POC Glucose 204 POC Glucose Comment Medications and Allergies Allergies and Active Meds: Allergies No Known Allergies Allergy (Verified 02/01/22 16:06) Active Medications Generic Name Dose Route Start Last Admin Trade Name Sanam PRN Reason Stop Dose Admin Acetaminophen 1,000 mg 02/19/22 14:00 02/21/22 08:14 Acetaminophen 500 Mg Tablet PO 02/19/23 13:59 1,000 mg TID KAMILA Administration Al Hydrox/Mg Hydrox/Simethicone 30 ml 02/19/22 12:49 Mag Hydrox/Al Hydrox/Simeth 30 Ml Udc PO 02/19/23 12:48 Q4H PRN Indigestion Aspirin 81 mg 02/19/22 21:00 02/21/22 08:15 Aspirin 81 Mg Tablet.Dr PO 03/21/22 20:59 81 mg BID KAMILA Administration Atorvastatin Calcium 20 mg 02/20/22 09:00 02/21/22 08:14 Atorvastatin 20 Mg Tablet PO 02/20/23 08:59 20 mg DAILY KAMILA Administration Bisacodyl 10 mg 02/19/22 12:49 Bisacodyl 10 Mg Supp.Rect NH 02/19/23 12:48 DAILY PRN Constipation Docusate Sodium 100 mg 02/19/22 12:49 Docusate 100 Mg Capsule PO 02/19/23 12:48 BID PRN Constipation Docusate Sodium 283 mg 02/19/22 12:49 Docusate Enema 283 Mg/5 Ml Enema NH 02/19/23 12:48 DAILY PRN Constipation Insulin Aspart 0 units 02/20/22 11:30 02/21/22 08:17 Insulin Aspart 300 Units/3 Ml Insuln.Pen SUBCUT 02/20/23 11:29 3 units ACHS KAMILA Administration Protocol Insulin Glargine 34 units 02/20/22 21:00 02/21/22 08:20 Insulin Glargine 300 Units/3 Ml Insuln.Pen SUBCUT 02/20/23 20:59 34 units BID KAMILA Administration Lactulose 30 gm 02/19/22 12:49 Lactulose 20 Gm/30 Ml Udc PO 02/19/23 12:48 DAILY PRN Constipation Lisinopril 10 mg 02/21/22 09:00 02/21/22 08:15 Lisinopril 10 Mg Tablet PO 02/21/23 08:59 10 mg DAILY KAMILA Administration Patient's Own Med: 1 mg 02/20/22 17:00 02/20/22 16:13 Ozempic 1 Mg SUBCUT 02/20/23 16:59 1 mg Escobar@0900 [facility] Administration Oxycodone HCl 5 mg 02/19/22 13:21 02/21/22 08:15 Oxycodone Ir 5 Mg Tablet PO 5 mg Q4HR PRN Administration Pain Sennosides 2 tab 02/19/22 13:30 02/20/22 13:52 Sennosides 8.6 Mg Tablet PO 02/19/23 13:29 2 tab DAILY@1200 [facility] Administration Assessment/Plan Assessment/Plan (1) Morbid obesity with BMI of 40.0-44.9, adult: Code(s): E66.01 - Morbid (severe) obesity due to excess calories; Z68.41 - Body mass index [BMI] 40.0-44.9, adult Status: Acute (2) Chronic kidney disease, stage III (moderate): Code(s): N18.30 - Chronic kidney disease, stage 3 unspecified Status: Acute (3) Essential hypertension: Code(s): I10 - Essential (primary) hypertension Status: Acute (4) History of total right hip replacement: Code(s): Z96.641 - Presence of right artificial hip joint Status: Acute (5) Type 2 diabetes mellitus with insulin therapy: Code(s): E11.9 - Type 2 diabetes mellitus without complications; Z79.4 - superintendent container terminal (current) use of insulin Status: Acute (6) Postoperative anemia due to acute blood loss: Code(s): D62 - Acute posthemorrhagic anemia Status: Acute (7) Impaired mobility and activities of daily living: Code(s): Z74.09 - Other reduced mobility; Z78.9 - Other specified health status Status: Acute Plan 76-year-old male admitted to acute inpatient rehab for strengthening status post total right hip arthroplasty. * Continue DVT prophylaxis with aspirin 81 mg twice daily Ortho recommendations. * Will schedule acetaminophen 1 g 3 times daily in addition to prn oxycodone 5 mg. * MoM today for constipation. No complaints of abdominal pain, nausea, vomiting. * Noted to be mildly tachycardic in low 110s with stable blood pressure. Continue to monitor. Patient was encouraged to increase his p.o. fluid intake. Patient education Pressure ulcer prophylaxis; encourage mobilization, frequent postural changes, pressure-relief techniques DVT prophylaxis: Continue ASA 81 mg twice daily Encourage deep breathing exercise incentive spirometry. Monitor bladder. Toileting schedule. Continue current bladder management, with scans as needed and CIC if needed. Start bowel care program every day to obtain continence, prevent ileus. Maintain fall precautions Gait and balance retraining Functional training and self-care and home management, including activities of daily living and instrumental activities of daily living Provision of the necessary gait aids and functional adaptive equipment to enhance the patient's a functional voodoo Ensure adequate nutrition and hydration Sleep: Reports no issues Pain: Acetaminophen + oxycodone Discharge planning: Home with in 7 to 10 days. Individualized Overall Plan of Care: Admit Date/Time: 02/19/22 12:45 PM Expected LOS: 7-10 days Expected Discharge Destination: Home Rehabilitation IGC: Ortho Primary Diagnosis: OA s/p R total hip arthroplasty To have patient become more independent and to return home. Medical/ Functional Prognosis: Good Anticipated Functional Outcomes/Goals and Interventions: 1.Therapy Functional Outcome/Goal: Anticipate Modified Independent for bed mobility Anticipated interventions: Physician management, PT, OT, OFFSET LITHOGRAPHIC PRESS SETTER, , Dietitian, Rehab Nursing, Case management 2. Therapy Functional Outcome/Goal: Anticipate Modified Independent for transfers Anticipated interventions: Physician management, PT, OT, OFFSET LITHOGRAPHIC PRESS SETTER, Case management, Dietitian, Rehab Nursing 3. Therapy Functional Outcome/Goal: Anticipate Modified Independent for ambulation Anticipated interventions: Physician management, PT, OT, OFFSET LITHOGRAPHIC PRESS SETTER? Case management, Dietitian, Rehab Nursing 4.Therapy Functional Outcome/Goal: Anticipate Modified Independent for self-care Anticipated interventions: Physician management, PT, OT, OFFSET LITHOGRAPHIC PRESS SETTER, Case management, Dietitian, Rehab Nursing 5.Therapy Functional Outcome/Goal: Anticipate Independent for functional communication swallowing Anticipated interventions: Physician management, PT, OT, OFFSET LITHOGRAPHIC PRESS SETTER, Case management, Dietitian, Rehab Nursing Required Therapy PT: 1 hour per day at least 5 days per week with additional therapy on as needed basis. Comments: PT to improve pt's strength, endurance, bed mobility, transfers (sit-stand), standing balance, gait quality on level surfaces and stairs, coordination and functional ADL skills. Will also work to improve pt's safety awareness during transfers and ambulation. ? OT: 1 hour per day at least 5 days per week with additional therapy on as needed basis. Comments: OT for basic ADL re-training (bathing, dressing, toileting, continence, grooming, feeding, transferring), to increase activity tolerance and functional mobility and to evaluate for adaptive and assistive devices. Will work to improve pt's endurance and educate pt on fall prevention and energy conservation techniques-pacing strategies and proper breathing techniques during functional tasks. ? Other: Dietitian, Rehab nursing, Wound, P&O, Neuropsychology as needed ? RATIONALE FOR IRF ADMISSION: Patient has both medical and functional complexities that require 24 hour daily monitoring and intervention from Commissioned Fire Officer as well as other consulting physicians including internal medicine as well as 24 hour daily scene painter nursing - for medical safe / optimal management. Patient requires interdisciplinary therapy team rehabilitation care including OT, PT, OFFSET LITHOGRAPHIC PRESS SETTER, SW, Psychology, Rehab Nursing, requires and can tolerate at least 3 hours of daily OT and PT therapy at least 5 days weekly. The following medical conditions significantly impact the rehabilitation process and are being addressed daily and can not be managed at home or in a lesser intense medical setting: Refer to above problem oriented plan of care Documented By: Sander Murphy Jr, DO 2 19 Signed By: <Electronically signed by Sander Murphy Jr, DO> 02/21/22 0931 [facility] Work Phone: [phone]) 877-907910-16-2022 Consult note Author Phil Cabezas [facility] February 20, 2022 12:02pm Note Date/Time February 20, 2022 1 0:29am [facility] [address] [place] [address] Hospitalist Consult Note Signed Patient: Sumeet Paz MR#: [id number] : 1945 Acct:[id number] Age/Sex: 76 / M Adm Date: 2 Loc: Room: 9Q2890-7 Type: ADM IN Attending Dr: Pa Holloway MD Copies to: MD Nya Luo, ANP-BC Phil Cabezas MD~ HPI DATE OF CONSULTATION: 02/20/22 REQUESTING PROVIDER: Pa Holloway Consult Narrative Reason for Consult: Diabetes, hypertension HPI: 76-year-old male past medical history significant for hypertension, hyperlipidemia, diabetes with neuropathy, ALHAJI uses CPAP, prostate cancer, CKD 3,osteoarthritis. Presented to the hospital February 17 for elective right total hip replacement per orthopedic services. Seen by therapy services and felt would benefit from further rehab, subsequently transferred to the acute inpatient rehab unit February 19. Hospitalist team placed on consultation for medical management of diabetes and hypertension. Patient seen and examined. Endorses right hip pain postoperative as anticipated. Fatigued. Denies chest pain or palpitations. No cough, dyspnea, or pain with inspiration. No abdominal pain or indigestion, constipation or diarrhea, nausea or vomiting. No dysuria or retention. No headache or dizziness. No fevers or chills. Review of Systems Review of Systems All other systems reviewed & are negative unless noted below or in HPI [facility] Attestation Statement: The following information was validated with the patient. Vaccinated for COVID-19?: Unknown Medical History (Updated 02/20/22 @ 10:36 by Nya Koch ANP-BC) Chronic kidney disease, stage III (moderate) Diabetes Hyperlipidemia Hypertension Morbid obesity with BMI of 40.0-44.9, adult ALHAJI on CPAP Postoperative anemia due to acute blood loss Prostate CA Surgical History History of back surgery x2 History of knee replacement procedure of right knee History of left hip replacement History of neck surgery History of prostatectomy Family History Father CVA (cerebral vascular accident) Sister Myocardial infarct Social History Smoking Status: Former smoker Tobacco Type: cigarettes Substance Use Type: Alcohol 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 Social History Comments: 3 steps into house and 6 up and down from floor to floor Meds Medications and Allergies Allergies No Known Allergies Allergy (Verified 02/01/22 16:06) Home Medications atorvastatin 10 mg tablet 20 mg PO DAILY 03/10/17 [History Confirmed 02/19/22] lisinopril 20 mg tablet 20 mg PO DAILY 03/10/17 [History Confirmed 02/19/22] insulin glargine 100 unit/mL (3 mL) subcutaneous pen (Lantus Solostar U-100 Insulin) 30 unit subcut BID 03/18/18 [History Confirmed 02/19/22] liraglutide 0.6 mg/0.1 mL (18 mg/3 mL) subcutaneous pen injector (Victoza 2- Roberto)1 mg subcut QWEEK 02/01/22 [History Confirmed 02/19/22] Active Medications: Active Medications Generic Name Dose Route Start Last Admin Trade Name Freq PRN Reason Stop Dose Admin Acetaminophen 1,000 mg 02/19/22 14:00 02/20/22 08:25 Acetaminophen 500 Mg Tablet PO 02/19/23 13:59 1,000 mg TID KAMILA Administration Al Hydrox/Mg Hydrox/Simethicone 30 ml 02/19/22 12:49 Mag Hydrox/Al Hydrox/Simeth 30 Ml Udc PO 02/19/23 12:48 Q4H PRN Indigestion Aspirin 81 mg 02/19/22 21:00 02/20/22 08:25 Aspirin 81 Mg Tablet.Dr PO 03/21/22 20:59 81 mg BID KAMILA Administration Atorvastatin Calcium 20 mg 02/20/22 09:00 02/20/22 08:25 Atorvastatin 20 Mg Tablet PO 02/20/23 08:59 20 mg DAILY KAMILA Administration Bisacodyl 10 mg 02/19/22 12:49 Bisacodyl 10 Mg Supp.Rect NH 02/19/23 12:48 DAILY PRN Constipation Docusate Sodium 100 mg 02/19/22 12:49 Docusate 100 Mg Capsule PO 02/19/23 12:48 BID PRN Constipation Docusate Sodium 283 mg 02/19/22 12:49 Docusate Enema 283 Mg/5 Ml Enema NH 02/19/23 12:48 DAILY PRN Constipation Insulin Glargine 30 units 02/19/22 21:00 02/20/22 08:26 Insulin Glargine 300 Units/3 Ml Insuln.Pen SUBCUT 02/19/23 20:59 30 units BID KAMILA Administration Lactulose 30 gm 02/19/22 12:49 Lactulose 20 Gm/30 Ml Udc PO 02/19/23 12:48 DAILY PRN Constipation Liraglutide 1 mg 02/26/22 09:00 Liraglutide 18 Mg/3 Ml Pen.Injctr SUBCUT 02/26/23 08:59 QWEEK KAMILA Lisinopril 20 mg 02/20/22 09:00 02/20/22 08:25 Lisinopril 20 Mg Tablet PO 02/20/23 08:59 20 mg DAILY KAMILA Administration Oxycodone HCl 5 mg 02/19/22 13:21 02/20/22 06:06 Oxycodone Ir 5 Mg Tablet PO 5 mg Q4HR PRN Administration Pain Sennosides 2 tab 02/19/22 13:30 02/19/22 14:26 Sennosides 8.6 Mg Tablet PO 02/19/23 13:29 2 tab DAILY@1200 [facility] Administration Exam Physical Exam Vital Signs: Temp Pulse Resp BP Pulse Ox O2 Del Method 98.4 F 96 H 20 107/68 97 BiPAP 02/20/22 06:00 02/20/22 06:00 02/20/22 06:00 02/20/22 08:28 02/20/22 06:00 02/20/22 09:24 Narrative: CONST- alert, in bed, no acute distress HEAD- normocephalic and atraumatic EENT- sclera nonicteric and conjunctiva nonerythemic, moist oral mucosa, pharynxclear NECK- supple, no cervical lymphadenopathy, enlarged circumference CARDIAC- RRR no abnormal heart tones PULM- diminished without wheeze or rhonchi, RA, no accessory muscle use or coughnoted ABD- S/NT, NABS, obese EXTREM- no edema BLE, calves nontender SKIN- W/D, good turgor right hip dressing in place MS- MAEx4 spontaneously with equal strength NEURO- A&Ox3, speech clear and tongue midline, equal facial symmetry PSYCH-mood and behavior appropriate Results Lab Results Labs: Laboratory Results - last 72 hr 02/20/22 07:38: Potassium 4.2 02/20/22 06:46: POC Glucose 197 02/20/22 05:17: PHA Creatinine Clear 55.37, Sodium 133 L, Potassium , Chloride 101, Carbon Dioxide 26.1, Anion Gap TNP, BUN 29 H, Creatinine 1.48 H, Est GFR ( Amer) 56, Est GFR (Non-Af Amer) 46, Glucose 198 H, Calcium 8.1 L, TotalBilirubin 1.3 H, AST 78 H, ALT 28, Alkaline Phosphatase 39, Total Protein 5.6 L,Albumin 2.6 L, Globulin 3.0, Albumin/Globulin Ratio 0.9, Prealbumin 11.9 L 02/20/22 05:17: Corrected WBC 7.8, Uncorrected WBC Count 7.8, RBC 2.85 L, Hgb 9.8 L, Hct 28.6 L, MCV 100.5, MCH 34.3, MCHC 34.1, RDW 14.3, Plt Count 153, MPV 8.2, Neut % (Auto) 62.5, Lymph % (Auto) 24.3, [place] % (Auto) 9.0, Eos % (Auto) 3.5, Baso % (Auto) 0.7, Neut # (Auto) 4.9, Lymph # (Auto) 1.9, [place] # (Auto) 0.7, Eos # (Auto) 0.3, Baso # (Auto) 0.1, Nucleated RBC % (auto) 0.0 02/19/22 20:24: POC Glucose 258 02/19/22 16:38: POC Glucose 203 A&P - Hospitalist Assessment/Plan (1) Postoperative anemia due to acute blood loss: (2) History of total right hip replacement: (3) Type 2 diabetes mellitus with insulin therapy: (4) Essential hypertension: (5) Chronic kidney disease, stage III (moderate): Plan s/p Right hip replacement Postoperative anemia -Further POC per PMR team for rehabilitative therapy, pain control bowel regimen, DVT PPx, surgical wound care -Please refer any questions/concerns to orthopedic team as indicated. This may include but not limited to pain management, pharmacological DVT prophylaxis, wound care, wound to bleed, wound infection, wound dehiscence, ambulation instructions and outpatient follow-up -Preop hemoglobin 13.9, trend labs -Supplement with protein calorie malnutrition Chronic conditions 1. Diabetes with neuropathy-A1c 6.3, glargine dosing increased, SSI coverage added, trend glucoses 2. Hypertension, hyperlipidemia-ASA, atorvastatin, lisinopril- dosing reduced and hold parameters in place with BP review, continue to trend 3. CKD 3-Baseline creatinine appears to be around 1.5-1.6, trend labs 4. ALHAJI on CPAP from home Thank you for consulting us to see this pt. I will be off service starting this evening. Case will be handled by one of my partners. Pt is fairly stable at this time. We will follow pt on an as needed basis. Please call or alert hospitalist if pt develops any signs or symptoms that may require medical evaluation and or intervention. Please arrange for pt after discharge follow up appts with PCP and other specialists. I may or may not have addressed all of patient symptoms, abnormal labs and imaging during this hospitalization. Please ask patient to ask PCP and out patient providers to obtain [facility] record entirely to follow up on illnesses, symptoms, abnormal findings that I have and have not addressed during this encounter and hospitalization in out patient setting. Documented By: MARISOL Flood 2 1019 Signed By: <Electronically signed by MARISOL Koch> 02/20/22 1039 <Electronically signed by Phil Cabezas MD> 02/20/22 1202 [facility] Work Phone: [phone] 800-826610-15-2022 Progress note Author Marjorie Xavier [facility] February 19, 2022 10:34am Note Date/Time February 19, 2022 1 0:30am [facility] [address] [place] [address] Hospitalist Progress Note Signed Patient: Sumeet Paz MR#: [id number] : 1945 Acct:[id number] Age/Sex: 76 / M Adm Date: 2 Loc: 4N Room: [address] [place] [address] Type: REG SDC Attending Dr: Carlos Newsome Jr DO Copies to: ~ Date of Service: 02/19/2022 Subjective Subjective Narrative: Patient examined while sitting on chair with no overnight event. He mentioned his pain is improving as well. Currently denies any complaint. Exam Physical Exam Vital Signs: Temp Pulse Resp BP Pulse Ox O2 Del Method O2 Flow Rate 97.8 F 109 H 20 98/62 L 95 Room Air 10 02/19/22 08:00 02/19/22 08:00 02/19/22 08:00 02/19/22 08:00 02/19/22 08:00 02/19/22 08:00 02/17/22 10:53 Const Orientation: alert, awake and oriented x3 Resp Effort & Inspection: normal respiratory effort and able to speak in complete sentences Auscultation: no rales, no rhonchi and no wheezes Cardio Rate: regular rate Rhythm: regular rhythm Heart Sounds: S1 normal and S2 normal GI Palpation: soft, not firm, no guarding and nontender Neuro General: patient alert, patient awake, patient oriented x3, moves all extremities and no focal motor deficits Extrem General: no clubbing, cyanosis or edema and no calf tenderness Objective Lab Results CBC & Chem 7: 02/19/22 06:02 02/19/22 06:02 Meds Allergies and Active Meds Allergies No Known Allergies Allergy (Verified 02/01/22 16:06) Active Meds: Active Medications Generic Name Dose Route Start Last Admin Trade Name Sanam PRN Reason Stop Dose Admin Acetaminophen 1,000 mg 02/17/22 05:45 02/19/22 06:13 Acetaminophen 500 Mg Tablet PO 02/17/23 05:44 1,000 mg Q8H KAMILA Administration Aspirin 81 mg 02/17/22 09:00 02/19/22 09:03 Aspirin 81 Mg Tablet.Dr PO 02/17/23 08:59 81 mg BID KAMILA Administration Atorvastatin Calcium 20 mg 02/18/22 09:00 02/19/22 09:03 Atorvastatin 20 Mg Tablet PO 02/18/23 08:59 20 mg DAILY KAMILA Administration Dextrose 0 gm 02/17/22 15:05 Dextrose 50% In Water 25 Gm/50 Ml Syringe IV-PUSH 02/17/23 15:04 PRN PRN Hypoglycemia Docusate Sodium 100 mg 02/17/22 09:00 02/19/22 09:03 Docusate 100 Mg Capsule PO 02/17/23 08:59 100 mg BID KAMILA Administration Glucose 0 gm 02/17/22 15:05 Dextrose 40% Gel 15 Gm Tube PO 02/17/23 15:04 PRN PRN Hypoglycemia Hydromorphone HCl 1 mg 02/17/22 05:40 Hydromorphone 1 Mg/Ml Syringe IV-PUSH Q2H PRN Pain Scale 4 - 6 Hydromorphone HCl 0.5 mg 02/17/22 05:40 02/17/22 23:59 Hydromorphone 0.5 Mg/0.5 Ml Syringe IV-PUSH 0.5 mg Q2H PRN Administration Pain Scale 1 - 3 Hydromorphone HCl 1.5 mg 02/17/22 05:40 Hydromorphone 1 Mg/Ml Syringe IV-PUSH Q2H PRN Pain Scale 7 - 10 Insulin Aspart 0 units 02/17/22 17:00 02/19/22 09:03 Insulin Aspart 300 Units/3 Ml Insuln.Pen SUBCUT 02/17/23 16:59 14 units TID.WM.HS KAMILA Administration Protocol Insulin Glargine 30 units 02/18/22 21:00 02/19/22 09:03 Insulin Glargine 300 Units/3 Ml Insuln.Pen SUBCUT 02/18/23 20:59 30 units BID KAMILA Administration Lisinopril 20 mg 02/18/22 09:00 02/19/22 09:03 Lisinopril 20 Mg Tablet PO 02/18/23 08:59 20 mg DAILY KAMILA Administration Mineral Oil 1 each 02/20/22 05:40 Mineral Oil ([place]) 1 Each Enema NH ONCE PRN Constipation Naloxone HCl 0.4 mg 02/17/22 05:40 Naloxone Hcl 0.4 Mg/Ml Vial IV-PUSH 02/17/23 05:39 Q2M PRN Opioid Reversal Ondansetron HCl 8 mg 02/17/22 05:40 Ondansetron Odt 4 Mg Tab.Rapdis PO 02/17/23 05:39 TID PRN Nausea Oxycodone HCl 5 mg 02/17/22 05:40 02/19/22 00:47 Oxycodone Ir 5 Mg Tablet PO 5 mg Q4HR PRN Administration Pain Scale 6 - 10 Polyethylene Glycol 17 gm 02/17/22 05:40 Polyethylene Glycol 3350 17 Gm Powd.Pack PO 02/24/22 05:39 DAILY PRN Constipation Prochlorperazine Maleate 10 mg 02/17/22 05:40 Prochlorperazine Maleate 5 Mg Tablet PO 02/17/23 05:39 Q6H PRN Nausea Senna/Docusate Sodium 2 tab 02/17/22 09:00 02/19/22 09:03 Sennosides/Docusate 8.6-50mg 1 Tab Tablet PO 03/19/22 08:59 2 tab DAILY KAMILA Administration Sodium Chloride 0 ml 02/16/22 07:32 02/17/22 23:58 Sodium Chloride 0.9 % 10 Ml Syringe IV-PUSH 02/16/23 07:31 10 ml PRN PRN Administration Flush Sodium Chloride 0 ml 02/17/22 06:00 02/19/22 06:14 Sodium Chloride 0.9 % 10 Ml Syringe IV-PUSH 02/17/23 05:59 10 ml QSHIFT KAMILA Administration Sodium Chloride 0 ml 02/17/22 05:42 Sodium Chloride 0.9 % 10 Ml Syringe IV-PUSH 02/17/23 05:41 PRN PRN Flush A&P - Hospitalist Assessment/Plan (1) Type 2 diabetes mellitus with insulin therapy: Plan: Blood glucose level slowly improving but still remains high. Continue to titrate basal insulin depending upon his blood glucose level along with sliding scale coverage. His recent A1c level is 6.3. (2) History of total right hip replacement: Plan: He underwent right total hip replacement on 02/17/2022 with minimal complications Pain management with oxycodone and Dilaudid. Continue current regimen as pain is well controlled He is awaiting rehab placement. Continue PT/OT. (3) Essential hypertension: Plan: We will hold lisinopril due to blood pressure on the lower side. (4) Chronic kidney disease, stage III (moderate): Plan: Creatinine slightly increased. Hold lisinopril to prevent hypotension. Continue to monitor renal function. Avoid nephrotoxic medications. Plan DVT prophylaxis with Aspirin 81 mg BID per surgical team Documented By: Marjorie Xavier MD 02/19/22 1030 Signed By: <Electronically signed by Marjorie Xavier MD> 02/19/22 1034 [facility] Work Phone: [phone]) 423-604710-14-2022 Progress note Author Marjorie Xavier [facility] February 18, 2022 6:26pm Note Date/Time February 18, 2022 8 :11am [facility] [address] [place] [address] Hospitalist Progress Note Signed with Vandana Patient: Sumeet Paz MR#: [id number] : 1945 Acct:[id number] Age/Sex: 76 / M Adm Date: 2 Loc: 4N Room: 5F9622-8 Type: REG SDC Attending Dr: Carlos Newsome Jr DO Copies to: ~ ADDENDUM1 Patient was personally seen by me on the day of encounter, reviewed his history and performed abebe elements of exam and formulated the plan of care and confirmedthe resident/interns note below. Patient does appear more awake and responsive today. We will titrate basal insulin depending upon his oral intake and blood glucose level. Monitor renal function. He does have history of chronic kidney disease stage III. Avoid nephrotoxic medications. Addendum Documented By: Marjorie Xavier MD 02/18/221825 Addendum Signed By: <Electronically signed by Marjorie Xavier MD> 02/18/221825 Date of Service: 02/18/2022 Subjective Subjective Narrative: Mr. Paz is sitting and resting comfortably in bed this morning. Exam Physical Exam Vital Signs: Temp Pulse Resp BP Pulse Ox O2 Del Method O2 Flow Rate 98.4 F 84 18 106/66 100 CPAP 10 02/18/22 04:30 02/18/22 04:30 02/18/22 04:30 02/18/22 04:30 02/18/22 04:30 02/18/22 04:30 02/17/22 10:53 Narrative: GEN: Pleasant, Cooperative, no acute distress. Obese. NECK: Supple. Trachea is midline. No adenopathy. LUNGS: CTAB. No wheezes or rhonchi CV: RRR. S1 and S2 present. No murmurs, rubs, or gallops ABD: Soft. Non tender. Non distended. Bowel sounds present. EXT: Moves all extremities. No edema in LE bilaterally. No calf muscle tenderness. Right hip tenderness to palpation. Incision present over the righthip consistent with right total hip replacement. Healing well. Minimal erythema. No drainage. NEURO: No FND. A+Ox3. Somewhat somnolent. SKIN: Dry. Intact. No rashes or lesions. PSYCH: Appropriate mood and affect for situation Objective Lab Results CBC & Chem 7: 02/18/22 04:48 02/18/22 06:59 Meds Allergies and Active Meds Allergies No Known Allergies Allergy (Verified 02/01/22 16:06) Active Meds: Active Medications Generic Name Dose Route Start Last Admin Trade Name Sanam PRN Reason Stop Dose Admin Acetaminophen 1,000 mg 02/17/22 05:45 02/18/22 06:31 Acetaminophen 500 Mg Tablet PO 02/17/23 05:44 1,000 mg Q8H KAMILA Administration Aspirin 81 mg 02/17/22 09:00 02/17/22 21:12 Aspirin 81 Mg Tablet.Dr PO 02/17/23 08:59 81 mg BID KAMILA Administration Atorvastatin Calcium 20 mg 02/18/22 09:00 Atorvastatin 20 Mg Tablet PO 02/18/23 08:59 DAILY KAMILA Dextrose 0 gm 02/17/22 15:05 Dextrose 50% In Water 25 Gm/50 Ml Syringe IV-PUSH 02/17/23 15:04 PRN PRN Hypoglycemia Docusate Sodium 100 mg 02/17/22 09:00 02/17/22 21:12 Docusate 100 Mg Capsule PO 02/17/23 08:59 100 mg BID KAMILA Administration Glucose 0 gm 02/17/22 15:05 Dextrose 40% Gel 15 Gm Tube PO 02/17/23 15:04 PRN PRN Hypoglycemia Hydromorphone HCl 1 mg 02/17/22 05:40 Hydromorphone 1 Mg/Ml Syringe IV-PUSH Q2H PRN Pain Scale 4 - 6 Hydromorphone HCl 0.5 mg 02/17/22 05:40 02/17/22 23:59 Hydromorphone 0.5 Mg/0.5 Ml Syringe IV-PUSH 0.5 mg Q2H PRN Administration Pain Scale 1 - 3 Hydromorphone HCl 1.5 mg 02/17/22 05:40 Hydromorphone 1 Mg/Ml Syringe IV-PUSH Q2H PRN Pain Scale 7 - 10 Insulin Aspart 0 units 02/17/22 17:00 02/17/22 21:14 Insulin Aspart 300 Units/3 Ml Insuln.Pen SUBCUT 02/17/23 16:59 14 units TID.WM.HS KAMILA Administration Protocol Lisinopril 20 mg 02/18/22 09:00 Lisinopril 20 Mg Tablet PO 02/18/23 08:59 DAILY KAMILA Mineral Oil 1 each 02/20/22 05:40 Mineral Oil ([place]) 1 Each Enema [place] ONCE PRN Constipation Naloxone HCl 0.4 mg 02/17/22 05:40 Naloxone Hcl 0.4 Mg/Ml Vial IV-PUSH 02/17/23 05:39 Q2M PRN Opioid Reversal Ondansetron HCl 8 mg 02/17/22 05:40 Ondansetron Odt 4 Mg Tab.Rapdis PO 02/17/23 05:39 TID PRN Nausea Oxycodone HCl 5 mg 02/17/22 05:40 02/18/22 03:47 Oxycodone Ir 5 Mg Tablet PO 5 mg Q4HR PRN Administration Pain Scale 6 - 10 Polyethylene Glycol 17 gm 02/17/22 05:40 Polyethylene Glycol 3350 17 Gm Powd.Pack PO 02/24/22 05:39 DAILY PRN Constipation Prochlorperazine Maleate 10 mg 02/17/22 05:40 Prochlorperazine Maleate 5 Mg Tablet PO 02/17/23 05:39 Q6H PRN Nausea Senna/Docusate Sodium 2 tab 02/17/22 09:00 02/17/22 12:57 Sennosides/Docusate 8.6-50mg 1 Tab Tablet PO 03/19/22 08:59 Not Given DAILY KAMILA Sodium Chloride 0 ml 02/16/22 07:32 02/17/22 23:58 Sodium Chloride 0.9 % 10 Ml Syringe IV-PUSH 02/16/23 07:31 10 ml PRN PRN Administration Flush Sodium Chloride 0 ml 02/17/22 06:00 02/18/22 06:31 Sodium Chloride 0.9 % 10 Ml Syringe IV-PUSH 02/17/23 05:59 10 ml QSHIFT KAMILA Administration Sodium Chloride 0 ml 02/17/22 05:42 Sodium Chloride 0.9 % 10 Ml Syringe IV-PUSH 02/17/23 05:41 PRN PRN Flush A&P - Hospitalist Assessment/Plan (1) Type 2 diabetes mellitus with insulin therapy: Plan: Most recent POC glucose 285 this morning. 10 units glargine given last night. He normally takes 35 units of Lantus twice daily as well as Victoza. We will give 15 units of glargine this morning as well as continue conservative scale (2) History of total right hip replacement: Plan: He underwent right total hip replacement on 02/17/2022 with minimal complications Pain management with oxycodone and Dilaudid. Continue current regimen as pain is well controlled He is awaiting rehab placement (3) Essential hypertension: Plan: Restart home medication of lisinopril 20 mg p.o. daily. Hold if blood pressure less than 90/60 (4) Chronic kidney disease, stage III (moderate): Plan DVT prophylaxis with Aspirin 81 mg BID per surgical team Regular diet Full code Documented By: Ho Schneider DO, RES 02/18/22 0 809 Signed By: <Electronically signed by DO MARYSOL Schneider> 02/18/22 0933 <Electronically signed by Marjorie Xavier MD> 02/18/22 [address] [facility] Work Phone: 1(620) 364-902410-14-2022 Progress note Author Carlos Newsome [facility] February 18, 2022 12:12pm Note Date/Time February 18, 2022 9 :27am [facility] [address] [place] [address] Orthopedic Progress Note Signed Patient: Sumeet Paz MR#: [id number] : 1945 Acct:[id number] Age/Sex: 76 / M Adm Date: 2 Loc: Room: [address] [place] [address] Type: [facility] Attending Dr: Carlos Newsome Jr, DO Copies to: ~ Date of Service: 02/18/2022 Subjective Subjective Interval History: Patient states pain is somewhat controlled with pain meds. Patient denies chestpain, shortness of breath, difficulty with speech, abdominal pain or orthopnea. Patient denies numbness or tingling to bilateral lower extremities. Exam Physical Exam Vital Signs: Temp Pulse Resp BP Pulse Ox O2 Del Method O2 Flow Rate 98.3 F 102 H 20 117/67 95 CPAP 10 02/18/22 08:00 02/18/22 08:00 02/18/22 08:00 02/18/22 08:00 02/18/22 08:00 02/18/22 08:00 02/17/22 10:53 Const General: cooperative HEENT Head: normal to inspection Eyes General: appearance normal, both eyes and all related structures Resp Other: Bilaterally clear to auscultation. Cardio Other: Regular rate and rhythm no gross evidence of murmurs gallops or rubs. GI Other: Abdomen soft. Bowel sounds present. Skin Other: Incision healing without evidence of infection. No evidence of ascending lymphangitis or surrounding erythema. Drainage normal for postoperative day 1. Neuro Other: Cranial nerves II through XII grossly intact. Patient is able to motor feet, toes and ankles in all anatomic planes with 5 out of 5 strength bilaterally. Dorsalis pedis and posterior tibial pulses were present and equal bilaterally. Psych Appearance: grossly normal Objective Labs Labs: Laboratory Results - last 24 hr 02/17/22 02/17/22 02/18/22 16:24 20:51 04:48 Corrected WBC 10.6 H Uncorrected WBC Count 10.6 RBC 3.14 L Hgb 10.8 L Hct 31.6 L MCV 100.7 MCH 34.3 MCHC 34.1 RDW 14.1 Plt Count 172 MPV 8.3 Neut % (Auto) 74.3 Lymph % (Auto) 14.4 [place] % (Auto) 11.1 Eos % (Auto) 0.0 Baso % (Auto) 0.2 Neut # (Auto) 7.9 H Lymph # (Auto) 1.5 [place] # (Auto) 1.2 H Eos # (Auto) 0.0 Baso # (Auto) 0.0 Nucleated RBC % (auto) 0.1 PHA Creatinine Clear Sodium Potassium Chloride Carbon Dioxide Anion Gap BUN Creatinine Est GFR ( Amer) Est GFR (Non-Af Amer) Glucose POC Glucose 294 413 H* POC Glucose Comment Calcium 02/18/22 02/18/22 02/18/22 04:48 06:59 07:52 Corrected WBC Uncorrected WBC Count RBC Hgb Hct MCV MCH MCHC RDW Plt Count MPV Neut % (Auto) Lymph % (Auto) [place] % (Auto) Eos % (Auto) Baso % (Auto) Neut # (Auto) Lymph # (Auto) [place] # (Auto) Eos # (Auto) Baso # (Auto) Nucleated RBC % (auto) PHA Creatinine Clear 43.19 Sodium 131 L Potassium 4.4 Chloride 96 Carbon Dioxide 26.9 Anion Gap N/A BUN 34 H Creatinine 1.89 H Est GFR ( Amer) 42 Est GFR (Non-Af Amer) 35 Glucose 248 H POC Glucose 285 POC Glucose Comment Calcium 8.4 Assessment / Plan Assessment and plan (1) Type 2 diabetes mellitus with insulin therapy: Code(s): E11.9 - Type 2 diabetes mellitus without complications; Z79.4 - superintendent container terminal (current) use of insulin Status: Acute (2) History of total right hip replacement: Code(s): Z96.641 - Presence of right artificial hip joint Status: Acute (3) Essential hypertension: Code(s): I10 - Essential (primary) hypertension Status: Acute (4) Postoperative anemia due to acute blood loss: Code(s): D62 - Acute posthemorrhagic anemia Status: Acute Plan It appears patient will need rehabilitation placement and has preliminarily beenaccepted to [facility] [place] for tomorrow. continue to monitor H&H. Continue aspirin for DVT prophylaxis. Bed instructions and exercises given. Await rehabilitation placement. Diabetes management continues with hospitalist. Documented By: Carlos Newsome Jr, DO 02/18/22 0921 Signed By: <Electronically signed by Carlos Newsome Jr, DO> 02/18/[address] [place] [address] Work Phone: 1(775) 458-181210-13-2022 Consult note Author Marjorie Xavier [facility] February 17, 2022 7:05pm Note Date/Time February 17, 2022 2 :34pm [facility] [address] [place] [address] Hospitalist Consult Note Signed with Vandana Patient: Sumeet Paz MR#: [id number] : 1945 Acct:[id number] Age/Sex: 76 / M Adm Date: 2 Loc: 4N Room: [address] [place] [address] Type: REG [facility] Attending Dr: Carlos Newsome Jr DO Copies to: DO Marjorie Gaitan Jr, MD Mitchell Rice, , RES~ ADDENDUM1 Patient was personally seen by me on the day of encounter, reviewed his history and performed abebe elements of exam and formulated the plan of care and confirmedthe resident/interns note below. During my evaluation patient was drowsy but wakes up and able to provide history. Will recommend initiating basal insulin once his oral intake improves. Continue sliding scale coverage. DVT prophylaxis and pain management as per primary team. Monitor for sedation. Thank you for the consultation, we will follow Mr. Paz with you during hospital stay. Addendum Documented By: Marjorie Xavier MD 02/17/221904 Addendum Signed By: <Electronically signed by Marjorie Xavier MD> 02/17/221904 HPI DATE OF CONSULTATION: 02/17/22 REQUESTING PROVIDER: Carlos Newsome Jr Consult Narrative Reason for Consult: Diabetic Management HPI: Mr. Paz is a 76-year-old male with a relevant past medical history of type 2 diabetes on insulin therapy, essential hypertension, and osteoarthritis of the right hip who underwent right total hip replacement surgery on 02/17/2022. Hospitalist service is being consulted for medical management of the patient's insulin. The operation was successful. Currently, he is in minimal amounts of pain and is being worked with physical therapy. He does not have any acute complaints. Review of Systems Review of Systems Review of systems: 12 point review of system is unremarkable other than mentioned in history of presenting illness or below Constitutional Constitutional: Reports system reviewed and no additional complaints, except as documented, Denies chills and Denies fever(s) Eyes Eyes: Reports system reviewed and no additional complaints, except as documented ENT Ears, Nose, Mouth, and Throat: Reports system reviewed and no additional complaints, except as documented Cardiovascular Cardiovascular: Reports system reviewed and no additional complaints, except as documented and Denies chest pain Respiratory Respiratory: Denies dyspnea Gastrointestinal Gastrointestinal: Reports system reviewed and no additional complaints, except as documented, Denies change in bowel habits, Denies nausea and Denies vomiting Musculoskeletal Musculoskeletal: Reports arthralgias (R hip pain) Neurologic Neurologic: Reports system reviewed and no additional complaints, except as documented, Denies numbness and Denies vertigo Psychiatric Psychiatric: Reports system reviewed and no additional complaints, except as documented PMFSH Vaccinated for COVID-19?: Yes Medical History Diabetes Hyperlipidemia Hypertension Prostate CA Surgical History History of back surgery x2 History of knee replacement procedure of right knee History of left hip replacement History of neck surgery History of prostatectomy Family History Father CVA (cerebral vascular accident) Sister Myocardial infarct Social History Smoking Status: Former smoker Tobacco Type: cigarettes Substance Use Type: Alcohol 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 Meds Medications and Allergies Allergies No Known Allergies Allergy (Verified 02/01/22 16:06) Home Medications atorvastatin 10 mg tablet 20 mg PO DAILY 03/10/17 [History Confirmed 02/01/22] lisinopril 20 mg tablet 20 mg PO DAILY 03/10/17 [History Confirmed 02/17/22] insulin glargine 100 unit/mL (3 mL) subcutaneous pen (Lantus Solostar U-100 Insulin) 35 unit subcut BID 03/18/18 [History Confirmed 02/17/22] gabapentin 100 mg capsule 700 mg PO BID 02/01/22 [History Confirmed 02/17/22] liraglutide 0.6 mg/0.1 mL (18 mg/3 mL) subcutaneous pen injector (Victoza 2- Roberto)1 mg subcut QWEEK 02/01/22 [History Confirmed 02/01/22] Active Medications: Active Medications Generic Name Dose Route Start Last Admin Trade Name Freq PRN Reason Stop Dose Admin Acetaminophen 1,000 mg 02/17/22 05:45 02/17/22 11:55 Acetaminophen 500 Mg Tablet PO 02/17/23 05:44 Not Given Q8H [facility] Aspirin 81 mg 02/17/22 09:00 02/17/22 12:57 Aspirin 81 Mg Tablet.Dr PO 02/17/23 08:59 Not Given BID [facility] Atorvastatin Calcium 20 mg 02/18/22 09:00 Atorvastatin 20 Mg Tablet PO 02/18/23 08:59 DAILY [facility] Diphenhydramine HCl 25 mg 02/17/22 05:40 Diphenhydramine 25 Mg Capsule PO 02/17/23 05:39 Q6H PRN Itching Diphenhydramine HCl 25 mg 02/17/22 05:40 Diphenhydramine 25 Mg Capsule PO 02/17/23 05:39 HS PRN Insomnia Docusate Sodium 100 mg 02/17/22 09:00 02/17/22 12:57 Docusate 100 Mg Capsule PO 02/17/23 08:59 Not Given BID [facility] Gabapentin 700 mg 02/16/22 21:00 Gabapentin 100 Mg Capsule PO 02/16/23 20:59 BID [facility] Hydromorphone HCl 1 mg 02/17/22 05:40 Hydromorphone 1 Mg/Ml Syringe IV-PUSH Q2H PRN Pain Scale 4 - 6 Hydromorphone HCl 0.5 mg 02/17/22 05:40 Hydromorphone 0.5 Mg/0.5 Ml Syringe IV-PUSH Q2H PRN Pain Scale 1 - 3 Hydromorphone HCl 1.5 mg 02/17/22 05:40 Hydromorphone 1 Mg/Ml Syringe IV-PUSH Q2H PRN Pain Scale 7 - 10 Hydroxyzine Pamoate 25 mg 02/17/22 05:40 Hydroxyzine Pamoate 25 Mg Capsule PO 02/17/23 05:39 Q6H PRN Muscle Spasm Cefazolin Sodium 1 gm in 50 mls @ 100 mls/hr 02/17/22 15:30 Ancef IV 02/17/22 23:59 Q8H KAMILA Lactated Ringer's 1,000 mls @ 75 mls/hr 02/17/22 05:45 02/17/22 12:17 Lactated Ringers IV 02/17/23 05:44 75 mls/hr .[id number] KAMILA Administration Insulin Glargine 35 units 02/16/22 21:00 Insulin Glargine 300 Units/3 Ml Insuln.Pen SUBCUT 02/16/23 20:59 BID KAMILA Liraglutide 1 mg 02/23/22 09:00 Liraglutide 18 Mg/3 Ml Pen.Injctr SUBCUT 02/23/23 08:59 QWEEK [facility] Lisinopril 20 mg 02/18/22 09:00 Lisinopril 20 Mg Tablet PO 02/18/23 08:59 DAILY [facility] Mineral Oil 1 each 02/20/22 05:40 Mineral Oil ([place]) 1 Each Enema [place] ONCE PRN Constipation Naloxone HCl 0.4 mg 02/17/22 05:40 Naloxone Hcl 0.4 Mg/Ml Vial IV-PUSH 02/17/23 05:39 Q2M PRN Opioid Reversal Ondansetron HCl 8 mg 02/17/22 05:40 Ondansetron Odt 4 Mg Tab.Rapdis PO 02/17/23 05:39 TID PRN Nausea Oxycodone HCl 5 mg 02/17/22 05:40 Oxycodone Ir 5 Mg Tablet PO Q4HR PRN Pain Scale 6 - 10 Polyethylene Glycol 17 gm 02/17/22 05:40 Polyethylene Glycol 3350 17 Gm Powd.Pack PO 02/24/22 05:39 DAILY PRN Constipation Prochlorperazine Maleate 10 mg 02/17/22 05:40 Prochlorperazine Maleate 5 Mg Tablet PO 02/17/23 05:39 Q6H PRN Nausea Senna/Docusate Sodium 2 tab 02/17/22 09:00 02/17/22 12:57 Sennosides/Docusate 8.6-50mg 1 Tab Tablet PO 03/19/22 08:59 Not Given DAILY KAMILA Sodium Chloride 0 ml 02/16/22 07:32 Sodium Chloride 0.9 % 10 Ml Syringe IV-PUSH 02/16/23 07:31 PRN PRN Flush Sodium Chloride 0 ml 02/17/22 06:00 02/17/22 11:56 Sodium Chloride 0.9 % 10 Ml Syringe IV-PUSH 02/17/23 05:59 Not Given QSHIFT KAMILA Sodium Chloride 0 ml 02/17/22 05:42 Sodium Chloride 0.9 % 10 Ml Syringe IV-PUSH 02/17/23 05:41 PRN PRN Flush Exam Physical Exam Vital Signs: Temp Pulse Resp BP Pulse Ox O2 Del Method O2 Flow Rate 98.1 F 95 H 16 115/74 92 L Room Air 10 02/17/22 11:45 02/17/22 12:15 02/17/22 12:15 02/17/22 12:15 02/17/22 12:15 02/17/22 12:51 02/17/22 10:53 Narrative: GEN: Pleasant, Cooperative, no acute distress. Obese. NECK: Supple. Trachea is midline. No adenopathy. LUNGS: CTAB. No wheezes or rhonchi CV: RRR. S1 and S2 present. No murmurs, rubs, or gallops ABD: Soft. Non tender. Non distended. Bowel sounds present. EXT: Moves all extremities. No edema in LE bilaterally. No calf muscle tenderness. Right hip tenderness to palpation. Incision present over the righthip consistent with right total hip replacement. Healing well. Minimal erythema. No drainage. NEURO: No FND. A+Ox3. Somewhat somnolent. SKIN: Dry. Intact. No rashes or lesions. PSYCH: Appropriate mood and affect for situation Results Lab Results Labs: Laboratory Results - last 72 hr 02/17/22 06:36: POC Glucose 108 02/01/22 16:40: Blood Type A Positive, Antibody Screen Negative, Crossmatch (AHG) See Detail A&P - Hospitalist Assessment/Plan (1) Type 2 diabetes mellitus with insulin therapy: Plan: Most recent POC glucose 108 He normally takes 35 units of Lantus twice daily as well as Victoza. We will hold basal tonight and would do conservative scale for now. Recheck in the morning. (2) History of total right hip replacement: Plan: He underwent right total hip replacement on 02/17/2022 with minimal complications Pain management with oxycodone and Dilaudid. He is somewhat somnolent on the current regimen. (3) Essential hypertension: Plan: Restart home medication of lisinopril 20 mg p.o. daily. Hold if blood pressure less than 90/60 Plan DVT prophylaxis with Aspirin 81 mg BID per surgical team Regular diet Full code Documented By: Ho Schneider DO, RES 02/17/22 1 429 Signed By: <Electronically signed by DO MARYSOL Schneider> 02/17/22 1513 <Electronically signed by Marjorie Xavier MD> 02/17/22 [address] [facility] Work Phone: 1(591) [phone] Miscellaneous Notes* Telephone Encounter - Sybil Molina RN - 12/08/2021 4:43 PM EDT Neuro SPINE CARE COORDINATION SURGERY SCHEDULING Patient accepts surgery date of 06/23/[address] Swan at [facility]. Planned procedure is L2-3 bilateral laminotomy/foraminotomy. PACC will be scheduled by PACC schedulers. Medications reviewed : Yes. Meds to be stopped prior to surgery : NSAIDS, ASA and Vitamins and supplements. Additional pre op clearances needed : none. Any implanted devices : No. Transplant History No Patient will get optimization lab work : HgbA1C. Questions answered. Patient verbalizes understanding via teach back. Additional comments : Placed on cancellation list [facility] History of Present illness Narrative* Korina Swan MD - 12/07/2021 3:34 PM EDT Sumeet underwent L2-3 transforaminal epidural injection. It gave him 2 days of excellent pain relief. Given this I think he could potentially benefit from surgery. Potential surgical options are an isolated L2-3 laminotomy and foraminotomy or an extension of his fusion to L2-3. We had a detailed discussion of the risks, benefits, expected outcomes, options and personnel today. He wishes to proceed with an L2-3 bilateral laminotomy and foraminotomy. Korina Swan MD * Korina Swan MD - 12/07/2021 2:51 PM EDT SPINE SURGERY ESTABLISHED DATE OF SERVICE: 12/07/2021 DATE OF LAST VISIT: 10/05/2021 SUBJECTIVE: HPI:Sumeet Paz is a 76 year old male presenting with spouse. 76 year old male presenting for follow up of worsening lower back pain radiating to his right peritrochanteric region. He was last seen in clinic 2 months ago and the plan at the time was to undergo an L2 TFESI which he underwent 1 month ago on 11/04/[address] Stephenson. He reports 100% resolution of pain which last 4 days after which the pain recurred and has remained. Denies any numbness or tingling. PAIN EVALUATION 12/07/2021 1431 Pain Level: 7 Pain Location: Hip-Right Description: Sharp Duration Amount of Time: 2 Duration Units: Months Frequency: Continuous Pain Radiation: down the right thigh Aggravating Factors: Walking Alleviating Factors: None Pain Ratio: Pain in the back and leg(s) is equal AMBULATORY STATUS: Impaired Community Distances ANTIPLATELET OR ANTICOAGULATION STATUS: No PREVIOUS CONSERVATIVE TREATMENTS: Epidural Blocks: Date(s) 11/04/2021 REVIEW OF SYSTEMS: GENERAL: No weight loss or malaise MUSCULOSKELETAL: Negative for joint pain, swelling or muscle pain NEURO: No history of headaches, syncope, paralysis, seizures or tremors MEDICATIONS: cyanocobalamin, vitamin B-12, (VITAMIN B-12 ORAL) Take 1,000 Units by mouth. semaglutide (OZEMPIC SUBCUTANEOUS) Inject subcutaneously. Once a week baclofen (LIORESAL) 20 mg tablet TAKE 1/2 TABLET BY MOUTH AT BEDTIME NEEDED MAY INCREASE TO 1 TABLET AT BEDTIME IF NEEDED insulin glargine (LANTUS) 100 unit/mL injection Inject 45 Units subcutaneously twice daily. liraglutide (VICTOZA) 0.6 mg/ 0.1 ml subcutaneous pen injector Inject 1.8 mg subcutaneously once daily. GABAPENTIN ORAL Take by mouth. Take seven tablets twice a day ferrous sulfate (IRON) 325 mg (65 mg iron) tablet 65 mg. acetaminophen (TYLENOL EXTRA STRENGTH) 500 mg tablet 1000mg orally 2-3 per day, max AMARYL 4MG TABLET LIPITOR 10MG TABLET Take 20 mg by mouth. PRINIVIL 10MG TABLET Take 40 mg by mouth. GLUCOPHAGE 500MG TABLET Take one(1) tablet daily. Patient Entered Questionnaires Spine Questions 01/04/2021 Pain Location: Lower back Pain Duration: More than 5 years Pain over last 6 months: Every day or nearly every day in the past 6 months Symptoms from neck/cervical spine: Yes PROMIS Score Percentiles Physical Health 01/04/2021 Physical Function Percentile 1 Sleep Percentile 38 Fatigue Percentile 12 Pain Interference Percentile 4 PROMIS SOCIAL ROLE SCORE 01/04/2021 Social Role Satisfaction Percentile 16* Percentiles provide an indication of how the patient's score ranks in relation to the general population. Higher percentile rankings indicate better function/quality of life. 50th percentile is the average of the general population and indicates half of respondents had a worse score. Depression Screening: PHQ-9 Self-Harm (Item 9) response options: 0 Not at all 1 Several days 2 More than half the days 3 Nearly every day PHQ-9 Levels: 0-4 No to mild depression 5-9 Mild depression 10-14 Moderate depression 15-19 Moderately severe depression 20-27 Severe depression OBJECTIVE: PHYSICAL EXAM: There were no vitals taken for this visit. GENERAL APPEARANCE: Well nourished, well developed, and no apparent distress. NEURO PSYCH: Patient oriented to person, place, and time. Mood pleasant. Benign affect. MUSCULOSKELETAL VISUAL INSPECTION CERVICAL: WNL THORACIC: WNL LUMBAR: WNL MOTOR: 5/5 in all muscle groups. SENSORY: Normal sensory exam GAIT: Abnormal. NEURO TESTS: None DATA REVIEW:Diagnostic tests reviewed for today's visit, films/specimens were personally reviewed by me: No additional images reviewed today ASSESSMENT/PLAN (M48.062) Spinal stenosis of lumbar region with neurogenic claudication (primary encounter diagnosis) Sumeet Paz is clinically indicated and wishes to pursue Lumbar Decompression surgery at L2-3. The risks, benefits, and anticipated outcomes of the procedure/treatment/test, the alternatives to the procedure/treatment/test and their risks and benefits, and the roles and tasks of the personnel to be involved were discussed with the patient or the patient s personal freight representative. The patient has elected to schedule surgery at this time or intends to call the office with a surgical date. Shared decision making occurred while obtaining informed consent. 1. No Orders Entered Today 2. Follow up: Following above I reviewed the information obtained and documented by the resident. I examined the patient and evaluated all available films and pertinent documents. We discussed the case and I agree with the plans as outlined in this note. SIGNATURE: Korina Swan MD PATIENT NAME: Sumeet Paz DATE: December 07, 2021 TIME: 3:02 PM PAGER: [facility] Evaluation note* Encounter Date Diagnosis Assessment Notes Treatment Notes Treatment Clinical Notes Nov, Right hip pain (ICD-10 - M25.551) Patient continues to complain of right hip pain. Recent right hip injections provided complete short term relief. I encouraged the patient to continue with plans to follow up with orthopedics. In the meantime, patient has continued need for Oxycodone/ Acetaminophen 5-325 up to twice daily as needed. An OARRS report was processed and reviewed and shows no violations, as well as an opioid risk assessment being completed without concerns. He denies any significant opioid related side effects and appears to be compliant with this medication. The patient was counseled and educated regarding the risks and benefits of prison opioid use. He understands the associated risks with this medication and agrees that it provides reasonable benefit in regards to his pain control and level of function. This medication was refilled today. We will follow up with the patient in one month, sooner if needed. Anatomy of spine discussed in detail with patient in regards to patients condition. Nov, Other spondylosis with radiculopathy, lumbar region (ICD-10 - M47.26) [facility] [facility]. We will continue to manage his symptoms as best we can with his current medication regimen. Nov, Other chronic pain (ICD-10 - G89.29) Nov, Chronic, continuous use of opioids (ICD-10 - F11.90) Nov, Other Above note writ ten by Tomy Mendez MA, Labor Specialist. Edited and approved by Dr. Bari Vitale MD. [facility] Other 07-01-2022 Miscellaneous Notes* Telephone Encounter - Amalia Jordan RN - 11/05/2021 9:44 AM EDT Post Spine Injection phone call: Bilateral L2-3 transforaminal epidural steroid injections. (Of note, the order states Bilateral L1-2 level, but per Dr. Swan's note on 10/05/21 he is wanting this done at the Bilateral L2-3 level due to MRI finding of stenosis, so that is why L2-3 level was chosen today) on 11/04/2021 Patient denies fever, chills, new headache, prolonged numbness nor exacerbation of pain status. Injection site(s) flat and dry with no redness nor drainage. Pre Procedure Pain level: 8 Immediately Post Procedure 5 Pain level today 0 (0 = none - 10 = extreme) Percentage of pain relief: 80% Blood Glucose monitoring: Patient has not checked blood sugar yet today. Advised to make sure [id number] mg/dL November 05, 2021 Patient encouraged to monitor blood glucose for next 24 -48 for elevations. Patient verbalized understanding that it may take up to 14 days to realize full benefit of spinal injection. Follow up as indicated on order: Ordering Provider Via Office Visit: 2-4 weeks. Patient reminded tobring pain diary to follow appointment. If follow up appointment indicated on order, patient encouraged to schedule follow up appointment 2-4 weeks post procedure by calling [phone] Patient does not have any questions or concerns. Patient will call office with any questions or concerns. documented in this [facility] [place] Miscellaneous Notes* Telephone Encounter - Sybil Molina RN - 10/14/2021 1:19 PM EDT Neuro SPINE CARE COORDINATION QUICK NOTE Patient aware injection is scheduled with Dr Covarrubias on 11/04/2021 at the [place] office. [place] office number provided to patient for further information. * Telephone Encounter - Minerva Pineda - 10/14/2021 12:59 PM EDT Patient is calling to schedule injection. Patient is not sure who the injection is with. Call back # [phone] documented in this encounterKind[facility] [place]05-31-2022 Evaluation note* Encounter Date Diagnosis Assessment Notes Treatment Notes Treatment Clinical Notes September, Right hip pain (ICD-10 - M25.551) Patient continues to complain of right hip pain. Recent right hip injections provided complete short term relief. I encouraged the patient to continue with plans to follow up with orthopedics to explore surgical options. In the meantime, given the severity of his pain, I will resume his previous regimen of Oxycodone/ Acetaminophen 5-325 up to twice daily as needed for severe breakthrough pain. OARRS was processed and reviewed, no dicrepencies. Patient provided an updated Saliva sample for toxassure screening. We will follow up with the patient as needed. Anatomy discussed in detail with patient in regards to patients condition. September, Other chronic pain (ICD-10 - G89.29) September, Chronic, continuous use of opioids (ICD-10 - F11.90) September, Other Above note writ ten by Tomy Mendez MA, Labor Specialist. Edited and approved by Dr. Bari Vitale MD. [facility] Other 05-31-2022 History of Present illness Narrative* Korina Swan MD - 10/05/2021 9:24 AM EDT Sumeet is undergone his CT. Shows that he is solidly fused at all levels. There is also some gapping of the facets at L2-3 where the MRI does show stenosis. I think the next step would be a trial of a bilateral L2-3 transforaminal epidural injection as a diagnostic test. I will see him back after this is been done. Korina Swan MD documented in this encounterKind[facility] [place]05-17-[facility]22 History of Present illness Narrative* RT Adán(R) - 09/21/2021 9:49 AM EDT Radiology Service Progress Note PATIENT NAME: Sumeet Paz DATE OF SERVICE: September 21, 2021 TIME: 9:49 AM PATIENT IDENTITY VERIFICATION COMPLETED USING TWO (2) IDENTIFIERS: Name and Date of confirmedby patient verbally. FALL SCREENING: Has the patient had 2 falls in the last year or 1 fall with injury or currently using an Ambulatory Assistive Device (Walker, Cane, Wheelchair, Crutches, etc.)? Yes, Patient High Riskfor Falls What interventions were put in place to prevent falls during this visit? Offered Assistance with Transfers/Clothing and Increased Observations by Caregivers PATIENT GENDER DATA: Male PATIENT RELEVANT IMPLANT DATA REVIEWED: Not Applicable RADIOLOGY DEPARTMENT: CT; Exam(s) Completed: Spine PERIPHERAL IV DATA: Not applicable SIGNED BY: RT Adán(Korina) September 21, 2021 9:49 AM documented in this encounterKindred [facility] [place]05-03-2022 History of Present illness Narrative* Korina Swan MD - 09/07/2021 12:33 PM EDT This 76-year-old male is seen for the first time since 2003. At that time I was assessing him for cervical and rotator cuff pathology. He presents today complaining of low back pain. The pain is relatively constant. It is made worse with changing position standing or walking. Is relieved by sitting or lying supine. He has undergone several previous lumbar procedures. Imaging investigation shows hardware in situ posteriorly at L4-S1. There is also evidence of a past interbody fusion at L3-4. MRI does show some stenosis at L2- 3. There is a suggestion on the MRI of fluid signal around the screws indicating loose hardware. I am suspicious that this gentleman's ongoing pain is due to pseudoarthrosis at 1 or more levels. We will get a new CT scan. I will see him back after this is been done. Korina Swan MD * Korina Swan MD - 09/07/2021 11:46 AM EDT SPINE SURGERY NEW PATIENT PCP: Car Browning DO REFERRING PROVIDER: Dr. Payan SUBJECTIVE HISTORY OF PRESENT ILLNESS: Sumeet Paz is a 76 year old male presenting with spouse. CHIEF COMPLAINT: back pain PRECIPITATING EVENT: None DURATION OF SYMPTOMS: Greater Than 1 Year Hx of of years of back pain and right peritrochanteric pain. He has had multiple surgeries and injections in the past but is unsure of the levels. He reports that he is unable to stand for a long period of time and is unable to walk even the length of his driveway. He feels his health is declining because of his immobility. 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 Social History Tobacco Use Smoking status: Never Smoker Smokeless tobacco: Never Used Substance Use Topics Alcohol use: Yes Drug use: Not on file ALLERGIES No Known Allergies MEDICATIONS: cyanocobalamin, vitamin B-12, (VITAMIN B-12 ORAL) Take 1,000 Units by mouth. semaglutide (OZEMPIC SUBCUTANEOUS) Inject subcutaneously. Once a week baclofen (LIORESAL) 20 mg tablet TAKE 1/2 TABLET BY MOUTH AT BEDTIME NEEDED MAY INCREASE TO 1 TABLET AT BEDTIME IF NEEDED insulin glargine (LANTUS) 100 unit/mL injection Inject 45 Units subcutaneously twice daily. liraglutide (VICTOZA) 0.6 mg/ 0.1 ml subcutaneous pen injector Inject 1.8 mg subcutaneously once daily. GABAPENTIN ORAL Take by mouth. Take seven tablets twice a day ferrous sulfate (IRON) 325 mg (65 mg iron) tablet 65 mg. acetaminophen (TYLENOL EXTRA STRENGTH) 500 mg tablet 1000mg orally 2-3 per day, max AMARYL 4MG TABLET LIPITOR 10MG TABLET Take 20 mg by mouth. PRINIVIL 10MG TABLET Take 40 mg by mouth. GLUCOPHAGE 500MG TABLET Take one(1) tablet daily. REVIEW OF SYSTEMS: GENERAL: No weight loss or malaise MUSCULOSKELETAL: Negative for joint pain, swelling or muscle pain NEURO: No history of headaches, syncope, paralysis, seizures or tremors Patient Entered Questionnaires Spine Questions 01/04/2021 Pain Location: Lower back Pain Duration: More than 5 years Pain over last 6 months: Every day or nearly every day in the past 6 months Symptoms from neck/cervical spine: Yes PROMIS Score Percentiles Physical Health 01/04/2021 Physical Function Percentile 1 Sleep Percentile 38 Fatigue Percentile 12 Pain Interference Percentile 4 PROMIS SOCIAL ROLE SCORE 01/04/2021 Social Role Satisfaction Percentile 16* Percentiles provide an indication of how the patient's score ranks in relation to the general population. Higher percentile rankings indicate better function/quality of life. 50th percentile is the average of the general population and indicates half of respondents had a worse score. Depression Screening: PHQ-9 Self-Harm (Item 9) response options: 0 Not at all 1 Several days 2 More than half the days 3 Nearly every day PHQ-9 Levels: 0-4 No to mild depression 5-9 Mild depression 10-14 Moderate depression 15-19 Moderately severe depression 20-27 Severe depression OBJECTIVE: PHYSICAL EXAM There were no vitals taken for this visit. GENERAL APPEARANCE: Well nourished, well developed, and no apparent distress. NEURO PSYCH: Patient oriented to person, place, and time. Mood pleasant. Benign affect. MUSCULOSKELETAL VISUAL INSPECTION CERVICAL: WNL THORACIC: WNL LUMBAR: WNL MOTOR: 5/5 in all muscle groups. SENSORY: Normal sensory exam DATA REVIEW [facility] records independently reviewed XR Demonstrates previous l4-S1 fusion, L3-S1 decompression MRI demonstrates severe L2-3 central and lateral recess stenosis. Concern for pseudarthrosis ASSESSMENT/PLAN (M48.062) Spinal stenosis of lumbar region with neurogenic claudication Sumeet Paz has a condition that requires further workup. 1. Imaging: Lumbar CT Without Contrast Preoperative planning 2. Follow up: Following above I reviewed the information obtained and documented by the fellow. I examined the patient and evaluated all available films and pertinent documents. We discussed the case and I agree with the plans asoutlined in this note. SIGNATURE: Korina Swan MD PATIENT NAME: Sumeet Paz DATE: September 07, 2021 TIME: 12:00 PM PAGER: documented in this encounterKind[facility] [place]05-[facility]-2022 Evaluation note* Encounter Date Diagnosis Assessment Notes Treatment Notes Treatment Clinical Notes September, Lumbar back pain (ICD-10 - M54.5) Continue following up with Neurosurgery. September, Right hip pain (ICD-10 - M25.551) We discussed treatment options for the patient's persistent right hip pain. He shows notable pain consistent with the hip joint, he was referred over from orthopedics for consideration of a right intraarticular hip injection. He has failed multiple previous conservative treatment options. Given location of pain and exam findings, patient is a candidate for right intra-articular hip joint injection. However at this time he would like to wait to schedule until after his upcoming neurosurgery appointment. Risks and benefits of procedure explained to patient; patient verbalizes understanding. September, Other chronic pain (ICD-10 - G89.29) September, Chronic, continuous use of opioids (ICD-10 - F11.90) September, Other Above note writ ten by Freddy Banks LPN, Labor Specialist. Edited and approved by Dr. Bari Vitale MD. [facility] Other 03-10-2022 Miscellaneous Notes* Telephone Encounter - Shauna Guzman - 07/15/2021 12:46 PM EST Patient last seen on 06/21/2021 Received outside lab results dated 06/24/2021 from the patient. The lab results were placed on Dr. Payan's desk and sent to Medical Records for scanning. documented in this encounterKindred [facility] [place]02-14-2022 History of Present illness Narrative* Nya Payan MD - 06/21/2021 2:20 PM EST Physical Medicine and Rehabilitation F/u patient June 21, 2021 SUBJECTIVE HISTORY OF PRESENT ILLNESS: Sumeet Paz is a 76 year old man with prior lumbar fusion. Seen by Dr. Swan- last 2003 Has had 4-[address] Ocampo at [facility]-unclear surgery or levels, then PLIF 2017, then again [address] Gordon Espitia- I do not have all outside records (they said 'scartissue cleaned up) , but see documented PLIF lumbar with Dr. Reeder, unclear levels. Reportedly other fusion with Dr. Reeder as well. Other surgeries as well- but poor historian, unsure what done. Remote cervical fusion, unsure levels Neck cracks at times, occ pain. Pain in low back is nearly constant, worse with standing. His pain level is currently 0/10 on a scale of 0-10. But with walking can be 6- 7/10, but walking limited to about 100'. Uses straight cane is short distance, uses scooter for distances. The pain is located in the right lumbar PSP region sharp Since last eval EMG completed with SM PN and l3ft L5S1 radic sxs worse in back. Pain Radiation: no Aggravating Factors: standing, walking Alleviating Factors: sitting down Pain Ratio: back >>> LEs Numbness/tingling in feet. + weakness No B/B incontinence No increased pain with cough/sneeze No saddle anesthesia No constitutional sxs H/o prostate CA- no chemoradiation, s/p resection 2012 years ago, in remission Mood good, except grumpy with pain Back pain limits ability to get comfortable to sleep at night Prior Therapy: no pain medication Tried; neurontin Oxy IR - not work in past Tried other meds, but not sure what , even if I named them PT last 1 year ago Spine injections: do not know the levels, nor what injections FUNCTIONAL STATUS: limited mod I distance with cane/walker Litigation: No Workers' Compensation: No ACTIVE PROBLEM LIST 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 ALLERGIES No Known Allergies Current Outpatient Medications Medication Sig baclofen (LIORESAL) 20 mg tablet TAKE 1/2 TABLET BY MOUTH AT BEDTIME NEEDED MAY INCREASE TO 1 TABLET AT BEDTIME IF NEEDED insulin glargine (LANTUS) 100 unit/mL injection Inject 40 Units subcutaneously twice daily. liraglutide (VICTOZA) 0.6 mg/ 0.1 ml subcutaneous pen injector Inject 1.8 mg subcutaneously once daily. GABAPENTIN ORAL Take by mouth. Take seven tablets twice a day ferrous sulfate (IRON) 325 mg (65 mg iron) tablet 65 mg. acetaminophen (TYLENOL EXTRA STRENGTH) 500 mg tablet 1000mg orally 2-3 per day, max AMARYL 4MG TABLET (Patient not taking: Reported on 01/04/2021) LIPITOR 10MG TABLET Take 20 mg by mouth. (Patient taking differently: Take 20 mg by mouth. ) PRINIVIL 10MG TABLET Take 40 mg by mouth. (Patient taking differently: Take 40 mg by mouth. ) GLUCOPHAGE 500MG TABLET Take one(1) tablet daily. (Patient not taking: Reported on 01/04/2021) No current facility-administered medications for this visit. REVIEW OF SYSTEMS: GENERAL: Denies fever, chills malaise and weight loss. HEENT: No recent change in vision or hearing. CARDIOVASCULAR: Denies chest pain, history of A-fib, valvular disease, or pacemaker/ICD. RESPIRATORY: Denies SOB, sputum production, and hemoptysis. GI: Denies GI ulcers, inflammatory disease, or liver disease. : Denies change in frequency or urgency, kidney disease, and burning with urination. MUSCULOSKELETAL:see hpi SKIN: Denies rash or itching. PSYCHOLOGICAL: Denies uncontrolled depression or anxiety. NEURO: Denies CVA, seizures, headaches. ENDOCRINE: Denies diabetes, thyroid disease. HEMATOLOGY/LYMPHOLOGY: Denies cancer, bleeding or clotting disorders, anemia,and DVT's. ALLERGIC/IMMUNOLOGICAL: Denies risks for infection, or recent MRSA infections. OBJECTIVE: PHYSICAL EXAM BP 111/58 Pulse 83 Resp 16 Ht 167.6 cm (5' 6 ) Wt 115.2 kg (254 lb) SpO2 99% BMI 41.00 kg/m GENERAL APPEARANCE: large habitus, uncomfortable appearing, present. NEURO PSYCH:. Mood otherwise pleasant. CARDIOVASCULAR: PVD changes of the LEs, but warm SKIN: Head, neck, trunk, and extremities dry, intact and without open lesions. MUSCULOSKELETAL VISUAL INSPECTION CERVICAL: WNL THORACIC: WNL LUMBAR: reduced lordosis PALPATION: SPINOUS PROCESS: No pain. PARASPINALS: diffusely TTP but not overtly tight SPINE ROM: LUMBAR ROM: very limited ROM With Pain in extension , unable to do adequate facet loading MUSCLE BULK: Normal and symmetrical in the upper & lower extremities. MUSCLE TONE: Normal. MOTOR: 5/5 in all muscle groups. SENSORY: Normal sensory exam to LT except N/T in feet GAIT: antalgic, slow dipesh REFLEXES: +hypoactive in the bi, BR, knees STRAIGHT LEG TEST: Ipsilateral: Negative. PERIPHERAL JOINT ROM: HIP ROM: ROM Without Pain Difficulty getting out of chair without arms- Data Review: [facility] records reviewed MRI scanned in from 10/15/20; Evident fusion L4-S1- no overt canal stenosis at these levels, but is mod to severe at L3-4 with facet hypertropny and NFS Lumbar xr : hyperlordosis with intact hardware L4-S1, 10/15/20 ASSESSMENT/PLAN 76 yo man with PMH DM2, HPL, HTN, CKD, prostate CA, sleep apnea, h/o stroke 2012 without residual deficits, with h/o PLIF 08/03/17. Mod to severe canal stenosis at L3-4 (above the fusion levels of L4-S1), but given his severity of pain and reported 2-3 years of b/b incontinence, this is unlikely severe enough to be explanatory for sxs. Suspected more debility, lack of HEP/exercise, but also with sensorimotor PN and severe canal stenosis at L2-3 above the fusion with epidural fat, facet arthropathy and LF hypertrophy. 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 B/B is not new- if needs further eval, see urology. Would have seen by Dr. Swan if needs extension level up and if not , then aqua therapy with transition to land with Jeff. CT myelo in interim. Has Tylenol . On neurontin, 700mg bid Patient understands above plan; questions asked and answered. Medication options, including side effects, were discussed in detail. Education was given regarding signs and symptoms that would indicate a serious change in condition, and they were instructed to seek care immediately should these arise. Patient agrees to plan as noted above. These notes are used for the purpose of medical documentation and that for use for other medical providers. Jargon expressed here is intentioned for use under this context. Nya Payan MD I spent a total of 30 minutes on the date of the service which included preparing to see the patient, [id number] patient care, completing clinical documentation, performing a medically appropriate examination, counseling and educating the patient/family/caregiver and ordering medications, tests, or procedures. documented in this encounterKind[facility] [place]10-[facility]-2015 History general Narrative - Reported* Type Description Date Medical History DM II Medical History Depression Medical History Hx Prostate Ca Surgical History Back/ dics fusion 02/2015 Surgical History Right Knee 2003 Surgical History Neck 1998 Surgical History Prostatectomy 2009 Surgical History Left Total Hip 11/2015 Surgical History back- dr. singh 2017 Surgical History back surgery- 2018 Hospitalization History see above [facility] Other 10-01-2015 History general Narrative - Reported* Type Description Date Medical History DM II Medical History Depression Medical History Hx Prostate Ca Medical History ALHAJI Surgical History Back/ dics fusion 02/2015 Surgical History Right Knee 2003 Surgical History Neck 1998 Surgical History Prostatectomy 2009 Surgical History Left Total Hip 11/2015 Surgical History backGladys singh 2017 Surgical History back surgery- 2018 Hospitalization History see above [facility] Other Discharge summary Author Pa Holloway [facility] March 02, 2022 1:34pm Note Date/Time March 01, 2022 1 0:26pm [facility] [address] [place] [address] Discharge Summary Signed Patient: Sumeet Paz MR#: [id number] : 1945 Acct:[id number] Age/Sex: 76 / M Adm Date: 2 Loc: Room: [address] [place] [address]: Pa Holloway MD Copies to: Fany Cummings MD~ Providers Date of Discharge: 03/01/22 Discharging Provider: Pa Holloway Primary Care Provider: Fany Roper Consults: 02/19/22 12:49 Consult to Adult Hospitalist Routine Consult to Dietitian Routine Consult to Occupational Therapy Routine Consult to Physical Therapy Routine Speech Admit Screen Routine Discharge Diagnosis (1) Morbid obesity with BMI of 40.0-44.9, adult: (2) Chronic kidney disease, stage III (moderate): (3) Essential hypertension: (4) History of total right hip replacement: (5) Type 2 diabetes mellitus with insulin therapy: (6) Postoperative anemia due to acute blood loss: (7) Impaired mobility and activities of daily living: Final Diagnosis Final Discharge Diagnosis: As above Summary Hospital Course Hospital course: Rehabilitation course uncomplicated. He was discharged home on March 01 in stable condition. He has very minimal pain. He is essentially independent withhis functional mobility and self-care. His is present for instruction session with therapy, nursing case management and I the day of discharge. All are agreeable to home.He has all medications at home including his DVT prophylaxis and some pain medication. Esvin will be removed in the office tomorrow, the . Condition Condition at Discharge: Stable Time Spent with Patient Time spent providing/coordinating discharge services (# min): 40 Specific discharge activities: Total time spent discharging this patient > 30 minutes Greater than 30 minutes spent preparing the patient for discharge including the following: Discussion of the hospital stay with patient and/or family Instructions for continuing care to all relevant caregivers Reviewing discharge plan with medical staff, social work, care management, and nursing staff Supervision of discharge paperwork, medication reconciliation, prescriptions, and outpatient appointments Prescribed necessary DME at discharge when indicated Diagnostic Studies Completed and Pending Studies Labs on day of discharge: 03/01/22 11:31: POC Glucose 134, POC Glucose Comment Glu2: cleaned meter 03/01/22 07:20: POC Glucose 116, POC Glucose Comment Glu2: cleaned meter Exam Physical Exam Vital Signs: Temp Pulse Resp BP Pulse Ox O2 Del Method 97.5 F L 82 18 147/75 H 97 Room Air 03/01/22 16:46 03/01/22 16:46 03/01/22 16:46 03/01/22 16:46 03/01/22 16:46 03/01/22 16:46 Discharge Plan Discharge Plan Patient Disposition: Home Activity: Ambulate as Tolerated, With Assist and May Shower Diet: Carb Count Additional Instructions: You will be doing outpatient therapy at [facility]. They will contact you yo set up a date and time to start. Diet: diabetic diet (education attached) Check your blood sugar before meals and at bedtime. Keep a log of your blood sugars and bring in to your primary care office for Dr. Roper to review. Dry sterile dressing to right hip daily and as needed. Your esvin will be removed at your follow up appointment on 03/02/2022. Instructions: Total Hip Replacement (DC), Guide to Eating When You Have Diabetes, How to Keep Track of Your Blood Sugar Stand Alone Forms: Insulin Corrective Scale #2 Prescriptions: New sennosides [Senna Lax] 8.6 mg Tablet 2 tab PO DAILY@1200 Qty: 0 0RF atorvastatin 20 mg Tablet 20 mg PO DAILY 30 Days Qty: 0 0RF aspirin 81 mg Tablet,Delayed Release (Dr/Ec) 81 mg PO BID 30 Days Qty: 0 0RF acetaminophen 500 mg Tablet 1,000 mg PO TID 30 Days Qty: 0 0RF bisacodyl 10 mg Suppository 10 mg [place] DAILY PRN (Reason: Constipation) Qty: 0 0RF lisinopril 10 mg Tablet 10 mg PO DAILY 30 Days Qty: 0 0RF docusate sodium 100 mg Capsule 100 mg PO BID PRN (Reason: Constipation) Qty: 0 0RF insulin aspart U-100 [Novolog Flexpen U-100 Insulin] 100 unit/mL (3 mL) Insulin Pen 0 units subcut ACHS Qty: 0 0RF insulin glargine [Lantus Solostar U-100 Insulin] 100 unit/mL (3 mL) Insulin Pen 34 units subcut BID 30 Days Qty: 0 0RF docusate sodium [Enemeez] 283 mg/5 mL Enema 283 mg NH DAILY PRN (Reason: Constipation) Qty: 0 0RF lactulose 20 gram/30 mL Solution 30 g PO DAILY PRN (Reason: Constipation) Qty: 0 0RF Ozempic 1 mg subcut Escobar@0900 Qty: 0 0RF Discontinued atorvastatin 10 mg Tablet 20 mg PO DAILY lisinopril 20 mg Tablet 20 mg PO DAILY Ozempic 1 mg/dose (4 mg/3 mL) Pen Injector 1 mg SUBCUT QWEEK Rx Instructions: TAKES ON MONDAY insulin glargine [Lantus Solostar U-100 Insulin] 100 unit/mL (3 mL) Insulin Pen 30 unit SUBCUT BID Follow Up: Fany Roper DO [Primary Care Provider] - (please call to schedule an appointment to be seen later this week or earlier next week. ) Dontrell Monzon PA-C [Active Staff] - 03/02/22 11:15 am (your esvin will be removed at this appointment. ) Pa Holloway MD [Active Staff] - (follow up as/if needed) Documented By: Pa Holloway MD 03/01/222 Signed By: <Electronically signed by Pa Holloway MD> 03/02/22 2154 [facility] Work Phone: Evaluation + Plan note Future Appointments Appointment Date:09/13/2023 10:30:00 AM Scheduled Provider: Location:[facility] Appointment Type:Urology CALL PAT FT Appointment Date:09/19/2023 10:45:00 AM Scheduled Provider: Location:[facility] Appointment Type:Urology FT Diagnostic Tests Pending * PSA Total 08/23/23 [facility] Evaluation + Plan note Future Appointments Appointment Date:09/13/2023 10:30:00 AM Scheduled Provider: Location:[facility] Appointment Type:Urology CALL PAT FT Appointment Date:09/19/2023 10:45:00 AM Scheduled Provider: Location:[facility] Appointment Type:Urology FT Diagnostic Tests Pending * U[facility] Fish and Urine Cyto ([facility]) [facility] Spinal stenosis of lumbar region with neurogenic claudication- Primary Spinal stenosis, lumbar region, with neurogenic claudication [facility] Pseudarthrosis following spinal fusion- Primary Arthrodesis status Spinal stenosis of lumbar region with neurogenic claudication Spinal stenosis, lumbar region, with neurogenic claudication documented in this encounter [facility] note* Diagnosis Lumbar foraminal stenosis- Primary Spinal stenosis, lumbar region, without neurogenic claudication Post laminectomy syndrome Postlaminectomy syndrome, unspecified region documented in this encounter [facility] note* Diagnosis Spinal stenosis, lumbar region, without neurogenic claudication- Primary documented in this encounter [facility] Other Evaluation note* Diagnosis Spinal stenosis of lumbar region with neurogenic claudication- Primary Spinal stenosis, lumbar region, with neurogenic claudication S/P lumbar fusion Arthrodesis status documented in this encounter [facility] note* Diagnosis Spinal stenosis of lumbar region with neurogenic claudication- Primary Spinal stenosis, lumbar region, with neurogenic claudication S/P lumbar fusion Arthrodesis status Personal history of other endocrine, nutritional and metabolic disease Pre-op testing Preoperative examination, unspecified documented in this encounter [facility] note* Diagnosis Spinal stenosis of lumbar region with neurogenic claudication- Primary Spinal stenosis, lumbar region, with neurogenic claudication S/P lumbar fusion Arthrodesis status Personal history of other endocrine, nutritional and metabolic disease Pre-op testing Preoperative examination, unspecified Spinal stenosis of lumbar region with neurogenic claudication Spinal stenosis, lumbar region, with neurogenic claudication S/P lumbar fusion Arthrodesis status documented in this encounter [facility] noteNo assessment information [facility] Work Phone: Evaluation note* Diagnosis Onset Date Resolution Status Chronic kidney disease, stage III (moderate) acute Essential hypertension acute History of total right hip replacement acute Postoperative anemia due to acute blood loss acute Type 2 diabetes mellitus with insulin therapy [facility] Work Phone: Evaluation note* Diagnosis Onset Date Resolution Status Chronic kidney disease, stage III (moderate) acute Essential hypertension acute History of total right hip replacement acute Postoperative anemia due to acute blood loss acute Type 2 diabetes mellitus with insulin therapy acute Chronic kidney disease, stage III (moderate) acute Essential hypertension acute History of total right hip replacement acute Impaired mobility and activities of daily living acute Morbid obesity with BMI of 40.0-44.9, adult acute Postoperative anemia due to acute blood loss acute Type 2 diabetes mellitus with insulin therapy [facility] Work Phone: Evaluation note* Diagnosis Pre-op evaluation- Primary Preoperative examination, unspecified Arteriosclerosis of coronary artery Coronary atherosclerosis of unspecified type of vessel, venetie ira or graft Essential hypertension Unspecified essential hypertension Pure hypercholesterolemia Type 2 diabetes mellitus with diabetic polyneuropathy, with long-term current use of insulin ([facility]) Obstructive sleep apnea syndrome Obstructive sleep apnea (adult) (pediatric) Stage 3a chronic kidney disease (HCC) Personal history of malignant neoplasm of prostate Class 3 severe obesity due to excess calories with serious comorbidity and body mass index (BMI) of 40.0 to 44.9 in adult (HCC) Chronic kidney disease, unspecified CKD stage Pain Generalized pain History of cardioembolic cerebrovascular accident (CVA) HURST (dyspnea on exertion) Other dyspnea and respiratory abnormality Spinal stenosis of lumbar region with neurogenic claudication Spinal stenosis, lumbar region, with neurogenic claudication S/P lumbar fusion Arthrodesis status [facility] Pre-op testing- Primary Preoperative examination, unspecified Spinal stenosis of lumbar region with neurogenic claudication Spinal stenosis, lumbar region, with neurogenic claudication S/P lumbar fusion Arthrodesis status [facility] Diagnosis Status post lumbar spine operative procedure for decompression of spinal cord- Primary Spinal stenosis of lumbar region with neurogenic claudication Spinal stenosis, lumbar region, with neurogenic claudication [facility] Diagnosis Spinal stenosis of lumbar region with neurogenic claudication Spinal stenosis, lumbar region, with neurogenic claudication S/P lumbar fusion Arthrodesis status [facility] Diagnosis Spinal stenosis of lumbar region with neurogenic claudication Spinal stenosis, lumbar region, with neurogenic claudication [facility] Diagnosis Status post lumbar spine operative procedure for decompression of spinal cord- Primary Spinal stenosis, lumbar region with neurogenic claudication Personal history of other endocrine, nutritional and metabolic disease Pre-op testing Preoperative examination, unspecified 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 ([facility]) [facility] Diagnosis Pre-op evaluation- Primary Preoperative examination, unspecified Essential hypertension Unspecified essential hypertension Pure hypercholesterolemia Type 2 diabetes mellitus with diabetic polyneuropathy, with long-term current use of insulin (HCC) Arteriosclerosis of coronary artery Coronary atherosclerosis of unspecified type of vessel, venetie ira or graft HURST (dyspnea on exertion) Other dyspnea and respiratory abnormality Obstructive sleep apnea Obstructive sleep apnea (adult) (pediatric) Stage 3a chronic kidney disease (HCC) Personal history of malignant neoplasm of prostate History of cardioembolic cerebrovascular accident (CVA) Class 3 severe obesity due to excess calories with serious comorbidity and body mass index (BMI) of 40.0 to 44.9 in adult (HCC) Status post lumbar spine operative procedure for decompression of spinal cord Spinal stenosis, lumbar region with neurogenic claudication * Assessment & Plan Note - Tyron Cook APRN.CNP - 09/28/2023 2:21 PM EDT Associated Problem(s): Class 3 severe obesity due to excess calories with serious comorbidity and body mass index (BMI) of 40.0 to 44.9 in adult ([facility]) Assessment: Body mass index is 41.51 kg/m . * Assessment & Plan Note - Tyron Cook APRN.CNP - 09/28/2023 2:21 PM EDT Associated Problem(s): History of cardioembolic cerebrovascular accident (CVA) Assessment: Hx of CVA found incidentally on imaging No symptoms or residual * Assessment & Plan Note - Tyron Cook APRN.CNP - 09/28/2023 2:20 PM EDT Associated Problem(s): Personal history of malignant neoplasm of prostate Assessment: s/p prostatectomy in 2011 No known recurrence * Assessment & Plan Note - Tyron Cook APRN.CNP - 09/28/2023 2:19 PM EDT Associated Problem(s): Stage 3a chronic kidney disease (HCC) Assessment: Stable Creatinine Date Value Ref Range Status 09/12/2022 1.76 (H) 0.73 - 1.22 mg/dL Final 06/08/2022 1.45 (H) 0.73 - 1.22 mg/dL Final * Assessment & Plan Note - Tyron Cook APRN.CNP - 09/28/2023 2:19 PM EDT Associated Problem(s): Obstructive sleep apnea Assessment: Uses CPAP * Assessment & Plan Note - Tyron Cook APRN.CNP - 09/28/2023 2:17 PM EDT Associated Problem(s): HURST (dyspnea on exertion) Assessment: D/t deconditioning and pain Uses scooter can walk short distance * Assessment & Plan Note - Tyron Cook APRN.CNP - 09/28/2023 2:16 PM EDT Associated Problem(s): Arteriosclerosis of coronary artery Assessment: nonobstructive, cardiac catheterization in 2010, which revealed mild plaques, not exceeding 15% to 20% stenosis.-- follows with [facility] Stress test 02/2022 negative * Assessment & Plan Note - Tyron Cook APRN.CNP - 09/28/2023 2:16 PM EDT Associated Problem(s): Type 2 diabetes mellitus with diabetic polyneuropathy (HCC) Assessment: On Ozempic and lantus Detailed medication instructions given to patient in instructions Hemoglobin A1C (%) Date Value 09/12/2022 7.6 Follows with PCP * Assessment & Plan Note - Tyron Cook APRN.CNP - 09/28/2023 2:02 PM EDT Associated Problem(s): Hyperlipidemia Assessment: On Statin Follows with PCP * Assessment & Plan Note - Tyron Cook APRN.CNP - 09/28/2023 2:02 PM EDT Associated Problem(s): Essential hypertension Assessment: Stable on medication 102/66 in office today Follows with PCP [facility] N[facility] No data available for this section [facility] Discharge instructions Additional Instructions TOTAL HIP DISCHARGE: Recommended Equipment 1. Walker: to be used for post-operative gait. Will transition to straight cane. 2. Raised height toilet seat. 3. Cured Meats Supervisor/grabber 4. Other: Long handled Shoe Horn, Sock Aid, Bath Sponge, Dressing stick, Elastic shoe laces, Shower Seat/Bath Bench Total Hip Precautions 1. No crossing over midline: do not cross your legs, once permitted to side sleep, utilize pillow between knees. 2. Do not excessively rotate your hip inwards or outwards. 3. Do not excessively extend your leg behind you against resistance (kicking backwards). 4. Do not flex hip past 90 degrees at the waist Sitting 1. Sit on a firm straight back chair with arm rests. 2. DO NOT cross your operative ankle over opposite knee. 3. do not flex hip past 90 degrees (do not sit on the lobe stool), do not externally rotate operative foot. No high impact to left hip. b. Use sales engineering manager to retrieve objects from the floor Dressing changes and showering 1. You may shower on the fourth day postoperatively. 2. Keep your dressing clean and dry. 3. Change your dressing daily, and as needed. You may remove dressing to shower. Do not sit longer than 30 minutes at a time, change position every 30 minutes. Avoid sitting in recliners, the position does not improve circulation or address swelling. Walk daily, working on increasing your walking distances. ASPIRIN 81 mg Twice a day for 30 days and tedhose daily for DVT protectin You have been given a prescription for Percocet, Percocet is a narcotic, Percocet is addictive, use it sparingly to help control pain only. If you feel you have issues with addiction contact Dr. Newsome, or your family physician, or proceed to the nearest hospital emergency services department. Your follow-up appointment has been made with physician medical practice assistant Cristobal [facility] Discharge instructions Additional Instructions You will be doing outpatient therapy at [facility]. They will contact you yo set up a date and time to start. Diet: diabetic diet (education attached) Check your blood sugar before meals and at bedtime. Keep a log of your blood sugars and bring in to your primary care office for Dr. Roper to review. Dry sterile dressing to right hip daily and as needed. Your esvin will be removed at your follow up appointment on 03/02/2022.[facility] Work Phone: Hospital Discharge instructions No data available for this section [facility] No data available for this section [facility] Reason for referral (narrative)* Outpatient Procedure (Routine) - Authorized Specialty Diagnoses / Procedures Referred By Julieta t Referred [facility] Diagnoses Arteriosclerosis of coronary artery Type 2 diabetes mellitus with diabetic polyneuropathy, with long-term current use of insulin (HCC) Stage 3a chronic kidney disease (HCC) Pre-op evaluation Procedures ECG COMPLETE ECG ROUTINE ECG W/LEAST 12 LDS W/I&R Meenu Webb, SAVANNA.POND SUPERVISOR [address] [place] [address] [facility] [address] [place] [address] Referral ID Status Reason Start Date Expiration Date Visits Requested Visits Authorized [id number] Authorized Auto-Generat ed Referral 06/08/2022 06/08/2023 1 1 [facility] for referral (narrative)* Diagnostic Procedure Only (Routine) - Closed Specialty Diagnoses / Procedures Referred By Jasonac t Referred To Contact XR IMAGING Diagnoses Spinal stenosis of lumbar region with neurogenic claudication S/P lumbar fusion Procedures XR LUMBAR GENERAL 3V AP/LAT/L5-S1 RADEX SPINE LUMBOSACRAL 2/3 VIEWS Korina Swan MD [address] [place], [place] [id number] [place] [address] Referral ID Status Reason Start Date Expiration Date V isits Requested Visits Authorized [id number] Closed Auto-Generate d Referral 12/30/2022 12/29/2023 1 1 [facility] for referral (narrative)* Outpatient Procedure (Routine) - Pending Review Specialty Diagnoses / Procedures Referred By Julieta t Referred To Contact [facility] Diagnoses Pre-op evaluation Procedures ECG COMPLETE ECG ROUTINE ECG W/LEAST 12 LDS W/I&R Tyron Cook APRN.CNP [address] [place] [address] [facility] [address] [place] [address] Referral ID Status Reason Start Date Expiration Date Visits Requested Visits Authorized [id number] Pending Review Auto-Generat ed Referral 09/28/2023 09/27/2024 1 1 [facility] Summary Purpose Family History No Family History Records Found Relationship Condition Age at Onset Recorded Date/T jaret father Cerebrovascular accident (CVA) Unknown sister Myocardial infarction Unknown Unknown Family Member Name Dates Details Family history of cerebrovas cular accident (CVA): Mother, Father, Sister, Brother(V17.1, Z82.3) Status:Active Family history of myocardial infarction: Mother, Father, Sister, Brother(V17.3, Z82.49) Status:Active Syncope and collapse: Mother , Father, Sister, Brother Status:Active Family history of diabetes m ellitus: Mother, Father, Sister, Brother(V18.0, Z83.3) Status:Active Unknown Family Member Name Dates Details Family history of cerebrovas cular accident (CVA): Mother, Father, Sister, Brother(V17.1, Z82.3) Status:Active Family history of myocardial infarction: Mother, Father, Sister, Brother(V17.3, Z82.49) Status:Active Syncope and collapse: Mother , Father, Sister, Brother Status:Active Family history of diabetes m ellitus: Mother, Father, Sister, Brother(V18.0, Z83.3) Status:Active Relationship Condition Age at Onset Recorded Date/T jaret father Cerebrovascular accident (CVA) Unknown sister Myocardial infarction Unknown father Unknown Diabetes mellitus Unknown Not Specified Unknown Advance Directives No Advanced Directives Records FoundDocuments on File Type Date Recorded Patient Barrel Cutter Expl anation Advance Directive(s) 11/04/2021 9:50 AM Documents on File Type Date Recorded Patient Barrel Cutter Expl anation Advance Directive(s) 11/04/2021 9:50 AM Advance Directive Response Recorded Date/ Time Advance Directives Yes February 22, 2017 4:21pm Reason for Referral Specialty Diagnoses / Procedures Referred By Contac t Referred To Contact Diagnoses Spinal stenosis of lumbar region with neurogenic claudication Procedures CONSULT TO SPINE SURGERY OFFICE/OUTPATIENT [facility] 60-74 MINUTES Nya Payan MD [address] [place] [address] Referral ID Status Reason Start Date Expiration Date Visits Requested Visits Authorized [id number] Authorized PCP Requested Referral 06/21/2021 06/21/2022 1 1 Specialty Diagnoses / Procedures Referred By Contac t Referred To Contact CT IMAGING Diagnoses Spinal stenosis of lumbar region with neurogenic claudication Procedures CT LUMBAR SPINE WO IVCON CT LUMBAR SPINE W/O CONTRAST MATERIAL Spine Surg [facility] [place] [address] [place] [address] Ct Imaging Referral ID Status Reason Start Date Expiration Date Visits Requested Visits Authorized [id number] Authorized Auto-Generat ed Referral 09/21/2021 10/07/2022 1 1 Specialty Diagnoses / Procedures Referred By Contac t Referred To Contact Diagnoses Spinal stenosis of lumbar region with neurogenic claudication S/P lumbar fusion Pre-op testing Procedures REFER TO PACC - PRE ANESTHESIA CONSULTATION CLINIC OFFICE/OUTPATIENT [facility] 60-74 MINUTES Korina Swan MD [address] [place], [place] [id number] Referral ID Status Reason Start Date Expiration Date Visits Requested Visits Authorized [id number] Authorized PCP Requested Referral 12/09/2021 12/08/2022 1 1 Specialty Diagnoses / Procedures Referred By Contac t Referred To Contact MR IMAGING Diagnoses Spinal stenosis of lumbar region with neurogenic claudication Procedures MRI LUMBAR SPINE WO IVCON MRI SPINAL CANAL LUMBAR W/O CONTRAST MATERIAL Korina Swan MD [address] [place], [place] [id number] [facility] [place] [address] Referral ID Status Reason Start Date Expiration Date Visits Requested Visits Authorized [id number] Authorized Auto-Generat ed Referral 03/29/2024 1 1 Specialty Diagnoses / Procedures Referred By Contac t Referred To Contact CT IMAGING Diagnoses Spinal stenosis of lumbar region with neurogenic claudication Procedures CT LUMBAR SPINE WO IVCON CT LUMBAR SPINE W/O CONTRAST MATERIAL Spine Surg [facility] [address] [address] [place] [address] Ct Imaging [place] [address] Referral ID Status Reason Start Date Expiration Date V isits Requested Visits Authorized [id number] Closed Auto-Generate d Referral 09/21/2021 10/07/2022 1 1 Specialty Diagnoses / Procedures Referred By Contac t Referred To Contact Diagnoses Status post lumbar spine operative procedure for decompression of spinal cord Spinal stenosis, lumbar region with neurogenic claudication Pre-op testing Procedures REFER TO PACC - PRE ANESTHESIA CONSULTATION CLINIC OFFICE/OUTPATIENT [facility] MDM 60 MINUTES Korina Swan MD [address] [place], [place] [address] Referral ID Status Reason Start Date Expiration Date Visits Requested Visits Authorized [id number] Authorized PCP Requested Referral 06/30/2023 06/28/2024 1 1 Chief Complaint and Reason for Visit Chief Complaint DJD Chief Complaint 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 Reason for Visit Chronic kidney disea se, stage III (moderate) Essential hypertension History of total right hip replacement Postoperative anemia due to acute blood loss Type 2 diabetes mellitus with insulin therapy Chief Complaint DJD DJD DJD DJD s/p Right Total Hip Arthroplasty Reason for Visit Chronic kidney disea se, stage III (moderate) Essential hypertension History of total right hip replacement Postoperative anemia due to acute blood loss Type 2 diabetes mellitus with insulin therapy Chronic kidney disease, stage III (moderate) Essential hypertension History of total right hip replacement Impaired mobility and activities of daily living Morbid obesity with BMI of 40.0-44.9, adult Postoperative anemia due to acute blood loss Type 2 diabetes mellitus with insulin therapy Chief Complaint i/c per pt requ/past pt of LAVERNE chin PAP/MSC Chief Complaint i/c per pt requ/past pt of LAVERNE chin PAP/MSC constipation Chief Complaint Sleep apnea 31-90 da y follow up Chief Complaint frequent urine: bloo d z85.46 Chief Complaint frequent urine: bloo d z85.46 Hematuria Additional Source Comments (unrecognized sect ion and content) No Status Records FoundNo Status Records FoundNo Status Records FoundNo Status Records FoundNo Status Records FoundNo Status Records FoundNo Status Records FoundNo Status Records FoundNo Status Records FoundNo Status Records FoundNo Status Records Found INFORMATION SOURCE (unrecogn ized section and content) DATE CREATED AUTHOR 10/26/2017 [facility] DATE CREATED AUTHOR AUTHOR'S ORGANIZ ATION 10/26/2017 [facility] DATE CREATED AUTHOR AUTHOR'S ORGANIZ ATION 12/26/2018 [facility] DATE CREATED AUTHOR AUTHOR'S ORGANIZ ATION 02/09/2022 [facility] DATE CREATED AUTHOR AUTHOR'S ORGANIZ ATION 02/09/2022 [address] DATE CREATED AUTHOR AUTHOR'S ORGANIZ ATION [facility]/2022 [facility] DATE CREATED AUTHOR AUTHOR'S ORGANIZ ATION 01/18/2023 [facility] DATE CREATED AUTHOR AUTHOR'S ORGANIZ ATION 03/25/2023 [facility] DATE CREATED AUTHOR AUTHOR'S ORGANIZ ATION 09/08/2023 [facility] DATE CREATED AUTHOR AUTHOR'S ORGANIZ ATION 09/22/2023 [facility] DATE CREATED AUTHOR AUTHOR'S BECKA HUYNH 10/07/2023 [facility] Source Comments (unrecognize d section and content) In the event this informatio n is protected by the Federal Confidentiality of Alcohol and Drug Abuse Patient Records regulations: The Federal rules restrict any use of the information to criminally investigate or prosecute any alcohol or drug abuse patient.[facility] the event this information is protected by the Federal Confidentiality of Alcohol and Drug Abuse Patient Records regulations: The Federal rules restrict any use of the information to criminally investigate or prosecute any alcohol or drug abuse patient.[facility] the event this information is protected by the Federal Confidentiality of Alcohol and Drug Abuse Patient Records regulations: The Federal rules restrict any use of the information to criminally investigate or prosecute any alcohol or drug abuse patient.[facility] Dayton[facility] the event this information is protected by the Federal Confidentiality of Alcohol and Drug Abuse Patient Records regulations: The Federal rules restrict any use of the information to criminally investigate or prosecute any alcohol or drug abuse patient.[facility] the event this information is protected by the Federal Confidentiality of Alcohol and Drug Abuse Patient Records regulations: The Federal rules restrict any use of the information to criminally investigate or prosecute any alcohol or drug abuse patient.[facility] DaytonIn the event this information is protected by the Federal Confidentiality of Alcohol and Drug Abuse Patient Records regulations: The Federal rules restrict any use of the information to criminally investigate or prosecute any alcohol or drug abuse patient.[facility] DaytonIn the event this information is protected by the Federal Confidentiality of Alcohol and Drug Abuse Patient Records regulations: The Federal rules restrict any use of the information to criminally investigate or prosecute any alcohol or drug abuse patient.[facility] DaytonIn the event this information is protected by the Federal Confidentiality of Alcohol and Drug Abuse Patient Records regulations: The Federal rules restrict any use of the information to criminally investigate or prosecute any alcohol or drug abuse patient.[facility] DaytonIn the event this information is protected by the Federal Confidentiality of Alcohol and Drug Abuse Patient Records regulations: The Federal rules restrict any use of the information to criminally investigate or prosecute any alcohol or drug abuse patient.[facility] DaytonIn the event this information is protected by the Federal Confidentiality of Alcohol and Drug Abuse Patient Records regulations: The Federal rules restrict any use of the information to criminally investigate or prosecute any alcohol or drug abuse patient.[facility] DaytonIn the event this information is protected by the Federal Confidentiality of Alcohol and Drug Abuse Patient Records regulations: The Federal rules restrict any use of the information to criminally investigate or prosecute any alcohol or drug abuse patient.[facility] DaytonIn the event this information is protected by the Federal Confidentiality of Alcohol and Drug Abuse Patient Records regulations: The Federal rules restrict any use of the information to criminally investigate or prosecute any alcohol or drug abuse patient.[facility] DaytonIn the event this information is protected by the Federal Confidentiality of Alcohol and Drug Abuse Patient Records regulations: The Federal rules restrict any use of the information to criminally investigate or prosecute any alcohol or drug abuse patient.[facility] DaytonIn the event this information is protected by the Federal Confidentiality of Alcohol and Drug Abuse Patient Records regulations: The Federal rules restrict any use of the information to criminally investigate or prosecute any alcohol or drug abuse patient.[facility] DaytonIn the event this information is protected by the Federal Confidentiality of Alcohol and Drug Abuse Patient Records regulations: The Federal rules restrict any use of the information to criminally investigate or prosecute any alcohol or drug abuse patient.[facility] DaytonIn the event this information is protected by the Federal Confidentiality of Alcohol and Drug Abuse Patient Records regulations: The Federal rules restrict any use of the information to criminally investigate or prosecute any alcohol or drug abuse patient.[facility] DaytonIn the event this information is protected by the Federal Confidentiality of Alcohol and Drug Abuse Patient Records regulations: The Federal rules restrict any use of the information to criminally investigate or prosecute any alcohol or drug abuse patient.[facility] DaytonIn the event this information is protected by the Federal Confidentiality of Alcohol and Drug Abuse Patient Records regulations: The Federal rules restrict any use of the information to criminally investigate or prosecute any alcohol or drug abuse patient.[facility] DaytonIn the event this information is protected by the Federal Confidentiality of Alcohol and Drug Abuse Patient Records regulations: The Federal rules restrict any use of the information to criminally investigate or prosecute any alcohol or drug abuse patient.[facility] DaytonIn the event this information is protected by the Federal Confidentiality of Alcohol and Drug Abuse Patient Records regulations: The Federal rules restrict any use of the information to criminally investigate or prosecute any alcohol or drug abuse patient.[facility] DaytonIn the event this information is protected by the Federal Confidentiality of Alcohol and Drug Abuse Patient Records regulations: The Federal rules restrict any use of the information to criminally investigate or prosecute any alcohol or drug abuse patient.[facility] DaytonIn the event this information is protected by the Federal Confidentiality of Alcohol and Drug Abuse Patient Records regulations: The Federal rules restrict any use of the information to criminally investigate or prosecute any alcohol or drug abuse patient.[facility] DaytonIn the event this information is protected by the Federal Confidentiality of Alcohol and Drug Abuse Patient Records regulations: The Federal rules restrict any use of the information to criminally investigate or prosecute any alcohol or drug abuse patient.[facility] DaytonIn the event this information is protected by the Federal Confidentiality of Alcohol and Drug Abuse Patient Records regulations: The Federal rules restrict any use of the information to criminally investigate or prosecute any alcohol or drug abuse patient.[facility] Reason for Visit (unrecogniz ed section and content) Reason Comments Established Patient Reason Comments Receive outside Lab Results dated 022 Reason Comments New Patient Evaluation Specialty Diagnoses / Procedures Referred By Contac t Referred To Contact Diagnoses Spinal stenosis of lumbar region with neurogenic claudication Procedures CONSULT TO SPINE SURGERY OFFICE/OUTPATIENT NEW HIGH MDM 60-74 MINUTES Nya Payan MD [address] [place] [address] Referral ID Status Reason Start Date Expiration Date V isits Requested Visits Authorized [id number] Closed PCP Requested Referral 06/21/2021 06/21/2022 [address] Reason Comments Follow Up Reason Comments Schedule Injection Reason Comments Preparations For Procedures Reason Comments Procedure Follow Up Reason Comments Schedule Surgery Reason Comments Pre-Op Visit Reason Comments Appointment Reason Onset Date Comments Information 10/04/2022 Reason Comments Received Outside Medical Records Reason Comments Established Patient 6 week follow up S/P lumbar fusion Reason Comments Radio Gen RMP Specialty Diagnoses / Procedures Referred By Contac t Referred To Contact XR IMAGING Diagnoses Spinal stenosis of lumbar region with neurogenic claudication S/P lumbar fusion Procedures XR LUMBAR GENERAL 3V AP/LAT/L5-S1 RADEX SPINE LUMBOSACRAL 2/3 VIEWS Korina Swan MD [address] [place] [address] X[facility] [place] [address] Referral ID Status Reason Start Date Expiration Date V isits Requested Visits Authorized [id number] Closed Auto-Generate d Referral 12/30/2022 12/29/2023 1 1 Specialty Diagnoses / Procedures Referred By Contac t Referred To Contact CT IMAGING Diagnoses Spinal stenosis of lumbar region with neurogenic claudication Procedures CT LUMBAR SPINE WO IVCON CT LUMBAR SPINE W/O CONTRAST MATERIAL Spine S[place] [facility] [place] [address] [place] [address] [place] [address] Referral ID Status Reason Start Date Expiration Date V isits Requested Visits Authorized [id number] Closed Auto-Generate d Referral 09/21/2021 10/07/2022 1 1 Reason Comments Radiology MRI Reason Comments Anesthesia Consult Care Teams (unrecognized sec tion and content) [employer]c Architect Relationship Specialty Start Date End Date Car Browning, DO [address] [place] [address] PCP - General 06/06/03 Bari Vitale MD [address] [place] [address] Referring Pain Management 12/04/20 Uc Architect Relationship Specialty Start Date End Date Car Browning, DO [address] [place] [address] PCP - General 06/06/03 Bari Vitale MD [address] [place] [address] Referring Pain Management 12/04/20 Uc Architect Relationship Specialty Start Date End Date Car Browning, DO [address] [place] [address] PCP - General 06/06/03 Bari Vitale MD [address] [place] [address] Referring Pain Management 12/04/20 Uc Architect Relationship Specialty Start Date End Date Car Browning, DO [address] [place] [address] PCP - General 06/06/03 Bari Vitale MD [address] [place] [address] Referring Pain Management 12/04/20 Uc Architect Relationship Specialty Start Date End Date Car Browning, DO [address] [place] [address] PCP - General 06/06/03 Bari Vitale MD [address] [place] [address] Referring Pain Management 12/04/20 Uc Architect Relationship Specialty Start Date End Date Car Browning, DO [address] [place] [address] PCP - General 06/06/03 Bari Vitale MD [address] [place] [address] Referring Pain Management 12/04/20 Uc Architect Relationship Specialty Start Date End Date Car Browning, DO [address] [place] [address] PCP - General 06/06/03 Bari Vitale MD [address] [place] [address] Referring Pain Management 12/04/20 Uc Architect Relationship Specialty Start Date End Date Car Browning, DO [address] [place] [address] PCP - General 06/06/03 Bari Vitale MD [address] [place] [address] Referring Pain Management 12/04/20 Team Status: Inactive Member Role Status Dates Carlos Newsome Jr, DO Attending Provider Active Fany R Judson , DO Primary Care Provider Active Team Status: Active Member Role Status Dates Fany Roper , DO Primary Care Provider Active Team Status: Inactive Member Role Status Dates Carlos Newsome Jr, DO Attending Provider Active Fany Roper , DO Primary Care Provider Active Irish Landers RN Other Provider Active Karen Ma RN Other Provider Active Sneha Lopez , RN Other Provider Active Miriam Farah , RN Other Provider Active Zoila Olvera RN Other Provider Active Janina Garcia RN Other Provider Active George Chadwick MD Other Provider Active Vidya Henry , KNURLING MACHINE OPERATOR Other Provider Active Mira Modi , DO Other Provider Active Johnathon Mlies MD Other Provider Active Smooth Templeton , DO Other Provider Active Shayne Simental MD Other Provider Active Gena Jordan MD Other Provider Active Nya Koch , ANP-BC Other Provider Active Vannessa Chery MD Other Provider Active Camilo Galloway MD Other Provider Active Marjorie Xavier MD Other Provider Active Ethan Garcia MD Other Provider Active Fahad Brock , DO Other Provider Active Bari Kelley MD Other Provider Active Maxine Ozuna MD Other Provider Active Tone Ferraro MD Other Provider Active Glenny Conroy , DIAMOND DIE DRILLER-C Other Provider Active Justino Metz MD Other Provider Active Kojo Stock MD Other Provider Active Siena Watts MD Other Provider Active Urile Gamboa MD Other Provider Active Bridget Keyes , DO Other Provider Active Judy Phillips MD Other Provider Active Ra Arnold , DO Other Provider Active Pramod Suarez , DO Other Provider Active Viji Grover , KNURLING MACHINE OPERATOR Other Provider Active Kaden Esparza , DO Other Provider Active Giuliano Rousseau MD Other Provider Active Santa Ferguson , CLAUDIA Other Provider Active Team Status: Inactive Member Role Status Erica Roper , DO Primary Care Provider Active Pa Holloway MD Admit Provider, Attending Provider A ctive Irish Landers , CLAUDIA Other Provider Active Karen Ma RN Other Provider Active Sneha Lopez , RN Other Provider Active Miriam Farah , CLAUDIA Other Provider Active Zoila Olvera RN Other Provider Active Janina Garcia RN Other Provider Active Phil Cabezas MD Other Provider Active George Chadwick MD Other Provider Active Vidya Henry APRN Other Provider Active Mira Modi , DO Other Provider Active Johnathon Miles MD Other Provider Active Smooth Templeton , DO Other Provider Active Shayne Simental MD Other Provider Active Gena Jordan MD Other Provider Active Nya Koch , ANP-BC Other Provider Active Vannessa Chery MD Other Provider Active Camilo Galloway MD Other Provider Active Marjorie Xavier MD Other Provider Active Ethan Garcia MD Other Provider Active Fahad Brock , DO Other Provider Active Bari Kelley MD Other Provider Active Maxine Ozuna MD Other Provider Active Tone Ferraro MD Other Provider Active Glenny Conroy , DIAMOND DIE DRILLER-C Other Provider Active Justino Metz MD Other Provider Active Kojo Stock MD Other Provider Active Siena Watts MD Other Provider Active Uriel Gamboa MD Other Provider Active Bridget Keyes , DO Other Provider Active Judy Phillips MD Other Provider Active Ra Arnold , DO Other Provider Active Pramod Suarez , DO Other Provider Active Viji Grover APRN Other Provider Active Kaden Esparza , DO Other Provider Active Giuliano Rousseau MD Other Provider Active Santa Ferguson , CLAUDIA Other Provider Active Uc Architect Relationship Specialty Start Date End Date Fany Roper [address] [place] [id number] PCP - General Family Medicine 06/08/22 Bari Vitale MD [address] [place] [id number] Referring Pain Management 12/04/20 Uc Architect Relationship Specialty Start Date End Date Fany Roper [address] [place] [id number] PCP - General Family Medicine 06/08/22 Bari Vitale MD [address] [place] [address] Referring Pain Management 12/04/20 Uc Architect Relationship Specialty Start Date End Date Fany Roper [address] [place] [address] PCP - General Family Medicine 06/08/22 Bari Vitale MD [address] [place] [address] Referring Pain Management 12/04/20 Uc Architect Relationship Specialty Start Date End Date Fany Roper [address] [place] [address] PCP - General Family Medicine 06/08/22 Bari Vitale MD [address] [place] [address] Referring Pain Management 12/04/20 Team Status: Inactive Member Role Status Dates Fany Roper , DO Primary Care Provider Active Frank Jiménez MD Attending Provider Active Team Status: Inactive Member Role Status Dates Fany Roper , DO Primary Care Provider Active Dontrell Latif , DO Emergency Provider Active Uc Architect Relationship Specialty Start Date End Date Fany Roper [address] [place] [address] PCP - General Family Medicine 06/08/22 Bari Vitale MD [address] [place] [address] Referring Pain Management 12/04/20 Uc Architect Relationship Specialty Start Date End Date Fany Roper [address] [place] [address] PCP - General Family Medicine 06/08/22 Bari Vitale MD [address] [place] [address] Referring Pain Management 12/04/20 Uc Architect Relationship Specialty Start Date End Date Fany Roper PSYD [address] [place] [address] PCP - General Family Medicine 06/08/22 Bari Vitale MD [address] [place] [address] Referring Pain Management 12/04/20 Team Status: Inactive Member Role Status Dates Fany Roper DO Primary Care Provider Active Juliane Angelo NP Attending Provider Active Uc Architect Relationship Specialty Start Date End Date Fany Roper PSYD [address] [place] [address] PCP - General Family Medicine 06/08/22 Bari Vitale MD [address] [place] [address] Referring Pain Management 12/04/20 Uc Architect Relationship Specialty Start Date End Date Car Browning DO [address] [place] [address] PCP - General 06/06/03 06/07/22 Bari Vitale MD [address] [place] [address] Referring Pain Management 12/04/20 Uc Architect Relationship Specialty Start Date End Date Fany Roper PSYD [address] [place] [address] PCP - General Family Medicine 06/08/22 Bari Vitale MD [address] [place] [address] Referring Pain Management 12/04/20 Uc Architect Relationship Specialty Start Date End Date Fany Roper PSYD [address] [place] [address] PCP - General Family Medicine 06/08/22 Bari Vitale MD [address] [place] [address] Referring Pain Management 12/04/20 Team Status: Inactive Member Role Status Dates Fany Roper DO Primary Care Provider Active Start: July 10, 2023 End: July 10, 2023 Dontrell Latif DO Emergency Provider Active Start: July 10, 2023 End: July 10, 2023 Team Status: Inactive Member Role Status Dates Fany Roper DO Primary Care Provider Active Start: August 23, 2023 End: August 23, 2023 Agustina Quintero PA-C Attending Provider Active Start: August 23, 2023 End: August 23, 2023 Team Status: Inactive Member Role Status Dates Fany Roper DO Primary Care Provider Active Start: August 28, 2023 End: August 28, 2023 Ashwin Mathis MD Attending Provider Active St art: August 28, 2023 End: August 28, 2023 Uc Architect Relationship Specialty Start Date End Date Fany Roper PSYD [address] [place] [address] PCP - General Family Medicine 06/08/22 Bari Vitale MD [address] [place] [address] Referring Pain Management 12/04/20 Goals (unrecognized section and content) Goals may be documented in a n alternate section FOR RECORDS PERTAINING TO PATIENTS WHO ARE OR HAVE BEEN ENROLLED IN A CHEMICAL DEPENDENCY/SUBSTANCEABUSE PROGRAM, SOME INFORMATION MAY BE OMITTED. This clinical summary was aggregated from multiple sources. Caution should be exercised in using it in the provision of clinical care. This summary normalizes information from multiple sources, and as a consequence, information in this document may materially change the coding, format and clinical context of patient data. In addition, data may be omitted in some cases. CLINICAL DECISIONS SHOULD BE BASED ON THE PRIMARY CLINICAL RECORDS. [facility]. provides no warranty or guarantee of the accuracy or completeness of information in this document.
[2023-10-12 13:45] VITALS: BMI 42.1
[2023-10-12] MEDS: LIDOCAINE 2% JELLY 20 ML UR (16:22)
[2023-10-12 16:25] VITALS: BP 142/96; BP 154/92; PULSE 80; PULSE 84; O2SAT 97; O2SAT 98
[2023-10-12] MEDS: IOHEXOL 300 MG/ML - 100 ML BTL 3000 MG INJ (16:27)
--- NOTE | 2023-10-12 16:32 | PM.URSON ---
Urology Surgery Operative Note Operative Note Procedure Date: 10/12/23 Time Out Performed: yes Pre-op Diagnosis: Gross hematuria Post-op Diagnosis: same as pre-op Procedures performed: 1. Cystoscopy. 2. Bilateral retrograde pyelograms Anesthesia: local Primary Surgeon: Ashwin Silva Complications: None Estimated blood loss (mL): 5 Findings: No bladder tumors. Normal retrogrades bilaterally Specimens: None Drains: None Indications for Procedures: This gentleman had painless gross hematuria. He has had a prostatectomy in the past. Renal ultrasound was unremarkable. He is unable to get a CTU due to his renal insufficiency. He now presents for cystoscopy and bilateral retrograde pyelogramHe has signed an informed consent after risks were explained. Detailed description of Procedure: The patient was brought to the operating room and placed on the operating room table in the supine position. He was repositioned in the modified dorsolithotomy position. Timeout was done by all parties in the room. We all agreed upon the patient's identification and the planned procedures for this patient. The genitalia were sterilely prepped and draped in the usual fashion. 2% lidocaine was passed per urethra. I started by passing a 22 M[place] Olympus cystoscope per urethra and into the bladder. The urethra was unremarkable. The anastomosis was open. Careful panendoscopy in the bladder revealed no evidence of any tumors or stones. He had moderate to high-grade trabeculation. I then passed a 8 [place] cone-tip catheter through the scope and cannulated the right ureter. Contrast was injected in a retrograde manner and fluoroscopy was done. There was a normal distal mid and proximal ureter. There is also a normal kidney. I then did a similar maneuver on the left side. Similarly, there was normal ureter and kidney noted. The bladder was drained of its contents and the scope was then removed. He was then discharged to home. The plan is that if he develops recurrent gross hematuria we then will likely have to do bilateral ureteroscopy and pyeloscopy under anesthesia.He will follow-up in the office within 3 to 4 months for reevaluation.
== END 2023-10-12 16:45 | disposition home or self-care (01) ==
PROVIDERS: Visit Provider Urology
PROC: (CPT 52005; principal; 2023-10-12 14:00)
DX: R31.0 Gross hematuria (principal); Z85.46 Personal history of malignant neoplasm of prostate; Z90.79 Acquired absence of other genital organ(s); N32.89 Other specified disorders of bladder; Z87.440 Personal history of urinary (tract) infections; N18.30 Chronic kidney disease, stage 3 unspecified; N39.42 Incontinence without sensory awareness; Z87.891 Personal history of nicotine dependence
CPT/HCPCS: 52005; 74420; Q9967